=== PATIENT | female | born 1960 | race Caucasian/White ===

== ENCOUNTER 2016-08-23 09:15 | Emergency (ER) | payer OTHER ==
[2016-08-23 09:24] VITALS: BP 145/80; BMI 30.2
[2016-08-23] MEDS ORDERED: HYDROGEN PEROXIDE 3% ONE (09:41)
--- NOTE | 2016-08-23 09:59 | DR.GENAD ---
HPI - PCP Primary Care Physician: last [facility] in [place] - HPI Comment HPI Comment: NO LOC. DIFFICULTY BEARING WEIGHT. - Complaint/Symptoms Chief Complaint Doctors Comments: FELL THIS AM AND INJURED BOTH KNEES ON HER WAY TO WORK. Chief Complaint:: patient stated she fell on her way to work and landed on both knees. 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 - Family History History of Family Medical Conditions: Yes Family Medical History: Cancer - Social History Does patient currently use any type of tobacco product: Yes Have you used tobacco products in the last 12 months: Yes Type of Tobacco Use: Cigarettes Does any household member use tobacco: Yes Alcohol Use: None Do you use any recreational Drugs:: No Lives With: Family Lives Where: Home - infectious screening In the last 2 months have you had wt loss of >10#?: NO Have you had fever, night sweats or hemotysis?: No Have you traveled outside the country in the last 6 months?: No Isolation: Standard ROS - Review of Systems Constitutional: No Symptoms Reported Eyes: No Symptoms Reported ENTM: No Symptoms Reported Respiratoy: No Symptoms Reported Cardiovascular: No Symptoms Reported Gastrointestinal/Abdominal: No Symptoms Reported Genitourinary: No Symptoms Reported Neurological: No Symptoms Reported Musculoskeletal: Muscle Pain Integumentary: Other (ABRASION OVER BOTH KNEE CAP AREA. TD UTD) Hematologic/Lymphatic: Easy Bruising Endocrine: No Symptoms Reported, Other All Other Systems: Reviewed and Negative PE - Vital Signs Vitals: Temperature 98.6 F Pulse Rate 80 Respiratory Rate 16 Blood Pressure [Left Arm] 118/62 Blood Pressure [Right Arm] 131/65 Blood Pressure 145/80 O2 Sat by Pulse Oximetry 100 - General Limitations: No Limitations General Appearance: Alert - Head Head Exam: Normal Inspection - Eyes Eye exam: Normal Appearance - ENT ENT Exam: Normal External Ear Exam External Ear Exam: Normal External Inspection TM/Canal Exam: Bilateral Normal Nose Exam: Normal Nose Exam Mouth Exam: Normal Inspection Throat Exam: Normal Inspection - Neck Neck Exam: Trachea Midline. negative: Tenderness, Meningismus, Lymphadenopathy - Chest Chest Inspection: Symmetric Chest Wall Rise - Respiratory Respiratory Exam: Normal Lung Sounds Bilat Respiratory Exam: Bilateral Clear to Auscultation - Cardiovascular Cardiovascular Exam: Regular Rate, Normal Rhythm, Normal Heart Sounds - Abdominal Exam Abdominal Exam: Normal Inspection, Normal Bowel Sounds. negative: Tenderness - Extremities Extremities Exam: Tenderness (KNEES WITH ABRASIONS, LEFT GREATER THAN RIGHT.) - Back Back Exam: Normal Inspection - Neurologic Neurological Exam: Alert, Oriented X3 - Psychiatric Psychiatric Exam: Anxious - Skin Skin Exam: Erythema MDM - Additional Information Additional Information Obtained From: Family - Differential Diagnosis Differential Diagnosis: CONTUSION, ABRASIONS, SPRAIN, FRACTURE. Course - Treatment Treatment: SEE ORDERS. ABRASIONS CLEAN AND DRESSING APPLIED IN ED. - Education/Counseling Education/Counseling: Patient, Family, Education Educated On: Diagnosis, Needs for Follow Up ROR - XRAY XRAY Interpreted by: Radiologist XRAY Findings: REPORT DISCUSS WITH PATIENT AND HER SON. - Diagnosis Discharge Problem: Sprain of both knees, Abrasion of knee, bilateral, Contracture, right knee Knee contusion Qualifiers: Encounter type: initial encounter Laterality: left Qualified Code(s): S80.02XA - Contusion of left knee, initial encounter - Discharge Plan Disposition: HOME, SELF-CARE Condition: Stable Prescriptions: Acetaminophen/Codeine Tab [TYLENOL w/CODEINE #3 (300 MG/30 MG) *] 1 tab PO Q8H PRN #12 tab PRN Reason: Pain Ibuprofen [MOTRIN TAB 600 MG *] 600 mg PO TID PRN #60 tab PRN Reason: Pain/Inflammation - Follow ups/Referrals Follow ups/Referrals: NFD,None [Primary Care Provider] - 08/25/16 CARINE CORRALES [STAFF PHYSICIAN] - 08/25/16 - Instructions Instructions: Abrasion, [id number], Knee Sprain Additional Instructions: return to ed if worse.
--- NOTE | 2016-08-23 10:27 | RAD ---
Three views of the right knee Indication: Right knee pain after fall Findings: No fracture dislocation within the right knee. No significant joint effusion. No localizin g soft tissue swelling. Patellofemoral and femorotibial joint spaces are maintained. Impression: No acute radiographic abnormality within the right knee. Reported By:
--- NOTE | 2016-08-23 10:27 | RAD ---
HISTORY: Injury, fall, laceration Study: Left knee three view Comparison: None Findings: No evidence for acute cortical disruption or dislocation. The medial and lateral tibiofemoral mariano rtments appear unremarkable without loss of significant joint space. The lateral radiograph fails t o demonstrate significant joint effusion. Patellofemoral compartment is normal in its appearance. IMPRESSION: 1. Negative exam. Reported By:
[2016-08-23] MEDS ORDERED: NEOSPORIN OINT ONE (11:42)
== END 2016-08-23 11:57 | disposition home or self-care (01) ==
LOC: ER 09:31
DX: S83.92XA Sprain of unspecified site of left knee, initial encounter (principal); S80.02XA Contusion of left knee, initial encounter; S80.211A Abrasion, right knee, initial encounter; S80.212A Abrasion, left knee, initial encounter; M24.561 Contracture, right knee; W19.XXXA Unspecified fall, initial encounter; Y92.89 Other specified places as the place of occurrence of the external cause
CPT/HCPCS: 73564; 99282; 99283

== ENCOUNTER 2017-02-02 16:57 | Emergency (ER) | payer SELFPAY ==
--- NOTE | 2017-02-02 17:37 | DR.GENAD ---
HPI - PCP Primary Care Physician: NFD - HPI Comment HPI Comment: WORSE TODAY. NO FEVER. - Complaint/Symptoms Chief Complaint Doctors Comments: COULF, CONGESTION, ABDOMINAL PAIN, BODYACHES AND HEADACHE TIMES ONE DAY. Chief Complaint:: PT C/O N/V/D, HEADACHE, AND BODY ACHES. PT ALSO STATES SHE HAS BEEN HAVING CHEST PAIN WHEN SHE COUGHS. 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 negative: Chills, Fever Eyes: negative: Eye Pain, Discharge ENTM: Nose Discharge, Nose Congestion, Throat Pain. negative: Ear Pain Respiratoy: Productive Cough, Short of Breath. negative: Wheezing, Hemoptysis Gastrointestinal/Abdominal: Abdominal Pain, Nausea. negative: Diarrhea, Vomiting Genitourinary: negative: Dysuria, Frequency, Hematuria Neurological: Headache, Weakness, Dizziness Musculoskeletal: Muscle Pain Integumentary: No Symptoms Reported Hematologic/Lymphatic: No Symptoms Reported Endocrine: No Symptoms Reported All Other Systems: Reviewed and Negative PE - Vital Signs Vitals: Temperature 98.8 F Pulse Rate [Right Brachial] 87 Pulse Rate 90 Respiratory Rate 18 Blood Pressure [Left Arm] 118/62 Blood Pressure [Right Arm] 136/70 Blood Pressure 143/76 O2 Sat by Pulse Oximetry 99 - General Limitations: No Limitations General Appearance: Alert - Head Head Exam: Normal Inspection - Eyes Eye exam: Normal Appearance - ENT ENT Exam: Normal External Ear Exam External Ear Exam: Normal External Inspection TM/Canal Exam: Bilateral Normal Nose Exam: Normal Nose Exam Mouth Exam: Normal Inspection Throat Exam: Normal Inspection - Neck Neck Exam: Trachea Midline - Chest Chest Inspection: Symmetric Chest Wall Rise - Respiratory Respiratory Exam: Normal Lung Sounds Bilat Respiratory Exam: Bilateral Rhonchi, Lower Rhonchi - Cardiovascular Cardiovascular Exam: Regular Rate, Normal Rhythm, Normal Heart Sounds - Abdominal Exam Abdominal Exam: Normal Bowel Sounds, Soft, Tenderness Abdominal Tenderness: Diffuse, Moderate - Extremities Extremities Exam: Normal Inspection - Back Back Exam: Normal Inspection - Neurologic Neurological Exam: Alert, Oriented X3 - Psychiatric Psychiatric Exam: Normal Affect, Normal Mood - Skin Skin Exam: Normal Color MDM - Differential Diagnosis Differential Diagnosis: ABDOMINAL PAIN, BRONCHITIS, BOWEL OBST. GASTROENTERITIS Course - Treatment Treatment: SEE ORDERS. - Education/Counseling Education/Counseling: Patient, Education Educated On: Diagnosis, Needs for Follow Up ROR - Labs Reviewed Laboratory Results Reviewed?: Yes Result Diagrams: 02/02/17 18:00 02/02/17 18:00 Laboratory: WBC 7.4 X10^3/uL (3.6-10.0) 02/02/17 18:00 RBC 4.50 X10^6/uL (3.5-5.4) 02/02/17 18:00 Hgb 14.9 g/dL (12.0-16.0) 02/02/17 18:00 Hct 42.4 % (36.0-47.0) 02/02/17 18:00 MCV 94.2 fL (80.0-100.0) 02/02/17 18:00 MCH 33.0 pg (27.0-34.0) 02/02/17 18:00 MCHC 35.1 g/dL (33.0-35.0) H 02/02/17 18:00 RDW 13.8 % (11.6-16.5) 02/02/17 18:00 Plt Count 175 X10^3/uL (150.0-450.0) 02/02/17 18:00 MPV 8.4 fL (7.4-11.0) 02/02/17 18:00 Neut % 88.1 % (42.0-75.0) H 02/02/17 18:00 Lymph % 6.7 % (21.0-51.0) L 02/02/17 18:00 [place] % 3.9 % (0.0-13.0) 02/02/17 18:00 Eos % 1.0 % (0.9-2.9) 02/02/17 18:00 Baso % 0.3 % (0.2-1.0) 02/02/17 18:00 Neut # 6.6 x10^3/uL (2.2-4.8) H 02/02/17 18:00 Lymph # 0.5 X10^3/uL (1.3-2.9) L 02/02/17 18:00 [place] # 0.3 x10^3/uL (0.3-0.8) 02/02/17 18:00 Eos # 0.1 x10^3/uL (0.0-0.2) 02/02/17 18:00 Baso # 0.0 X10^3/uL (0.0-0.1) 02/02/17 18:00 Absolute Nucleated RBC 0.0 /100WBC 02/02/17 18:00 Sodium 134 mmol/L (136-145) L 02/02/17 18:00 Corrected Sodium 137 mmol/L (136-145) 02/02/17 18:00 Potassium 3.9 mmol/L (3.5-5.1) 02/02/17 18:00 Chloride 99 mmol/L (98-107) 02/02/17 18:00 Carbon Dioxide 27.7 mmol/L (21-32) 02/02/17 18:00 BUN 18 mg/dL (7-18) 02/02/17 18:00 Creatinine 0.84 mg/dL (0.55-1.02) 02/02/17 18:00 Est GFR (MDRD) Af Amer > 60 (>60) 02/02/17 18:00 Est GFR (MDRD) Non-Af > 60 (>60) 02/02/17 18:00 Glucose 215 mg/dL (65-99) H 02/02/17 18:00 Calcium 9.4 mg/dL (8.5-10.1) 02/02/17 18:00 Corrected Calcium TNP 02/02/17 18:00 Total Bilirubin 1.00 mg/dL (0.2-1.0) 02/02/17 18:00 AST 23 Units/L (15-37) 02/02/17 18:00 ALT 34 Units/L (12-78) 02/02/17 18:00 Alkaline Phosphatase 80 Units/L (46-116) 02/02/17 18:00 Total Protein 8.2 g/dL (6.4-8.2) 02/02/17 18:00 Albumin 4.5 g/dL (3.4-5.0) 02/02/17 18:00 Globulin 3.7 g/dL (2.5-4.5) 02/02/17 18:00 Albumin/Globulin Ratio 1.2 Ratio (1.1-2.1) 02/02/17 18:00 Specimen Type Clean catch urine 02/02/17 18:00 Urine Color Yellow (YELLOW) 02/02/17 18:00 Urine Appearance Hazy (CLEAR) 02/02/17 18:00 Urine pH 5.0 (5.0 - 8.0) 02/02/17 18:00 Ur Specific [place] 1.020 (1.000-1.030) 02/02/17 18:00 Urine Protein 2+ (NEGATIVE) 02/02/17 18:00 Urine Glucose (UA) 3+ (NEGATIVE) 02/02/17 18:00 Urine Ketones 1+ (NEGATIVE) 02/02/17 18:00 Urine Occult Blood Negative (NEGATIVE) 02/02/17 18:00 Urine Nitrite Negative (NEGATIVE) 02/02/17 18:00 Urine Bilirubin 1+ (NEGATIVE) 02/02/17 18:00 Urine Urobilinogen 1+ (NORMAL) 02/02/17 18:00 Ur Leukocyte Esterase 2+ (NEGATIVE) 02/02/17 18:00 Urine RBC Rare /HPF (NEGATIVE) 02/02/17 18:00 Urine WBC 03 - 06 /HPF (NEGATIVE) 02/02/17 18:00 Ur Squamous Epith Cells Many /HPF (NEGATIVE) 02/02/17 18:00 Ur Renal Epithelial Cell Rare /HPF (NEGATIVE) 02/02/17 18:00 Amorphous Sediment 2+ /HPF (NEGATIVE) 02/02/17 18:00 Urine Bacteria 1+ /HPF (NEGATIVE) 02/02/17 18:00 Urine Mucus Moderate /HPF (NEGATIVE) 02/02/17 18:00 Ur Culture Indicated? No/not indicated 02/02/17 18:00 - XRAY XRAY Interpreted by: Radiologist XRAY Findings: REPORT DISCUSS WITH PATIENT. - Diagnosis Discharge Problem: Gastroenteritis Acute bronchitis Qualifiers: Bronchitis organism: other organism Qualified Code(s): J20.8 - Acute bronchitis due to other specified organisms Abdominal pain Qualifiers: Abdominal location: generalized Qualified Code(s): R10.84 - Generalized abdominal pain - Discharge Plan Disposition: 01 HOME, SELF-CARE Condition: Stable Prescriptions: Acetaminophen with Codeine [Tylenol/Codeine #3 300-30 mg] 1 tab PO Q8H PRN #12 tab PRN Reason: Pain Ciprofloxacin HCl [CIPRO 500 MG TAB *] 500 mg PO Q12H #20 tab Diphenoxylate/Atropine [Lomotil] 1 tab PO TID PRN #15 tab PRN Reason: - Follow ups/Referrals Follow ups/Referrals: NFD,None [Primary Care Provider] - 3 days - Instructions Instructions: Viral Gastroenteritis, Adult, [id number]-[id number], Acute Bronchitis, Lipd-ia-[id number], Abdominal Pain, Adult, Mqnm-[id number] Additional Instructions: RETURN TO ED IF WORSE.
[2017-02-02 18:09] LABS: BILIRUBIN,URINE 1+ (NEGATIVE); BLOOD/HEMOGLOBIN,URINE NEGATIVE (NEGATIVE); GLUCOSE, URINE 3+ (NEGATIVE); KETONES,URINE 1+ (NEGATIVE); LEUKOCYTE ESTERASE ,URINE 2+ (NEGATIVE); NITRITES,URINE NEGATIVE (NEGATIVE); PROTEIN,URINE 2+ (NEGATIVE); UROBILINOGEN,URINE 1+ (NORMAL)
[2017-02-02 18:10] LABS: BASOPHILS % (AUTO) 0.3 % (0.2-1.0); EOSINOPHILS # (AUTO) 0.1 x10^3/uL (0.0-0.2); HEMATOCRIT 42.4 % (36.0-47.0); HEMOGLOBIN 14.9 g/dL (12.0-16.0); LYMPHOCYTES # (AUTO) 0.5 X10^3/uL (1.3-2.9); LYMPHOCYTES % (AUTO) 6.7 % (21.0-51.0); MEAN CORPUSCULAR HGB CONC 35.1 g/dL (33.0-35.0); MEAN CORPUSCULAR VOLUME 94.2 fL (80.0-100.0); MEAN PLATELET VOLUME 8.4 fL (7.4-11.0); MONOCYTES # (AUTO) 0.3 x10^3/uL (0.3-0.8); MONOCYTES % (AUTO) 3.9 % (0.0-13.0); NEUTROPHILS # (AUTO) 6.6 x10^3/uL (2.2-4.8); NEUTROPHILS % (AUTO) 88.1 % (42.0-75.0); PLATELET COUNT 175 X10^3/uL (150.0-450.0); RED CELL DISTRIBUTION WIDTH 13.8 % (11.6-16.5); WHITE BLOOD COUNT 7.4 X10^3/uL (3.6-10.0)
[2017-02-02 18:20] LABS: ALANINE AMINOTRANSFERASE 34 Units/L (12-78); ALBUMIN 4.5 g/dL (3.4-5.0); ALKALINE PHOSPHATASE 80 Units/L (46-116); ASPARTATE AMINO TRANSFERASE 23 Units/L (15-37); BLOOD UREA NITROGEN 18 mg/dL (7-18); CALCIUM 9.4 mg/dL (8.5-10.1); CARBON DIOXIDE 27.7 mmol/L (21-32); CHLORIDE 99 mmol/L (98-107); COR NA(FOR HYPERGLY) 137 mmol/L (136-145); CREATININE 0.84 mg/dL (0.55-1.02); SODIUM 134 mmol/L (136-145); TOTAL PROTEIN 8.2 g/dL (6.4-8.2); eGFR BLACK RACES > 60 (>60); eGFR NON BLACK RACES > 60 (>60)
[2017-02-02 18:25] LABS: AMORPHOUS SEDIMENT,UR 2+ /HPF (NEGATIVE); APPEARANCE,URINE HAZY (CLEAR); BACTERIA,URINE 1+ /HPF (NEGATIVE); COLOR,URINE YELLOW (YELLOW); MUCUS,URINE MODERATE /HPF (NEGATIVE); RBC,URINE RARE /HPF (NEGATIVE); RENAL EPITHELIAL CELLS,URINE RARE /HPF (NEGATIVE); SQUAMOUS EPITHELIAL CELL,UR MANY /HPF (NEGATIVE)
--- NOTE | 2017-02-02 19:01 | RAD ---
HISTORY: Chest and abdominal pain Study: Acute abdominal series Comparison: None Findings: The trachea is midline. The cardiac silhouette is unremarkable. The lungs are clear without focal i nfiltrate or effusion. There is mild dextroscoliosis of the thoracic spine and levoscoliosis of the lumbar spine.. Flat plate and upright evaluation of the abdomen demonstrates a prominent amount of fecal material in the colon. There are cholecystectomy clips.. No pathological soft tissue mass or calcification can be observed. IMPRESSION: 1. No acute cardiopulmonary disease. 2. No evidence for acute abdominal pathology identified. Reported By:
[2017-02-02] MEDS ORDERED: AMOXIL CAP 500 MG PO ONE (19:24)
[2017-02-02] MEDS ORDERED: TYLENOL #3 TAB (W/CODEINE) PO ONE ×2 (19:27→19:37)
[2017-02-02] MEDS ORDERED: LOMOTIL PO ONE (19:27)
[2017-02-02] MEDS ORDERED: CIPRO TAB 500 MG PO ONE ×2 (19:27→19:37)
[2017-02-02] MEDS ORDERED: LOMOTIL ONE (19:37)
[2017-02-02 19:47] VITALS: BP 136/70
== END 2017-02-02 19:48 | disposition home or self-care (01) ==
LOC: ER 17:12
DX: K52.89 Other specified noninfective gastroenteritis and colitis (principal); J20.8 Acute bronchitis due to other specified organisms; R10.84 Generalized abdominal pain
CPT/HCPCS: 36415; 74022; 80053; 81001; 85025; 99283

== ENCOUNTER 2017-05-27 16:19 | Emergency (ER) | payer SELFPAY ==
[2017-05-27 17:31] LABS: BILIRUBIN,URINE NEGATIVE (NEGATIVE); BLOOD/HEMOGLOBIN,URINE 4+ (NEGATIVE); GLUCOSE, URINE 4+ (NEGATIVE); KETONES,URINE NEGATIVE (NEGATIVE); LEUKOCYTE ESTERASE ,URINE 2+ (NEGATIVE); NITRITES,URINE NEGATIVE (NEGATIVE); PROTEIN,URINE 2+ (NEGATIVE); UROBILINOGEN,URINE 1+ (NORMAL)
--- NOTE | 2017-05-27 17:41 | DR.GENAD ---
HPI - PCP Primary Care Physician: NFD - Complaint/Symptoms Chief Complaint:: PT. C/O LOWER BACK PAIN, URINARY FREQUENCY, SORE THROAT, RIGHT FOOT PAIN AND SWELLING, COUGH, AND DIZZINESS. PT. HAS BEEN OUT OF HER ORAL DIABETIC MEDICATION SINCE SUNDAY. 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 - Family History History of Family Medical Conditions: Yes Family Medical History: Cancer - Social History Does patient currently use any type of tobacco product: No Have you used tobacco products in the last 12 months: No Type of Tobacco Use: None Does any household member use tobacco: No Alcohol Use: None Do you use any recreational Drugs:: No Lives With: Family Lives Where: Home - infectious screening In the last 2 months have you had wt loss of >10#?: NO Have you had fever, night sweats or hemotysis?: No Have you traveled outside the country in the last 6 months?: No Isolation: Standard PE - Vital Signs Vitals: Temperature 97.5 F Pulse Rate 86 Respiratory Rate 18 Blood Pressure [Left Arm] 118/62 Blood Pressure [Right Arm] 136/70 Blood Pressure 142/71 O2 Sat by Pulse Oximetry 97 ROR - Labs Reviewed Result Diagrams: 05/27/17 17:49 05/27/17 17:49 Laboratory: WBC 7.5 X10^3/uL (3.6-10.0) 05/27/17 17:49 RBC 4.11 X10^6/uL (3.5-5.4) 05/27/17 17:49 Hgb 13.5 g/dL (12.0-16.0) 05/27/17 17:49 Hct 37.9 % (36.0-47.0) 05/27/17 17:49 MCV 92.4 fL (80.0-100.0) 05/27/17 17:49 MCH 32.8 pg (27.0-34.0) 05/27/17 17:49 MCHC 35.5 g/dL (33.0-35.0) H 05/27/17 17:49 RDW 13.9 % (11.6-16.5) 05/27/17 17:49 Plt Count 175 X10^3/uL (150.0-450.0) 05/27/17 17:49 MPV 8.4 fL (7.4-11.0) 05/27/17 17:49 Neut % 61.7 % (42.0-75.0) 05/27/17 17:49 Lymph % 29.0 % (21.0-51.0) 05/27/17 17:49 [place] % 6.1 % (0.0-13.0) 05/27/17 17:49 Eos % 2.4 % (0.9-2.9) 05/27/17 17:49 Baso % 0.8 % (0.2-1.0) 05/27/17 17:49 Neut # 4.6 x10^3/uL (2.2-4.8) 05/27/17 17:49 Lymph # 2.2 X10^3/uL (1.3-2.9) 05/27/17 17:49 [place] # 0.5 x10^3/uL (0.3-0.8) 05/27/17 17:49 Eos # 0.2 x10^3/uL (0.0-0.2) 05/27/17 17:49 Baso # 0.1 X10^3/uL (0.0-0.1) 05/27/17 17:49 Absolute Nucleated RBC 0.0 /100WBC 05/27/17 17:49 Sodium 138 mmol/L (136-145) 05/27/17 17:49 Corrected Sodium 141 mmol/L (136-145) 05/27/17 17:49 Potassium 4.4 mmol/L (3.5-5.1) 05/27/17 17:49 Chloride 100 mmol/L (98-107) 05/27/17 17:49 Carbon Dioxide 32.1 mmol/L (21-32) H 05/27/17 17:49 BUN 15 mg/dL (7-18) 05/27/17 17:49 Creatinine 0.81 mg/dL (0.55-1.02) 05/27/17 17:49 Est GFR (MDRD) Af Amer > 60 (>60) 05/27/17 17:49 Est GFR (MDRD) Non-Af > 60 (>60) 05/27/17 17:49 Glucose 244 mg/dL (65-99) H 05/27/17 17:49 Calcium 9.7 mg/dL (8.5-10.1) 05/27/17 17:49 Corrected Calcium TNP 05/27/17 17:49 Total Bilirubin 0.60 mg/dL (0.2-1.0) 05/27/17 17:49 AST 19 Units/L (15-37) 05/27/17 17:49 ALT 28 Units/L (12-78) 05/27/17 17:49 Alkaline Phosphatase 74 Units/L (46-116) 05/27/17 17:49 Total Protein 7.8 g/dL (6.4-8.2) 05/27/17 17:49 Albumin 4.3 g/dL (3.4-5.0) 05/27/17 17:49 Globulin 3.5 g/dL (2.5-4.5) 05/27/17 17:49 Albumin/Globulin Ratio 1.2 Ratio (1.1-2.1) 05/27/17 17:49 Specimen Type Clean catch urine 05/27/17 17:21 Urine Color Yellow (YELLOW) 05/27/17 17:21 Urine Appearance Cloudy (CLEAR) 05/27/17 17:21 Urine pH 5.0 (5.0 - 8.0) 05/27/17 17:21 Ur Specific [place] 1.025 (1.000-1.030) 05/27/17 17:21 Urine Protein 2+ (NEGATIVE) 05/27/17 17:21 Urine Glucose (UA) 4+ (NEGATIVE) 05/27/17 17:21 Urine Ketones Negative (NEGATIVE) 05/27/17 17:21 Urine Occult Blood 4+ (NEGATIVE) 05/27/17 17:21 Urine Nitrite Negative (NEGATIVE) 05/27/17 17:21 Urine Bilirubin Negative (NEGATIVE) 05/27/17 17:21 Urine Urobilinogen 1+ (NORMAL) 05/27/17 17:21 Ur Leukocyte Esterase 2+ (NEGATIVE) 05/27/17 17:21 Urine RBC 02 - 05 /HPF (NEGATIVE) 05/27/17 17:21 Urine WBC 03 - 06 /HPF (NEGATIVE) 05/27/17 17:21 Ur Squamous Epith Cells Many /HPF (NEGATIVE) 05/27/17 17:21 Amorphous Sediment 2+ /HPF (NEGATIVE) 05/27/17 17:21 Urine Bacteria Trace /HPF (NEGATIVE) 05/27/17 17:21 Hyaline Casts Rare /LPF (NEGATIVE) 05/27/17 17:21 Ur Culture Indicated? No/not indicated 05/27/17 17:21 Acetone, Semi-Quant Negative (NEGATIVE) 05/27/17 17:49 Influenza Type A (PCR) Negative (NEGATIVE) 05/27/17 17:47 Influenza Type B (PCR) Negative (NEGATIVE) 05/27/17 17:47 S. pyogenes (TEM-PCR) Not detected (NOT DETECT) 05/27/17 17:47 - Discharge Plan Condition: Stable Prescriptions: Ciprofloxacin HCl [CIPRO 500 MG TAB *] 500 mg PO Q12H #20 tab Ibuprofen [MOTRIN TAB 600 MG *] 600 mg PO TID PRN #20 tab PRN Reason: Pain/Inflammation Metformin HCl [GLUCOPHAGE 850 MG *] 850 mg PO BID #60 tab - Follow ups/Referrals Follow ups/Referrals: NFD,None [Primary Care Provider] - 3 days - Instructions Instructions: Hyperglycemia, Acute Bronchitis, [id number] Additional Instructions: RETURN TO ED IF WORSE.
[2017-05-27 17:54] LABS: AMORPHOUS SEDIMENT,UR 2+ /HPF (NEGATIVE); APPEARANCE,URINE CLOUDY (CLEAR); BACTERIA,URINE TRACE /HPF (NEGATIVE); COLOR,URINE YELLOW (YELLOW); HYALINE CASTS, URINE RARE /LPF (NEGATIVE); SQUAMOUS EPITHELIAL CELL,UR MANY /HPF (NEGATIVE)
[2017-05-27 17:58] LABS: BASOPHILS # (AUTO) 0.1 X10^3/uL (0.0-0.1); BASOPHILS % (AUTO) 0.8 % (0.2-1.0); EOSINOPHILS # (AUTO) 0.2 x10^3/uL (0.0-0.2); EOSINOPHILS % (AUTO) 2.4 % (0.9-2.9); HEMATOCRIT 37.9 % (36.0-47.0); HEMOGLOBIN 13.5 g/dL (12.0-16.0); LYMPHOCYTES # (AUTO) 2.2 X10^3/uL (1.3-2.9); MEAN CORPUSCULAR HEMOGLOBIN 32.8 pg (27.0-34.0); MEAN CORPUSCULAR HGB CONC 35.5 g/dL (33.0-35.0); MEAN CORPUSCULAR VOLUME 92.4 fL (80.0-100.0); MEAN PLATELET VOLUME 8.4 fL (7.4-11.0); MONOCYTES # (AUTO) 0.5 x10^3/uL (0.3-0.8); MONOCYTES % (AUTO) 6.1 % (0.0-13.0); NEUTROPHILS # (AUTO) 4.6 x10^3/uL (2.2-4.8); NEUTROPHILS % (AUTO) 61.7 % (42.0-75.0); PLATELET COUNT 175 X10^3/uL (150.0-450.0); RED BLOOD COUNT 4.11 X10^6/uL (3.5-5.4); RED CELL DISTRIBUTION WIDTH 13.9 % (11.6-16.5); WHITE BLOOD COUNT 7.5 X10^3/uL (3.6-10.0)
[2017-05-27 18:08] LABS: ALANINE AMINOTRANSFERASE 28 Units/L (12-78); ALBUMIN 4.3 g/dL (3.4-5.0); ALKALINE PHOSPHATASE 74 Units/L (46-116); ASPARTATE AMINO TRANSFERASE 19 Units/L (15-37); BLOOD UREA NITROGEN 15 mg/dL (7-18); CALCIUM 9.7 mg/dL (8.5-10.1); CARBON DIOXIDE 32.1 mmol/L (21-32); CHLORIDE 100 mmol/L (98-107); COR NA(FOR HYPERGLY) 141 mmol/L (136-145); CREATININE 0.81 mg/dL (0.55-1.02); SERUM ACETONE NEGATIVE (NEGATIVE); SODIUM 138 mmol/L (136-145); TOTAL PROTEIN 7.8 g/dL (6.4-8.2); eGFR BLACK RACES > 60 (>60); eGFR NON BLACK RACES > 60 (>60)
--- NOTE | 2017-05-27 18:24 | RAD ---
Examination: Portable AP chest History: Low back pain, sore throat, cough and dizzy Comparison reference 03/30/2013 Findings: Normal heart size with clear lungs and pleural spaces. Lower thoracic scoliosis. Impression: No acute chest findings. Reported By:
[2017-05-27] MEDS ORDERED: LEVAQUIN TAB 500 MG PO ONE (19:04)
[2017-05-27] MEDS ORDERED: TORADOL TAB PO ONE ×2 (19:04→19:14)
[2017-05-27] MEDS ORDERED: GLUCOPHAGE PO ONE (19:12)
[2017-05-27] MEDS ORDERED: LEVAQUIN TAB 500 MG ONE (19:14)
[2017-05-27] MEDS ORDERED: GLUCOPHAGE ONE (19:16)
[2017-05-27 20:48] VITALS: BP 175/84
== END 2017-05-27 20:35 | disposition home or self-care (01) ==
LOC: ER 16:32
DX: R73.9 Hyperglycemia, unspecified (principal); J20.9 Acute bronchitis, unspecified
CPT/HCPCS: 36415; 71045; 80053; 81001; 82009; 85025; 87502; 87651; 99282; 99283

== ENCOUNTER 2017-08-13 08:36 | Emergency (ER) | payer SELFPAY ==
[2017-08-13 08:44] VITALS: BP 153/77; BMI 30.1
--- NOTE | 2017-08-13 09:12 | DR.GENAD ---
HPI - PCP Primary Care Physician: DR. CORRALES - HPI Comment HPI Comment: WORSE TODAY. - Complaint/Symptoms Chief Complaint Doctors Comments: PAIN AND SWELLING RT RING FEVER TIMES 2 DAYS. 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, 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 - Family History History of Family Medical Conditions: Yes Family Medical History: Cancer - Social History Does patient currently use any type of tobacco product: No Have you used tobacco products in the last 12 months: No Type of Tobacco Use: None Does any household member use tobacco: No Do you use any recreational Drugs:: No Lives With: Family Lives Where: Home - infectious screening In the last 2 months have you had wt loss of >10#?: NO Have you had fever, night sweats or hemotysis?: No Have you traveled outside the country in the last 6 months?: No Isolation: Standard ROS - Review of Systems Constitutional: No Symptoms Reported. negative: Fever Eyes: No Symptoms Reported ENTM: No Symptoms Reported Respiratoy: No Symptoms Reported Cardiovascular: No Symptoms Reported Gastrointestinal/Abdominal: No Symptoms Reported Genitourinary: No Symptoms Reported Neurological: No Symptoms Reported Musculoskeletal: Right, Hand Integumentary: Change in Color, Other (REDNESS AND SWELLING RT RING FINGER.) Hematologic/Lymphatic: No Symptoms Reported Endocrine: No Symptoms Reported PE - Vital Signs Vitals: Temperature 97.6 F Pulse Rate 84 Respiratory Rate 20 Blood Pressure [Left Arm] 118/62 Blood Pressure [Right Arm] 175/84 Blood Pressure 153/77 O2 Sat by Pulse Oximetry 98 - General Limitations: No Limitations General Appearance: Alert - Head Head Exam: Normal Inspection - Eyes Eye exam: Normal Appearance - ENT ENT Exam: Normal External Ear Exam External Ear Exam: Normal External Inspection Throat Exam: Normal Inspection - Neck Neck Exam: Trachea Midline - Chest Chest Inspection: Symmetric Chest Wall Rise - Respiratory Respiratory Exam: Normal Lung Sounds Bilat Respiratory Exam: Bilateral Clear to Auscultation - Cardiovascular Cardiovascular Exam: Regular Rate, Normal Rhythm, Normal Heart Sounds - Abdominal Exam Abdominal Exam: Normal Inspection - Extremities Extremities Exam: Tenderness (RT RING FINGER SWOLLEN AND RED. SONU WITH PAIN.) - Neurologic Neurological Exam: Alert, Oriented X3 - Psychiatric Psychiatric Exam: Normal Affect, Normal Mood - Skin Skin Exam: Erythema MDM - Differential Diagnosis Differential Diagnosis: FINGER INFECTION RT RING FINGER. Course - Treatment Treatment: SEE ODERS. - Education/Counseling Education/Counseling: Patient, Education Educated On: Diagnosis, Needs for Follow Up - Diagnosis Discharge Problem: Finger infection - Discharge Plan Condition: Stable Prescriptions: Ibuprofen [MOTRIN TAB 600 MG *] 600 mg PO TID PRN #30 tab PRN Reason: Pain/Inflammation Sulfamethoxazole-Trimethoprim [BACTRIM DS TAB 800/160 MG *] 1 tab PO BID #20 tab - Follow ups/Referrals Follow ups/Referrals: CARINE CORRALES [Primary Care Provider] - 2 days - Instructions Instructions: Cellulitis, Adult, [id number], Fingertip Infection Additional Instructions: RETURN TO ED IF WORSE.
== END 2017-08-13 09:22 | disposition home or self-care (01) ==
LOC: ER 08:52
DX: L08.9 Local infection of the skin and subcutaneous tissue, unspecified (principal)
CPT/HCPCS: 99281; 99282

== ENCOUNTER 2017-08-22 22:41 | Emergency (ER) | payer SELFPAY ==
[2017-08-22 22:48] VITALS: BP 139/75; BMI 29.8
--- NOTE | 2017-08-22 23:58 | DR.EXTPAIN ---
HPI - Time seen Time seen: 23:55 - PCP Primary Care Physician: NFD - Complaint/Symptoms Chief Complaint:: RIGHT RING FINGER SWOLLEN,RED BUSTING OPEN. PT CAME TO ER LAST WEEK ON 08/13/[address] DE SOUZA. WAS TOLD IT WAS CELLULITIS, GIVEN SULFAMETHOXAZOLE ONE TAB BID.PT STATES I HAVE BEEN PUTTING BLACK MERLINE ON FINGER WITH BANDAID DURING THE DAY TIME. 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 - Family History History of Family Medical Conditions: Yes Family Medical History: Cancer - Social History Does any household member use tobacco: Yes Do you use any recreational Drugs:: No Lives With: Family Lives Where: Home - infectious screening In the last 2 months have you had wt loss of >10#?: NO Have you had fever, night sweats or hemotysis?: No Have you traveled outside the country in the last 6 months?: No Isolation: Standard ROS - Review of Systems Eyes: No Symptoms Reported ENTM: No Symptoms Reported Respiratoy: No Symptoms Reported Cardiovascular: No Symptoms Reported Gastrointestinal/Abdominal: No Symptoms Reported Genitourinary: No Symptoms Reported Neurological: No Symptoms Reported Musculoskeletal: No Symptoms Reported Integumentary: No Symptoms Reported Hematologic/Lymphatic: No Symptoms Reported Endocrine: No Symptoms Reported Psychiatric: No Symptoms Reported All Other Systems: Reviewed and Negative PE - Vital Signs Vitals: Temperature 97.9 F Pulse Rate 77 Respiratory Rate 22 Blood Pressure [Left Arm] 118/62 Blood Pressure [Right Arm] 175/84 Blood Pressure 139/75 O2 Sat by Pulse Oximetry 98 - General General Appearance: Alert, In No Apparent Distress - Head Head Exam: Normal Inspection, Atraumatic - Eyes Eye exam: Normal Appearance, PERRL, EOMI - ENT ENT Exam: Normal Exam - Neck Neck Exam: Normal Inspection, Full ROM - Chest Chest Inspection: Normal Inspection - Cardiovascular Cardiovascular Exam: Regular Rate, Normal Rhythm - Abdominal Exam Abdominal Exam: Normal Inspection Abdominal Tenderness: negative: RUQ, RLQ, LUQ, LLQ, Epigastrium, Suprapubic, Diffuse, Mild, Moderate, Severe, Other - Extremities Extremities Exam: Normal Inspection, Full ROM - Upper Extremities Shoulder Exam: Normal Inspection, Full ROM Arm Exam: Normal Inspection, Full ROM Elbow Exam: Normal Inspection, Full ROM Forearm Exam: Normal Inspection, Full ROM Hand Exam: Normal Inspection Neuromotor Exam: Normal Exam Neurosensory Exam: Normal Exam Hand Tendon Exam: Flexor Digitorium Profundus (Location) Upper Ext. Vascular Exam: Capillary Refill - Lower Extremities Hip/Pelvis Exam: Normal Inspection, Full ROM Upper Leg Exam: Normal Inspection Knee Exam: Normal Inspection Lower Leg Exam: Normal Inspection, Full ROM Ankle Exam: Normal Inspection Foot/Toe Exam: Normal Inspection Neurovascular/Tendon Exam: Normal Capillary Refill Gait Exam: Observed and Normal - Back Back Exam: Normal Inspection, Full ROM - Neurological Neurological Exam: Alert, Oriented X3, CN II-XII Intact - Psychiatric Psychiatric Exam: Normal Affect, Normal Mood - Skin Skin Exam: Warm, Dry, Erythema (4th digit of right, erythematous, edematous w/o warmth ) Type of Lesion: Rash ROR - Labs Reviewed Result Diagrams: 08/23/17 00:22 Laboratory: WBC 6.8 X10^3/uL (3.6-10.0) 08/23/17 00:22 RBC 3.95 X10^6/uL (3.5-5.4) 08/23/17 00:22 Hgb 12.8 g/dL (12.0-16.0) 08/23/17 00:22 Hct 36.6 % (36.0-47.0) 08/23/17 00:22 MCV 92.8 fL (80.0-100.0) 08/23/17 00:22 MCH 32.5 pg (27.0-34.0) 08/23/17 00:22 MCHC 35.0 g/dL (33.0-35.0) 08/23/17 00:22 RDW 13.2 % (11.6-16.5) 08/23/17 00:22 Plt Count 199 X10^3/uL (150.0-450.0) 08/23/17 00:22 MPV 8.9 fL (7.4-11.0) 08/23/17 00:22 Neut % (Auto) 56.2 % (42.0-75.0) 08/23/17 00:22 Lymph % (Auto) 31.1 % (21.0-51.0) 08/23/17 00:22 [place] % (Auto) 8.7 % (0.0-13.0) 08/23/17 00:22 Eos % (Auto) 3.3 % (0.9-2.9) H 08/23/17 00:22 Baso % (Auto) 0.7 % (0.2-1.0) 08/23/17 00:22 Neut # (Auto) 3.8 x10^3/uL (2.2-4.8) 08/23/17 00:22 Lymph # (Auto) 2.1 X10^3/uL (1.3-2.9) 08/23/17 00:22 [place] # (Auto) 0.6 x10^3/uL (0.3-0.8) 08/23/17 00:22 Eos # (Auto) 0.2 x10^3/uL (0.0-0.2) 08/23/17 00:22 Baso # (Auto) 0.0 X10^3/uL (0.0-0.1) 08/23/17 00: Absolute Nucleated RBC 0.0 /100WBC 08/23/17 00:22 C-Reactive Protein 4.80 mg/L (0-3.0) H 08/23/17 00:22 - Diagnosis Discharge Problem: Cellulitis of finger of right hand - Discharge Plan Condition: Stable - Follow ups/Referrals Follow ups/Referrals: NFD,None [Primary Care Provider] - 3 days - Instructions
[2017-08-22] MEDS ORDERED: CLEOCIN 300 MG IV PREMIX 300 MG/50 ML BAG IV ONE (23:59)
[2017-08-22] MEDS ORDERED: CLEOCIN 600 MG IV PREMIX 600 MG/50 ML BAG IV ONE (23:59)
[2017-08-23] MEDS ORDERED: CLEOCIN VIAL 600 MG ONE (00:01)
[2017-08-23] MEDS ORDERED: CLEOCIN 300 MG IV PREMIX 300 MG/50 ML BAG IV ONE (00:01)
[2017-08-23] MEDS ORDERED: NS 1000 ML 1,000 ML ONE (00:02)
[2017-08-23 00:44] LABS: BASOPHILS % (AUTO) 0.7 % (0.2-1.0); EOSINOPHILS # (AUTO) 0.2 x10^3/uL (0.0-0.2); EOSINOPHILS % (AUTO) 3.3 % (0.9-2.9); HEMATOCRIT 36.6 % (36.0-47.0); HEMOGLOBIN 12.8 g/dL (12.0-16.0); LYMPHOCYTES # (AUTO) 2.1 X10^3/uL (1.3-2.9); LYMPHOCYTES % (AUTO) 31.1 % (21.0-51.0); MEAN CORPUSCULAR HEMOGLOBIN 32.5 pg (27.0-34.0); MEAN CORPUSCULAR VOLUME 92.8 fL (80.0-100.0); MEAN PLATELET VOLUME 8.9 fL (7.4-11.0); MONOCYTES # (AUTO) 0.6 x10^3/uL (0.3-0.8); MONOCYTES % (AUTO) 8.7 % (0.0-13.0); NEUTROPHILS # (AUTO) 3.8 x10^3/uL (2.2-4.8); NEUTROPHILS % (AUTO) 56.2 % (42.0-75.0); PLATELET COUNT 199 X10^3/uL (150.0-450.0); RED BLOOD COUNT 3.95 X10^6/uL (3.5-5.4); RED CELL DISTRIBUTION WIDTH 13.2 % (11.6-16.5); WHITE BLOOD COUNT 6.8 X10^3/uL (3.6-10.0)
== END 2017-08-23 01:52 | disposition home or self-care (01) ==
LOC: ER 22:41
DX: L03.011 Cellulitis of right finger (principal)
CPT/HCPCS: 36415; 85025; 86140; 96365; 96374; 99282; 99283; A4222; S0077

== ENCOUNTER 2018-02-04 06:44 | Inpatient (IN) ==
[2018-02-04 06:52] VITALS: BMI 27.4
[2018-02-04] MEDS ORDERED: ZOFRAN INJ 4 MG VIAL IVP ONE ×2 (07:19)
[2018-02-04] MEDS ORDERED: TORADOL 30 MG VIAL IVP ONE (07:19)
[2018-02-04] MEDS ORDERED: NS 1000 ML 1,000 ML IV ONE ×2 (07:19→08:48)
[2018-02-04] MEDS ORDERED: NS 1000 ML 1,000 ML ONE ×2 (07:23→08:48)
[2018-02-04] MEDS ORDERED: TORADOL 30 MG VIAL ONE (07:23)
[2018-02-04] MEDS ORDERED: ZOFRAN INJ 4 MG VIAL ONE (07:23)
--- NOTE | 2018-02-04 07:24 | DR.GENAD ---
HPI Time Seen Time Seen by Provider: 02/04/18 07:14 PCP Primary Care Physician: SONIDO HPI Comment HPI Comment: PATIENT IS DIZZY AND WEAK. NO FEVER OR DYSURIA. KNOWN DIABETIC ON ORAL HYPOGLYCEMIC. PATIENT IS NAUSEATED BUT NOT VOMITING. Complaint/Symptoms Chief Complaint Doctors Comments: BODYACHES, GENERALIZE WEAKNESS, HEADACHE AND FATIGUE. FEEL SHE IS DEHYDRATED. Chief Complaint:: PT. C/O GENERALIZED BODY PAIN, CHEST PAIN, HEADACHE & DEHYDRATION. Nurses notes reviewed Nurses Notes Review: Yes Source History Provided: Patient Mode of Arrival Mode of Arrival: Ambulatory Timing Onset of Chief Complaint: 02/01/18 Came on: Suddenly Duration Duration: Constant Duration: Days Severity Severity: Moderate Modifying Factors Worsens:: NONE. Improves:: NONE. Associated Signs and Symptoms Associated Signs and Symptoms: WEAKNESS, BODYACHES, DIZZINESS. 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 Family History History of Family Medical Conditions: Yes Family Medical History: Cancer Social History Does patient currently use any type of tobacco product: No Have you used tobacco products in the last 12 months: No Type of Tobacco Use: None Does any household member use tobacco: No Alcohol Use: None Do you use any recreational Drugs:: No Lives With: Alone Lives Where: Home infectious screening In the last 2 months have you had wt loss of >10#?: NO Have you had fever, night sweats or hemotysis?: No Have you traveled outside the country in the last 6 months?: No Isolation: Standard ROS Review of Systems Constitutional: Weakness and Fatigue Eyes: No Symptoms Reported ENTM: No Symptoms Reported Respiratoy: No Symptoms Reported Cardiovascular: No Symptoms Reported Gastrointestinal/Abdominal: Abdominal Pain Genitourinary: No Symptoms Reported Neurological: Headache and Weakness Musculoskeletal: Muscle Pain Integumentary: Dryness Hematologic/Lymphatic: No Symptoms Reported Endocrine: Increased Thirst and Increased Urine Psychiatric: No Symptoms Reported All Other Systems: Reviewed and Negative PE Vital Signs Vitals: Temperature 97.9 F Pulse Rate 89 Respiratory Rate 18 Blood Pressure [Left Arm] 118/62 Blood Pressure [Right Arm] 175/84 Blood Pressure 115/58 O2 Sat by Pulse Oximetry 96 General Limitations: No Limitations General Appearance: Alert and In Distress Head Head Exam: Normal Inspection and Atraumatic Eyes Eye exam: Normal Appearance, PERRL and EOMI; negative Scleral Icterus and Conjunctival Injection ENT ENT Exam: Normal Exam, Normal Oropharynx, Normal External Ear Exam, Mucous Membranes Dry and TM's Normal Bilaterally External Ear Exam: Normal External Inspection TM/Canal Exam: Bilateral: Normal Nose Exam: Normal Nose Exam Mouth Exam: Normal Inspection Throat Exam: Normal Inspection Neck Neck Exam: Normal Inspection and Trachea Midline; negative Tenderness, Meningismus and Lymphadenopathy Chest Chest Inspection: Symmetric Chest Wall Rise Respiratory Respiratory Exam: Normal Lung Sounds Bilat Respiratory Exam: Bilateral: Clear to Auscultation Cardiovascular Cardiovascular Exam: Regular Rate and Normal Rhythm Abdominal Exam Abdominal Exam: Normal Inspection, Normal Bowel Sounds and Soft; negative Tenderness Extremities Extremities Exam: Normal Inspection and Other (WALK WITH CANE.) Back Back Exam: Normal Inspection and Other Neurologic Neurological Exam: Alert, Oriented X3 and CN II-XII Intact; negative Motor Sensory Deficit Skin Skin Exam: Dry MDM Differential Diagnosis Differential Diagnosis: DEHYDRATION, HYPERGLYCEMIA, MYALGIA, DKA COURSE Treatment Treatment: SEE ORDERS. Education/Counseling Education/Counseling: Patient Educated On: Diagnosis and Needs for Follow Up ROR Labs Reviewed Laboratory Results Reviewed?: Yes Result Diagrams: 02/04/18 07:30 02/04/18 07:30 Laboratory: WBC 8.9 X10^3/uL (3.6-10.0) 02/04/18 07:30 RBC 3.96 X10^6/uL (3.5-5.4) 02/04/18 07:30 Hgb 12.8 g/dL (12.0-16.0) 02/04/18 07:30 Hct 37.0 % (36.0-47.0) 02/04/18 07:30 MCV 93.5 fL (80.0-100.0) 02/04/18 07:30 MCH 32.4 pg (27.0-34.0) 02/04/18 07:30 MCHC 34.7 g/dL (33.0-35.0) 02/04/18 07:30 RDW 13.2 % (11.6-16.5) 02/04/18 07:30 Plt Count 107 X10^3/uL (150.0-450.0) L 02/04/18 07:30 MPV 10.1 fL (7.4-11.0) 02/04/18 07:30 Neut % (Auto) 88.1 % (42.0-75.0) H 02/04/18 07:30 Lymph % (Auto) 4.8 % (21.0-51.0) L 02/04/18 07:30 [place] % (Auto) 6.8 % (0.0-13.0) 02/04/18 07:30 Eos % (Auto) 0.0 % (0.9-2.9) L 02/04/18 07:30 Baso % (Auto) 0.3 % (0.2-1.0) 02/04/18 07:30 Neut # (Auto) 7.9 x10^3/uL (2.2-4.8) H 02/04/18 07:30 Lymph # (Auto) 0.4 X10^3/uL (1.3-2.9) L 02/04/18 07:30 [place] # (Auto) 0.6 x10^3/uL (0.3-0.8) 02/04/18 07:30 Eos # (Auto) 0.0 x10^3/uL (0.0-0.2) 02/04/18 07:30 Baso # (Auto) 0.0 X10^3/uL (0.0-0.1) 02/04/18 07:30 Absolute Nucleated RBC 0.0 /100WBC 02/04/18 07:30 Sodium 127 mmol/L (136-145) L 02/04/18 07:30 Corrected Sodium 139 mmol/L (136-145) 02/04/18 07:30 Potassium 3.7 mmol/L (3.5-5.1) 02/04/18 07:30 Chloride 90 mmol/L (98-107) L 02/04/18 07:30 Carbon Dioxide 24.0 mmol/L (21-32) 02/04/18 07:30 BUN 10 mg/dL (7-18) 02/04/18 07:30 Creatinine 1.05 mg/dL (0.55-1.02) H 02/04/18 07:30 Est GFR (MDRD) Af Amer > 60 (>60) 02/04/18 07:30 Est GFR (MDRD) Non-Af 57 (>60) L 02/04/18 07:30 Glucose 613 mg/dL (65-99) H* 02/04/18 07:30 Calcium 9.0 mg/dL (8.5-10.1) 02/04/18 07:30 Corrected Calcium TNP 02/04/18 07:30 Total Bilirubin 0.70 mg/dL (0.2-1.0) 02/04/18 07:30 AST 15 Units/L (15-37) 02/04/18 07:30 ALT 24 Units/L (12-78) 02/04/18 07:30 Alkaline Phosphatase 85 Units/L (46-116) 02/04/18 07:30 Total Protein 7.1 g/dL (6.4-8.2) 02/04/18 07:30 Albumin 3.4 g/dL (3.4-5.0) 02/04/18 07:30 Globulin 3.7 g/dL (2.5-4.5) 02/04/18 07:30 Albumin/Globulin Ratio 0.9 Ratio (1.1-2.1) L 02/04/18 07:30 Specimen Type Clean catch urine 02/04/18 07:42 Urine Color Yellow (YELLOW) 02/04/18 07:42 Urine Appearance Clear (CLEAR) 02/04/18 07:42 Urine pH 5.0 (5.0 - 8.0) 02/04/18 07:42 Ur Specific [place] 1.005 (1.000-1.030) 02/04/18 07:42 Urine Protein 1+ (NEGATIVE) 02/04/18 07:42 Urine Glucose (UA) 4+ (NEGATIVE) 02/04/18 07:42 Urine Ketones 1+ (NEGATIVE) 02/04/18 07:42 Urine Occult Blood 1+ (NEGATIVE) 02/04/18 07:42 Urine Nitrite Negative (NEGATIVE) 02/04/18 07:42 Urine Bilirubin Negative (NEGATIVE) 02/04/18 07:42 Urine Urobilinogen Normal (NORMAL) 02/04/18 07:42 Ur Leukocyte Esterase Negative (NEGATIVE) 02/04/18 07:42 Urine RBC 3-5 /HPF (NONE SEEN) 02/04/18 07:42 Urine WBC 0-2 /HPF (NONE SEEN) 02/04/18 07:42 Ur Squamous Epith Cells Few /HPF (NEGATIVE) 02/04/18 07:42 Urine Bacteria Trace /HPF (NEGATIVE) 02/04/18 07:42 Urine Yeast Rare /HPF (NEGATIVE) 02/04/18 07:42 Ur Culture Indicated? No/not indicated 02/04/18 07:42 Acetone, Semi-Quant Small (NEGATIVE) H 02/04/18 07:30 Influenza Type A (PCR) Negative (NEGATIVE) 02/04/18 07:22 Influenza Type B (PCR) Negative (NEGATIVE) 02/04/18 07:22 Diagnosis Discharge Problem: Hyperglycemia, Dehydration, Generalized weakness, Myalgia
[2018-02-04 07:45] LABS: BASOPHILS % (AUTO) 0.3 % (0.2-1.0); HEMOGLOBIN 12.8 g/dL (12.0-16.0); LYMPHOCYTES # (AUTO) 0.4 X10^3/uL (1.3-2.9); LYMPHOCYTES % (AUTO) 4.8 % (21.0-51.0); MEAN CORPUSCULAR HEMOGLOBIN 32.4 pg (27.0-34.0); MEAN CORPUSCULAR HGB CONC 34.7 g/dL (33.0-35.0); MEAN CORPUSCULAR VOLUME 93.5 fL (80.0-100.0); MEAN PLATELET VOLUME 10.1 fL (7.4-11.0); MONOCYTES # (AUTO) 0.6 x10^3/uL (0.3-0.8); MONOCYTES % (AUTO) 6.8 % (0.0-13.0); NEUTROPHILS # (AUTO) 7.9 x10^3/uL (2.2-4.8); NEUTROPHILS % (AUTO) 88.1 % (42.0-75.0); PLATELET COUNT 107 X10^3/uL (150.0-450.0); RED BLOOD COUNT 3.96 X10^6/uL (3.5-5.4); RED CELL DISTRIBUTION WIDTH 13.2 % (11.6-16.5); WHITE BLOOD COUNT 8.9 X10^3/uL (3.6-10.0)
[2018-02-04 07:55] LABS: BLOOD UREA NITROGEN 10 mg/dL (7-18); CHLORIDE 90 mmol/L (98-107); CREATININE 1.05 mg/dL (0.55-1.02); SODIUM 127 mmol/L (136-145); eGFR NON BLACK RACES 57 (>60)
[2018-02-04 07:56] LABS: BILIRUBIN,URINE NEGATIVE (NEGATIVE); BLOOD/HEMOGLOBIN,URINE 1+ (NEGATIVE); GLUCOSE, URINE 4+ (NEGATIVE); KETONES,URINE 1+ (NEGATIVE); LEUKOCYTE ESTERASE ,URINE NEGATIVE (NEGATIVE); NITRITES,URINE NEGATIVE (NEGATIVE); PROTEIN,URINE 1+ (NEGATIVE); UROBILINOGEN,URINE NORMAL (NORMAL)
[2018-02-04 07:58] LABS: ALANINE AMINOTRANSFERASE 24 Units/L (12-78); ALBUMIN 3.4 g/dL (3.4-5.0); ALKALINE PHOSPHATASE 85 Units/L (46-116); ASPARTATE AMINO TRANSFERASE 15 Units/L (15-37); TOTAL PROTEIN 7.1 g/dL (6.4-8.2)
[2018-02-04 07:59] LABS: COR NA(FOR HYPERGLY) 139 mmol/L (136-145)
[2018-02-04 08:08] LABS: APPEARANCE,URINE CLEAR (CLEAR); COLOR,URINE YELLOW (YELLOW)
[2018-02-04 08:09] LABS: BACTERIA,URINE TRACE /HPF (NEGATIVE); SQUAMOUS EPITHELIAL CELL,UR FEW /HPF (NEGATIVE); YEAST,URINE RARE /HPF (NEGATIVE)
[2018-02-04] MEDS ORDERED: HumuLIN R SUBCUT ONE (08:36)
[2018-02-04] MEDS ORDERED: HumuLIN R ONE (08:48)
[2018-02-04] MEDS: HumuLIN R SUBCUT PRN ×3 (11:52→21:30)
[2018-02-04] MEDS: NS 1000 ML 1,000 ML IV SCH ×3 (11:56→22:14)
--- NOTE | 2018-02-04 14:51 | RAD ---
Single portable view of the chest Indication: Generalized weakness Comparison: Chest radiograph from May 27, 2017. Findings/conclusion: There is cardiomegaly. The pulmonary vasculature is within normal limits. The nikhil ngs are clear. There is tortuosity to the aorta. Airway is midline. Reported By:
[2018-02-04] MEDS ORDERED: SNACK - Diabetic Appropriate PO SCH (20:00)
[2018-02-04] MEDS: TYLENOL 325 MG TAB PO PRN (21:33)
[2018-02-05] MEDS: TYLENOL 325 MG TAB PO PRN (01:45)
[2018-02-05] MEDS: ULTRAM PO PRN ×3 (03:40→22:04)
[2018-02-05 04:00] LABS: BASOPHILS % (AUTO) 0.5 % (0.2-1.0); EOSINOPHILS % (AUTO) 0.2 % (0.9-2.9); HEMATOCRIT 35.5 % (36.0-47.0); HEMOGLOBIN 12.6 g/dL (12.0-16.0); LYMPHOCYTES # (AUTO) 0.4 X10^3/uL (1.3-2.9); LYMPHOCYTES % (AUTO) 7.1 % (21.0-51.0); MEAN CORPUSCULAR HEMOGLOBIN 32.7 pg (27.0-34.0); MEAN CORPUSCULAR HGB CONC 35.4 g/dL (33.0-35.0); MEAN CORPUSCULAR VOLUME 92.4 fL (80.0-100.0); MEAN PLATELET VOLUME 9.2 fL (7.4-11.0); MONOCYTES # (AUTO) 0.4 x10^3/uL (0.3-0.8); MONOCYTES % (AUTO) 6.1 % (0.0-13.0); NEUTROPHILS # (AUTO) 5.2 x10^3/uL (2.2-4.8); NEUTROPHILS % (AUTO) 86.1 % (42.0-75.0); PLATELET COUNT 93 X10^3/uL (150.0-450.0); RED BLOOD COUNT 3.84 X10^6/uL (3.5-5.4); RED CELL DISTRIBUTION WIDTH 13.6 % (11.6-16.5)
[2018-02-05 04:28] LABS: ALANINE AMINOTRANSFERASE 27 Units/L (12-78); ALBUMIN 2.6 g/dL (3.4-5.0); ALKALINE PHOSPHATASE 78 Units/L (46-116); ASPARTATE AMINO TRANSFERASE 32 Units/L (15-37); BLOOD UREA NITROGEN 12 mg/dL (7-18); CALCIUM 8.1 mg/dL (8.5-10.1); CARBON DIOXIDE 22.1 mmol/L (21-32); CHLORIDE 100 mmol/L (98-107); CHOL/HDL RATIO 7.4 (0.0-5.0); CHOLESTEROL 104 mg/dL (0-200); COR CA(FOR HYPOALB) 9.2 mg/dL (8.5-10.1); COR NA(FOR HYPERGLY) 140 mmol/L (136-145); CREATININE 0.75 mg/dL (0.55-1.02); HDL CHOLESTEROL 14 mg/dL (40-60); MAGNESIUM 1.7 mg/dL (1.7-2.9); SODIUM 135 mmol/L (136-145); TOTAL PROTEIN 6.1 g/dL (6.4-8.2); TRIGLYCERIDES 135 mg/dL (0-150); eGFR NON BLACK RACES > 60 (>60)
[2018-02-05 04:37] LABS: CKMB % 2.5 % (<4); CREATINE KINASE 40 Units/L (26-192); CREATINE KINASE MB < 1.0 ng/mL (0-4.0); TROPONIN I < 0.02 ng/mL (0-1.5)
[2018-02-05] MEDS: NS 1000 ML 1,000 ML IV SCH ×3 (05:27→17:38)
[2018-02-05] MEDS: HumuLIN R SUBCUT PRN ×3 (06:13→17:34)
[2018-02-05] MEDS: ZOFRAN INJ 4 MG VIAL IVP PRN ×2 (11:55→17:38)
[2018-02-05] MEDS: LEVEMIR SC SCH ×2 (13:28→22:04)
--- NOTE | 2018-02-05 15:02 | DR.H&P ---
H&P - History & Physical for Day of: H&P Date: 02/04/18 - Chief Complaint Chief Complaint: WEAKNESS, BODY ACHES, CHEST PAIN, HEADACHE, NAUSEA - History of Present Illness History of Present Illness: IS A 58 YEAR OLD WHITE FEMALE WHO PRESENTED TO THE EMERGENCY ROOM WITH COMPLAINTS OF GENERALIZED WEAKNESS, BODY ACHES, CHEST PAIN, HEADACHE, NAUSEA, AND FATIGUE. PATIENT REPORTS THAT SHE FEELS IF SHE IS DEHYDRATED. SHE DENIES FEVER, DYSURIA, OR VOMITING. PATIENT HAS A PAST MEDICAL HISTORY OF DIABETES. ON ARRIVAL, VITALS WERE 97.9-89-18-96%-115/58. LABS WERE OBTAINED ABNORMAL LAB VALUES INCLUDE THE FOLLOWING: PLT COUNT 107, SODIUM 127, CHLORIDE 90, CREATINE 1.05, GLUCOSE 613. URINALYSIS REVEALED WBC 0- 2, RBC 3-5, BACTERIA TRACE, LEUKOCYTES NEGATIVE, OCCULT BLOOD 1+, GLUCOSE 4+, URINE ACETONES SMALL. A CHEST XRAY WAS OBTAINED AND REVEALED: There is cardiomegaly. The pulmonary vasculature is within normal limits. The lungs are clear. There is tortuosity to the aorta. Airway is midline. EKG REVEALED SINUS RHYTHM WITH HR 70. BLOOD CULTURES ARE PENDING. SHE WAS GIVEN A NORMAL SALINE BOLUS X 2, HUMULIN R 14 UNITS, TORADOL 30MG IV X 1, AND ZOFRAN 4MG IV X 1 IN THE ER WITH ONLY SLIGHT IMPOVEMENT IN SYMPTOMS. BLOOD GLUCOSE DECRASED TO 543. SHE WAS ADMITTED FOR FURTHER EVALUATION AND TREATMENT OF HYPERGLYCEMIA, DEHYDRATION, AND GENERALIZED WEAKNESS. SHE WAS STARTED ON NORMAL SALINE AT 125ML/HR, HUMULIN R SLIDING SCALE, AND ZOFRAN FOR NAUSEA. WE PLAN TO FOLLOW UP WITH AM LABS AND CONTINUE TO MONITOR PATIENT. 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, Tonsillectomy Additional Surgical History: Tubal ligation - Family History Family Medical History: Cancer - Social History Does patient currently use any type of tobacco product: No Have you used tobacco products in the last 12 months: No Type of Tobacco Use: None Does any household member use tobacco: No Alcohol Use: None Drug Use: None - Medications Home Medications: Penicillins Allergy (Verified 02/04/18 06:52) CONTINUE taking the following medications fluticasone [Flonase Allergy Relief] 1 spray INTRANASAL HS 02/04/18 [History] metformin 1,000 mg PO BID 02/04/18 [History] pioglitazone 45 mg PO DAILY 02/04/18 [History] - Review of Systems Constitutional: See HPI, Weakness, Malaise. denies: Fever Eyes: No Symptoms Reported ENT: No Symptoms Reported Respiratory: Dry Gastrointestinal: Nausea Genitourinary: No Symptoms Reported. denies: Dysuria Musculoskeletal: No Symptoms Reported Skin: No Symptoms Reported Neurological: Weakness - Physical Exam Vital Signs: Temperature 97.5 F Pulse Rate [Right Brachial] 84 Pulse Rate 89 Respiratory Rate 20 Blood Pressure [Left Arm] 120/72 Blood Pressure [Right Arm] 134/87 Blood Pressure 115/58 O2 Sat by Pulse Oximetry 99 Oriented: Normal Eyes: Normal Ear: Normal Nose: Normal Throat: Normal Respiratory: Diminished Throughout Cardiovascular: Normal. negative: S3, S4, Murmur : Normal Auscultation: Bowel Sounds: Normal Palpation: Normal Tenderness: Normal Musculoskeletal: Normal Psychiatric: Normal Mood Description: Calm Affect: Normal Speech Pattern: Clear - Assessment/Plan (1) Hyperglycemia Status: Acute Plan: ADMIT, NORMAL SALINE AT 125ML/HR, HUMULIN R SLIDING SCALE, CONTINUE TO MONITOR (2) Generalized weakness Status: Acute (3) Dehydration Status: Acute Plan: NORMAL SALINE AT 125ML/HR - Allergies Allergies/Adverse Reactions: Allergies Allergy/AdvReac Type Severity Reaction Status Date / Time Penicillins Allergy Verified 02/04/18 06:52
[2018-02-05] MEDS: SNACK - Diabetic Appropriate PO SCH (22:06)
[2018-02-06] MEDS: TYLENOL 325 MG TAB PO PRN ×2 (00:56→19:53)
[2018-02-06] MEDS: NORCO 5/325 MG TAB PO PRN ×3 (01:23→22:13)
[2018-02-06] MEDS: NS 1000 ML 1,000 ML IV SCH ×4 (03:17→19:52)
[2018-02-06 05:23] LABS: BASOPHILS % (AUTO) 0.3 % (0.2-1.0); EOSINOPHILS % (AUTO) 0.1 % (0.9-2.9); HEMATOCRIT 33.3 % (36.0-47.0); HEMOGLOBIN 11.7 g/dL (12.0-16.0); LYMPHOCYTES # (AUTO) 0.2 X10^3/uL (1.3-2.9); LYMPHOCYTES % (AUTO) 4.4 % (21.0-51.0); MEAN CORPUSCULAR HEMOGLOBIN 32.5 pg (27.0-34.0); MEAN CORPUSCULAR HGB CONC 35.2 g/dL (33.0-35.0); MEAN CORPUSCULAR VOLUME 92.2 fL (80.0-100.0); MEAN PLATELET VOLUME 9.4 fL (7.4-11.0); MONOCYTES # (AUTO) 0.4 x10^3/uL (0.3-0.8); MONOCYTES % (AUTO) 8.7 % (0.0-13.0); NEUTROPHILS # (AUTO) 3.7 x10^3/uL (2.2-4.8); NEUTROPHILS % (AUTO) 86.5 % (42.0-75.0); PLATELET COUNT 94 X10^3/uL (150.0-450.0); RED BLOOD COUNT 3.61 X10^6/uL (3.5-5.4); RED CELL DISTRIBUTION WIDTH 13.6 % (11.6-16.5); WHITE BLOOD COUNT 4.2 X10^3/uL (3.6-10.0)
[2018-02-06 05:31] LABS: ALANINE AMINOTRANSFERASE 35 Units/L (12-78); ALBUMIN 2.3 g/dL (3.4-5.0); ALKALINE PHOSPHATASE 89 Units/L (46-116); ASPARTATE AMINO TRANSFERASE 44 Units/L (15-37); BLOOD UREA NITROGEN 12 mg/dL (7-18); CALCIUM 7.8 mg/dL (8.5-10.1); CARBON DIOXIDE 20.3 mmol/L (21-32); CHLORIDE 99 mmol/L (98-107); COR CA(FOR HYPOALB) 9.2 mg/dL (8.5-10.1); COR NA(FOR HYPERGLY) 136 mmol/L (136-145); CREATININE 0.78 mg/dL (0.55-1.02); SODIUM 133 mmol/L (136-145); TOTAL PROTEIN 5.8 g/dL (6.4-8.2); eGFR NON BLACK RACES > 60 (>60)
[2018-02-06] MEDS: HumuLIN R SUBCUT PRN ×4 (05:47→20:09)
[2018-02-06] MEDS ORDERED: POTASSIUM CHL 40 MEQ/NS 0.45% 500 ML IV PRN (06:43)
[2018-02-06] MEDS ORDERED: POTASSIUM CHLORIDE LIQ 20 MEQ UDC PO PRN (06:43)
[2018-02-06] MEDS ORDERED: MICRO K EXTEN CAP 10 MEQ PO PRN (06:43)
[2018-02-06] MEDS ORDERED: K-RIDER 10 MEQ/NS 100 ML 10 MEQ/100 ML BAG IV PRN (06:43)
[2018-02-06] MEDS ORDERED: POTASSIUM CHL 60 MEQ/NS 0.45% 500 ML IV PRN (06:43)
[2018-02-06] MEDS ORDERED: KLOR-CON PO PRN (06:43)
[2018-02-06] MEDS: K-DUR TAB 20 MEQ PO PRN (07:36)
[2018-02-06] MEDS: LEVEMIR SC SCH ×2 (08:50→20:07)
[2018-02-06] MEDS: ULTRAM PO PRN ×2 (08:50→23:28)
--- NOTE | 2018-02-06 15:29 | RAD ---
HISTORY: Back pain Study: 3 views of the thoracic spine. Comparison: None Findings: Focal dextroscoliosis likely secondary to severe degenerative disc disease. Severe degenerative disc disease and osteophytosis. Vertebral body heights are grossly maintained. IMPRESSION: 1. No acute findings. Severe degenerative disc disease and scoliosis. Reported By:
--- NOTE | 2018-02-06 15:30 | RAD ---
HISTORY: Back Pain Study: 3 views of the lumbar spine Comparison: None. Findings: Normal alignment without subluxation or listhesis. Severe multilevel degenerative disc disease and f acet disease. Vertebral body heights are normal. Sacroiliac joints are unremarkable. No evidence for acute fracture can be identified. IMPRESSION: 1. Degenerative disc and facet disease. Reported By:
[2018-02-06] MEDS: ZOFRAN INJ 4 MG VIAL IVP PRN (17:36)
[2018-02-06] MEDS: SNACK - Diabetic Appropriate PO SCH (19:53)
[2018-02-07] MEDS: NS 1000 ML 1,000 ML IV SCH ×4 (04:07→20:31)
[2018-02-07] MEDS: NORCO 5/325 MG TAB PO PRN ×2 (04:21→17:50)
[2018-02-07 05:22] LABS: BASOPHILS % (AUTO) 0.2 % (0.2-1.0); EOSINOPHILS % (AUTO) 0.3 % (0.9-2.9); HEMATOCRIT 33.7 % (36.0-47.0); HEMOGLOBIN 11.9 g/dL (12.0-16.0); LYMPHOCYTES # (AUTO) 0.2 X10^3/uL (1.3-2.9); LYMPHOCYTES % (AUTO) 4.8 % (21.0-51.0); MEAN CORPUSCULAR HEMOGLOBIN 32.5 pg (27.0-34.0); MEAN CORPUSCULAR HGB CONC 35.4 g/dL (33.0-35.0); MEAN CORPUSCULAR VOLUME 91.8 fL (80.0-100.0); MEAN PLATELET VOLUME 9.4 fL (7.4-11.0); MONOCYTES # (AUTO) 0.3 x10^3/uL (0.3-0.8); MONOCYTES % (AUTO) 7.3 % (0.0-13.0); NEUTROPHILS # (AUTO) 3.2 x10^3/uL (2.2-4.8); NEUTROPHILS % (AUTO) 87.4 % (42.0-75.0); PLATELET COUNT 82 X10^3/uL (150.0-450.0); RED BLOOD COUNT 3.67 X10^6/uL (3.5-5.4); RED CELL DISTRIBUTION WIDTH 13.9 % (11.6-16.5); WHITE BLOOD COUNT 3.6 X10^3/uL (3.6-10.0)
[2018-02-07 05:28] LABS: ALANINE AMINOTRANSFERASE 95 Units/L (12-78); ALKALINE PHOSPHATASE 167 Units/L (46-116); ASPARTATE AMINO TRANSFERASE 171 Units/L (15-37); BLOOD UREA NITROGEN 10 mg/dL (7-18); CALCIUM 7.8 mg/dL (8.5-10.1); CARBON DIOXIDE 23.4 mmol/L (21-32); CHLORIDE 102 mmol/L (98-107); COR CA(FOR HYPOALB) 9.4 mg/dL (8.5-10.1); COR NA(FOR HYPERGLY) 134 mmol/L (136-145); SODIUM 134 mmol/L (136-145); TOTAL PROTEIN 5.4 g/dL (6.4-8.2); eGFR NON BLACK RACES > 60 (>60)
[2018-02-07 05:47] LABS: PLATELET MORPHOLOGY COMMENT NORMAL (NORMAL)
[2018-02-07] MEDS: K-DUR TAB 20 MEQ PO PRN ×2 (06:15→10:53)
[2018-02-07] MEDS: MAGNESIUM SULFATE 1 GRAM/100 mL PREMIX 1 GM/100 ML BAG IV PRN ×2 (08:16→10:00)
[2018-02-07] MEDS: LEVEMIR SC SCH ×2 (08:17→21:00)
[2018-02-07] MEDS: ULTRAM PO PRN (08:17)
--- NOTE | 2018-02-07 08:18 | PCM.PROG ---
Progress Note - Progress Note for Day of Date of Exam: 02/05/18 - Subjective Subjective: WAS ADMITTED FOR DEHYDRATION, HYPERGLYCEMIA, AND GENERALIZED WEAKNESS. TODAY, SHE IS ALERT AND ORIENTED, LYING IN BED ON MORNING ROUNDS. SHE CONTINUES WITH WEAKNESS AND ALSO REPORTS BACK PAIN AND HEADACHE. SHE WAS NOTED TO BE RUNNING A TEMPERATURE OF 101.7 AT 2000 LAST NIGHT. ON EXAMINATION, HEART IS REGULAR IN RATE AND RHYTHM. BILATERAL LUNGS ARE NOTED WITH DIMINISHED LUNG SOUNDS THROUGHOUT. ABDOMEN IS ROUND, SOFT, AND NON-TENDER WITH NORMAL BOWEL SOUNDS NOTED IN ALL QUADRANTS. HER VITALS THIS MORNING ARE 98.2-80-20-97%-128/64. LABS WERE OBTAINED. ABNORMAL LAB VALUES INCLUDE THE FOLLOWING: HCT 35.5, PLT COUNT 93, SODIUM 135, GLUCOSE 304, CALCIUM 8.1, TOTAL PROTEIN 6.1, ALBUMIN 2.6, HDL 14, CHOLESTEROL/HDL RATIO 7.4. HER GLUCOSE HAS RANGED FROM 300s TO 543 SINCE ADMISSION. SHE IS CURRENTLY RECEIVING NORMAL SALINE AT 125ML/HR AND HUMULIN R SLIDING SCALE COVERAGE. TODAY, WE WILL START LEVEMIR 10 UNITS SC BID. OTHERWISE, WE WILL FOLLOW UP WITH AM LABS AND CONTINUE TO MONITOR PATIENT. - Past Medical Family Social History Past Med/Fam/Surg Hx: No changes since H&P Allergies: Allergies Penicillins Allergy (Verified 02/04/18 06:52) - Review of Systems ROS: No change since H&P - Vital Signs and I&O's Vital Signs: Temperature 98.2 F Pulse Rate [Right Brachial] 74 Pulse Rate 89 Respiratory Rate 20 Blood Pressure [Left Arm] 122/69 Blood Pressure [Right Arm] 120/60 Blood Pressure 115/58 O2 Sat by Pulse Oximetry 97 Intake and Output: Intake & Output 02/04/18 02/05/18 02/06/18 02/07/18 11:59 11:59 11:59 11:59 Intake Total 1160 / 1160 2560 / 2560 2090 / 2090 Output Total 250 / 250 1500 / 1500 1000 / 1000 Balance 910 / 910 1060 / 1060 1090 / 1090 - Physical Exam Oriented: Normal Eyes: Normal Ear: Normal Nose: Normal Throat: Normal Respiratory: Generalized, Diminished Cardiovascular: Normal. negative: S3, S4, Murmur : Normal Auscultation: Bowel Sounds: Normal Palpation: Normal Tenderness: Normal Skin: Normal Musculoskeletal: Back:Thoracic, Back:Lumbar, Tender Psychiatric: Normal Mood Description: Calm Affect: Normal Speech Pattern: Clear, Appropriate - Laboratory and Diagnostics Result Diagrams: 02/07/18 04:15 02/07/18 04:15 Labs: 02/04/18 20:40 Blood Blood Culture - Preliminary 02/04/18 20:35 Blood Blood Culture - Preliminary Laboratory WBC 3.6 X10^3/uL (3.6-10.0) 02/07/18 04:15 RBC 3.67 X10^6/uL (3.5-5.4) 02/07/18 04:15 Hgb 11.9 g/dL (12.0-16.0) L 02/07/18 04:15 Hct 33.7 % (36.0-47.0) L 02/07/18 04:15 MCV 91.8 fL (80.0-100.0) 02/07/18 04:15 MCH 32.5 pg (27.0-34.0) 02/07/18 04:15 MCHC 35.4 g/dL (33.0-35.0) H 02/07/18 04:15 RDW 13.9 % (11.6-16.5) 02/07/18 04:15 Plt Count 82 X10^3/uL (150.0-450.0) L 02/07/18 04:15 Plt Count Comment Decreased (ADEQUATE) A 02/07/18 04:15 MPV 9.4 fL (7.4-11.0) 02/07/18 04:15 Neut % (Auto) 87.4 % (42.0-75.0) H 02/07/18 04:15 Lymph % (Auto) 4.8 % (21.0-51.0) L 02/07/18 04:15 [place] % (Auto) 7.3 % (0.0-13.0) 02/07/18 04:15 Eos % (Auto) 0.3 % (0.9-2.9) L 02/07/18 04:15 Baso % (Auto) 0.2 % (0.2-1.0) 02/07/18 04:15 Neut # (Auto) 3.2 x10^3/uL (2.2-4.8) 02/07/18 04:15 Lymph # (Auto) 0.2 X10^3/uL (1.3-2.9) L 02/07/18 04:15 [place] # (Auto) 0.3 x10^3/uL (0.3-0.8) 02/07/18 04:15 Eos # (Auto) 0.0 x10^3/uL (0.0-0.2) 02/07/18 04:15 Baso # (Auto) 0.0 X10^3/uL (0.0-0.1) 02/07/18 04:15 Absolute Nucleated RBC 0.0 /100WBC 02/07/18 04:15 Plt Morphology Comment Normal (NORMAL) 02/07/18 04:15 RBC Morphology Normal (NORMAL) 02/07/18 04:15 Sodium 134 mmol/L (136-145) L 02/07/18 04:15 Corrected Sodium 134 mmol/L (136-145) L 02/07/18 04:15 Potassium 3.0 mmol/L (3.5-5.1) L* 02/07/18 04:15 Chloride 102 mmol/L (98-107) 02/07/18 04:15 Carbon Dioxide 23.4 mmol/L (21-32) 02/07/18 04:15 BUN 10 mg/dL (7-18) 02/07/18 04:15 Creatinine 0.60 mg/dL (0.55-1.02) 02/07/18 04:15 Est GFR (MDRD) Af Amer > 60 (>60) 02/07/18 04:15 Est GFR (MDRD) Non-Af > 60 (>60) 02/07/18 04:15 Glucose 112 mg/dL (65-99) H 02/07/18 04:15 POC Glucose (mg/dL) 199 mg/dL (65-99) H 02/06/18 19:53 Calcium 7.8 mg/dL (8.5-10.1) L 02/07/18 04:15 Corrected Calcium 9.4 mg/dL (8.5-10.1) 02/07/18 04:15 Magnesium 1.5 mg/dL (1.7-2.9) L 02/07/18 04:15 Total Bilirubin 0.50 mg/dL (0.2-1.0) 02/07/18 04:15 AST 171 Units/L (15-37) H 02/07/18 04:15 ALT 95 Units/L (12-78) H 02/07/18 04:15 Alkaline Phosphatase 167 Units/L (46-116) H 02/07/18 04:15 Creatine Kinase 40 Units/L (26-192) 02/05/18 03:50 CK-MB (CK-2) < 1.0 ng/mL (0-4.0) 02/05/18 03:50 CK/CKMB % Calc 2.5 % (<4) 02/05/18 03:50 Troponin I < 0.02 ng/mL (0-1.5) 02/05/18 03:50 Total Protein 5.4 g/dL (6.4-8.2) L 02/07/18 04:15 Albumin 2.0 g/dL (3.4-5.0) L 02/07/18 04:15 Globulin 3.4 g/dL (2.5-4.5) 02/07/18 04:15 Albumin/Globulin Ratio 0.6 Ratio (1.1-2.1) L 02/07/18 04:15 Triglycerides 135 mg/dL (0-150) 02/05/18 03:50 Cholesterol 104 mg/dL (0-200) 02/05/18 03:50 LDL Cholesterol, Calc 63 mg/dL (0-100) 02/05/18 03:50 HDL Cholesterol 14 mg/dL (40-60) L 02/05/18 03:50 Cholesterol/HDL Ratio 7.4 (0.0-5.0) H 02/05/18 03:50 Specimen Type Clean catch urine 02/04/18 07:42 Urine Color Yellow (YELLOW) 02/04/18 07:42 Urine Appearance Clear (CLEAR) 02/04/18 07:42 Urine pH 5.0 (5.0 - 8.0) 02/04/18 07:42 Ur Specific [place] 1.005 (1.000-1.030) 02/04/18 07:42 Urine Protein 1+ (NEGATIVE) 02/04/18 07:42 Urine Glucose (UA) 4+ (NEGATIVE) 02/04/18 07:42 Urine Ketones 1+ (NEGATIVE) 02/04/18 07:42 Urine Occult Blood 1+ (NEGATIVE) 02/04/18 07:42 Urine Nitrite Negative (NEGATIVE) 02/04/18 07:42 Urine Bilirubin Negative (NEGATIVE) 02/04/18 07:42 Urine Urobilinogen Normal (NORMAL) 02/04/18 07:42 Ur Leukocyte Esterase Negative (NEGATIVE) 02/04/18 07:42 Urine RBC 3-5 /HPF (NONE SEEN) 02/04/18 07:42 Urine WBC 0-2 /HPF (NONE SEEN) 02/04/18 07:42 Ur Squamous Epith Cells Few /HPF (NEGATIVE) 02/04/18 07:42 Urine Bacteria Trace /HPF (NEGATIVE) 02/04/18 07:42 Urine Yeast Rare /HPF (NEGATIVE) 02/04/18 07:42 Ur Culture Indicated? No/not indicated 02/04/18 07:42 Acetone, Semi-Quant Small (NEGATIVE) H 02/05/18 03:50 Influenza Type A (PCR) Negative (NEGATIVE) 02/04/18 07:22 Influenza Type B (PCR) Negative (NEGATIVE) 02/04/18 07:22 - Plan (1) Hyperglycemia Status: Acute Plan: LEVEMIR 10 UNITS SC BID, NORMAL SALINE AT 125ML/HR, HUMULIN R SLIDING SCALE, CONTINUE TO MONITOR (2) Generalized weakness Status: Acute (3) Dehydration Status: Acute Plan: NORMAL SALINE AT 125ML/HR
--- NOTE | 2018-02-07 10:06 | PCM.PROG ---
Progress Note - Progress Note for Day of Date of Exam: 02/06/18 - Subjective Subjective: WAS ADMITTED FOR DEHYDRATION, HYPERGLYCEMIA, AND GENERALIZED WEAKNESS. TODAY, SHE IS ALERT AND ORIENTED, LYING IN BED ON MORNING ROUNDS. SHE CONTINUES WITH WEAKNESS, BACK PAIN, AND HEADACHE. ON EXAMINATION, HEART IS REGULAR IN RATE AND RHYTHM. BILATERAL LUNGS ARE NOTED WITH DIMINISHED LUNG SOUNDS THROUGHOUT. ABDOMEN IS ROUND, SOFT, AND NON-TENDER WITH NORMAL BOWEL SOUNDS NOTED IN ALL QUADRANTS. HER VITALS THIS MORNING ARE 97.6-84-20-95%-172/78. LABS WERE OBTAINED. ABNORMAL LAB VALUES INCLUDE THE FOLLOWING: HGB 11.7, HCT 33.3, PLT COUNT 94, SODIUM 133, POTASSIUM 3.3, CARBON DIOXIDE 20.3, GLUCOSE 229, CALCIUM 7.8, MAGNESIUM 1.5, AST 44, TOTAL PROTEIN 5.8, ALBUMIN 2.3. HER BLOOD GLUCOSE LEVELS CONTINUE TO RUN IN THE 200s. SHE IS CURRENTLY RECEIVING NORMAL SALINE AT 125ML/HR AND HUMULIN R SLIDING SCALE COVERAGE. TODAY, WE WILL INCREASE LEVEMIR TO 15 UNITS SC BID AND OBTAIN LUMBAR AND THORACIC SPINE XRAYS. OTHERWISE, WE WILL FOLLOW UP WITH AM LABS AND CONTINUE TO MONITOR PATIENT. - Past Medical Family Social History Past Med/Fam/Surg Hx: No changes since H&P Allergies: Allergies Penicillins Allergy (Verified 02/04/18 06:52) - Review of Systems ROS: No change since H&P - Vital Signs and I&O's Vital Signs: Temperature 98.2 F Pulse Rate [Right Brachial] 74 Pulse Rate 89 Respiratory Rate 20 Blood Pressure [Left Arm] 122/69 Blood Pressure [Right Arm] 120/60 Blood Pressure 115/58 O2 Sat by Pulse Oximetry 97 Intake and Output: Intake & Output 02/04/18 02/05/18 02/06/18 02/07/18 11:59 11:59 11:59 11:59 Intake Total 1160 / 1160 2560 / 2560 2090 / 2090 Output Total 250 / 250 1500 / 1500 1000 / 1000 Balance 910 / 910 1060 / 1060 1090 / 1090 - Physical Exam Oriented: Normal Eyes: Normal Ear: Normal Nose: Normal Throat: Normal Respiratory: Generalized, Diminished Cardiovascular: Normal. negative: S3, S4, Murmur : Normal Auscultation: Bowel Sounds: Normal Palpation: Normal Tenderness: Normal Skin: Normal Musculoskeletal: Back:Thoracic, Back:Lumbar, Tender Psychiatric: Normal Mood Description: Calm Affect: Normal Speech Pattern: Clear, Appropriate - Laboratory and Diagnostics Result Diagrams: 02/07/18 04:15 02/07/18 08:41 Labs: 02/04/18 20:40 Blood Blood Culture - Preliminary 02/04/18 20:35 Blood Blood Culture - Preliminary Laboratory WBC 3.6 X10^3/uL (3.6-10.0) 02/07/18 04:15 RBC 3.67 X10^6/uL (3.5-5.4) 02/07/18 04:15 Hgb 11.9 g/dL (12.0-16.0) L 02/07/18 04:15 Hct 33.7 % (36.0-47.0) L 02/07/18 04:15 MCV 91.8 fL (80.0-100.0) 02/07/18 04:15 MCH 32.5 pg (27.0-34.0) 02/07/18 04:15 MCHC 35.4 g/dL (33.0-35.0) H 02/07/18 04:15 RDW 13.9 % (11.6-16.5) 02/07/18 04:15 Plt Count 82 X10^3/uL (150.0-450.0) L 02/07/18 04:15 Plt Count Comment Decreased (ADEQUATE) A 02/07/18 04:15 MPV 9.4 fL (7.4-11.0) 02/07/18 04:15 Neut % (Auto) 87.4 % (42.0-75.0) H 02/07/18 04:15 Lymph % (Auto) 4.8 % (21.0-51.0) L 02/07/18 04:15 [place] % (Auto) 7.3 % (0.0-13.0) 02/07/18 04:15 Eos % (Auto) 0.3 % (0.9-2.9) L 02/07/18 04:15 Baso % (Auto) 0.2 % (0.2-1.0) 02/07/18 04:15 Neut # (Auto) 3.2 x10^3/uL (2.2-4.8) 02/07/18 04:15 Lymph # (Auto) 0.2 X10^3/uL (1.3-2.9) L 02/07/18 04:15 [place] # (Auto) 0.3 x10^3/uL (0.3-0.8) 02/07/18 04:15 Eos # (Auto) 0.0 x10^3/uL (0.0-0.2) 02/07/18 04:15 Baso # (Auto) 0.0 X10^3/uL (0.0-0.1) 02/07/18 04:15 Absolute Nucleated RBC 0.0 /100WBC 02/07/18 04:15 Plt Morphology Comment Normal (NORMAL) 02/07/18 04:15 RBC Morphology Normal (NORMAL) 02/07/18 04:15 Sodium 134 mmol/L (136-145) L 02/07/18 04:15 Corrected Sodium 134 mmol/L (136-145) L 02/07/18 04:15 Potassium 3.3 mmol/L (3.5-5.1) L 02/07/18 08:41 Chloride 102 mmol/L (98-107) 02/07/18 04:15 Carbon Dioxide 23.4 mmol/L (21-32) 02/07/18 04:15 BUN 10 mg/dL (7-18) 02/07/18 04:15 Creatinine 0.60 mg/dL (0.55-1.02) 02/07/18 04:15 Est GFR (MDRD) Af Amer > 60 (>60) 02/07/18 04:15 Est GFR (MDRD) Non-Af > 60 (>60) 02/07/18 04:15 Glucose 112 mg/dL (65-99) H 02/07/18 04:15 POC Glucose (mg/dL) 199 mg/dL (65-99) H 02/06/18 19:53 Calcium 7.8 mg/dL (8.5-10.1) L 02/07/18 04:15 Corrected Calcium 9.4 mg/dL (8.5-10.1) 02/07/18 04:15 Magnesium 1.5 mg/dL (1.7-2.9) L 02/07/18 04:15 Total Bilirubin 0.50 mg/dL (0.2-1.0) 02/07/18 04:15 AST 171 Units/L (15-37) H 02/07/18 04:15 ALT 95 Units/L (12-78) H 02/07/18 04:15 Alkaline Phosphatase 167 Units/L (46-116) H 02/07/18 04:15 Creatine Kinase 40 Units/L (26-192) 02/05/18 03:50 CK-MB (CK-2) < 1.0 ng/mL (0-4.0) 02/05/18 03:50 CK/CKMB % Calc 2.5 % (<4) 02/05/18 03:50 Troponin I < 0.02 ng/mL (0-1.5) 02/05/18 03:50 Total Protein 5.4 g/dL (6.4-8.2) L 02/07/18 04:15 Albumin 2.0 g/dL (3.4-5.0) L 02/07/18 04:15 Globulin 3.4 g/dL (2.5-4.5) 02/07/18 04:15 Albumin/Globulin Ratio 0.6 Ratio (1.1-2.1) L 02/07/18 04:15 Triglycerides 135 mg/dL (0-150) 02/05/18 03:50 Cholesterol 104 mg/dL (0-200) 02/05/18 03:50 LDL Cholesterol, Calc 63 mg/dL (0-100) 02/05/18 03:50 HDL Cholesterol 14 mg/dL (40-60) L 02/05/18 03:50 Cholesterol/HDL Ratio 7.4 (0.0-5.0) H 02/05/18 03:50 Specimen Type Clean catch urine 02/04/18 07:42 Urine Color Yellow (YELLOW) 02/04/18 07:42 Urine Appearance Clear (CLEAR) 02/04/18 07:42 Urine pH 5.0 (5.0 - 8.0) 02/04/18 07:42 Ur Specific [place] 1.005 (1.000-1.030) 02/04/18 07:42 Urine Protein 1+ (NEGATIVE) 02/04/18 07:42 Urine Glucose (UA) 4+ (NEGATIVE) 02/04/18 07:42 Urine Ketones 1+ (NEGATIVE) 02/04/18 07:42 Urine Occult Blood 1+ (NEGATIVE) 02/04/18 07:42 Urine Nitrite Negative (NEGATIVE) 02/04/18 07:42 Urine Bilirubin Negative (NEGATIVE) 02/04/18 07:42 Urine Urobilinogen Normal (NORMAL) 02/04/18 07:42 Ur Leukocyte Esterase Negative (NEGATIVE) 02/04/18 07:42 Urine RBC 3-5 /HPF (NONE SEEN) 02/04/18 07:42 Urine WBC 0-2 /HPF (NONE SEEN) 02/04/18 07:42 Ur Squamous Epith Cells Few /HPF (NEGATIVE) 02/04/18 07:42 Urine Bacteria Trace /HPF (NEGATIVE) 02/04/18 07:42 Urine Yeast Rare /HPF (NEGATIVE) 02/04/18 07:42 Ur Culture Indicated? No/not indicated 02/04/18 07:42 Acetone, Semi-Quant Small (NEGATIVE) H 02/05/18 03:50 Influenza Type A (PCR) Negative (NEGATIVE) 02/04/18 07:22 Influenza Type B (PCR) Negative (NEGATIVE) 02/04/18 07:22 - Plan (1) Hyperglycemia Status: Acute Plan: LEVEMIR 15 UNITS SC BID, NORMAL SALINE AT 125ML/HR, HUMULIN R SLIDING SCALE, CONTINUE TO MONITOR (2) Generalized weakness Status: Acute (3) Dehydration Status: Acute Plan: NORMAL SALINE AT 125ML/HR (4) Fever Status: Acute Qualifiers: Fever type: unspecified Qualified Code(s): R50.9 - Fever, unspecified Plan: BLOOD CULTURES, TYLENOL, CONTINUE TO MONITOR (5) Back pain Status: Acute Qualifiers: Back pain location: back pain in unspecified location Chronicity: chronic Back pain laterality: midline Qualified Code(s): M54.9 - Dorsalgia, unspecified; G89.29 - Other chronic pain Plan: LUMBAR AND THORACIC SPINE XRAY, CONTINUE TO MONITOR
[2018-02-07] MEDS ORDERED: CONSULT PHARMACY - ANTIBIOTIC XX SCH (14:00)
[2018-02-07] MEDS ORDERED: SALINE 3% 15 ML NEB TX ONE (14:53)
[2018-02-07] MEDS ORDERED: SALINE 3% 15 ML NEB TX NEB ONE (15:31)
[2018-02-07] MEDS ORDERED: DUONEB 0.5 MG/3 MG NEB PRN (15:41)
[2018-02-07] MEDS: SNACK - Diabetic Appropriate PO SCH (20:31)
[2018-02-07] MEDS: FORTAZ or TAZICEF VIAL INJ IVP SCH (20:32)
[2018-02-07] MEDS: COLACE CAP 100 MG PO PRN (22:08)
[2018-02-08] MEDS: NORCO 5/325 MG TAB PO PRN ×2 (00:07→20:15)
[2018-02-08] MEDS: ZOFRAN INJ 4 MG VIAL IVP PRN ×2 (00:07→20:15)
[2018-02-08] MEDS: NS 1000 ML 1,000 ML IV SCH ×3 (05:10→20:14)
[2018-02-08 05:27] LABS: BASOPHILS % (AUTO) 0.3 % (0.2-1.0); EOSINOPHILS % (AUTO) 0.1 % (0.9-2.9); HEMATOCRIT 33.4 % (36.0-47.0); HEMOGLOBIN 11.7 g/dL (12.0-16.0); LYMPHOCYTES # (AUTO) 0.3 X10^3/uL (1.3-2.9); LYMPHOCYTES % (AUTO) 4.7 % (21.0-51.0); MEAN CORPUSCULAR HEMOGLOBIN 32.3 pg (27.0-34.0); MEAN CORPUSCULAR VOLUME 92.5 fL (80.0-100.0); MEAN PLATELET VOLUME 8.7 fL (7.4-11.0); MONOCYTES # (AUTO) 0.3 x10^3/uL (0.3-0.8); MONOCYTES % (AUTO) 4.7 % (0.0-13.0); NEUTROPHILS # (AUTO) 4.8 x10^3/uL (2.2-4.8); NEUTROPHILS % (AUTO) 90.2 % (42.0-75.0); PLATELET COUNT 94 X10^3/uL (150.0-450.0); RED BLOOD COUNT 3.61 X10^6/uL (3.5-5.4); RED CELL DISTRIBUTION WIDTH 14.2 % (11.6-16.5); WHITE BLOOD COUNT 5.4 X10^3/uL (3.6-10.0)
[2018-02-08] MEDS: HumuLIN R SUBCUT PRN ×2 (05:37→17:14)
[2018-02-08 05:51] LABS: ALANINE AMINOTRANSFERASE 87 Units/L (12-78); ALBUMIN 1.8 g/dL (3.4-5.0); ALKALINE PHOSPHATASE 206 Units/L (46-116); ASPARTATE AMINO TRANSFERASE 90 Units/L (15-37); BLOOD UREA NITROGEN 12 mg/dL (7-18); CALCIUM 7.6 mg/dL (8.5-10.1); CARBON DIOXIDE 22.2 mmol/L (21-32); CHLORIDE 102 mmol/L (98-107); COR CA(FOR HYPOALB) 9.4 mg/dL (8.5-10.1); COR NA(FOR HYPERGLY) 135 mmol/L (136-145); CREATININE 0.72 mg/dL (0.55-1.02); MAGNESIUM 1.6 mg/dL (1.7-2.9); SODIUM 133 mmol/L (136-145); eGFR NON BLACK RACES > 60 (>60)
[2018-02-08] MEDS: MAGNESIUM SULFATE 1 GRAM/100 mL PREMIX 1 GM/100 ML BAG IV PRN (06:28)
[2018-02-08] MEDS: K-DUR TAB 20 MEQ PO PRN ×3 (06:29→23:00)
[2018-02-08 07:48] LABS: BAND NEUTROPHILS % 38 % (0-10); PLATELET MORPHOLOGY COMMENT NORMAL (NORMAL)
--- NOTE | 2018-02-08 10:17 | PCM.PROG ---
Progress Note - Progress Note for Day of Date of Exam: 02/07/18 - Subjective Subjective: WAS ADMITTED FOR DEHYDRATION, HYPERGLYCEMIA, AND GENERALIZED WEAKNESS. TODAY, SHE IS ALERT AND ORIENTED, LYING IN BED ON MORNING ROUNDS. SHE CONTINUES WITH WEAKNESS, BACK PAIN, AND IS ALSO NOTED WITH A NON- PRODUCTIVE COUGH TODAY. SHE HAD AN ELEVATED TEMPERATURE THROUGHOUT THE NIGHT. ON EXAMINATION, HEART IS REGULAR IN RATE AND RHYTHM. BILATERAL LUNGS ARE NOTED WITH DIMINISHED LUNG SOUNDS THROUGHOUT. ABDOMEN IS ROUND, SOFT, AND NON-TENDER WITH NORMAL BOWEL SOUNDS NOTED IN ALL QUADRANTS. HER VITALS THIS MORNING ARE 97.6-78-20-97%-159/74. LABS WERE OBTAINED. ABNORMAL LAB VALUES INCLUDE THE FOLLOWING: HGB 11.9, HCT 33.7, PLT COUNT 82, SODIUM 134, POTASSIUM 3.0, GLUCOSE 112, CALCIUM 7.8, MAGNESIUM 1.5, AST 171, ALT 95, ALK PHOS 167, TOTAL PROTEIN 5.4, ALBUMIN 2.0. YESTERDAY'S T-SPINE XRAY REVEALED: Severe degenerative disc disease and scoliosis. TODAY, WE PLAN TO OBTAIN A CHEST XRAY AND START FORTAZ AND LEVAQUIN IV. OTHERWISE, WE WILL CONTINUE WITH CURRENT PLAN OF CARE. WE WILL FOLLOW UP WITH AM LABS AND CONTINUE TO MONITOR PATIENT. - Past Medical Family Social History Past Med/Fam/Surg Hx: No changes since H&P Allergies: Allergies Penicillins Allergy (Verified 02/04/18 06:52) - Review of Systems ROS: No change since H&P - Vital Signs and I&O's Vital Signs: Temperature 99.7 F Pulse Rate [Right Brachial] 100 Pulse Rate 99 Respiratory Rate 20 Blood Pressure [Left Arm] 154/75 Blood Pressure [Right Arm] 106/62 Blood Pressure 115/58 O2 Sat by Pulse Oximetry 96 Intake and Output: Intake & Output 02/05/18 02/06/18 02/07/18 02/08/18 11:59 11:59 11:59 11:59 Intake Total 1160 / 1160 2560 / 2560 2090 / 2090 4961 / 4961 Output Total 250 / 250 1500 / 1500 1000 / 1000 2200 / 2200 Balance 910 / 910 1060 / 1060 1090 / 1090 2761 / 2761 - Physical Exam Oriented: Normal Eyes: Normal Ear: Normal Nose: Normal Throat: Normal Respiratory: Generalized, Diminished Cardiovascular: Normal. negative: S3, S4, Murmur : Normal Auscultation: Bowel Sounds: Normal Palpation: Normal Tenderness: Normal Skin: Normal Musculoskeletal: Back:Thoracic, Back:Lumbar, Tender Psychiatric: Normal Mood Description: Calm Affect: Normal Speech Pattern: Clear, Appropriate - Laboratory and Diagnostics Result Diagrams: 02/08/18 05:00 02/08/18 08:39 Labs: 02/04/18 20:40 Blood Blood Culture - Preliminary 02/04/18 20:35 Blood Blood Culture - Preliminary Laboratory WBC 5.4 X10^3/uL (3.6-10.0) 02/08/18 05:00 RBC 3.61 X10^6/uL (3.5-5.4) 02/08/18 05:00 Hgb 11.7 g/dL (12.0-16.0) L 02/08/18 05:00 Hct 33.4 % (36.0-47.0) L 02/08/18 05:00 MCV 92.5 fL (80.0-100.0) 02/08/18 05:00 MCH 32.3 pg (27.0-34.0) 02/08/18 05:00 MCHC 35.0 g/dL (33.0-35.0) 02/08/18 05:00 RDW 14.2 % (11.6-16.5) 02/08/18 05:00 Plt Count 94 X10^3/uL (150.0-450.0) L 02/08/18 05:00 Plt Count Comment Decreased (ADEQUATE) A 02/08/18 05:00 MPV 8.7 fL (7.4-11.0) 02/08/18 05:00 Neut % (Auto) 90.2 % (42.0-75.0) H 02/08/18 05:00 Lymph % (Auto) 4.7 % (21.0-51.0) L 02/08/18 05:00 [place] % (Auto) 4.7 % (0.0-13.0) 02/08/18 05:00 Eos % (Auto) 0.1 % (0.9-2.9) L 02/08/18 05:00 Baso % (Auto) 0.3 % (0.2-1.0) 02/08/18 05:00 Neut # (Auto) 4.8 x10^3/uL (2.2-4.8) 02/08/18 05:00 Lymph # (Auto) 0.3 X10^3/uL (1.3-2.9) L 02/08/18 05:00 [place] # (Auto) 0.3 x10^3/uL (0.3-0.8) 02/08/18 05:00 Eos # (Auto) 0.0 x10^3/uL (0.0-0.2) 02/08/18 05:00 Baso # (Auto) 0.0 X10^3/uL (0.0-0.1) 02/08/18 05:00 Absolute Nucleated RBC 0.0 /100WBC 02/08/18 05:00 Total Counted 100 02/08/18 05:00 Neutrophils % (Manual) 43 % (39-76) 02/08/18 05:00 Band Neutrophils % 38 % (0-10) H 02/08/18 05:00 Lymphocytes % (Manual) 18 % (13-43) 02/08/18 05:00 Monocytes % (Manual) 1 % (4-9) L 02/08/18 05:00 Plt Morphology Comment Normal (NORMAL) 02/08/18 05:00 RBC Morphology Normal (NORMAL) 02/08/18 05:00 Sodium 133 mmol/L (136-145) L 02/08/18 05:00 Corrected Sodium 135 mmol/L (136-145) L 02/08/18 05:00 Potassium 3.3 mmol/L (3.5-5.1) L 02/08/18 08:39 Chloride 102 mmol/L (98-107) 02/08/18 05:00 Carbon Dioxide 22.2 mmol/L (21-32) 02/08/18 05:00 BUN 12 mg/dL (7-18) 02/08/18 05:00 Creatinine 0.72 mg/dL (0.55-1.02) 02/08/18 05:00 Est GFR (MDRD) Af Amer > 60 (>60) 02/08/18 05:00 Est GFR (MDRD) Non-Af > 60 (>60) 02/08/18 05:00 Glucose 187 mg/dL (65-99) H 02/08/18 05:00 POC Glucose (mg/dL) 199 mg/dL (65-99) H 02/06/18 19:53 Calcium 7.6 mg/dL (8.5-10.1) L 02/08/18 05:00 Corrected Calcium 9.4 mg/dL (8.5-10.1) 02/08/18 05:00 Magnesium 1.6 mg/dL (1.7-2.9) L 02/08/18 05:00 Total Bilirubin 0.60 mg/dL (0.2-1.0) 02/08/18 05:00 AST 90 Units/L (15-37) H 02/08/18 05:00 ALT 87 Units/L (12-78) H 02/08/18 05:00 Alkaline Phosphatase 206 Units/L (46-116) H 02/08/18 05:00 Creatine Kinase 40 Units/L (26-192) 02/05/18 03:50 CK-MB (CK-2) < 1.0 ng/mL (0-4.0) 02/05/18 03:50 CK/CKMB % Calc 2.5 % (<4) 02/05/18 03:50 Troponin I < 0.02 ng/mL (0-1.5) 02/05/18 03:50 Total Protein 5.0 g/dL (6.4-8.2) L 02/08/18 05:00 Albumin 1.8 g/dL (3.4-5.0) L 02/08/18 05:00 Globulin 3.2 g/dL (2.5-4.5) 02/08/18 05:00 Albumin/Globulin Ratio 0.6 Ratio (1.1-2.1) L 02/08/18 05:00 Triglycerides 135 mg/dL (0-150) 02/05/18 03:50 Cholesterol 104 mg/dL (0-200) 02/05/18 03:50 LDL Cholesterol, Calc 63 mg/dL (0-100) 02/05/18 03:50 HDL Cholesterol 14 mg/dL (40-60) L 02/05/18 03:50 Cholesterol/HDL Ratio 7.4 (0.0-5.0) H 02/05/18 03:50 Specimen Type Clean catch urine 02/04/18 07:42 Urine Color Yellow (YELLOW) 02/04/18 07:42 Urine Appearance Clear (CLEAR) 02/04/18 07:42 Urine pH 5.0 (5.0 - 8.0) 02/04/18 07:42 Ur Specific [place] 1.005 (1.000-1.030) 02/04/18 07:42 Urine Protein 1+ (NEGATIVE) 02/04/18 07:42 Urine Glucose (UA) 4+ (NEGATIVE) 02/04/18 07:42 Urine Ketones 1+ (NEGATIVE) 02/04/18 07:42 Urine Occult Blood 1+ (NEGATIVE) 02/04/18 07:42 Urine Nitrite Negative (NEGATIVE) 02/04/18 07:42 Urine Bilirubin Negative (NEGATIVE) 02/04/18 07:42 Urine Urobilinogen Normal (NORMAL) 02/04/18 07:42 Ur Leukocyte Esterase Negative (NEGATIVE) 02/04/18 07:42 Urine RBC 3-5 /HPF (NONE SEEN) 02/04/18 07:42 Urine WBC 0-2 /HPF (NONE SEEN) 02/04/18 07:42 Ur Squamous Epith Cells Few /HPF (NEGATIVE) 02/04/18 07:42 Urine Bacteria Trace /HPF (NEGATIVE) 02/04/18 07:42 Urine Yeast Rare /HPF (NEGATIVE) 02/04/18 07:42 Ur Culture Indicated? No/not indicated 02/04/18 07:42 Acetone, Semi-Quant Small (NEGATIVE) H 02/05/18 03:50 Influenza Type A (PCR) Negative (NEGATIVE) 02/04/18 07:22 Influenza Type B (PCR) Negative (NEGATIVE) 02/04/18 07:22 - Plan (1) Hyperglycemia Status: Acute Plan: LEVEMIR 15 UNITS SC BID, NORMAL SALINE AT 125ML/HR, HUMULIN R SLIDING SCALE, CONTINUE TO MONITOR (2) Generalized weakness Status: Acute (3) Dehydration Status: Acute Plan: NORMAL SALINE AT 125ML/HR (4) Fever Status: Acute Qualifiers: Fever type: unspecified Qualified Code(s): R50.9 - Fever, unspecified Plan: FORTAZ AND LEVAQUIN IV, BLOOD CULTURES, TYLENOL, CONTINUE TO MONITOR (5) Back pain Status: Acute Qualifiers: Back pain location: back pain in unspecified location Chronicity: chronic Back pain laterality: midline Qualified Code(s): M54.9 - Dorsalgia, unspecified; G89.29 - Other chronic pain Plan: CONTINUE TO MONITOR
[2018-02-08] MEDS: FORTAZ or TAZICEF VIAL INJ IVP SCH ×2 (10:30→20:14)
[2018-02-08] MEDS: LEVAQUIN PREMIX IV 500 MG 500 MG/100 ML BAG IV SCH (13:30)
[2018-02-08] MEDS: LEVEMIR SC SCH ×2 (13:39→20:17)
[2018-02-08] MEDS: SNACK - Diabetic Appropriate PO SCH (20:14)
[2018-02-08] MEDS: COLACE CAP 100 MG PO PRN (20:18)
[2018-02-09] MEDS: NS 1000 ML 1,000 ML IV SCH (04:29)
[2018-02-09 05:26] LABS: BASOPHILS # (AUTO) 0.3 X10^3/uL (0.0-0.1); BASOPHILS % (AUTO) 5.9 % (0.2-1.0); EOSINOPHILS # (AUTO) 0.1 x10^3/uL (0.0-0.2); EOSINOPHILS % (AUTO) 1.3 % (0.9-2.9); HEMATOCRIT 35.3 % (36.0-47.0); HEMOGLOBIN 12.2 g/dL (12.0-16.0); LYMPHOCYTES # (AUTO) 0.5 X10^3/uL (1.3-2.9); LYMPHOCYTES % (AUTO) 8.6 % (21.0-51.0); MEAN CORPUSCULAR HGB CONC 34.5 g/dL (33.0-35.0); MEAN CORPUSCULAR VOLUME 92.6 fL (80.0-100.0); MEAN PLATELET VOLUME 8.7 fL (7.4-11.0); MONOCYTES # (AUTO) 0.4 x10^3/uL (0.3-0.8); MONOCYTES % (AUTO) 6.6 % (0.0-13.0); NEUTROPHILS # (AUTO) 4.2 x10^3/uL (2.2-4.8); NEUTROPHILS % (AUTO) 77.6 % (42.0-75.0); PLATELET COUNT 145 X10^3/uL (150.0-450.0); RED BLOOD COUNT 3.81 X10^6/uL (3.5-5.4); RED CELL DISTRIBUTION WIDTH 14.4 % (11.6-16.5); WHITE BLOOD COUNT 5.4 X10^3/uL (3.6-10.0)
[2018-02-09 05:31] LABS: ALANINE AMINOTRANSFERASE 68 Units/L (12-78); ALBUMIN 1.9 g/dL (3.4-5.0); ALKALINE PHOSPHATASE 196 Units/L (46-116); ASPARTATE AMINO TRANSFERASE 38 Units/L (15-37); BLOOD UREA NITROGEN 14 mg/dL (7-18); CARBON DIOXIDE 24.5 mmol/L (21-32); CHLORIDE 103 mmol/L (98-107); COR CA(FOR HYPOALB) 9.7 mg/dL (8.5-10.1); COR NA(FOR HYPERGLY) 137 mmol/L (136-145); CREATININE 0.72 mg/dL (0.55-1.02); MAGNESIUM 1.9 mg/dL (1.7-2.9); SODIUM 135 mmol/L (136-145); TOTAL PROTEIN 5.6 g/dL (6.4-8.2); eGFR NON BLACK RACES > 60 (>60)
[2018-02-09] MEDS: K-DUR TAB 20 MEQ PO PRN (08:51)
[2018-02-09] MEDS: FORTAZ or TAZICEF VIAL INJ IVP SCH (08:51)
[2018-02-09] MEDS: LEVEMIR SC SCH (08:52)
[2018-02-09] MEDS: LEVAQUIN PREMIX IV 500 MG 500 MG/100 ML BAG IV SCH (08:52)
[2018-02-09] MEDS: MAGNESIUM SULFATE 1 GRAM/100 mL PREMIX 1 GM/100 ML BAG IV PRN ×2 (08:53→10:28)
[2018-02-09] MEDS ORDERED: PEPCID 20 MG IV PREMIX* 20 MG/50 ML BAG IV SCH (10:00)
[2018-02-09] MEDS ORDERED: NYSTATIN POWDER TOP SCH (11:00)
[2018-02-09] MEDS: TYLENOL 325 MG TAB PO PRN (11:40)
[2018-02-09] MEDS: HumuLIN R SUBCUT PRN (11:42)
[2018-02-09 12:53] VITALS: BP 141/58
--- NOTE | 2018-03-17 21:38 | PCM.PROG ---
Progress Note - Progress Note for Day of Date of Exam: 02/08/18 - Subjective Subjective: WAS ADMITTED FOR DEHYDRATION, HYPERGLYCEMIA, AND GENERALIZED WEAKNESS. TODAY, SHE IS ALERT AND ORIENTED, LYING IN BED ON MORNING ROUNDS. SHE CONTINUES WITH WEAKNESS, BACK PAIN, AND IS ALSO NOTED WITH A NON- PRODUCTIVE COUGH TODAY. ON EXAMINATION, HEART IS REGULAR IN RATE AND RHYTHM. BILATERAL LUNGS ARE NOTED WITH DIMINISHED LUNG SOUNDS THROUGHOUT. ABDOMEN IS ROUND, SOFT, AND NON-TENDER WITH NORMAL BOWEL SOUNDS NOTED IN ALL QUADRANTS. HER VITALS THIS MORNING ARE 98.8-85-18-98%-138/69. LABS WERE OBTAINED. ABNORMAL LAB VALUES INCLUDE THE FOLLOWING: HGB 11.7, HCT 33.4, PLT OCUNT 94, SODIUM 133, POTASSIUM 3.1, GLUCOSE 187, CALCIUM 7.6, MAGNESIUM 1.6, AST 90, ALT 87, ALK PHOS 206, TOTAL PROTEIN 5.0, ALBUMIN 1.8. A CHEST XRAY WAS OBTAINED YESTERDAY AND REVEALED STABLE CHRONIC CHANGES WITH NO ACUTE ABNORMALITY SEEN. TODAY, WE WILL CONTINUE WITH CURRENT PLAN OF CARE. OTHERWISE, WE WILL FOLLOW UP WITH AM LABS AND CONTINUE TO MONITOR PATIENT. - Past Medical Family Social History Past Med/Fam/Surg Hx: No changes since H&P Allergies: Allergies Penicillins Allergy (Verified 02/04/18 06:52) - Review of Systems ROS: No change since H&P - Vital Signs and I&O's Vital Signs: Temperature 98.0 F Pulse Rate [Right Brachial] 60 Pulse Rate 85 Respiratory Rate 18 Blood Pressure [Left Arm] 138/69 Blood Pressure [Right Arm] 141/58 Blood Pressure 115/58 O2 Sat by Pulse Oximetry 97 - Physical Exam Oriented: Normal Eyes: Normal Ear: Normal Nose: Normal Throat: Normal Respiratory: Generalized, Diminished Cardiovascular: Normal. negative: S3, S4, Murmur : Normal Auscultation: Bowel Sounds: Normal Tenderness: Normal Skin: Normal Musculoskeletal: Back:Thoracic, Back:Lumbar, Tender Psychiatric: Normal Mood Description: Calm Affect: Normal Speech Pattern: Clear, Appropriate - Laboratory and Diagnostics Result Diagrams: 02/09/18 04:00 02/09/18 10:43 Labs: 02/04/18 20:40 Blood Blood Culture - Final 02/04/18 20:35 Blood Blood Culture - Final Laboratory WBC 5.4 X10^3/uL (3.6-10.0) 02/09/18 04:00 RBC 3.81 X10^6/uL (3.5-5.4) 02/09/18 04:00 Hgb 12.2 g/dL (12.0-16.0) 02/09/18 04:00 Hct 35.3 % (36.0-47.0) L 02/09/18 04:00 MCV 92.6 fL (80.0-100.0) 02/09/18 04:00 MCH 32.0 pg (27.0-34.0) 02/09/18 04:00 MCHC 34.5 g/dL (33.0-35.0) 02/09/18 04:00 RDW 14.4 % (11.6-16.5) 02/09/18 04:00 Plt Count 145 X10^3/uL (150.0-450.0) L 02/09/18 04:00 Plt Count Comment Decreased (ADEQUATE) A 02/08/18 05:00 MPV 8.7 fL (7.4-11.0) 02/09/18 04:00 Neut % (Auto) 77.6 % (42.0-75.0) H 02/09/18 04:00 Lymph % (Auto) 8.6 % (21.0-51.0) L 02/09/18 04:00 [place] % (Auto) 6.6 % (0.0-13.0) 02/09/18 04:00 Eos % (Auto) 1.3 % (0.9-2.9) 02/09/18 04:00 Baso % (Auto) 5.9 % (0.2-1.0) H 02/09/18 04:00 Neut # (Auto) 4.2 x10^3/uL (2.2-4.8) 02/09/18 04:00 Lymph # (Auto) 0.5 X10^3/uL (1.3-2.9) L 02/09/18 04:00 [place] # (Auto) 0.4 x10^3/uL (0.3-0.8) 02/09/18 04:00 Eos # (Auto) 0.1 x10^3/uL (0.0-0.2) 02/09/18 04:00 Baso # (Auto) 0.3 X10^3/uL (0.0-0.1) H 02/09/18 04:00 Absolute Nucleated RBC 0.0 /100WBC 02/09/18 04:00 Total Counted 100 02/08/18 05:00 Neutrophils % (Manual) 43 % (39-76) 02/08/18 05:00 Band Neutrophils % 38 % (0-10) H 02/08/18 05:00 Lymphocytes % (Manual) 18 % (13-43) 02/08/18 05:00 Monocytes % (Manual) 1 % (4-9) L 02/08/18 05:00 Plt Morphology Comment Normal (NORMAL) 02/08/18 05:00 RBC Morphology Normal (NORMAL) 02/08/18 05:00 Sodium 135 mmol/L (136-145) L 02/09/18 04:00 Corrected Sodium 137 mmol/L (136-145) 02/09/18 04:00 Potassium 3.6 mmol/L (3.5-5.1) 02/09/18 10:43 Chloride 103 mmol/L (98-107) 02/09/18 04:00 Carbon Dioxide 24.5 mmol/L (21-32) 02/09/18 04:00 BUN 14 mg/dL (7-18) 02/09/18 04:00 Creatinine 0.72 mg/dL (0.55-1.02) 02/09/18 04:00 Est GFR (MDRD) Af Amer > 60 (>60) 02/09/18 04:00 Est GFR (MDRD) Non-Af > 60 (>60) 02/09/18 04:00 Glucose 181 mg/dL (65-99) H 02/09/18 04:00 POC Glucose (mg/dL) 203 mg/dL (65-99) H 02/09/18 10:43 Calcium 8.0 mg/dL (8.5-10.1) L 02/09/18 04:00 Corrected Calcium 9.7 mg/dL (8.5-10.1) 02/09/18 04:00 Magnesium 1.9 mg/dL (1.7-2.9) 02/09/18 04:00 Total Bilirubin 0.50 mg/dL (0.2-1.0) 02/09/18 04:00 AST 38 Units/L (15-37) H 02/09/18 04:00 ALT 68 Units/L (12-78) 02/09/18 04:00 Alkaline Phosphatase 196 Units/L (46-116) H 02/09/18 04:00 Creatine Kinase 40 Units/L (26-192) 02/05/18 03:50 CK-MB (CK-2) < 1.0 ng/mL (0-4.0) 02/05/18 03:50 CK/CKMB % Calc 2.5 % (<4) 02/05/18 03:50 Troponin I < 0.02 ng/mL (0-1.5) 02/05/18 03:50 Total Protein 5.6 g/dL (6.4-8.2) L 02/09/18 04:00 Albumin 1.9 g/dL (3.4-5.0) L 02/09/18 04:00 Globulin 3.7 g/dL (2.5-4.5) 02/09/18 04:00 Albumin/Globulin Ratio 0.5 Ratio (1.1-2.1) L 02/09/18 04:00 Triglycerides 135 mg/dL (0-150) 02/05/18 03:50 Cholesterol 104 mg/dL (0-200) 02/05/18 03:50 LDL Cholesterol, Calc 63 mg/dL (0-100) 02/05/18 03:50 HDL Cholesterol 14 mg/dL (40-60) L 02/05/18 03:50 Cholesterol/HDL Ratio 7.4 (0.0-5.0) H 02/05/18 03:50 Specimen Type Clean catch urine 02/04/18 07:42 Urine Color Yellow (YELLOW) 02/04/18 07:42 Urine Appearance Clear (CLEAR) 02/04/18 07:42 Urine pH 5.0 (5.0 - 8.0) 02/04/18 07:42 Ur Specific [place] 1.005 (1.000-1.030) 02/04/18 07:42 Urine Protein 1+ (NEGATIVE) 02/04/18 07:42 Urine Glucose (UA) 4+ (NEGATIVE) 02/04/18 07:42 Urine Ketones 1+ (NEGATIVE) 02/04/18 07:42 Urine Occult Blood 1+ (NEGATIVE) 02/04/18 07:42 Urine Nitrite Negative (NEGATIVE) 02/04/18 07:42 Urine Bilirubin Negative (NEGATIVE) 02/04/18 07:42 Urine Urobilinogen Normal (NORMAL) 02/04/18 07:42 Ur Leukocyte Esterase Negative (NEGATIVE) 02/04/18 07:42 Urine RBC 3-5 /HPF (NONE SEEN) 02/04/18 07:42 Urine WBC 0-2 /HPF (NONE SEEN) 02/04/18 07:42 Ur Squamous Epith Cells Few /HPF (NEGATIVE) 02/04/18 07:42 Urine Bacteria Trace /HPF (NEGATIVE) 02/04/18 07:42 Urine Yeast Rare /HPF (NEGATIVE) 02/04/18 07:42 Ur Culture Indicated? No/not indicated 02/04/18 07:42 Acetone, Semi-Quant Small (NEGATIVE) H 02/05/18 03:50 Influenza Type A (PCR) Negative (NEGATIVE) 02/04/18 07:22 Influenza Type B (PCR) Negative (NEGATIVE) 02/04/18 07:22 - Plan (1) Hyperglycemia Status: Acute Plan: LEVEMIR 15 UNITS SC BID, NORMAL SALINE AT 125ML/HR, HUMULIN R SLIDING SCALE, CONTINUE TO MONITOR (2) Generalized weakness Status: Acute (3) Dehydration Status: Acute Plan: NORMAL SALINE AT 125ML/HR (4) Fever Status: Acute Qualifiers: Fever type: unspecified Qualified Code(s): R50.9 - Fever, unspecified Plan: FORTAZ AND LEVAQUIN IV, BLOOD CULTURES, TYLENOL, CONTINUE TO MONITOR (5) Back pain Status: Acute Qualifiers: Back pain location: back pain in unspecified location Chronicity: chronic Back pain laterality: midline Qualified Code(s): M54.9 - Dorsalgia, unspecified; G89.29 - Other chronic pain Plan: CONTINUE TO MONITOR
== END 2018-02-09 13:30 | disposition home or self-care (01) | DRG 641 ==
LOC: ER 06:49 → MED/SURG 08:48
PROVIDERS: ADMIT Internal Medicine; ATTEND Internal Medicine
DX: E87.1 Hypo-osmolality and hyponatremia; M54.89 Other dorsalgia; R53.1 Weakness; E86.0 Dehydration; K21.9 Gastro-esophageal reflux disease without esophagitis; R53.83 Other fatigue; M79.18 Myalgia, other site; R50.9 Fever, unspecified; E11.65 Type 2 diabetes mellitus with hyperglycemia; R07.89 Other chest pain
CPT/HCPCS: 36415; 71010; 71045; 72072; 72100; 80053; 80061; 81001; 82009; 82550; 82553; 82947; 83735; 84132; 84484; 85025; 87040; 87502; 93005; 94640; 94760; 96365; 96367; 96372; 96374; 96375; 99238; 99283; 99284; A4222; S0028; J0713; J1815; J1885; J1956; J2405; J3475; J3490; J7030; J7620

== ENCOUNTER 2018-11-25 04:02 | Observation (INO) ==
--- NOTE | 2018-11-25 04:43 | DR.GENAD ---
HPI Time Seen Time Seen by Provider: 11/25/18 04:43 PCP Primary Care Physician: SONIDO HPI Comment HPI Comment: PATIENT IS 58YR OLD FEMALE WITH NAUSEA AND VOMITING NOTED TODAY. PATIENT SEEN IN THIS EMERGENCY ROOM 11/18 2018 AND 11/22/2018 FOR BACK AND HIP PAIN. STILL HAVING BACK AND LEFT HIP PAIN DOWN LEFT LEG. SHE NOW HAVE ABDOMINAL PAIN WITH NAUSEA, VOMITING AND CONSTIPATION. HAVE NOT HAVE BOWEL MOVEMENT IN 5 DAYS. NO FEVER OR DYSURIA. ABDOMINAL CRAMPS IS DIFFUSE 10/10 PAIN THAT IS NON RADIATING. Complaint/Symptoms Chief Complaint Doctors Comments: ABDOMINAL PAIN AND CHEST PAIN WITH NAUSEA, VOMITING AND CONSTIPATION. Chief Complaint:: PATIENT STATES SHE HAS ABDOMINAL PAIN & CHEST PAIN; RATES ABDOMINAL PAIN 10 ON SCALE OF 1-10; PATIENT STATES SHE HAS BEEN UNABLE TO HAVE A BOWEL MOVEMENT TODAY AND HAS VOMITED 10 TIMES; PATIENT STATES HER LAST BM WAS 5 DAYS AGO Nurses notes reviewed Nurses Notes Review: Yes Source History Provided: Patient Mode of Arrival Mode of Arrival: Ambulatory Timing Onset of Chief Complaint: 11/25/18 Came on: Suddenly Duration Duration: Constant Duration: Days Severity Severity: Moderate Modifying Factors Worsens:: MOVEMENT. Improves:: LYING STILL. Associated Signs and Symptoms Associated Signs and Symptoms: WEAKNESS. Other History Other History: HISTORY DM. PMH PMH Past Medical History: Yes Past Medical History: Arthritis and Diabetes Past Medical History Comment: ARTHRITIS IN LEFT LEG; DIABETES TYPE 2 Past Surgical History: Yes Past Surgical History Comment: TUBAL Family History Family Medical History: Cancer Social History Does patient currently use any type of tobacco product: No Have you used tobacco products in the last 12 months: No Type of Tobacco Use: None Does any household member use tobacco: No Alcohol Use: None Do you use any recreational Drugs:: No Lives With: Family Lives Where: Home infectious screening In the last 2 months have you had wt loss of >10#?: NO Have you had fever, night sweats or hemotysis?: No Have you traveled outside the country in the last 6 months?: No Isolation: Standard ROS Review of Systems Constitutional: No Symptoms Reported, See HPI, Weakness and Fatigue; negative Fever Eyes: No Symptoms Reported, See HPI and Blurred Vision; negative Eye Pain and Discharge ENTM: No Symptoms Reported and See HPI Respiratoy: No Symptoms Reported, See HPI and Short of Breath (ON EXERTION.); negative Wheezing Cardiovascular: No Symptoms Reported and See HPI; negative Chest Pain, Edema and Palpitations Gastrointestinal/Abdominal: See HPI, Abdominal Pain, Constipation, Nausea and Vomiting; negative Diarrhea Genitourinary: No Symptoms Reported and See HPI; negative Dysuria, Frequency and Hematuria Neurological: See HPI and Weakness; negative Headache and Dizziness Musculoskeletal: See HPI, Back Pain and Hip Integumentary: No Symptoms Reported and See HPI; negative Change in Color, Rash and Juandice Hematologic/Lymphatic: No Symptoms Reported and See HPI; negative Easy Bruising and Swollen Glands Endocrine: See HPI and Decreased Appetite; negative Unexplained Weight Loss and Failure to Thrive Psychiatric: No Symptoms Reported and See HPI All Other Systems: Reviewed and Negative PE Vital Signs Vitals: Temperature 98.9 F Pulse Rate [Left Brachial] 79 Pulse Rate 83 Respiratory Rate 18 Blood Pressure [Left Arm] 138/68 Blood Pressure [Right Arm] 159/70 Blood Pressure 141/64 O2 Sat by Pulse Oximetry 99 General Limitations: No Limitations General Appearance: Alert and In No Apparent Distress Head Head Exam: Normal Inspection, Atraumatic and Normocephalic Eyes Eye exam: Normal Appearance and PERRL; negative Scleral Icterus and Conjunctival Injection ENT ENT Exam: Normal Exam, Normal Oropharynx, Normal External Ear Exam and TM's Normal Bilaterally External Ear Exam: Normal External Inspection; negative Mastoid Tenderness, Pain with Movement and External Tenderness TM/Canal Exam: Bilateral: Normal Nose Exam: Normal Nose Exam; negative Sinus Tenderness, Nasal Deviation and Sept al Hematoma Mouth Exam: Normal Inspection; negative Lip Swelling and Tongue Swelling Throat Exam: Normal Inspection; negative Tonsillar Erythema, Tonsillomegaly and Tonsillar Exudate Neck Neck Exam: Normal Inspection and Trachea Midline; negative Tenderness and Lymphadenopathy Chest Chest Inspection: Normal Inspection and Symmetric Chest Wall Rise; negative Tenderness Respiratory Respiratory Exam: Normal Lung Sounds Bilat; negative Accessory Muscle Use, Chest Wall Tenderness and Respiratory Distress Respiratory Exam: Bilateral: Clear to Auscultation Cardiovascular Cardiovascular Exam: Regular Rate, Normal Rhythm and Normal Heart Sounds; negative Systolic Murmur and Diastolic Murmur Abdominal Exam Abdominal Exam: Normal Inspection, Normal Bowel Sounds, Soft and Tenderness; negative Organomegaly and Mass Abdominal Tenderness: Diffuse and Mild Extremities Extremities Exam: Full ROM, Tenderness (LEFT HIP TENDER.) and Normal Capillary Refill; negative Edema and Calf Tenderness Back Back Exam: Tenderness and Paraspinal Tenderness; negative Vertebral Tenderness Neurologic Neurological Exam: Alert, Oriented X3 and CN II-XII Intact; negative Motor Sensory Deficit Psychiatric Psychiatric Exam: Normal Affect and Normal Mood Skin Skin Exam: Dry and Normal Color MDM Differential Diagnosis Differential Diagnosis: ABDOMINAL PAIN, CONSTIPATION, PUD, UTI, CHEST PAIN RULE OUT VT, SCIATICA. COURSE Treatment Treatment: SEE ORDERS. ROR Labs Reviewed Laboratory Results Reviewed?: Yes Result Diagrams: 11/26/18 05:55 11/26/18 05:55 Laboratory: WBC 4.1 X10^3/uL (3.6-10.0) 11/26/18 05:55 RBC 3.50 X10^6/uL (3.5-5.4) 11/26/18 05:55 Hgb 11.3 g/dL (12.0-16.0) L 11/26/18 05:55 Hct 31.9 % (36.0-47.0) L 11/26/18 05:55 MCV 91.0 fL (80.0-100.0) 11/26/18 05:55 MCH 32.2 pg (27.0-34.0) 11/26/18 05:55 MCHC 35.4 g/dL (33.0-35.0) H 11/26/18 05:55 RDW 13.7 % (11.6-16.5) 11/26/18 05:55 Plt Count 108 X10^3/uL (150.0-450.0) L 11/26/18 05:55 Plt Count Comment Decreased (ADEQUATE) A 11/25/18 04:55 MPV 8.4 fL (7.4-11.0) 11/26/18 05:55 Neut % (Auto) 76.0 % (42.0-75.0) H 11/26/18 05:55 Lymph % (Auto) 15.7 % (21.0-51.0) L 11/26/18 05:55 [place] % (Auto) 7.6 % (0.0-13.0) 11/26/18 05:55 Eos % (Auto) 0.2 % (0.9-2.9) L 11/26/18 05:55 Baso % (Auto) 0.5 % (0.2-1.0) 11/26/18 05:55 Neut # (Auto) 3.1 x10^3/uL (2.2-4.8) 11/26/18 05:55 Lymph # (Auto) 0.6 X10^3/uL (1.3-2.9) L 11/26/18 05:55 [place] # (Auto) 0.3 x10^3/uL (0.3-0.8) 11/26/18 05:55 Eos # (Auto) 0.0 x10^3/uL (0.0-0.2) 11/26/18 05:55 Baso # (Auto) 0.0 X10^3/uL (0.0-0.1) 11/26/18 05:55 Absolute Nucleated RBC 0.1 /100WBC 11/26/18 05:55 Total Counted 100 11/25/18 04:55 Neutrophils % (Manual) 92 % (39-76) H 11/25/18 04:55 Lymphocytes % (Manual) 6 % (13-43) L 11/25/18 04:55 Monocytes % (Manual) 2 % (4-9) L 11/25/18 04:55 Plt Morphology Comment Normal (NORMAL) 11/25/18 04:55 RBC Morphology Normal (NORMAL) 11/25/18 04:55 INR Target Range - 11/26/18 05:55 INR 1.04 (0.8-1.3) 11/26/18 05:55 APTT 30.2 SECONDS (22.9-36.5) 11/26/18 05:55 PTT Comment - 11/26/18 05:55 Sodium 133 mmol/L (136-145) L 11/26/18 05:55 Corrected Sodium 136 mmol/L (136-145) 11/26/18 05:55 Potassium 3.8 mmol/L (3.5-5.1) 11/26/18 05:55 Chloride 98 mmol/L (98-107) 11/26/18 05:55 Carbon Dioxide 26.9 mmol/L (21-32) 11/26/18 05:55 BUN 9 mg/dL (7-18) 11/26/18 05:55 Creatinine 0.64 mg/dL (0.55-1.02) 11/26/18 05:55 Est GFR (MDRD) Af Amer > 60 (>60) 11/26/18 05:55 Est GFR (MDRD) Non-Af > 60 (>60) 11/26/18 05:55 Glucose 240 mg/dL (65-99) H 11/26/18 05:55 Calcium 8.2 mg/dL (8.5-10.1) L 11/26/18 05:55 Corrected Calcium 9.1 mg/dL (8.5-10.1) 11/26/18 05:55 Magnesium 1.8 mg/dL (1.7-2.9) 11/26/18 05:55 Iron 11 ug/dL (50-175) L 11/26/18 12:37 Transferrin 183 mg/dL (202-364) L 11/26/18 12:37 Ferritin 227 ng/mL (8-252) 11/26/18 12:37 Total Bilirubin 0.40 mg/dL (0.2-1.0) 11/26/18 05:55 AST 39 Units/L (15-37) H 11/26/18 05:55 ALT 40 Units/L (12-78) 11/26/18 05:55 Alkaline Phosphatase 76 Units/L (46-116) 11/26/18 05:55 Lactate Dehydrogenase 181 Units/L (81-234) 11/26/18 12:37 Creatine Kinase 41 Units/L (26-192) 11/25/18 17:20 CK-MB (CK-2) < 1.0 ng/mL (0-4.0) 11/25/18 17:20 CK/CKMB % Calc 2.4 % (<4) 11/25/18 17:20 Troponin I < 0.02 ng/mL (0-1.5) 11/25/18 17:20 Total Protein 6.2 g/dL (6.4-8.2) L 11/26/18 05:55 Albumin 2.9 g/dL (3.4-5.0) L 11/26/18 05:55 Globulin 3.3 g/dL (2.5-4.5) 11/26/18 05:55 Albumin/Globulin Ratio 0.9 Ratio (1.1-2.1) L 11/26/18 05:55 Triglycerides 163 mg/dL (0-150) H 11/26/18 05:55 Cholesterol 105 mg/dL (0-200) 11/26/18 05:55 LDL Cholesterol, Calc 46 mg/dL (0-100) 11/26/18 05:55 HDL Cholesterol 26 mg/dL (40-60) L 11/26/18 05:55 Cholesterol/HDL Ratio 4.0 (0.0-5.0) 11/26/18 05:55 Amylase 33 Units/L (25-115) 11/25/18 04:55 Lipase 192 Units/L (73-393) 11/25/18 04:55 Vitamin B12 359 pg/mL (193-986) 11/26/18 12:37 Folate 15.0 ng/mL (>8.6) 11/26/18 12:37 Specimen Type Clean catch urine 11/25/18 06:42 Urine Color Yellow (YELLOW) 11/25/18 06:42 Urine Appearance Hazy (CLEAR) 11/25/18 06:42 Urine pH 5.0 (5.0 - 8.0) 11/25/18 06:42 Ur Specific [place] 1.010 (1.000-1.030) 11/25/18 06:42 Urine Protein 1+ (NEGATIVE) 11/25/18 06:42 Urine Glucose (UA) 4+ (NEGATIVE) 11/25/18 06:42 Urine Ketones 2+ (NEGATIVE) 11/25/18 06:42 Urine Occult Blood 1+ (NEGATIVE) 11/25/18 06:42 Urine Nitrite Negative (NEGATIVE) 11/25/18 06:42 Urine Bilirubin Negative (NEGATIVE) 11/25/18 06:42 Urine Urobilinogen Normal (NORMAL) 11/25/18 06:42 Ur Leukocyte Esterase 1+ (NEGATIVE) 11/25/18 06:42 Urine RBC 0-2 /HPF (NONE SEEN) 11/25/18 06:42 Urine WBC 0-2 /HPF (NONE SEEN) 11/25/18 06:42 Ur Squamous Epith Cells Rare /HPF (NEGATIVE) 11/25/18 06:42 Urine Bacteria Negative /HPF (NEGATIVE) 11/25/18 06:42 Ur Culture Indicated? No/not indicated 11/25/18 06:42 Acetone, Semi-Quant Negative (NEGATIVE) 11/25/18 04:55 XRAY XRAY Interpreted by: Radiologist XRAY Findings: REPORT NOTED AND DISCUSS WITH PATIENT. EKG Rate: 65 [place]: Normal Rhythm: NSR (LOW VOLTAGE.) Block: None Hypertrophy: None ST: Normal Opioid Opioid Risk Tool Age ([place]anulfo box if 16-45): No Total: 0 Total Score Risk Category: Low Risk Copyright: Osiel KEY predicting aberrant behaviors Diagnosis Discharge Problem: Chest pain Qualifiers: Chest pain type: unspecified Qualified Code(s): R07.9 - Chest pain, unspecified Sciatica Qualifiers: Laterality: left Qualified Code(s): M54.32 - Sciatica, left side Constipation Qualifiers: Constipation type: slow transit constipation Qualified Code(s): K59.01 - Slow transit constipation Instructions Instructions: Type 2 Diabetes Mellitus, Diagnosis, Adult Constipation, Adult, [id number] Diabetes Mellitus and Sick Day Management Abdominal Pain, Adult, [id number] Nonspecific Chest Pain, [id number] Blood Glucose Monitoring, Adult Forms: Excuse From Work or School
[2018-11-25] MEDS ORDERED: NS 1000 ML 1,000 ML IV ONE (04:49)
[2018-11-25] MEDS ORDERED: NS 1000 ML 1,000 ML ONE (04:54)
[2018-11-25 05:05] LABS: BASOPHILS % (AUTO) 0.6 % (0.2-1.0); EOSINOPHILS % (AUTO) 0.1 % (0.9-2.9); HEMATOCRIT 33.1 % (36.0-47.0); HEMOGLOBIN 11.8 g/dL (12.0-16.0); LYMPHOCYTES # (AUTO) 0.2 X10^3/uL (1.3-2.9); LYMPHOCYTES % (AUTO) 3.7 % (21.0-51.0); MEAN CORPUSCULAR HEMOGLOBIN 32.7 pg (27.0-34.0); MEAN CORPUSCULAR HGB CONC 35.7 g/dL (33.0-35.0); MEAN CORPUSCULAR VOLUME 91.6 fL (80.0-100.0); MEAN PLATELET VOLUME 7.6 fL (7.4-11.0); MONOCYTES # (AUTO) 0.2 x10^3/uL (0.3-0.8); MONOCYTES % (AUTO) 4.2 % (0.0-13.0); NEUTROPHILS # (AUTO) 3.8 x10^3/uL (2.2-4.8); NEUTROPHILS % (AUTO) 91.4 % (42.0-75.0); PLATELET COUNT 117 X10^3/uL (150.0-450.0); RED BLOOD COUNT 3.62 X10^6/uL (3.5-5.4); RED CELL DISTRIBUTION WIDTH 13.5 % (11.6-16.5); WHITE BLOOD COUNT 4.2 X10^3/uL (3.6-10.0)
--- NOTE | 2018-11-25 05:08 | RAD ---
History: Chest pain Comparison: 02/04/2018. Findings: There is cardiomegaly without significant pulmonary vasculature congestion. There is no new consolidation, effusion, or evidence of pneumothorax. Conclusion: Cardiomegaly without overt failure. Reported By:
[2018-11-25 05:19] LABS: BLOOD UREA NITROGEN 13 mg/dL (7-18); CALCIUM 8.9 mg/dL (8.5-10.1); CARBON DIOXIDE 24.6 mmol/L (21-32); CHLORIDE 99 mmol/L (98-107); COR NA(FOR HYPERGLY) 144 mmol/L (136-145); CREATININE 0.93 mg/dL (0.55-1.02); SODIUM 136 mmol/L (136-145); TROPONIN I < 0.02 ng/mL (0-1.5); eGFR NON BLACK RACES > 60 (>60)
[2018-11-25 05:22] LABS: PLATELET MORPHOLOGY COMMENT NORMAL (NORMAL)
[2018-11-25 05:23] LABS: ALANINE AMINOTRANSFERASE 36 Units/L (12-78); ALBUMIN 3.3 g/dL (3.4-5.0); ALKALINE PHOSPHATASE 73 Units/L (46-116); AMYLASE 33 Units/L (25-115); ASPARTATE AMINO TRANSFERASE 48 Units/L (15-37); CKMB % 3.1 % (<4); COR CA(FOR HYPOALB) 9.5 mg/dL (8.5-10.1); CREATINE KINASE 42 Units/L (26-192); CREATINE KINASE MB 1.3 ng/mL (0-4.0); LIPASE 192 Units/L (73-393); TOTAL PROTEIN 6.6 g/dL (6.4-8.2)
[2018-11-25] MEDS ORDERED: ZOFRAN INJ 4 MG VIAL IVP ONE (05:34)
[2018-11-25] MEDS ORDERED: ZOFRAN INJ 4 MG VIAL ONE (05:35)
[2018-11-25 07:07] LABS: BILIRUBIN,URINE NEGATIVE (NEGATIVE); BLOOD/HEMOGLOBIN,URINE 1+ (NEGATIVE); GLUCOSE, URINE 4+ (NEGATIVE); KETONES,URINE 2+ (NEGATIVE); LEUKOCYTE ESTERASE ,URINE 1+ (NEGATIVE); NITRITES,URINE NEGATIVE (NEGATIVE); PROTEIN,URINE 1+ (NEGATIVE); UROBILINOGEN,URINE NORMAL (NORMAL)
[2018-11-25 07:15] LABS: APPEARANCE,URINE HAZY (CLEAR); COLOR,URINE YELLOW (YELLOW)
[2018-11-25 07:16] LABS: BACTERIA,URINE NEGATIVE /HPF (NEGATIVE); RBC,URINE 0-2 /HPF (NONE SEEN); SQUAMOUS EPITHELIAL CELL,UR RARE /HPF (NEGATIVE)
[2018-11-25] MEDS ORDERED: ZOFRAN INJ 4 MG VIAL IVP PRN (09:16)
[2018-11-25] MEDS: MORPHINE SULFATE INJ 4 MG IVP PRN ×2 (09:37→15:54)
[2018-11-25] MEDS: ASPIRIN PO SCH (09:42)
[2018-11-25 11:41] VITALS: BMI 27.2
[2018-11-25 11:58] LABS: CKMB % 2.4 % (<4); CREATINE KINASE 46 Units/L (26-192); CREATINE KINASE MB 1.1 ng/mL (0-4.0); TROPONIN I < 0.02 ng/mL (0-1.5)
[2018-11-25] MEDS: MAALOX or MYLANTA PO PRN ×2 (12:33→18:25)
[2018-11-25] MEDS: MILK OF MAGNESIA PO SCH ×2 (12:41→23:10)
[2018-11-25] MEDS: COLACE CAP 100 MG PO SCH ×2 (12:41→23:10)
--- NOTE | 2018-11-25 15:16 | CT ---
CT ABDOMEN AND PELVIS WITHOUT CONTRAST CLINICAL HISTORY: 58-year-old with abdominal pain and chest pain. States no bowel movement in 5 days. Patient with vomiting. COMPARISON: None. TECHNIQUE: Multiple contiguous computed tomographic axial images of the abdomen and pelvis were obtained without the use of oral or intravenous contrast. Images were reformatted in the coronal and sagittal planes. Dose reduction techniques including Automated Exposure Control (AEC) and adjustment of mA and kV were utilized. FINDINGS: The lung bases demonstrate no evidence of focal air-space opacification, pleural effusion, pneumothorax, or suspicious pulmonary nodules. The imaged inferior mediastinum and heart are normal in appearance without evidence of pericardial effusion. Diffuse granulomatous disease within the spleen which is otherwise unremarkable. Liver is unremarkable. Status post cholecystectomy. Mild edema and inflammation of the pancreatic head and duodenal C-loop with bowel wall thickening and trace fluid in the foramen of Myles. The adrenal glands and kidneys are normal bilaterally. There are no nephroureteral stones or perinephric fluid collections. There is no evidence of hydroureteronephrosis and the ureters run in an unobstructed course to a well distended urinary bladder. The uterus is anteverted and normal in size. The ovaries, vagina and perineum are within normal limits. The appendix is normal in appearance. Large stool burden throughout the colon and rectum. The bowel is without obstruction or inflammation and there is no free fluid or free air within the peritoneal cavity. There are no pathologically enlarged lymph nodes in the abdomen or pelvis. The arteriovascular structures are within normal limits for a study without contrast. Soft tissues are normal. The osseous structures are intact without fracture or malalignment. Levo scoliotic curvature of the lumbar spine with multilevel degenerative change. IMPRESSION: 1. Wall thickening and edema of the duodenal C-loop with edema of the pancreatic head and trace fluid within the foramen of [place]. Gastroenteritis and pancreatitis within the differential, correlate with serology and clinically. 2. Large stool burden throughout the colon and rectum, can be seen with constipation. 3. Normal appendix. Reported By:
[2018-11-25] MEDS: CHRONULAC PO PRN (15:54)
[2018-11-25 18:07] LABS: CKMB % 2.4 % (<4); CREATINE KINASE 41 Units/L (26-192); CREATINE KINASE MB < 1.0 ng/mL (0-4.0); TROPONIN I < 0.02 ng/mL (0-1.5)
[2018-11-25] MEDS ORDERED: SNACK - Diabetic Appropriate PO SCH (20:00)
[2018-11-25] MEDS: HumuLIN R SUBCUT PRN (23:54)
[2018-11-26] MEDS: MAALOX or MYLANTA PO PRN (03:18)
[2018-11-26] MEDS: HumuLIN R SUBCUT PRN ×2 (05:33→12:04)
[2018-11-26 06:39] LABS: BASOPHILS % (AUTO) 0.5 % (0.2-1.0); EOSINOPHILS % (AUTO) 0.2 % (0.9-2.9); HEMATOCRIT 31.9 % (36.0-47.0); HEMOGLOBIN 11.3 g/dL (12.0-16.0); LYMPHOCYTES # (AUTO) 0.6 X10^3/uL (1.3-2.9); LYMPHOCYTES % (AUTO) 15.7 % (21.0-51.0); MEAN CORPUSCULAR HEMOGLOBIN 32.2 pg (27.0-34.0); MEAN CORPUSCULAR HGB CONC 35.4 g/dL (33.0-35.0); MEAN PLATELET VOLUME 8.4 fL (7.4-11.0); MONOCYTES # (AUTO) 0.3 x10^3/uL (0.3-0.8); MONOCYTES % (AUTO) 7.6 % (0.0-13.0); NEUTROPHILS # (AUTO) 3.1 x10^3/uL (2.2-4.8); PLATELET COUNT 108 X10^3/uL (150.0-450.0); RED CELL DISTRIBUTION WIDTH 13.7 % (11.6-16.5); WHITE BLOOD COUNT 4.1 X10^3/uL (3.6-10.0)
[2018-11-26 07:01] LABS: ALANINE AMINOTRANSFERASE 40 Units/L (12-78); ALBUMIN 2.9 g/dL (3.4-5.0); ALKALINE PHOSPHATASE 76 Units/L (46-116); ASPARTATE AMINO TRANSFERASE 39 Units/L (15-37); BLOOD UREA NITROGEN 9 mg/dL (7-18); CALCIUM 8.2 mg/dL (8.5-10.1); CARBON DIOXIDE 26.9 mmol/L (21-32); CHLORIDE 98 mmol/L (98-107); CHOLESTEROL 105 mg/dL (0-200); COR CA(FOR HYPOALB) 9.1 mg/dL (8.5-10.1); COR NA(FOR HYPERGLY) 136 mmol/L (136-145); CREATININE 0.64 mg/dL (0.55-1.02); HDL CHOLESTEROL 26 mg/dL (40-60); MAGNESIUM 1.8 mg/dL (1.7-2.9); SODIUM 133 mmol/L (136-145); TOTAL PROTEIN 6.2 g/dL (6.4-8.2); TRIGLYCERIDES 163 mg/dL (0-150); eGFR NON BLACK RACES > 60 (>60)
[2018-11-26] MEDS: CHRONULAC PO PRN (08:19)
[2018-11-26] MEDS: COLACE CAP 100 MG PO SCH (08:19)
[2018-11-26] MEDS: MILK OF MAGNESIA PO SCH (08:19)
[2018-11-26] MEDS: ASPIRIN PO SCH (08:19)
[2018-11-26] MEDS ORDERED: ASPIRIN PO SCH (09:00)
[2018-11-26] MEDS ORDERED: PEPCID TAB 20 MG PO SCH (10:00)
[2018-11-26] MEDS ORDERED: POTASSIUM CHL 40 MEQ/NS 0.45% 500 ML IV PRN (11:19)
[2018-11-26] MEDS ORDERED: POTASSIUM CHL 60 MEQ/NS 0.45% 500 ML IV PRN (11:19)
[2018-11-26] MEDS ORDERED: K-DUR TAB 20 MEQ PO PRN (11:19)
[2018-11-26] MEDS ORDERED: K-RIDER 10 MEQ/NS 100 ML 10 MEQ/100 ML BAG IV PRN (11:19)
[2018-11-26] MEDS ORDERED: MICRO K EXTEN CAP 10 MEQ PO PRN (11:19)
[2018-11-26] MEDS ORDERED: KLOR-CON PO PRN (11:19)
[2018-11-26] MEDS ORDERED: POTASSIUM CHLORIDE LIQ 20 MEQ UDC PO PRN (11:19)
[2018-11-26] MEDS ORDERED: NS 250 ML IV 250 ML ONE (11:59)
[2018-11-26] MEDS: MAGNESIUM SULFATE 1 GRAM/100 mL PREMIX 1 GM/100 ML BAG IV PRN ×2 (12:05→14:30)
[2018-11-26 12:33] VITALS: BP 159/70
--- NOTE | 2018-12-06 15:49 | DR.CARTERS ---
Short Stay Summary - Short Stay Summary for: Short Stay Summary for Date of:: 11/26/18 - Admission Date Date of Admission: 11/25/18 - Discharge Date Discharge Date: 11/26/18 - Admission Diagnoses (1) Abdominal pain Status: Acute (2) Diabetes mellitus type 2 Status: Acute (3) Essential hypertension Status: Chronic (4) Gastroesophageal reflux disease Status: Chronic - Hospital Course Hospital Course: PATIENT IS 58YR OLD FEMALE WITH NAUSEA AND VOMITING NOTED TODAY. PATIENT SEEN IN THIS EMERGENCY ROOM 11/18 2018 AND 11/22/2018 FOR BACK AND HIP PAIN. STILL HAVING BACK AND LEFT HIP PAIN DOWN LEFT LEG. SHE NOW HAVE ABDOMINAL PAIN WITH NAUSEA, VOMITING AND CONSTIPATION. HAVE NOT HAVE BOWEL MOVEMENT IN 5 DAYS. NO FEVER OR DYSURIA. ABDOMINAL CRAMPS IS DIFFUSE 10/10 PAIN THAT IS NON RADIATING. PT HAD CT ABDOMEN AND PELVIS IN ER RESULTING IN Wall thickening and edema of the duodenal C-loop with edema of the pancreatic head and trace fluid within the foramen of [place]les. Gastroenteritis and pancreatitis within the differential, correlate with serology and clinically.2. Large stool burden throughout the colon and rectum, can be seen with constipation.3. Normal appendix. PT HAD LARGE BM WITH RELIEF OF ABDOMINAL PAIN, AMYLASE 33 AND LIPASE 192 WITHOUT BEING SYMPTOMATIC. PT HAD SERIAL CE WNL. PT DENIES ANY CHEST PAIN OR SOB AND ASKED TO BE D/C HOME. PT WAS REFERRED TO DR RODOLFO DIANA OFFICE FOR FOLLOW UP AND DIABETES MANAGEMENT. PT INSTRUCTED TO RETURN TO ER IF CONDITION CHANGES OR WORSENED. PTS CONDITION ON DC STABLE. RECOMMEND PT HAVE FUTURE CT SCAN OF ABD TO EVALUATE PANCREATIC ABNORMAL FINDINGS FOR RESOLUTION. - Discharge Medications Discharge Medications: Home Medication List pioglitazone-glimepiride 4 mg PO DAILY 11/25/18 [History] Prescriptions: - Discharge Plan Disposition: HOME, SELF-CARE Condition: Stable - Follow up/Referrals Follow up/Referrals: DARIAN RANDALL [STAFF PHYSICIAN] - 12/03/18 10:15 am - Instructions Instructions: Type 2 Diabetes Mellitus, Diagnosis, Adult, Constipation, Adult, [id number], Diabetes Mellitus and Sick Day Management, Abdominal Pain, Adult, [id number], Nonspecific Chest Pain, [id number], Blood Glucose Monitoring, Adult Additional Instructions: avoid nsaids needs to follow up with pcp or dr randall in one week repeat future imaging of pancreas bs control bowel regimen needs referral to dr dowd for egd and colonoscopy. Forms: Excuse From Work or School
== END 2018-11-26 15:25 | disposition home or self-care (01) ==
LOC: ER 04:03 → MED/SURG 04:03
PROVIDERS: ADMIT Internal Medicine; ATTEND Internal Medicine
DX: R10.84 Generalized abdominal pain; K21.9 Gastro-esophageal reflux disease without esophagitis; I11.9 Hypertensive heart disease without heart failure; R11.2 Nausea with vomiting, unspecified; K85.90 Acute pancreatitis without necrosis or infection, unspecified; E11.65 Type 2 diabetes mellitus with hyperglycemia; K59.01 Slow transit constipation; K52.89 Other specified noninfective gastroenteritis and colitis; M54.32 Sciatica, left side
CPT/HCPCS: 36415; 71010; 71045; 74176; 80053; 80061; 81001; 82009; 82150; 82550; 82553; 82607; 82728; 82746; 83540; 83615; 83690; 83735; 84466; 84484; 85025; 85610; 85730; 86304; 86316; 93005; 94760; 96365; 96372; 96374; 96375; 99284; A4216; A4222; G0378; J1815; J2270; J2405; J3475; J7030; J7050

== ENCOUNTER 2019-03-26 05:06 | Observation (INO) ==
[2019-03-26 05:29] VITALS: BMI 24.9
--- NOTE | 2019-03-26 05:51 | DR.GENAD ---
HPI <Gabino Faulkner - Last Filed: 03/26/19 14:42> Time Seen Time Seen by Provider: 03/26/19 05:40 PCP Primary Care Physician: CORRALES Complaint/Symptoms Chief Complaint Doctors Comments: Patient is 59 year old female who presents w ith full from a standing height period she says that she has pain in her ankle lower legs and pelvis. She fell earlier tonight and had to crawl to the door to get to EMS period she has abrasions on her right toes. Patient states that she has been falling frequently for the past couple months and has been worked up with primary care doctor. patient had similar fall on the 23 March and had a minimally displaced distal fibular fracture with subluxation of the talus with respect to the tibia. She was splendid and Ed and did not follow up with orthopedic doc because of monetary issues. patient has no other complaints other than generalized weakness and fatigue and recurrent falls. Patient has a past medical of diabetes and peripheral neuropathy. Chief Complaint:: EMS WENT OUT TO PT FALLING AT HOME, PT STATES SHE WAS HERE SUNDAY FOR FALL AND FX OF RIGHT LEG, PT COMPLAINTS OF BILATERAL LEG PAIN LEFT HIP PAIN AND BACK PAIN, PT IN NO DISTRESS , BLEEDING CONTROLLED BUT NOTED TO RIGHT TOES, BRUISING NOTED TO LEFT TOES. 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, Hysterectomy, Tonsillectomy and Other Family History History of Family Medical Conditions: Yes Family Medical History: Cancer Social History Does patient currently use any type of tobacco product: No Have you used tobacco products in the last 12 months: No Type of Tobacco Use: None Does any household member use tobacco: No Alcohol Use: None Do you use any recreational Drugs:: No Lives With: Family Lives Where: Home infectious screening In the last 2 months have you had wt loss of >10#?: NO Have you had fever, night sweats or hemotysis?: No Have you traveled outside the country in the last 6 months?: No Isolation: Standard ROS <Gabino Faulkner - Last Filed: 03/26/19 14:42> Review of Systems Constitutional: Weakness (gradual ) and Fatigue Eyes: No Symptoms Reported ENTM: No Symptoms Reported Respiratoy: No Symptoms Reported Cardiovascular: No Symptoms Reported Gastrointestinal/Abdominal: No Symptoms Reported Genitourinary: No Symptoms Reported Neurological: No Symptoms Reported and Weakness Musculoskeletal: Joint Pain Integumentary: No Symptoms Reported Hematologic/Lymphatic: No Symptoms Reported Endocrine: No Symptoms Reported Psychiatric: No Symptoms Reported All Other Systems: Reviewed and Negative PE <Gabino Faulkner - Last Filed: 03/26/19 14:42> Vital Signs Vitals: Temperature 99.4 F Pulse Rate [Left Brachial] 89 Pulse Rate 93 Respiratory Rate 18 Blood Pressure [Left Arm] 137/60 Blood Pressure 129/63 O2 Sat by Pulse Oximetry 96 General Limitations: No Limitations General Appearance: Alert and In No Apparent Distress Head Head Exam: Normal Inspection and Atraumatic Eyes Eye exam: Normal Appearance, PERRL and EOMI ENT ENT Exam: Normal Exam Nose Exam: Normal Nose Exam Mouth Exam: Normal Inspection and Other (dental caries ) Throat Exam: Normal Inspection Neck Neck Exam: Normal Inspection Chest Chest Inspection: Normal Inspection Respiratory Respiratory Exam: Normal Lung Sounds Bilat Cardiovascular Cardiovascular Exam: Regular Rate and Normal Rhythm Abdominal Exam Abdominal Exam: Normal Inspection, Normal Bowel Sounds and Soft Extremities Extremities Exam: Normal Inspection, Full ROM and Normal Capillary Refill Neurologic Neurological Exam: Alert, Oriented X3 and CN II-XII Intact Psychiatric Psychiatric Exam: Normal Affect and Normal Mood Skin Skin Exam: Warm, Dry, Intact, Normal Color and Other <IVANIA SHEEHAN - Last Filed: 03/26/19 09:35> Vital Signs Vitals: Temperature 99.4 F Pulse Rate [Left Brachial] 89 Pulse Rate 93 Respiratory Rate 18 Blood Pressure [Left Arm] 137/60 Blood Pressure 129/63 O2 Sat by Pulse Oximetry 96 [facility] <Gabinoroberto Faulkner - Last Filed: 03/26/19 14:42> Additional Information Additional Information Obtained From: Old Records Differential Diagnosis Differential Diagnosis: Failure of outpatient versus intractable pain versus fall risk versus CVA COURSE <Gabino Faulkner - Last Filed: 03/26/19 14:42> Treatment Treatment: patient was discussed with doctor Corrales and turn adult Protective Services. Patient was signed out at 8:00 AM to oncoming Ed provider and please refer to their notes or doctor Corrales notes for full course possibles today Reevaluation 1st: Unchanged 2nd: Unchanged 3rd: Unchanged (08:07 pt is unchanged ) Consultation Consultation Comments: Dr. Corrales to admit pt. please refer to EMR for full course of ED staff. Pt signed out to care of Education/Counseling Education/Counseling: Patient, Education and Counseling Educated On: Treatment, Diagnosis, Prognosis and Needs for Follow Up ROR <Gabino Faulkner - Last Filed: 03/26/19 14:42> Labs Reviewed Result Diagrams: 03/26/19 06:07 03/26/19 11:10 Laboratory: WBC 10.2 X10^3/uL (3.6-10.0) H 03/26/19 06:07 RBC 3.33 X10^6/uL (3.5-5.4) L 03/26/19 06:07 Hgb 10.8 g/dL (12.0-16.0) L 03/26/19 06:07 Hct 30.1 % (36.0-47.0) L 03/26/19 06:07 MCV 90.2 fL (80.0-100.0) 03/26/19 06:07 MCH 32.5 pg (27.0-34.0) 03/26/19 06:07 MCHC 36.0 g/dL (33.0-35.0) H 03/26/19 06:07 RDW 13.7 % (11.6-16.5) 03/26/19 06:07 Plt Count 185 X10^3/uL (150.0-450.0) 03/26/19 06:07 MPV 8.1 fL (7.4-11.0) 03/26/19 06:07 Neut % (Auto) 84.1 % (42.0-75.0) H 03/26/19 06:07 Lymph % (Auto) 6.2 % (21.0-51.0) L 03/26/19 06:07 [place] % (Auto) 9.4 % (0.0-13.0) 03/26/19 06:07 Eos % (Auto) 0.0 % (0.9-2.9) L 03/26/19 06:07 Baso % (Auto) 0.3 % (0.2-1.0) 03/26/19 06:07 Neut # (Auto) 8.6 x10^3/uL (2.2-4.8) H 03/26/19 06:07 Lymph # (Auto) 0.6 X10^3/uL (1.3-2.9) L 03/26/19 06:07 [place] # (Auto) 1.0 x10^3/uL (0.3-0.8) H 03/26/19 06:07 Eos # (Auto) 0.0 x10^3/uL (0.0-0.2) 03/26/19 06:07 Baso # (Auto) 0.0 X10^3/uL (0.0-0.1) 03/26/19 06:07 Absolute Nucleated RBC 0.1 /100WBC 03/26/19 06:07 Sodium 130 mmol/L (136-145) L 03/26/19 06:07 Corrected Sodium 137 mmol/L (136-145) 03/26/19 06:07 Potassium 4.3 mmol/L (3.5-5.1) 03/26/19 06:07 Chloride 94 mmol/L (98-107) L 03/26/19 06:07 Carbon Dioxide 26.3 mmol/L (21-32) 03/26/19 06:07 BUN 13 mg/dL (7-18) 03/26/19 06:07 Creatinine 0.72 mg/dL (0.55-1.02) 03/26/19 06:07 Est GFR (MDRD) Af Amer > 60 (>60) 03/26/19 06:07 Est GFR (MDRD) Non-Af > 60 (>60) 03/26/19 06:07 Glucose 380 mg/dL (65-99) H 03/26/19 06:07 Calcium 9.2 mg/dL (8.5-10.1) 03/26/19 06:07 Corrected Calcium TNP 03/26/19 06:07 Iron 20 ug/dL (50-175) L 03/26/19 06:07 Transferrin 234 mg/dL (202-364) 03/26/19 06:07 Ferritin 155 ng/mL (8-252) 03/26/19 06:07 Total Bilirubin 0.90 mg/dL (0.2-1.0) 03/26/19 06:07 AST 9 Units/L (15-37) L 03/26/19 06:07 ALT 12 Units/L (12-78) 03/26/19 06:07 Alkaline Phosphatase 75 Units/L (46-116) 03/26/19 06:07 Total Protein 7.3 g/dL (6.4-8.2) 03/26/19 06:07 Albumin 3.4 g/dL (3.4-5.0) 03/26/19 06:07 Globulin 3.9 g/dL (2.5-4.5) 03/26/19 06:07 Albumin/Globulin Ratio 0.9 Ratio (1.1-2.1) L 03/26/19 06:07 Vitamin B12 230 pg/mL (193-986) 03/26/19 06:07 Folate 13.6 ng/mL (>8.6) 03/26/19 06:07 Specimen Type Clean catch urine 03/26/19 07:25 Urine Color Yellow (YELLOW) 03/26/19 07:25 Urine Appearance Hazy (CLEAR) 03/26/19 07:25 Urine pH 6.5 (5.0 - 8.0) 03/26/19 07:25 Ur Specific [place] 1.010 (1.000-1.030) 03/26/19 07:25 Urine Protein 1+ (NEGATIVE) 03/26/19 07:25 Urine Glucose (UA) 4+ (NEGATIVE) 03/26/19 07:25 Urine Ketones 3+ (NEGATIVE) 03/26/19 07:25 Urine Occult Blood 1+ (NEGATIVE) 03/26/19 07:25 Urine Nitrite Negative (NEGATIVE) 03/26/19 07:25 Urine Bilirubin Negative (NEGATIVE) 03/26/19 07:25 Urine Urobilinogen Normal (NORMAL) 03/26/19 07:25 Ur Leukocyte Esterase 1+ (NEGATIVE) 03/26/19 07:25 Urine RBC 0-2 /HPF (0-3) 03/26/19 07:25 Urine WBC 0-2 /HPF (0-5) 03/26/19 07:25 Ur Squamous Epith Cells Rare /HPF (NEGATIVE) 03/26/19 07:25 Urine Bacteria Negative /HPF (NEGATIVE) 03/26/19 07:25 Ur Culture Indicated? No/not indicated 03/26/19 07:25 Acetone, Semi-Quant Negative (NEGATIVE) 03/26/19 06:07 <TORREYUNELVIN SOBOWALE - Last Filed: 03/26/19 09:35> Labs Reviewed Laboratory: WBC 10.2 X10^3/uL (3.6-10.0) H 03/26/19 06:07 RBC 3.33 X10^6/uL (3.5-5.4) L 03/26/19 06:07 Hgb 10.8 g/dL (12.0-16.0) L 03/26/19 06:07 Hct 30.1 % (36.0-47.0) L 03/26/19 06:07 MCV 90.2 fL (80.0-100.0) 03/26/19 06:07 MCH 32.5 pg (27.0-34.0) 03/26/19 06:07 MCHC 36.0 g/dL (33.0-35.0) H 03/26/19 06:07 RDW 13.7 % (11.6-16.5) 03/26/19 06:07 Plt Count 185 X10^3/uL (150.0-450.0) 03/26/19 06:07 MPV 8.1 fL (7.4-11.0) 03/26/19 06:07 Neut % (Auto) 84.1 % (42.0-75.0) H 03/26/19 06:07 Lymph % (Auto) 6.2 % (21.0-51.0) L 03/26/19 06:07 [place] % (Auto) 9.4 % (0.0-13.0) 03/26/19 06:07 Eos % (Auto) 0.0 % (0.9-2.9) L 03/26/19 06:07 Baso % (Auto) 0.3 % (0.2-1.0) 03/26/19 06:07 Neut # (Auto) 8.6 x10^3/uL (2.2-4.8) H 03/26/19 06:07 Lymph # (Auto) 0.6 X10^3/uL (1.3-2.9) L 03/26/19 06:07 [place] # (Auto) 1.0 x10^3/uL (0.3-0.8) H 03/26/19 06:07 Eos # (Auto) 0.0 x10^3/uL (0.0-0.2) 03/26/19 06:07 Baso # (Auto) 0.0 X10^3/uL (0.0-0.1) 03/26/19 06:07 Absolute Nucleated RBC 0.1 /100WBC 03/26/19 06:07 Sodium 130 mmol/L (136-145) L 03/26/19 06:07 Corrected Sodium 137 mmol/L (136-145) 03/26/19 06:07 Potassium 4.3 mmol/L (3.5-5.1) 03/26/19 06:07 Chloride 94 mmol/L (98-107) L 03/26/19 06:07 Carbon Dioxide 26.3 mmol/L (21-32) 03/26/19 06:07 BUN 13 mg/dL (7-18) 03/26/19 06:07 Creatinine 0.72 mg/dL (0.55-1.02) 03/26/19 06:07 Est GFR (MDRD) Af Amer > 60 (>60) 03/26/19 06:07 Est GFR (MDRD) Non-Af > 60 (>60) 03/26/19 06:07 Glucose 380 mg/dL (65-99) H 03/26/19 06:07 Calcium 9.2 mg/dL (8.5-10.1) 03/26/19 06:07 Corrected Calcium TNP 03/26/19 06:07 Iron 20 ug/dL (50-175) L 03/26/19 06:07 Transferrin 234 mg/dL (202-364) 03/26/19 06:07 Ferritin 155 ng/mL (8-252) 03/26/19 06:07 Total Bilirubin 0.90 mg/dL (0.2-1.0) 03/26/19 06:07 AST 9 Units/L (15-37) L 03/26/19 06:07 ALT 12 Units/L (12-78) 03/26/19 06:07 Alkaline Phosphatase 75 Units/L (46-116) 03/26/19 06:07 Total Protein 7.3 g/dL (6.4-8.2) 03/26/19 06:07 Albumin 3.4 g/dL (3.4-5.0) 03/26/19 06:07 Globulin 3.9 g/dL (2.5-4.5) 03/26/19 06:07 Albumin/Globulin Ratio 0.9 Ratio (1.1-2.1) L 03/26/19 06:07 Vitamin B12 230 pg/mL (193-986) 03/26/19 06:07 Folate 13.6 ng/mL (>8.6) 03/26/19 06:07 Specimen Type Clean catch urine 03/26/19 07:25 Urine Color Yellow (YELLOW) 03/26/19 07:25 Urine Appearance Hazy (CLEAR) 03/26/19 07:25 Urine pH 6.5 (5.0 - 8.0) 03/26/19 07:25 Ur Specific [place] 1.010 (1.000-1.030) 03/26/19 07:25 Urine Protein 1+ (NEGATIVE) 03/26/19 07:25 Urine Glucose (UA) 4+ (NEGATIVE) 03/26/19 07:25 Urine Ketones 3+ (NEGATIVE) 03/26/19 07:25 Urine Occult Blood 1+ (NEGATIVE) 03/26/19 07:25 Urine Nitrite Negative (NEGATIVE) 03/26/19 07:25 Urine Bilirubin Negative (NEGATIVE) 03/26/19 07:25 Urine Urobilinogen Normal (NORMAL) 03/26/19 07:25 Ur Leukocyte Esterase 1+ (NEGATIVE) 03/26/19 07:25 Urine RBC 0-2 /HPF (0-3) 03/26/19 07:25 Urine WBC 0-2 /HPF (0-5) 03/26/19 07:25 Ur Squamous Epith Cells Rare /HPF (NEGATIVE) 03/26/19 07:25 Urine Bacteria Negative /HPF (NEGATIVE) 03/26/19 07:25 Ur Culture Indicated? No/not indicated 03/26/19 07:25 Acetone, Semi-Quant Negative (NEGATIVE) 03/26/19 06:07 Opioid <Gabino Faulkner - Last Filed: 03/26/19 14:42> Opioid Risk Tool Family Hx of Substance Abuse: Illegal Drugs Age (Ranulfo box if 16-45): No History of Preadolescent Sexual Abuse: No Total: 1 Total Score Risk Category: Low Risk Copyright: Osiel KEY predicting aberrant behaviors <TORREYMARILEEELVIN ARMASLULY - Last Filed: 03/26/19 09:35> Opioid Risk Tool Total: 0 Total Score Risk Category: Low Risk <Gabino Faulkner - Last Filed: 03/26/19 14:42> Diagnosis Discharge Problem: Hyperglycemia, Recurrent falls Fracture, fibula closed, shaft Qualifiers: Encounter type: subsequent encounter Fracture morphology: other fracture Laterality: right Fracture healing: with routine healing Qualified Code(s): S82.491D - Other fracture of shaft of right fibula, subsequent encounter for closed fracture with routine healing Narrative Support Text: Pt signed out to Dr. Sheehan @ 08:00 pt was already being consulted on by Dr. Corrales. Please refer to EMR notes. I discussed case with nursing staff after my shift @ 14:30 and the patient had been admitted to ED. Instructions Instructions: Fibular Fracture Rehab-SportsMed Tibial and Fibular Fractures Fall Prevention in the Home Cast or Splint Care, Adult <TORREYMARILEEELVIN AGUILA - Last Filed: 03/26/19 09:35> Additional Notes Additional Notes: The pt. was d/c from the ED by outgoing provider already but now that her PCP here agreed to have her admitted to OBS. Thus, I'm writing admit orders for her.
[2019-03-26] MEDS ORDERED: MOTRIN TAB 600 MG PO ONE (05:55)
[2019-03-26] MEDS ORDERED: MOTRIN TAB 800 MG PO ONE (05:58)
[2019-03-26 06:23] LABS: BASOPHILS % (AUTO) 0.3 % (0.2-1.0); HEMATOCRIT 30.1 % (36.0-47.0); HEMOGLOBIN 10.8 g/dL (12.0-16.0); LYMPHOCYTES # (AUTO) 0.6 X10^3/uL (1.3-2.9); LYMPHOCYTES % (AUTO) 6.2 % (21.0-51.0); MEAN CORPUSCULAR HEMOGLOBIN 32.5 pg (27.0-34.0); MEAN CORPUSCULAR VOLUME 90.2 fL (80.0-100.0); MEAN PLATELET VOLUME 8.1 fL (7.4-11.0); MONOCYTES % (AUTO) 9.4 % (0.0-13.0); NEUTROPHILS # (AUTO) 8.6 x10^3/uL (2.2-4.8); NEUTROPHILS % (AUTO) 84.1 % (42.0-75.0); PLATELET COUNT 185 X10^3/uL (150.0-450.0); RED BLOOD COUNT 3.33 X10^6/uL (3.5-5.4); RED CELL DISTRIBUTION WIDTH 13.7 % (11.6-16.5); WHITE BLOOD COUNT 10.2 X10^3/uL (3.6-10.0)
[2019-03-26 06:33] LABS: ALANINE AMINOTRANSFERASE 12 Units/L (12-78); ALBUMIN 3.4 g/dL (3.4-5.0); ALKALINE PHOSPHATASE 75 Units/L (46-116); ASPARTATE AMINO TRANSFERASE 9 Units/L (15-37); BLOOD UREA NITROGEN 13 mg/dL (7-18); CALCIUM 9.2 mg/dL (8.5-10.1); CARBON DIOXIDE 26.3 mmol/L (21-32); CHLORIDE 94 mmol/L (98-107); COR NA(FOR HYPERGLY) 137 mmol/L (136-145); CREATININE 0.72 mg/dL (0.55-1.02); SODIUM 130 mmol/L (136-145); TOTAL PROTEIN 7.3 g/dL (6.4-8.2); eGFR NON BLACK RACES > 60 (>60)
--- NOTE | 2019-03-26 06:44 | RAD ---
HISTORY: Fall, pelvic painStudy: AP pelvisComparison: NoneFindings:The bones are somewhat osteopenic. The pelvic bones and SI joints appear intact. The proximal femurs appear intact. If the patient continues to be symptomatic CT or MRI could be obtained in order to detect a fracture that may be radiographically occult due to osteopenia.IMPRESSION: Mild osteopeniaNo definite fracture identifiedReported By:
--- NOTE | 2019-03-26 06:45 | RAD ---
HISTORY: Injury, fall, right knee painStudy: Right knee two viewsComparison: 11/22/2018Findings:There is no evidence for acute bone or acute joint abnormality. No fracture, lytic, or blastic lesion is identified. No joint erosion or joint effusion is identified. No periarticular soft tissue abnormality is identified. The bones are osteopenic.IMPRESSION: No acute traumatic abnormalityMild osteopeniaReported By:
--- NOTE | 2019-03-26 06:46 | RAD ---
HISTORY: Injury, fall, right ankle painStudy: Right ankle AP and lateralComparison: 03/23/2019Findings:The bones are mildly osteopenic. The limb is in a posterior splint. Spiral fracture of the distal fibula is unchanged. The distal tibia is intact as is the tibiotalar joint.IMPRESSION: Spiral fracture lateral malleolus unchanged when compared with the prior examinationReported By:
--- NOTE | 2019-03-26 06:48 | RAD ---
HISTORY: Fall, right foot painStudy: Right foot AP and lateralComparison: None availableFindings:The limb is in a posterior splint. The splint obscures anatomic detail. There is a healing fracture of the diametaphyseal region of the distal 5th metatarsal. The remainder of the bones and joints of the foot are intact and normally aligned.IMPRESSION: Healing fracture distal diametaphyseal region 5th metatarsalReported By:
[2019-03-26 07:55] LABS: APPEARANCE,URINE HAZY (CLEAR); COLOR,URINE YELLOW (YELLOW); PH,URINE 6.5 (5.0 - 8.0)
[2019-03-26 07:56] LABS: BILIRUBIN,URINE NEGATIVE (NEGATIVE); BLOOD/HEMOGLOBIN,URINE 1+ (NEGATIVE); GLUCOSE, URINE 4+ (NEGATIVE); KETONES,URINE 3+ (NEGATIVE); LEUKOCYTE ESTERASE ,URINE 1+ (NEGATIVE); NITRITES,URINE NEGATIVE (NEGATIVE); PROTEIN,URINE 1+ (NEGATIVE); UROBILINOGEN,URINE NORMAL (NORMAL)
[2019-03-26 07:57] LABS: BACTERIA,URINE NEGATIVE /HPF (NEGATIVE); RBC,URINE 0-2 /HPF (0-3); SQUAMOUS EPITHELIAL CELL,UR RARE /HPF (NEGATIVE)
[2019-03-26] MEDS: HumuLIN R SC PRN ×2 (11:38→20:13)
[2019-03-26] MEDS: PERCOCET TAB 5/325 MG PO PRN ×2 (12:13→22:42)
[2019-03-26] MEDS: GLUCOPHAGE XR PO SCH (20:13)
[2019-03-27] MEDS: PERCOCET TAB 5/325 MG PO PRN ×3 (04:44→16:49)
[2019-03-27 05:42] LABS: BASOPHILS % (AUTO) 0.3 % (0.2-1.0); EOSINOPHILS # (AUTO) 0.1 x10^3/uL (0.0-0.2); EOSINOPHILS % (AUTO) 0.6 % (0.9-2.9); HEMATOCRIT 27.9 % (36.0-47.0); LYMPHOCYTES # (AUTO) 1.1 X10^3/uL (1.3-2.9); MEAN CORPUSCULAR HEMOGLOBIN 32.6 pg (27.0-34.0); MEAN CORPUSCULAR HGB CONC 35.9 g/dL (33.0-35.0); MEAN CORPUSCULAR VOLUME 90.8 fL (80.0-100.0); MEAN PLATELET VOLUME 8.7 fL (7.4-11.0); MONOCYTES # (AUTO) 0.9 x10^3/uL (0.3-0.8); MONOCYTES % (AUTO) 9.3 % (0.0-13.0); NEUTROPHILS % (AUTO) 78.8 % (42.0-75.0); PLATELET COUNT 179 X10^3/uL (150.0-450.0); RED BLOOD COUNT 3.07 X10^6/uL (3.5-5.4); RED CELL DISTRIBUTION WIDTH 13.5 % (11.6-16.5); WHITE BLOOD COUNT 10.1 X10^3/uL (3.6-10.0)
[2019-03-27] MEDS: HumuLIN R SC PRN (06:00)
[2019-03-27 06:03] LABS: ALANINE AMINOTRANSFERASE 13 Units/L (12-78); ALBUMIN 2.8 g/dL (3.4-5.0); ALKALINE PHOSPHATASE 72 Units/L (46-116); ASPARTATE AMINO TRANSFERASE 11 Units/L (15-37); BLOOD UREA NITROGEN 14 mg/dL (7-18); CALCIUM 8.8 mg/dL (8.5-10.1); CARBON DIOXIDE 29.3 mmol/L (21-32); CHLORIDE 97 mmol/L (98-107); COR CA(FOR HYPOALB) 9.8 mg/dL (8.5-10.1); COR NA(FOR HYPERGLY) 135 mmol/L (136-145); CREATININE 0.63 mg/dL (0.55-1.02); SODIUM 132 mmol/L (136-145); TOTAL PROTEIN 6.8 g/dL (6.4-8.2); eGFR NON BLACK RACES > 60 (>60)
[2019-03-27] MEDS ORDERED: AMARYL TAB 4 MG PO SCH (07:00)
[2019-03-27] MEDS: GLUCOPHAGE XR PO SCH ×2 (08:16→20:16)
[2019-03-27] MEDS ORDERED: ACTOS PO SCH (09:00)
[2019-03-27] MEDS ORDERED: [UNRECOGNIZED DRUG - OTHER] PO SCH (09:00)
[2019-03-28] MEDS: HumuLIN R SC PRN (05:53)
[2019-03-28] MEDS: PERCOCET TAB 5/325 MG PO PRN ×2 (06:00→11:17)
[2019-03-28] MEDS: GLUCOPHAGE XR PO SCH (08:43)
[2019-03-28] MEDS ORDERED: ACTOS PO SCH (09:00)
[2019-03-28 09:42] VITALS: BP 126/68
== END 2019-03-28 12:05 ==
LOC: MED/SURG 05:07 → ER 05:07 → MED/SURG 14:36
PROVIDERS: ADMIT Obstetrics & Gynecology Obstetrics; ATTEND Obstetrics & Gynecology Obstetrics
DX: E11.65 Type 2 diabetes mellitus with hyperglycemia; S82.65XD Nondisplaced fracture of lateral malleolus of left fibula, subsequent encounter for closed fracture with routine healing; Z91.81 History of falling; M25.571 Pain in right ankle and joints of right foot; M79.671 Pain in right foot; W18.30XD Fall on same level, unspecified, subsequent encounter; R10.2 Pelvic and perineal pain; R53.1 Weakness; M25.561 Pain in right knee; R29.6 Repeated falls
CPT/HCPCS: 36415; 72170; 73560; 73610; 73630; 80053; 81001; 82009; 82607; 82728; 82746; 82947; 83540; 84425; 84466; 85025; 96372; 97163; 97167; 97760; 99284; G0378; J1815

== ENCOUNTER 2019-04-06 23:44 | Inpatient (IN) ==
--- NOTE | 2019-04-06 23:48 | DR.GENAD ---
HPI Time Seen Time Seen by Provider: 04/06/19 23:46 HPI Comment HPI Comment: Brought from [place] due to low bp and altered mental status which started earlier to day; unable to give me a history herself. 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 and Other Family History Family Medical History: Cancer Social History Do you use any recreational Drugs:: No infectious screening Isolation: Standard ROS Review of Systems Psychiatric: Anxiety Unable to Obtain Due To: Altered mental status PE Vital Signs Vitals: Temperature 96.7 F Pulse Rate 108 Respiratory Rate 43 Blood Pressure [Right Arm] 126/68 Blood Pressure 91/53 O2 Sat by Pulse Oximetry 96 General Limitations: Altered Mental Status General Appearance: In No Apparent Distress and Anxious (repeats "oh God" in monotone over and over ) Head Head Exam: Normal Inspection and Atraumatic Eyes Eye exam: Normal Appearance ENT ENT Exam: Normal Exam Neck Neck Exam: Normal Inspection, Full ROM and Trachea Midline Chest Chest Inspection: Normal Inspection and Symmetric Chest Wall Rise Respiratory Respiratory Exam: Normal Lung Sounds Bilat Cardiovascular Cardiovascular Exam: Regular Rate Abdominal Exam Abdominal Exam: Normal Inspection, Normal Bowel Sounds and Soft Extremities Extremities Exam: Normal Inspection and Full ROM Neurologic Neurological Exam: Alert and Other (talking but not responsive to questions) Skin Skin Exam: Warm and Dry ROR Labs Reviewed Laboratory Results Reviewed?: Yes Result Diagrams: 04/06/19 23:58 04/06/19 23:58 Laboratory: WBC 66.4 X10^3/uL (3.6-10.0) H* 04/06/19 23:58 RBC 3.75 X10^6/uL (3.5-5.4) 04/06/19 23:58 Hgb 11.7 g/dL (12.0-16.0) L 04/06/19 23:58 Hct 35.0 % (36.0-47.0) L 04/06/19 23:58 MCV 93.2 fL (80.0-100.0) 04/06/19 23:58 MCH 31.2 pg (27.0-34.0) 04/06/19 23:58 MCHC 33.5 g/dL (33.0-35.0) 04/06/19 23:58 RDW 14.2 % (11.6-16.5) 04/06/19 23:58 Plt Count 568 X10^3/uL (150.0-450.0) H 04/06/19 23:58 Plt Count Comment Increased (ADEQUATE) A 04/06/19 23:58 MPV 8.0 fL (7.4-11.0) 04/06/19 23:58 Neut % (Auto) 94.2 % (42.0-75.0) H 04/06/19 23:58 Lymph % (Auto) 2.1 % (21.0-51.0) L 04/06/19 23:58 [place] % (Auto) 3.5 % (0.0-13.0) 04/06/19 23:58 Eos % (Auto) 0.0 % (0.9-2.9) L 04/06/19 23:58 Baso % (Auto) 0.2 % (0.2-1.0) 04/06/19 23:58 Neut # (Auto) 62.5 x10^3/uL (2.2-4.8) H 04/06/19 23:58 Lymph # (Auto) 1.4 X10^3/uL (1.3-2.9) 04/06/19 23:58 [place] # (Auto) 2.3 x10^3/uL (0.3-0.8) H 04/06/19 23:58 Eos # (Auto) 0.0 x10^3/uL (0.0-0.2) 04/06/19 23:58 Baso # (Auto) 0.1 X10^3/uL (0.0-0.1) 04/06/19 23:58 Absolute Nucleated RBC 0.0 /100WBC 04/06/19 23:58 Total Counted 100 04/06/19 23:58 Neutrophils % (Manual) 90 % (39-76) H 04/06/19 23:58 Band Neutrophils % 4 % (0-10) 04/06/19 23:58 Lymphocytes % (Manual) 3 % (13-43) L 04/06/19 23:58 Monocytes % (Manual) 3 % (4-9) L 04/06/19 23:58 Plt Morphology Comment Normal (NORMAL) 04/06/19 23:58 RBC Morphology Normal (NORMAL) 04/06/19 23:58 Sodium 124 mmol/L (136-145) L* 04/06/19 23:58 Corrected Sodium 128 mmol/L (136-145) L 04/06/19 23:58 Potassium 5.6 mmol/L (3.5-5.1) H 04/06/19 23:58 Chloride 87 mmol/L (98-107) L 04/06/19 23:58 Carbon Dioxide 8.2 mmol/L (21-32) L* 04/06/19 23:58 BUN 129 mg/dL (7-18) H 04/06/19 23:58 Creatinine 4.71 mg/dL (0.55-1.02) H 04/06/19 23:58 Est GFR (MDRD) Af Amer 12 (>60) L 04/06/19 23:58 Est GFR (MDRD) Non-Af 10 (>60) L 04/06/19 23:58 Glucose 259 mg/dL (65-99) H 04/06/19 23:58 Calcium 11.7 mg/dL (8.5-10.1) H 04/06/19 23:58 Corrected Calcium 13.2 mg/dL (8.5-10.1) H 04/06/19 23:58 Total Bilirubin 0.20 mg/dL (0.2-1.0) 04/06/19 23:58 AST 14 Units/L (15-37) L 04/06/19 23:58 ALT 16 Units/L (12-78) 04/06/19 23:58 Alkaline Phosphatase 186 Units/L (46-116) H 04/06/19 23:58 Creatine Kinase 52 Units/L (26-192) 04/06/19 23:58 CK-MB (CK-2) < 1.0 ng/mL (0-4.0) 04/06/19 23:58 CK/CKMB % Calc 1.9 % (<4) 04/06/19 23:58 Troponin I < 0.02 ng/mL (0-1.5) 04/06/19 23:58 Total Protein 6.7 g/dL (6.4-8.2) 04/06/19 23:58 Albumin 2.1 g/dL (3.4-5.0) L 04/06/19 23:58 Globulin 4.6 g/dL (2.5-4.5) H 04/06/19 23:58 Albumin/Globulin Ratio 0.5 Ratio (1.1-2.1) L 04/06/19 23:58 Specimen Type Catherized urine 04/07/19 00:39 Urine Color Yellow (YELLOW) 04/07/19 00:39 Urine Appearance Clear (CLEAR) 04/07/19 00:39 Urine pH 6.0 (5.0 - 8.0) 04/07/19 00:39 Ur Specific [place] 1.010 (1.000-1.030) 04/07/19 00:39 Urine Protein 1+ (NEGATIVE) 04/07/19 00:39 Urine Glucose (UA) 4+ (NEGATIVE) 04/07/19 00:39 Urine Ketones 2+ (NEGATIVE) 04/07/19 00:39 Urine Occult Blood 5+ (NEGATIVE) 04/07/19 00:39 Urine Nitrite Negative (NEGATIVE) 04/07/19 00:39 Urine Bilirubin Negative (NEGATIVE) 04/07/19 00:39 Urine Urobilinogen Normal (NORMAL) 04/07/19 00:39 Ur Leukocyte Esterase 1+ (NEGATIVE) 04/07/19 00:39 Urine RBC 3-5 /HPF (0-3) A 04/07/19 00:39 Urine WBC 3-5 /HPF (0-5) 04/07/19 00:39 Ur Squamous Epith Cells Few /HPF (NEGATIVE) 04/07/19 00:39 Amorphous Sediment 1+ /HPF (NEGATIVE) 04/07/19 00:39 Urine Bacteria Negative /HPF (NEGATIVE) 04/07/19 00:39 Urine Yeast Rare /HPF (NEGATIVE) 04/07/19 00:39 Ur Culture Indicated? No/not indicated 04/07/19 00:39 Acetone, Semi-Quant Small (NEGATIVE) H 04/07/19 01:24 Opioid Opioid Risk Tool Family Hx of Substance Abuse: Illegal Drugs Age (Ranulfo box if 16-45): No History of Preadolescent Sexual Abuse: No Total: 1 Total Score Risk Category: Low Risk Copyright: Osiel KEY predicting aberrant behaviors Diagnosis Discharge Problem: Dehydration, Acute hyponatremia, Acute hyperkalemia Sepsis Qualifiers: Sepsis type: sepsis due to unspecified organism Sepsis acute organ dysfunction status: with acute organ dysfunction Severe sepsis acute organ dysfunction type: acute renal failure Acute renal failure type: unspecified Severe sepsis shock status: without septic shock Qualified Code(s): A41.9 - Sepsis, unspecified organism Instructions Instructions: Hyponatremia Forms: Excuse From Work Patient Portal
[2019-04-07 00:15] LABS: BASOPHILS # (AUTO) 0.1 X10^3/uL (0.0-0.1); BASOPHILS % (AUTO) 0.2 % (0.2-1.0); HEMOGLOBIN 11.7 g/dL (12.0-16.0); LYMPHOCYTES # (AUTO) 1.4 X10^3/uL (1.3-2.9); LYMPHOCYTES % (AUTO) 2.1 % (21.0-51.0); MEAN CORPUSCULAR HEMOGLOBIN 31.2 pg (27.0-34.0); MEAN CORPUSCULAR HGB CONC 33.5 g/dL (33.0-35.0); MEAN CORPUSCULAR VOLUME 93.2 fL (80.0-100.0); MONOCYTES # (AUTO) 2.3 x10^3/uL (0.3-0.8); MONOCYTES % (AUTO) 3.5 % (0.0-13.0); NEUTROPHILS # (AUTO) 62.5 x10^3/uL (2.2-4.8); NEUTROPHILS % (AUTO) 94.2 % (42.0-75.0); PLATELET COUNT 568 X10^3/uL (150.0-450.0); RED BLOOD COUNT 3.75 X10^6/uL (3.5-5.4); RED CELL DISTRIBUTION WIDTH 14.2 % (11.6-16.5)
[2019-04-07] MEDS ORDERED: NS 1000 ML 1,000 ML IV ONE ×5 (00:15→15:30)
[2019-04-07] MEDS ORDERED: NS 1000 ML 1,000 ML ONE ×2 (00:17→01:15)
[2019-04-07 00:34] LABS: WHITE BLOOD COUNT 66.4 X10^3/uL (3.6-10.0)
[2019-04-07 00:45] LABS: ALANINE AMINOTRANSFERASE 16 Units/L (12-78); ALBUMIN 2.1 g/dL (3.4-5.0); ALKALINE PHOSPHATASE 186 Units/L (46-116); ASPARTATE AMINO TRANSFERASE 14 Units/L (15-37); BLOOD UREA NITROGEN 129 mg/dL (7-18); CALCIUM 11.7 mg/dL (8.5-10.1); CHLORIDE 87 mmol/L (98-107); CKMB % 1.9 % (<4); COR CA(FOR HYPOALB) 13.2 mg/dL (8.5-10.1); COR NA(FOR HYPERGLY) 128 mmol/L (136-145); CREATINE KINASE 52 Units/L (26-192); CREATINE KINASE MB < 1.0 ng/mL (0-4.0); CREATININE 4.71 mg/dL (0.55-1.02); TOTAL PROTEIN 6.7 g/dL (6.4-8.2); TROPONIN I < 0.02 ng/mL (0-1.5); eGFR NON BLACK RACES 10 (>60)
[2019-04-07 00:48] LABS: BAND NEUTROPHILS % 4 % (0-10); PLATELET MORPHOLOGY COMMENT NORMAL (NORMAL)
[2019-04-07 00:53] LABS: CARBON DIOXIDE 8.2 mmol/L (21-32)
[2019-04-07 00:54] LABS: SODIUM 124 mmol/L (136-145)
[2019-04-07] MEDS ORDERED: NS 1000 ML 1,000 ML IV SCH (01:00)
[2019-04-07] MEDS ORDERED: FLAGYL IV PREMIX 500 MG BAG 500 MG/100 ML BAG IV ONE ×2 (01:01→01:15)
--- NOTE | 2019-04-07 01:02 | RAD ---
Chest AP portableIndication: HypertensionCOMPARISONAugust 2018FINDINGSThere is no pneumothorax or effusion. There is no consolidation. Monitoring leads obscure minimal detail. Heart size is enlarged. Lungs are hyperinflated. MonthsIMPRESSIONCardiomegaly and COPD suggested without other acute chest process. Follow-up with PA and lateral chest as needed to better evaluate.Electronically signed by: CHASE ALMARAZ (Apr 07, 2019 01:01:06)
[2019-04-07] MEDS ORDERED: ROCEPHIN VIAL 1 GRAM ONE (01:15)
[2019-04-07 01:22] LABS: BILIRUBIN,URINE NEGATIVE (NEGATIVE); BLOOD/HEMOGLOBIN,URINE 5+ (NEGATIVE); GLUCOSE, URINE 4+ (NEGATIVE); KETONES,URINE 2+ (NEGATIVE); LEUKOCYTE ESTERASE ,URINE 1+ (NEGATIVE); NITRITES,URINE NEGATIVE (NEGATIVE); PROTEIN,URINE 1+ (NEGATIVE); UROBILINOGEN,URINE NORMAL (NORMAL)
[2019-04-07] MEDS: ROCEPHIN VIAL 1 GRAM 1 G in NS 100 ML IV + SPIKE MINIBAG* 100 ML IV SCH ×2 (01:24→09:20)
[2019-04-07 01:25] LABS: APPEARANCE,URINE CLEAR (CLEAR); COLOR,URINE YELLOW (YELLOW)
[2019-04-07 01:31] LABS: BACTERIA,URINE NEGATIVE /HPF (NEGATIVE); SQUAMOUS EPITHELIAL CELL,UR FEW /HPF (NEGATIVE)
[2019-04-07 01:32] LABS: AMORPHOUS SEDIMENT,UR 1+ /HPF (NEGATIVE); YEAST,URINE RARE /HPF (NEGATIVE)
[2019-04-07 01:45] LABS: SERUM ACETONE SMALL (NEGATIVE)
[2019-04-07 02:26] LABS: LACTIC ACID 10.9 mmol/L (0.4-2.0)
[2019-04-07 03:59] VITALS: BMI 24.7
[2019-04-07] MEDS ORDERED: PHARMACY CONSULT LTC MEDICATIONS XX SCH (04:00)
[2019-04-07] MEDS: NS 1000 ML 1,000 ML IV SCH ×5 (05:44→18:22)
[2019-04-07] MEDS: HumuLIN R SUBCUT PRN ×3 (06:04→18:22)
[2019-04-07 06:14] LABS: BASOPHILS # (AUTO) 0.2 X10^3/uL (0.0-0.1); BASOPHILS % (AUTO) 0.3 % (0.2-1.0); HEMATOCRIT 34.4 % (36.0-47.0); HEMOGLOBIN 10.6 g/dL (12.0-16.0); LYMPHOCYTES # (AUTO) 1.4 X10^3/uL (1.3-2.9); LYMPHOCYTES % (AUTO) 1.7 % (21.0-51.0); MEAN CORPUSCULAR HEMOGLOBIN 30.2 pg (27.0-34.0); MEAN CORPUSCULAR VOLUME 97.7 fL (80.0-100.0); MEAN PLATELET VOLUME 8.6 fL (7.4-11.0); MONOCYTES # (AUTO) 1.8 x10^3/uL (0.3-0.8); MONOCYTES % (AUTO) 2.1 % (0.0-13.0); NEUTROPHILS # (AUTO) 78.9 x10^3/uL (2.2-4.8); NEUTROPHILS % (AUTO) 95.9 % (42.0-75.0); PLATELET COUNT 599 X10^3/uL (150.0-450.0); RED BLOOD COUNT 3.52 X10^6/uL (3.5-5.4); RED CELL DISTRIBUTION WIDTH 14.6 % (11.6-16.5)
[2019-04-07 06:15] LABS: CALCIUM 11.2 mg/dL (8.5-10.1); COR CA(FOR HYPOALB) 12.8 mg/dL (8.5-10.1); CREATININE 4.85 mg/dL (0.55-1.02); TOTAL PROTEIN 6.6 g/dL (6.4-8.2)
[2019-04-07 06:23] LABS: WHITE BLOOD COUNT 82.3 X10^3/uL (3.6-10.0)
[2019-04-07 06:28] LABS: CARBON DIOXIDE 5.3 mmol/L (21-32)
[2019-04-07 07:07] LABS: BAND NEUTROPHILS % 7 % (0-10); METAMYELOCYTES % 3
[2019-04-07 07:08] LABS: PLATELET MORPHOLOGY COMMENT NORMAL (NORMAL)
[2019-04-07] MEDS: DIFLUCAN 100 MG IV (MIX by PHARMACY)* 100 MG/50 ML BAG IV SCH (08:24)
[2019-04-07] MEDS ORDERED: DIFLUCAN 200 MG IV PREMIX* 200 MG/100 ML BAG IV SCH (09:00)
[2019-04-07] MEDS: LOVENOX INJ 30 MG SYR SC SCH (10:50)
[2019-04-07] MEDS: ROCEPHIN VIAL 1 GRAM 1 G in NS 100 ML IV + SPIKE MINIBAG* 100 ML IV NR ×2 (11:14→12:01)
[2019-04-07 17:37] LABS: CALCIUM 9.5 mg/dL (8.5-10.1); CREATININE 4.33 mg/dL (0.55-1.02)
[2019-04-07 17:41] LABS: CARBON DIOXIDE 7.8 mmol/L (21-32)
[2019-04-07] MEDS: SNACK - Diabetic Appropriate PO SCH (19:50)
[2019-04-08] MEDS: NS 1000 ML 1,000 ML IV SCH ×4 (05:33→20:59)
[2019-04-08 06:03] LABS: LACTIC ACID 4.4 mmol/L (0.4-2.0)
[2019-04-08 06:23] LABS: ALBUMIN 1.7 g/dL (3.4-5.0); CALCIUM 9.4 mg/dL (8.5-10.1); COR CA(FOR HYPOALB) 11.2 mg/dL (8.5-10.1); CREATININE 3.93 mg/dL (0.55-1.02); TOTAL PROTEIN 5.1 g/dL (6.4-8.2)
[2019-04-08 06:24] LABS: CARBON DIOXIDE 11.5 mmol/L (21-32)
[2019-04-08 06:31] LABS: BASOPHILS # (AUTO) 0.2 X10^3/uL (0.0-0.1); BASOPHILS % (AUTO) 0.4 % (0.2-1.0); HEMATOCRIT 29.4 % (36.0-47.0); HEMOGLOBIN 9.8 g/dL (12.0-16.0); LYMPHOCYTES # (AUTO) 1.1 X10^3/uL (1.3-2.9); LYMPHOCYTES % (AUTO) 2.3 % (21.0-51.0); MEAN CORPUSCULAR HEMOGLOBIN 30.7 pg (27.0-34.0); MEAN CORPUSCULAR HGB CONC 33.3 g/dL (33.0-35.0); MEAN CORPUSCULAR VOLUME 92.1 fL (80.0-100.0); MEAN PLATELET VOLUME 8.9 fL (7.4-11.0); MONOCYTES # (AUTO) 1.3 x10^3/uL (0.3-0.8); MONOCYTES % (AUTO) 2.6 % (0.0-13.0); NEUTROPHILS # (AUTO) 45.2 x10^3/uL (2.2-4.8); NEUTROPHILS % (AUTO) 94.7 % (42.0-75.0); PLATELET COUNT 312 X10^3/uL (150.0-450.0); RED BLOOD COUNT 3.19 X10^6/uL (3.5-5.4); RED CELL DISTRIBUTION WIDTH 14.5 % (11.6-16.5)
[2019-04-08 06:47] LABS: WHITE BLOOD COUNT 47.7 X10^3/uL (3.6-10.0)
[2019-04-08 07:07] LABS: BAND NEUTROPHILS % 5 % (0-10); CRENATED RBC 1+; PLATELET MORPHOLOGY COMMENT NORMAL (NORMAL)
[2019-04-08] MEDS: ROCEPHIN VIAL 2 GRAMS 2 G in NS 100 ML IV + SPIKE MINIBAG* 100 ML IV SCH (10:04)
[2019-04-08] MEDS: LOVENOX INJ 30 MG SYR SC SCH (10:05)
[2019-04-08] MEDS: DIFLUCAN 100 MG IV (MIX by PHARMACY)* 100 MG/50 ML BAG IV SCH (10:05)
--- NOTE | 2019-04-08 10:22 | RAD ---
HISTORYSEPSISSTUDYCHEST, 1 VIEWCOMPARISONAugust 2018FINDINGSThe patient is rotated the cardiac silhouette is enlarged. Right perihilar and left basilar infiltrate are suspected. Elevation of the right hemidiaphragm is also demonstrated.IMPRESSIONCardiomegaly.Suspected bilateral infiltrate as noted above. Correlate.Electronically signed by: JESUS JARAMILLO (Apr 08, 2019 10:20:56)
[2019-04-08] MEDS: NS 1000 ML 1,000 ML IV PRN ×3 (13:00→17:47)
[2019-04-08] MEDS: HumuLIN R SUBCUT PRN ×3 (13:01→20:58)
[2019-04-08] MEDS: SNACK - Diabetic Appropriate PO SCH (23:33)
[2019-04-09] MEDS: NS 1000 ML 1,000 ML IV SCH ×5 (01:26→21:27)
[2019-04-09 05:34] LABS: BASOPHILS # (AUTO) 0.1 X10^3/uL (0.0-0.1); BASOPHILS % (AUTO) 0.3 % (0.2-1.0); HEMATOCRIT 25.5 % (36.0-47.0); HEMOGLOBIN 8.9 g/dL (12.0-16.0); LYMPHOCYTES # (AUTO) 0.3 X10^3/uL (1.3-2.9); LYMPHOCYTES % (AUTO) 1.4 % (21.0-51.0); MEAN CORPUSCULAR HEMOGLOBIN 31.4 pg (27.0-34.0); MEAN CORPUSCULAR HGB CONC 35.1 g/dL (33.0-35.0); MEAN CORPUSCULAR VOLUME 89.3 fL (80.0-100.0); MEAN PLATELET VOLUME 8.1 fL (7.4-11.0); MONOCYTES # (AUTO) 1.1 x10^3/uL (0.3-0.8); MONOCYTES % (AUTO) 4.2 % (0.0-13.0); NEUTROPHILS % (AUTO) 94.1 % (42.0-75.0); PLATELET COUNT 285 X10^3/uL (150.0-450.0); RED BLOOD COUNT 2.85 X10^6/uL (3.5-5.4); RED CELL DISTRIBUTION WIDTH 14.7 % (11.6-16.5)
[2019-04-09 05:36] LABS: ALBUMIN 1.6 g/dL (3.4-5.0); CARBON DIOXIDE 16.8 mmol/L (21-32); COR CA(FOR HYPOALB) 10.9 mg/dL (8.5-10.1); CREATININE 2.12 mg/dL (0.55-1.02); TOTAL PROTEIN 5.2 g/dL (6.4-8.2)
[2019-04-09] MEDS: HumuLIN R SUBCUT PRN ×4 (05:36→21:28)
[2019-04-09 06:15] LABS: BAND NEUTROPHILS % 9 % (0-10); PLATELET MORPHOLOGY COMMENT NORMAL (NORMAL); WHITE BLOOD COUNT 25.5 X10^3/uL (3.6-10.0)
[2019-04-09] MEDS ORDERED: POTASSIUM CHLORIDE LIQ 20 MEQ UDC PO PRN (06:15)
[2019-04-09] MEDS ORDERED: MICRO K EXTEN CAP 10 MEQ PO PRN (06:15)
[2019-04-09] MEDS ORDERED: POTASSIUM CHL 60 MEQ/NS 0.45% 500 ML IV PRN (06:15)
[2019-04-09] MEDS ORDERED: POTASSIUM CHL 40 MEQ/NS 0.45% 500 ML IV PRN (06:15)
[2019-04-09] MEDS: LOVENOX INJ 30 MG SYR SC SCH (09:22)
[2019-04-09] MEDS: ROCEPHIN VIAL 2 GRAMS 2 G in NS 100 ML IV + SPIKE MINIBAG* 100 ML IV SCH (09:22)
[2019-04-09] MEDS: DIFLUCAN 100 MG IV (MIX by PHARMACY)* 100 MG/50 ML BAG IV SCH (10:00)
[2019-04-09] MEDS ORDERED: VANCOMYCIN HCL 1 G in D5W 250 ML IV 250 ML IV SCH (12:00)
[2019-04-09] MEDS: SNACK - Diabetic Appropriate PO SCH (21:27)
[2019-04-10] MEDS: NS 1000 ML 1,000 ML IV SCH (05:34)
[2019-04-10 06:18] LABS: BASOPHILS % (AUTO) 0.1 % (0.2-1.0); HEMATOCRIT 27.8 % (36.0-47.0); HEMOGLOBIN 9.6 g/dL (12.0-16.0); LYMPHOCYTES # (AUTO) 0.9 X10^3/uL (1.3-2.9); LYMPHOCYTES % (AUTO) 4.7 % (21.0-51.0); MEAN CORPUSCULAR HEMOGLOBIN 30.6 pg (27.0-34.0); MEAN CORPUSCULAR HGB CONC 34.4 g/dL (33.0-35.0); MEAN CORPUSCULAR VOLUME 88.8 fL (80.0-100.0); MONOCYTES # (AUTO) 1.3 x10^3/uL (0.3-0.8); MONOCYTES % (AUTO) 7.4 % (0.0-13.0); NEUTROPHILS # (AUTO) 15.9 x10^3/uL (2.2-4.8); NEUTROPHILS % (AUTO) 87.8 % (42.0-75.0); PLATELET COUNT 267 X10^3/uL (150.0-450.0); RED BLOOD COUNT 3.13 X10^6/uL (3.5-5.4); RED CELL DISTRIBUTION WIDTH 14.7 % (11.6-16.5); WHITE BLOOD COUNT 18.2 X10^3/uL (3.6-10.0)
[2019-04-10 06:30] LABS: ALANINE AMINOTRANSFERASE 23 Units/L (12-78); ALBUMIN 1.7 g/dL (3.4-5.0); ALKALINE PHOSPHATASE 178 Units/L (46-116); ASPARTATE AMINO TRANSFERASE 29 Units/L (15-37); BLOOD UREA NITROGEN 65 mg/dL (7-18); CALCIUM 8.8 mg/dL (8.5-10.1); CARBON DIOXIDE 18.8 mmol/L (21-32); COR CA(FOR HYPOALB) 10.6 mg/dL (8.5-10.1); COR NA(FOR HYPERGLY) 158 mmol/L (136-145); CREATININE 1.01 mg/dL (0.55-1.02); TOTAL PROTEIN 5.6 g/dL (6.4-8.2); eGFR NON BLACK RACES 59 (>60)
[2019-04-10 06:54] LABS: SODIUM 157 mmol/L (136-145)
[2019-04-10 06:55] LABS: CHLORIDE 120 mmol/L (98-107)
[2019-04-10] MEDS: ROCEPHIN VIAL 2 GRAMS 2 G in NS 100 ML IV + SPIKE MINIBAG* 100 ML IV SCH (08:55)
[2019-04-10] MEDS: LOVENOX INJ 30 MG SYR SC SCH (08:56)
[2019-04-10] MEDS: DIFLUCAN 100 MG IV (MIX by PHARMACY)* 100 MG/50 ML BAG IV SCH (09:40)
[2019-04-10] MEDS: NS 1/2 + KCL 20 MEQ/L 1,000 ML IV SCH ×2 (10:13→23:00)
[2019-04-10] MEDS: VANCOMYCIN HCL 1 G in D5W 250 ML IV 250 ML IV SCH ×2 (10:49→21:03)
[2019-04-10] MEDS: HumuLIN R SUBCUT PRN ×3 (11:42→21:19)
[2019-04-10] MEDS: KLOR-CON PO PRN (13:31)
[2019-04-10 13:50] LABS: ABG ALLEN TEST POS; ABG HCO3 19.2 mmol/L (22-26)
--- NOTE | 2019-04-10 15:49 | CT ---
HISTORYAMS, SEPSIS DM; HTN; TONSILLECTOMY; GB; TUBAL, APPENDECTOMYSTUDYBRAIN W/O CONCOMPARISONHead CT from March 24, 2019.TECHNIQUEMultiple axial images of the head were obtained from the skull base to the vertex without administration of IV contrast. Sagittal and coronal reformatted images were performed. Automated exposure control (AEC) was utilized to adjust the MA and/or kV.FINDINGSThe sulci, cisterns and ventricles are prominent consistent with mild diffuse volume loss. There are a few scattered foci of low attenuation in the periventricular and subcortical white matter of both hemispheres. This is a nonspecific finding which likely represents microangiopathic change in a patient of this age.There is no evidence of acute territorial infarction, hemorrhage, mass, mass effect or midline shift. There are no abnormal intra-axial or extra-axial fluid collections. The visualized paranasal sinuses and mastoid air cells are predominantly clear. There is no evidence of acute osseous abnormality or significant soft tissue swelling.IMPRESSION1. No evidence of acute intracranial abnormality.2. Mild nonspecific white matter change and volume loss.Electronically signed by: ANGEL VASQUEZ (Apr 10, 2019 15:48:12)
--- NOTE | 2019-04-10 15:49 | RAD ---
HISTORYSEPSISSTUDYCHEST, 1 [id number] heart is less prominent the pulmonary vessels are less prominent centrally. There are hazy perihilar and bibasilar opacities which have decreased. There is mild blunting of left costophrenic sulcus which is less prominent.IMPRESSIONSlight decrease in the heart size with slowly resolving pulmonary edema.Hazy perihilar and bibasilar opacities and a small left pleural effusion which is less prominent.Electronically signed by: DARIAN ANDERSON (Apr 10, 2019 15:47:55)
--- NOTE | 2019-04-10 16:28 | CT ---
HISTORYHX RIGHT ANKLE FRACTURE, SEPSIS, R/O OSTEOMYELITISSTUDYLOWER EXT W/O CONCOMPARISONNoneTECHNIQUEMultiple axial images of the right ankle were obtained from the lower leg without administration of IV contrast. Sagittal and coronal reformats were performed and reviewed. Dose reduction techniques including Automated Exposure Control (AEC) and adjustment of mA and kV were utilized.FINDINGSThere is a mildly displaced and comminuted cortical avulsion fracture along the lateral aspect of the distal tibia extending inferiorly and anteriorly. There is mildly displaced spiral fracture along the distal fibula extending inferiorly and medially. The ankle mortise is intact. There is a small well corticated bony fragment along the inferior aspect of the medial malleolus. The visualized talus, calcaneus, tarsal and visualized metatarsal bones are intact and in good position. The bones are severely osteopenic. There is prominent bony spurring along the calcaneus.There is moderate stranding and edema in the subcutaneous soft tissues throughout the lower leg and extending around the ankle into the dorsum of the foot and plantar aspect of the proximal foot with no focal fluid collection or mass. No erosions are seen. There is no periosteal reaction. The ankle mortise is intact. There is some small well corticated bony fragments along the inferior aspect of the medial malleolus.IMPRESSIONMildly displaced and slightly comminuted cortical avulsion fracture along the lateral aspect of the distal tibia.Mild minimally displaced spiral mildly displaced spiral fracture along the distal fibula.Probable unfused ossicle along the inferior aspect of the medial malleolus.Severe osteopenia limiting the exam with no obvious cortical erosions or periosteal reaction which would suggest osteomyelitis. If there is persistent clinical concern for osteo in the ankle, suggest a three-phase bone scan.Moderate cellulitis or edema seen around the ankle extending throughout the foot with no obvious focal fluid collection.Electronically signed by: DARIAN ANDERSON (Apr 10, 2019 16:27:08)
[2019-04-10 18:14] LABS: BLOOD UREA NITROGEN 45 mg/dL (7-18); CALCIUM 8.5 mg/dL (8.5-10.1); CARBON DIOXIDE 21.3 mmol/L (21-32); CHLORIDE 112 mmol/L (98-107); COR NA(FOR HYPERGLY) 150 mmol/L (136-145); CREATININE 0.89 mg/dL (0.55-1.02); SODIUM 148 mmol/L (136-145); eGFR NON BLACK RACES > 60 (>60)
[2019-04-10] MEDS: SNACK - Diabetic Appropriate PO SCH (21:00)
[2019-04-10] MEDS: K-RIDER 10 MEQ/NS 100 ML 10 MEQ/100 ML BAG IV PRN (23:15)
[2019-04-11] MEDS: K-RIDER 10 MEQ/NS 100 ML 10 MEQ/100 ML BAG IV PRN ×5 (00:27→04:29)
[2019-04-11] MEDS: HumuLIN R SUBCUT PRN ×4 (05:32→20:41)
--- NOTE | 2019-04-11 08:29 | PCM.PROG ---
Progress Note Progress Note for Day of Date of Exam: 04/11/19 Subjective Subjective: Pt admitted for sepsis and hypotension. She is alert this morning, sitting up in bed. Labs today: K 3.3, Mag 1.5, will replace. WBC has been trending down from 82K on admission to 19K. BloodCx positive for staph a. /, repeat cultures pending. Will order echo. Pt is currently on Vancomycin and Rocephin. CT results below. Ortho-Dr Haq consulted and will see patient on Sunday. Imaging done on 04/10-CT head negative. CT RLE Mildly displaced and slightly comminuted cortical avulsion fracture along the lateral aspect of the distal tibia. Mild minimally displaced spiral mildly displaced spiral fracture along the distal fibula. Probable unfused ossicle along the inferior aspect of the medial malleolus. Moderate cellulitis or edema seen around the ankle extending throughout the foot with no obvious focal fluid collection. Past Medical Family Social History Past Med/Fam/Surg Hx: No changes since H&P Allergies: Allergies acetaminophen [From Tylenol-Codeine] Allergy (Verified 03/26/19 05:29) codeine [From Tylenol-Codeine] Allergy (Verified 03/26/19 05:29) Penicillins Allergy (Verified 03/26/19 05:29) Review of Systems ROS: No change since H&P Vital Signs and I&O's Vital Signs: Temperature 97.5 F Pulse Rate [Apical] 107 Pulse Rate 71 Respiratory Rate 19 Blood Pressure [Right Arm] 86/54 Blood Pressure 118/56 O2 Sat by Pulse Oximetry 100 Intake and Output: Intake & Output 04/08/19 04/09/19 04/10/19 04/11/19 23:59 23:59 23:59 23:59 Intake Total 5862 / 5862 4017 / 4017 6990 / 6990 1435 / 1435 Output Total 3300 / 3300 8000 / 8000 4250 / 4250 950 / 950 Balance 2562 / 2562 -3983 / -3983 2740 / 2740 485 / 485 Physical Exam Oriented: Normal Eyes: Normal Ear: Normal Respiratory: Normal Cardiovascular: Normal Skin: Normal Musculoskeletal: Right, Leg and Tender Psychiatric: Normal Mood Description: Calm Speech Pattern: Clear and Slurred Laboratory and Diagnostics Result Diagrams: 04/11/19 08:35 04/11/19 08:35 Labs: 04/07/19 07:40 Urine,Clean Catch Urine Culture - Final 04/07/19 01:24 Blood Blood Culture - Preliminary 04/07/19 01:20 Blood Blood Culture - Final Staphylococcus Aureus Laboratory WBC 18.2 X10^3/uL (3.6-10.0) H 04/10/19 05:15 RBC 3.13 X10^6/uL (3.5-5.4) L 04/10/19 05:15 Hgb 9.6 g/dL (12.0-16.0) L 04/10/19 05:15 Hct 27.8 % (36.0-47.0) L 04/10/19 05:15 MCV 88.8 fL (80.0-100.0) 04/10/19 05:15 MCH 30.6 pg (27.0-34.0) 04/10/19 05:15 MCHC 34.4 g/dL (33.0-35.0) 04/10/19 05:15 RDW 14.7 % (11.6-16.5) 04/10/19 05:15 Plt Count 267 X10^3/uL (150.0-450.0) 04/10/19 05:15 Plt Count Comment Adequate (ADEQUATE) 04/09/19 04:18 MPV 8.0 fL (7.4-11.0) 04/10/19 05:15 Neut % (Auto) 87.8 % (42.0-75.0) H 04/10/19 05:15 Lymph % (Auto) 4.7 % (21.0-51.0) L 04/10/19 05:15 [place] % (Auto) 7.4 % (0.0-13.0) 04/10/19 05:15 Eos % (Auto) 0.0 % (0.9-2.9) L 04/10/19 05:15 Baso % (Auto) 0.1 % (0.2-1.0) L 04/10/19 05:15 Neut # (Auto) 15.9 x10^3/uL (2.2-4.8) H 04/10/19 05:15 Lymph # (Auto) 0.9 X10^3/uL (1.3-2.9) L 04/10/19 05:15 [place] # (Auto) 1.3 x10^3/uL (0.3-0.8) H 04/10/19 05:15 Eos # (Auto) 0.0 x10^3/uL (0.0-0.2) 04/10/19 05:15 Baso # (Auto) 0.0 X10^3/uL (0.0-0.1) 04/10/19 05:15 Absolute Nucleated RBC 0.0 /100WBC 04/10/19 05:15 Total Counted 100 04/09/19 04:18 Neutrophils % (Manual) 86 % (39-76) H 04/09/19 04:18 Band Neutrophils % 9 % (0-10) 04/09/19 04:18 Lymphocytes % (Manual) 2 % (13-43) L 04/09/19 04:18 Monocytes % (Manual) 3 % (4-9) L 04/09/19 04:18 Metamyelocytes % 3 04/07/19 04:25 Plt Morphology Comment Normal (NORMAL) 04/09/19 04:18 RBC Morphology Normal (NORMAL) 04/09/19 04:18 Crenated Cell 1+ A 04/08/19 05:27 Sample Site Lr 04/10/19 13:40 ABG pH 7.430 (7.35-7.45) 04/10/19 13:40 ABG pCO2 29.0 mmHg (35.0-45.0) L 04/10/19 13:40 ABG pO2 85.0 mmHg (80.0-100.0) 04/10/19 13:40 ABG HCO3 19.2 mmol/L (22-26) L 04/10/19 13:40 ABG O2 Saturation 97.0 % (90-100) 04/10/19 13:40 ABG Base Excess -4.0 mmol/L (-2.0-2.0) L 04/10/19 13:40 Fabián Test Pos 04/10/19 13:40 A-a Gradient 28.0 mmHg 04/10/19 13:40 FiO2 21.0 04/10/19 13:40 Blood Gas Comments Isatu well cb 04/10/19 13:40 Sodium 148 mmol/L (136-145) H 04/10/19 18:01 Corrected Sodium 150 mmol/L (136-145) H 04/10/19 18:01 Potassium 2.5 mmol/L (3.5-5.1) L* 04/10/19 18:01 Chloride 112 mmol/L (98-107) H 04/10/19 18:01 Carbon Dioxide 21.3 mmol/L (21-32) 04/10/19 18:01 BUN 45 mg/dL (7-18) H 04/10/19 18:01 Creatinine 0.89 mg/dL (0.55-1.02) 04/10/19 18:01 Est GFR (MDRD) Af Amer > 60 (>60) 04/10/19 18:01 Est GFR (MDRD) Non-Af > 60 (>60) 04/10/19 18:01 Glucose 192 mg/dL (65-99) H 04/10/19 18:01 POC Glucose (mg/dL) 162 mg/dL (65-99) H 04/11/19 05:04 Lactic Acid 1.1 mmol/L (0.4-2.0) 04/09/19 07:06 Calcium 8.5 mg/dL (8.5-10.1) 04/10/19 18:01 Corrected Calcium 10.6 mg/dL (8.5-10.1) H 04/10/19 05:15 Magnesium 2.1 mg/dL (1.7-2.9) 04/10/19 18:01 Total Bilirubin 0.30 mg/dL (0.2-1.0) 04/10/19 05:15 AST 29 Units/L (15-37) 04/10/19 05:15 ALT 23 Units/L (12-78) 04/10/19 05:15 Alkaline Phosphatase 178 Units/L (46-116) H 04/10/19 05:15 Creatine Kinase 52 Units/L (26-192) 04/06/19 23:58 CK-MB (CK-2) < 1.0 ng/mL (0-4.0) 04/06/19 23:58 CK/CKMB % Calc 1.9 % (<4) 04/06/19 23:58 Troponin I < 0.02 ng/mL (0-1.5) 04/06/19 23:58 Total Protein 5.6 g/dL (6.4-8.2) L 04/10/19 05:15 Albumin 1.7 g/dL (3.4-5.0) L 04/10/19 05:15 Globulin 3.9 g/dL (2.5-4.5) 04/10/19 05:15 Albumin/Globulin Ratio 0.4 Ratio (1.1-2.1) L 04/10/19 05:15 Specimen Type Catherized urine 04/07/19 00:39 Urine Color Yellow (YELLOW) 04/07/19 00:39 Urine Appearance Clear (CLEAR) 04/07/19 00:39 Urine pH 6.0 (5.0 - 8.0) 04/07/19 00:39 Ur Specific [place] 1.010 (1.000-1.030) 04/07/19 00:39 Urine Protein 1+ (NEGATIVE) 04/07/19 00:39 Urine Glucose (UA) 4+ (NEGATIVE) 04/07/19 00:39 Urine Ketones 2+ (NEGATIVE) 04/07/19 00:39 Urine Occult Blood 5+ (NEGATIVE) 04/07/19 00:39 Urine Nitrite Negative (NEGATIVE) 04/07/19 00:39 Urine Bilirubin Negative (NEGATIVE) 04/07/19 00:39 Urine Urobilinogen Normal (NORMAL) 04/07/19 00:39 Ur Leukocyte Esterase 1+ (NEGATIVE) 04/07/19 00:39 Urine RBC 3-5 /HPF (0-3) A 04/07/19 00:39 Urine WBC 3-5 /HPF (0-5) 04/07/19 00:39 Ur Squamous Epith Cells Few /HPF (NEGATIVE) 04/07/19 00:39 Amorphous Sediment 1+ /HPF (NEGATIVE) 04/07/19 00:39 Urine Bacteria Negative /HPF (NEGATIVE) 04/07/19 00:39 Urine Yeast Rare /HPF (NEGATIVE) 04/07/19 00:39 Ur Culture Indicated? No/not indicated 04/07/19 00:39 Acetone, Semi-Quant Small (NEGATIVE) H 04/10/19 05:15 Plan (1) Cellulitis: Status: Acute Qualifiers: Site of cellulitis of trunk: perineum (2) Sepsis: Status: Acute (3) Fracture, tibia: Status: Acute (4) Diabetes mellitus type 2: Status: Acute (5) Essential hypertension: Status: Chronic (6) Fracture of fibula, distal, closed: Status: Acute Qualifiers: Encounter type: initial encounter Fracture morphology: unspecified fracture morphology Laterality: right Qualified Code(s): S82.831A - Other fracture of upper and lower end of right fibula, initial encounter for closed fracture (7) Hypokalemia: Status: Acute (8) Hypomagnesemia: Status: Acute
[2019-04-11] MEDS ORDERED: PHARMACY COMMENT IV NR (08:30)
[2019-04-11 08:46] LABS: BASOPHILS % (AUTO) 0.1 % (0.2-1.0); EOSINOPHILS % (AUTO) 0.1 % (0.9-2.9); HEMATOCRIT 27.1 % (36.0-47.0); HEMOGLOBIN 9.3 g/dL (12.0-16.0); LYMPHOCYTES # (AUTO) 1.4 X10^3/uL (1.3-2.9); MEAN CORPUSCULAR HEMOGLOBIN 30.7 pg (27.0-34.0); MEAN CORPUSCULAR HGB CONC 34.4 g/dL (33.0-35.0); MEAN CORPUSCULAR VOLUME 89.2 fL (80.0-100.0); MEAN PLATELET VOLUME 7.3 fL (7.4-11.0); NEUTROPHILS # (AUTO) 17.4 x10^3/uL (2.2-4.8); NEUTROPHILS % (AUTO) 87.8 % (42.0-75.0); PLATELET COUNT 223 X10^3/uL (150.0-450.0); RED BLOOD COUNT 3.04 X10^6/uL (3.5-5.4); RED CELL DISTRIBUTION WIDTH 14.7 % (11.6-16.5); WHITE BLOOD COUNT 19.9 X10^3/uL (3.6-10.0)
[2019-04-11 08:57] LABS: ALANINE AMINOTRANSFERASE 33 Units/L (12-78); ALBUMIN 1.6 g/dL (3.4-5.0); ALKALINE PHOSPHATASE 216 Units/L (46-116); ASPARTATE AMINO TRANSFERASE 49 Units/L (15-37); BLOOD UREA NITROGEN 32 mg/dL (7-18); CALCIUM 7.9 mg/dL (8.5-10.1); CARBON DIOXIDE 24.2 mmol/L (21-32); CHLORIDE 103 mmol/L (98-107); COR CA(FOR HYPOALB) 9.8 mg/dL (8.5-10.1); COR NA(FOR HYPERGLY) 141 mmol/L (136-145); CREATININE 0.66 mg/dL (0.55-1.02); SODIUM 138 mmol/L (136-145); TOTAL PROTEIN 5.3 g/dL (6.4-8.2); eGFR NON BLACK RACES > 60 (>60)
[2019-04-11 08:58] LABS: CREATININE 0.56 mg/dL (0.55-1.02)
[2019-04-11] MEDS: DIFLUCAN 200 MG IV PREMIX* 200 MG/100 ML BAG IV SCH (09:13)
[2019-04-11] MEDS: LOVENOX INJ 30 MG SYR SC SCH (09:13)
[2019-04-11] MEDS: ROCEPHIN VIAL 2 GRAMS 2 G in NS 100 ML IV + SPIKE MINIBAG* 100 ML IV SCH (09:56)
[2019-04-11] MEDS: VANCOMYCIN HCL 1 G in D5W 250 ML IV 250 ML IV SCH ×2 (10:26→20:04)
[2019-04-11] MEDS: MAGNESIUM SULFATE 1 GRAM/100 mL PREMIX 1 GM/100 ML BAG IV PRN ×2 (10:27→13:38)
[2019-04-11] MEDS: NS 1/2 + KCL 20 MEQ/L 1,000 ML IV SCH (13:40)
[2019-04-11] MEDS: KLOR-CON PO PRN (17:01)
[2019-04-11] MEDS: SNACK - Diabetic Appropriate PO SCH (20:04)
[2019-04-11] MEDS: ULTRAM PO PRN (21:36)
[2019-04-12 02:53] LABS: BASOPHILS % (AUTO) 0 % (0.2-1.0); EOSINOPHILS % (AUTO) 0.3 % (0.9-2.9); HEMATOCRIT 24.7 % (36.0-47.0); HEMOGLOBIN 8.6 g/dL (12.0-16.0); LYMPHOCYTES # (AUTO) 1.4 X10^3/uL (1.3-2.9); LYMPHOCYTES % (AUTO) 8.2 % (21.0-51.0); MEAN CORPUSCULAR HGB CONC 34.8 g/dL (33.0-35.0); MEAN CORPUSCULAR VOLUME 89.1 fL (80.0-100.0); MEAN PLATELET VOLUME 8.8 fL (7.4-11.0); MONOCYTES # (AUTO) 0.8 x10^3/uL (0.3-0.8); MONOCYTES % (AUTO) 4.8 % (0.0-13.0); NEUTROPHILS # (AUTO) 14.7 x10^3/uL (2.2-4.8); NEUTROPHILS % (AUTO) 86.7 % (42.0-75.0); PLATELET COUNT 181 X10^3/uL (150.0-450.0); RED BLOOD COUNT 2.77 X10^6/uL (3.5-5.4); RED CELL DISTRIBUTION WIDTH 14.7 % (11.6-16.5); WHITE BLOOD COUNT 16.9 X10^3/uL (3.6-10.0)
[2019-04-12 02:55] LABS: BLOOD UREA NITROGEN 18 mg/dL (7-18); CALCIUM 7.7 mg/dL (8.5-10.1); CARBON DIOXIDE 24.7 mmol/L (21-32); CHLORIDE 100 mmol/L (98-107); COR NA(FOR HYPERGLY) 135 mmol/L (136-145); CREATININE 0.49 mg/dL (0.55-1.02); MAGNESIUM 1.6 mg/dL (1.7-2.9); SODIUM 134 mmol/L (136-145); eGFR NON BLACK RACES > 60 (>60)
[2019-04-12] MEDS: NS 1/2 + KCL 20 MEQ/L 1,000 ML IV SCH ×2 (03:01→18:06)
[2019-04-12] MEDS: MAGNESIUM SULFATE 1 GRAM/100 mL PREMIX 1 GM/100 ML BAG IV PRN ×2 (03:06→04:07)
[2019-04-12 03:13] LABS: CKMB % 2.8 % (<4); CREATINE KINASE 36 Units/L (26-192); CREATINE KINASE MB < 1.0 ng/mL (0-4.0); TROPONIN I < 0.02 ng/mL (0-1.5)
[2019-04-12] MEDS: ROCEPHIN VIAL 2 GRAMS 2 G in NS 100 ML IV + SPIKE MINIBAG* 100 ML IV SCH (08:22)
[2019-04-12] MEDS: DIFLUCAN 200 MG IV PREMIX* 200 MG/100 ML BAG IV SCH (08:23)
[2019-04-12] MEDS: LOVENOX INJ 30 MG SYR SC SCH (08:23)
[2019-04-12] MEDS: VANCOMYCIN HCL 1 G in D5W 250 ML IV 250 ML IV SCH (08:24)
--- NOTE | 2019-04-12 10:27 | PCM.PROG ---
Progress Note Progress Note for Day of Date of Exam: 04/12/19 Subjective Subjective: Pt admitted for sepsis and bacteremia. She is alert and orientated, sitting up in bed, she is c/o her chest and abdominal burning, especially when she eats that is causing her to have decreased appetite. Overnight, initial cardiac labs were drawn that were negative. Will get XR today and start on Pepcid. WBC has been trending down, today 16.9K. BloodCx positive for staph a. /, repeat cultures negative Discontinued Vancomycin, continue Rocephin. Echo yesterday pEF 70%, G1DD, mild concentric LVH. Pt has a right tibial fracture, placed in ortho boot, Ortho-Dr Haq consulted and will see patient on Sunday. Past Medical Family Social History Past Med/Fam/Surg Hx: No changes since H&P Allergies: Allergies acetaminophen [From Tylenol-Codeine] Allergy (Verified 03/26/19 05:29) codeine [From Tylenol-Codeine] Allergy (Verified 03/26/19 05:29) Penicillins Allergy (Verified 03/26/19 05:29) Review of Systems ROS: No change since H&P Vital Signs and I&O's Vital Signs: Temperature 97.5 F Pulse Rate [Apical] 107 Pulse Rate 64 Respiratory Rate 21 Blood Pressure [Right Arm] 86/54 Blood Pressure 111/58 O2 Sat by Pulse Oximetry 100 Intake and Output: Intake & Output 04/09/19 04/10/19 04/11/19 04/12/19 23:59 23:59 23:59 23:59 Intake Total 4017 / 4017 6990 / 6990 6169 / 6169 1055 / 1055 Output Total 8000 / 8000 4250 / 4250 3750 / 3750 825 / 825 Balance -3983 / -3983 2740 / 2740 2419 / 2419 230 / 230 Physical Exam Oriented: Normal Eyes: Normal Ear: Normal Respiratory: Normal Cardiovascular: Normal Skin: Normal Musculoskeletal: Right, Leg and Tender Psychiatric: Normal Mood Description: Calm Speech Pattern: Slurred Laboratory and Diagnostics Result Diagrams: 04/12/19 02:37 04/12/19 02:37 Labs: 04/07/19 01:24 Blood Blood Culture - Final 04/10/19 12:57 Blood Blood Culture - Preliminary 04/10/19 12:55 Blood Blood Culture - Preliminary 04/07/19 07:40 Urine,Clean Catch Urine Culture - Final 04/07/19 01:20 Blood Blood Culture - Final Staphylococcus Aureus Laboratory WBC 16.9 X10^3/uL (3.6-10.0) H 04/12/19 02:37 RBC 2.77 X10^6/uL (3.5-5.4) L 04/12/19 02:37 Hgb 8.6 g/dL (12.0-16.0) L 04/12/19 02:37 Hct 24.7 % (36.0-47.0) L 04/12/19 02:37 MCV 89.1 fL (80.0-100.0) 04/12/19 02:37 MCH 31.0 pg (27.0-34.0) 04/12/19 02:37 MCHC 34.8 g/dL (33.0-35.0) 04/12/19 02:37 RDW 14.7 % (11.6-16.5) 04/12/19 02:37 Plt Count 181 X10^3/uL (150.0-450.0) 04/12/19 02:37 Plt Count Comment Adequate (ADEQUATE) 04/09/19 04:18 MPV 8.8 fL (7.4-11.0) 04/12/19 02:37 Neut % (Auto) 86.7 % (42.0-75.0) H 04/12/19 02:37 Lymph % (Auto) 8.2 % (21.0-51.0) L 04/12/19 02:37 [place] % (Auto) 4.8 % (0.0-13.0) 04/12/19 02:37 Eos % (Auto) 0.3 % (0.9-2.9) L 04/12/19 02:37 Baso % (Auto) 0 % (0.2-1.0) L 04/12/19 02:37 Neut # (Auto) 14.7 x10^3/uL (2.2-4.8) H 04/12/19 02:37 Lymph # (Auto) 1.4 X10^3/uL (1.3-2.9) 04/12/19 02:37 [place] # (Auto) 0.8 x10^3/uL (0.3-0.8) 04/12/19 02:37 Eos # (Auto) 0.0 x10^3/uL (0.0-0.2) 04/12/19 02:37 Baso # (Auto) 0.0 X10^3/uL (0.0-0.1) 04/12/19 02:37 Absolute Nucleated RBC 0.1 /100WBC 04/12/19 02:37 Total Counted 100 04/09/19 04:18 Neutrophils % (Manual) 86 % (39-76) H 04/09/19 04:18 Band Neutrophils % 9 % (0-10) 04/09/19 04:18 Lymphocytes % (Manual) 2 % (13-43) L 04/09/19 04:18 Monocytes % (Manual) 3 % (4-9) L 04/09/19 04:18 Metamyelocytes % 3 04/07/19 04:25 Plt Morphology Comment Normal (NORMAL) 04/09/19 04:18 RBC Morphology Normal (NORMAL) 04/09/19 04:18 Crenated Cell 1+ A 04/08/19 05:27 Sample Site Lr 04/10/19 13:40 ABG pH 7.430 (7.35-7.45) 04/10/19 13:40 ABG pCO2 29.0 mmHg (35.0-45.0) L 04/10/19 13:40 ABG pO2 85.0 mmHg (80.0-100.0) 04/10/19 13:40 ABG HCO3 19.2 mmol/L (22-26) L 04/10/19 13:40 ABG O2 Saturation 97.0 % (90-100) 04/10/19 13:40 ABG Base Excess -4.0 mmol/L (-2.0-2.0) L 04/10/19 13:40 Fabián Test Pos 04/10/19 13:40 A-a Gradient 28.0 mmHg 04/10/19 13:40 FiO2 21.0 04/10/19 13:40 Blood Gas Comments Isatu well cb 04/10/19 13:40 Sodium 134 mmol/L (136-145) L 04/12/19 02:37 Corrected Sodium 135 mmol/L (136-145) L 04/12/19 02:37 Potassium 3.7 mmol/L (3.5-5.1) 04/12/19 02:37 Chloride 100 mmol/L (98-107) 04/12/19 02:37 Carbon Dioxide 24.7 mmol/L (21-32) 04/12/19 02:37 BUN 18 mg/dL (7-18) 04/12/19 02:37 Creatinine 0.49 mg/dL (0.55-1.02) L 04/12/19 02:37 Est GFR (MDRD) Af Amer > 60 (>60) 04/12/19 02:37 Est GFR (MDRD) Non-Af > 60 (>60) 04/12/19 02:37 Glucose 159 mg/dL (65-99) H 04/12/19 02:37 POC Glucose (mg/dL) 159 mg/dL (65-99) H 04/12/19 05:04 Lactic Acid 1.1 mmol/L (0.4-2.0) 04/09/19 07:06 Calcium 7.7 mg/dL (8.5-10.1) L 04/12/19 02:37 Corrected Calcium 9.8 mg/dL (8.5-10.1) 04/11/19 08:35 Magnesium 1.6 mg/dL (1.7-2.9) L 04/12/19 02:37 Total Bilirubin 0.30 mg/dL (0.2-1.0) 04/11/19 08:35 AST 49 Units/L (15-37) H 04/11/19 08:35 ALT 33 Units/L (12-78) 04/11/19 08:35 Alkaline Phosphatase 216 Units/L (46-116) H 04/11/19 08:35 Creatine Kinase 36 Units/L (26-192) 04/12/19 02:37 CK-MB (CK-2) < 1.0 ng/mL (0-4.0) 04/12/19 02:37 CK/CKMB % Calc 2.8 % (<4) 04/12/19 02:37 Troponin I < 0.02 ng/mL (0-1.5) 04/12/19 02:37 Total Protein 5.3 g/dL (6.4-8.2) L 04/11/19 08:35 Albumin 1.6 g/dL (3.4-5.0) L 04/11/19 08:35 Globulin 3.7 g/dL (2.5-4.5) 04/11/19 08:35 Albumin/Globulin Ratio 0.4 Ratio (1.1-2.1) L 04/11/19 08:35 Specimen Type Catherized urine 04/07/19 00:39 Urine Color Yellow (YELLOW) 04/07/19 00:39 Urine Appearance Clear (CLEAR) 04/07/19 00:39 Urine pH 6.0 (5.0 - 8.0) 04/07/19 00:39 Ur Specific [place] 1.010 (1.000-1.030) 04/07/19 00:39 Urine Protein 1+ (NEGATIVE) 04/07/19 00:39 Urine Glucose (UA) 4+ (NEGATIVE) 04/07/19 00:39 Urine Ketones 2+ (NEGATIVE) 04/07/19 00:39 Urine Occult Blood 5+ (NEGATIVE) 04/07/19 00:39 Urine Nitrite Negative (NEGATIVE) 04/07/19 00:39 Urine Bilirubin Negative (NEGATIVE) 04/07/19 00:39 Urine Urobilinogen Normal (NORMAL) 04/07/19 00:39 Ur Leukocyte Esterase 1+ (NEGATIVE) 04/07/19 00:39 Urine RBC 3-5 /HPF (0-3) A 04/07/19 00:39 Urine WBC 3-5 /HPF (0-5) 04/07/19 00:39 Ur Squamous Epith Cells Few /HPF (NEGATIVE) 04/07/19 00:39 Amorphous Sediment 1+ /HPF (NEGATIVE) 04/07/19 00:39 Urine Bacteria Negative /HPF (NEGATIVE) 04/07/19 00:39 Urine Yeast Rare /HPF (NEGATIVE) 04/07/19 00:39 Ur Culture Indicated? No/not indicated 04/07/19 00:39 Vancomycin Trough 16.0 ug/mL (15-20) 04/11/19 08:35 Acetone, Semi-Quant Small (NEGATIVE) H 04/10/19 05:15 Plan (1) Bacteremia: Status: Acute Plan: Staph aur. > Rocephin repeat Blood cultures negative. (2) Cellulitis: Status: Acute Qualifiers: Site of cellulitis of trunk: perineum Plan: Rocephin (3) Sepsis: Status: Acute (4) Fracture, tibia: Status: Acute Plan: ortho to evaluate Sunday tramadol for pain (5) Diabetes mellitus type 2: Status: Acute Plan: restarted metformin (6) Essential hypertension: Status: Chronic (7) Fracture of fibula, distal, closed: Status: Acute Qualifiers: Encounter type: initial encounter Fracture morphology: unspecified fracture morphology Laterality: right Qualified Code(s): S82.831A - Other fracture of upper and lower end of right fibula, initial encounter for closed fracture (8) Hypokalemia: Status: Acute (9) Hypomagnesemia: Status: Acute (10) Gastroesophageal reflux disease: Status: Chronic Plan: Started Pepcid
[2019-04-12] MEDS ORDERED: PEPCID TAB 20 MG ONE (11:26)
[2019-04-12] MEDS: GLUCOPHAGE XR PO SCH ×2 (11:29→20:07)
[2019-04-12] MEDS: PEPCID TAB 20 MG PO SCH ×2 (11:29→20:08)
--- NOTE | 2019-04-12 11:32 | RAD ---
HISTORYChest painSTUDYAP [id number]/26/2019FINDINGSThe heart is enlarged. There is apparent interval increase in airspace density in both lung bases, obscuring the diaphragm surfaces. The upper lungs remain relatively clear. There is no evidence for large pleural effusion or pneumothorax.IMPRESSIONCardiomegaly. Bibasal pulmonary densities consistent with inflammatory process or atelectasis, increasing in prominence since 2 days earlier.Electronically signed by: YESICA TITUS (Apr 12, 2019 11:31:25)
--- NOTE | 2019-04-12 11:40 | RAD ---
HISTORYAbdominal painSTUDYKUBCOMPARISONCT abdomen, 11/25/2018FINDINGSThere is gaseous distention of scattered segments of small bowel and colon. There is no evidence for mass, ascites or visceral enlargement. Surgical clips right upper quadrant. No pathologic calcification identified.IMPRESSIONNonobstructive intestinal distention. Postsurgical findings right abdomen consistent with cholecystectomy.Electronically signed by: YESICA TITUS (Apr 12, 2019 11:39:06)
[2019-04-12] MEDS: ULTRAM PO PRN (19:24)
[2019-04-12] MEDS: SNACK - Diabetic Appropriate PO SCH (20:07)
[2019-04-13] MEDS: NS 1/2 + KCL 20 MEQ/L 1,000 ML IV SCH ×3 (03:24→18:27)
[2019-04-13 05:19] LABS: BASOPHILS % (AUTO) 0.1 % (0.2-1.0); EOSINOPHILS % (AUTO) 0.2 % (0.9-2.9); HEMATOCRIT 22.7 % (36.0-47.0); HEMOGLOBIN 7.9 g/dL (12.0-16.0); LYMPHOCYTES # (AUTO) 0.8 X10^3/uL (1.3-2.9); LYMPHOCYTES % (AUTO) 5.3 % (21.0-51.0); MEAN CORPUSCULAR HGB CONC 34.8 g/dL (33.0-35.0); MEAN CORPUSCULAR VOLUME 89.2 fL (80.0-100.0); MONOCYTES # (AUTO) 0.7 x10^3/uL (0.3-0.8); MONOCYTES % (AUTO) 4.4 % (0.0-13.0); NEUTROPHILS # (AUTO) 14.2 x10^3/uL (2.2-4.8); PLATELET COUNT 221 X10^3/uL (150.0-450.0); RED BLOOD COUNT 2.54 X10^6/uL (3.5-5.4); WHITE BLOOD COUNT 15.8 X10^3/uL (3.6-10.0)
[2019-04-13 05:30] LABS: BLOOD UREA NITROGEN 10 mg/dL (7-18); CALCIUM 7.5 mg/dL (8.5-10.1); CARBON DIOXIDE 18.6 mmol/L (21-32); CHLORIDE 99 mmol/L (98-107); CREATININE 0.44 mg/dL (0.55-1.02); SODIUM 133 mmol/L (136-145); eGFR NON BLACK RACES > 60 (>60)
[2019-04-13 05:48] LABS: HYPOCHROMASIA SLIGHT; PLATELET MORPHOLOGY COMMENT NORMAL (NORMAL)
[2019-04-13] MEDS: K-DUR TAB 20 MEQ PO PRN (06:14)
[2019-04-13] MEDS: MAGNESIUM SULFATE 1 GRAM/100 mL PREMIX 1 GM/100 ML BAG IV PRN ×4 (07:55→13:34)
[2019-04-13] MEDS: DIFLUCAN 200 MG IV PREMIX* 200 MG/100 ML BAG IV SCH (08:59)
[2019-04-13] MEDS: LOVENOX INJ 30 MG SYR SC SCH (09:00)
[2019-04-13] MEDS ORDERED: SPIKE MINIBAG IV SCH (09:00)
[2019-04-13] MEDS ORDERED: NS IV SCH (09:00)
[2019-04-13] MEDS: PEPCID TAB 20 MG PO SCH ×2 (09:00→20:25)
[2019-04-13] MEDS ORDERED: ROCEPHIN IV SCH (09:00)
[2019-04-13] MEDS: GLUCOPHAGE XR PO SCH ×2 (09:05→20:25)
--- NOTE | 2019-04-13 11:01 | PCM.PROG ---
Progress Note Progress Note for Day of Date of Exam: 04/13/19 Subjective Subjective: Pt admitted for sepsis and bacteremia. She is alert and orientated, sitting up in bed, she reports improvement in GERD after starting Pepcid and also had a bowel movement this morning. Still having decreased appetite but is willing to try ensure, she is also interested in working with PT tomorrow. CXR and KUB showing atelectasis in lower lung [place] and non obstructive intestinal distention, added IS yesterday and will add simethicone today. She reports pain in her ears, her left ear has cerumen impaction, discussed with nurse to have flushed. WBC has been trending down. BloodCx positive for staph a. 1/2, repeat cultures negative. Continue Rocephin. Pt has a right tibial fracture, placed in ortho boot, Ortho-Dr Haq consulted and will see patient on Sunday. Past Medical Family Social History Past Med/Fam/Surg Hx: No changes since H&P Allergies: Allergies acetaminophen [From Tylenol-Codeine] Allergy (Verified 03/26/19 05:29) codeine [From Tylenol-Codeine] Allergy (Verified 03/26/19 05:29) Penicillins Allergy (Verified 03/26/19 05:29) Review of Systems ROS: No change since H&P Vital Signs and I&O's Vital Signs: Temperature 98.4 F Pulse Rate [Apical] 107 Pulse Rate 76 Respiratory Rate 21 Blood Pressure [Right Arm] 86/54 Blood Pressure 131/61 O2 Sat by Pulse Oximetry 100 Intake and Output: Intake & Output 04/10/19 04/11/19 04/12/19 04/13/19 23:59 23:59 23:59 23:59 Intake Total 6990 / 6990 6169 / 6169 3838 / 3838 1072 / 1072 Output Total 4250 / 4250 3750 / 3750 2550 / 2550 1475 / 1475 Balance 2740 / 2740 2419 / 2419 1288 / 1288 -403 / -403 Physical Exam Oriented: Normal Eyes: Normal Ear: Normal Respiratory: Normal Cardiovascular: Normal : Normal Auscultation: Bowel Sounds: Normal Tenderness: Normal Skin: Normal Musculoskeletal: Right, Leg and Tender Psychiatric: Normal Mood Description: Calm Speech Pattern: Appropriate Laboratory and Diagnostics Result Diagrams: 04/13/19 04:38 04/13/19 04:38 Labs: 04/07/19 01:24 Blood Blood Culture - Final 04/10/19 12:57 Blood Blood Culture - Preliminary 04/10/19 12:55 Blood Blood Culture - Preliminary 04/07/19 07:40 Urine,Clean Catch Urine Culture - Final 04/07/19 01:20 Blood Blood Culture - Final Staphylococcus Aureus Laboratory WBC 15.8 X10^3/uL (3.6-10.0) H 04/13/19 04:38 RBC 2.54 X10^6/uL (3.5-5.4) L 04/13/19 04:38 Hgb 7.9 g/dL (12.0-16.0) L 04/13/19 04:38 Hct 22.7 % (36.0-47.0) L 04/13/19 04:38 MCV 89.2 fL (80.0-100.0) 04/13/19 04:38 MCH 31.0 pg (27.0-34.0) 04/13/19 04:38 MCHC 34.8 g/dL (33.0-35.0) 04/13/19 04:38 RDW 15.0 % (11.6-16.5) 04/13/19 04:38 Plt Count 221 X10^3/uL (150.0-450.0) 04/13/19 04:38 Plt Count Comment Adequate (ADEQUATE) 04/13/19 04:38 MPV 8.0 fL (7.4-11.0) 04/13/19 04:38 Neut % (Auto) 90.0 % (42.0-75.0) H 04/13/19 04:38 Lymph % (Auto) 5.3 % (21.0-51.0) L 04/13/19 04:38 [place] % (Auto) 4.4 % (0.0-13.0) 04/13/19 04:38 Eos % (Auto) 0.2 % (0.9-2.9) L 04/13/19 04:38 Baso % (Auto) 0.1 % (0.2-1.0) L 04/13/19 04:38 Neut # (Auto) 14.2 x10^3/uL (2.2-4.8) H 04/13/19 04:38 Lymph # (Auto) 0.8 X10^3/uL (1.3-2.9) L 04/13/19 04:38 [place] # (Auto) 0.7 x10^3/uL (0.3-0.8) 04/13/19 04:38 Eos # (Auto) 0.0 x10^3/uL (0.0-0.2) 04/13/19 04:38 Baso # (Auto) 0.0 X10^3/uL (0.0-0.1) 04/13/19 04:38 Absolute Nucleated RBC 0.0 /100WBC 04/13/19 04:38 Total Counted 100 04/09/19 04:18 Neutrophils % (Manual) 86 % (39-76) H 04/09/19 04:18 Band Neutrophils % 9 % (0-10) 04/09/19 04:18 Lymphocytes % (Manual) 2 % (13-43) L 04/09/19 04:18 Monocytes % (Manual) 3 % (4-9) L 04/09/19 04:18 Metamyelocytes % 3 04/07/19 04:25 Plt Morphology Comment Normal (NORMAL) 04/13/19 04:38 RBC Morphology Abnormal (NORMAL) A 04/13/19 04:38 Hypochromasia Slight A 04/13/19 04:38 Crenated Cell 1+ A 04/08/19 05:27 Sample Site Lr 04/10/19 13:40 ABG pH 7.430 (7.35-7.45) 04/10/19 13:40 ABG pCO2 29.0 mmHg (35.0-45.0) L 04/10/19 13:40 ABG pO2 85.0 mmHg (80.0-100.0) 04/10/19 13:40 ABG HCO3 19.2 mmol/L (22-26) L 04/10/19 13:40 ABG O2 Saturation 97.0 % (90-100) 04/10/19 13:40 ABG Base Excess -4.0 mmol/L (-2.0-2.0) L 04/10/19 13:40 Fabián Test Pos 04/10/19 13:40 A-a Gradient 28.0 mmHg 04/10/19 13:40 FiO2 21.0 04/10/19 13:40 Blood Gas Comments Isatu well cb 04/10/19 13:40 Sodium 133 mmol/L (136-145) L 04/13/19 04:38 Corrected Sodium TNP 04/13/19 04:38 Potassium 3.5 mmol/L (3.5-5.1) 04/13/19 04:38 Chloride 99 mmol/L (98-107) 04/13/19 04:38 Carbon Dioxide 18.6 mmol/L (21-32) L 04/13/19 04:38 BUN 10 mg/dL (7-18) 04/13/19 04:38 Creatinine 0.44 mg/dL (0.55-1.02) L 04/13/19 04:38 Est GFR (MDRD) Af Amer > 60 (>60) 04/13/19 04:38 Est GFR (MDRD) Non-Af > 60 (>60) 04/13/19 04:38 Glucose 94 mg/dL (65-99) 04/13/19 04:38 POC Glucose (mg/dL) 111 mg/dL (65-99) H 04/13/19 05:32 Lactic Acid 1.1 mmol/L (0.4-2.0) 04/09/19 07:06 Calcium 7.5 mg/dL (8.5-10.1) L 04/13/19 04:38 Corrected Calcium 9.8 mg/dL (8.5-10.1) 04/11/19 08:35 Magnesium 1.3 mg/dL (1.7-2.9) L 04/13/19 04:38 Total Bilirubin 0.30 mg/dL (0.2-1.0) 04/11/19 08:35 AST 49 Units/L (15-37) H 04/11/19 08:35 ALT 33 Units/L (12-78) 04/11/19 08:35 Alkaline Phosphatase 216 Units/L (46-116) H 04/11/19 08:35 Creatine Kinase 36 Units/L (26-192) 04/12/19 02:37 CK-MB (CK-2) < 1.0 ng/mL (0-4.0) 04/12/19 02:37 CK/CKMB % Calc 2.8 % (<4) 04/12/19 02:37 Troponin I < 0.02 ng/mL (0-1.5) 04/12/19 02:37 Total Protein 5.3 g/dL (6.4-8.2) L 04/11/19 08:35 Albumin 1.6 g/dL (3.4-5.0) L 04/11/19 08:35 Globulin 3.7 g/dL (2.5-4.5) 04/11/19 08:35 Albumin/Globulin Ratio 0.4 Ratio (1.1-2.1) L 04/11/19 08:35 Specimen Type Catherized urine 04/07/19 00:39 Urine Color Yellow (YELLOW) 04/07/19 00:39 Urine Appearance Clear (CLEAR) 04/07/19 00:39 Urine pH 6.0 (5.0 - 8.0) 04/07/19 00:39 Ur Specific [place] 1.010 (1.000-1.030) 04/07/19 00:39 Urine Protein 1+ (NEGATIVE) 04/07/19 00:39 Urine Glucose (UA) 4+ (NEGATIVE) 04/07/19 00:39 Urine Ketones 2+ (NEGATIVE) 04/07/19 00:39 Urine Occult Blood 5+ (NEGATIVE) 04/07/19 00:39 Urine Nitrite Negative (NEGATIVE) 04/07/19 00:39 Urine Bilirubin Negative (NEGATIVE) 04/07/19 00:39 Urine Urobilinogen Normal (NORMAL) 04/07/19 00:39 Ur Leukocyte Esterase 1+ (NEGATIVE) 04/07/19 00:39 Urine RBC 3-5 /HPF (0-3) A 04/07/19 00:39 Urine WBC 3-5 /HPF (0-5) 04/07/19 00:39 Ur Squamous Epith Cells Few /HPF (NEGATIVE) 04/07/19 00:39 Amorphous Sediment 1+ /HPF (NEGATIVE) 04/07/19 00:39 Urine Bacteria Negative /HPF (NEGATIVE) 04/07/19 00:39 Urine Yeast Rare /HPF (NEGATIVE) 04/07/19 00:39 Ur Culture Indicated? No/not indicated 04/07/19 00:39 Vancomycin Trough 16.0 ug/mL (15-20) 04/11/19 08:35 Acetone, Semi-Quant Small (NEGATIVE) H 04/10/19 05:15 Plan (1) Bacteremia: Status: Acute Plan: BloodCx 1/2 Staph aur., continue Rocephin. Repeat Blood cultures negative. (2) Cellulitis: Status: Acute Qualifiers: Site of cellulitis of trunk: perineum Plan: Rocephin (3) Sepsis: Status: Acute (4) Fracture, tibia: Status: Acute Plan: ortho to evaluate Sunday tramadol for pain (5) Diabetes mellitus type 2: Status: Acute Plan: restarted metformin (6) Essential hypertension: Status: Chronic (7) Fracture of fibula, distal, closed: Status: Acute Qualifiers: Encounter type: initial encounter Fracture morphology: unspecified fracture morphology Laterality: right Qualified Code(s): S82.831A - Other fracture of upper and lower end of right fibula, initial encounter for closed fracture (8) Hypokalemia: Status: Acute (9) Hypomagnesemia: Status: Acute (10) Gastroesophageal reflux disease: Status: Chronic Plan: Started Pepcid
[2019-04-13] MEDS: MYLICON TAB 80 MG CHEW PO SCH ×2 (11:45→20:25)
[2019-04-13] MEDS ORDERED: HYDROGEN PEROXIDE 3% ONE (15:40)
[2019-04-13] MEDS ORDERED: NS IRRIGATION 500 ML IR ONE (15:40)
[2019-04-13] MEDS: SNACK - Diabetic Appropriate PO SCH (20:24)
[2019-04-13] MEDS: HumuLIN R SUBCUT PRN (20:25)
[2019-04-14] MEDS: ULTRAM PO PRN (01:05)
[2019-04-14 05:35] LABS: BASOPHILS # (AUTO) 0.1 X10^3/uL (0.0-0.1); BASOPHILS % (AUTO) 0.4 % (0.2-1.0); EOSINOPHILS % (AUTO) 0.2 % (0.9-2.9); HEMOGLOBIN 8.4 g/dL (12.0-16.0); LYMPHOCYTES # (AUTO) 0.8 X10^3/uL (1.3-2.9); LYMPHOCYTES % (AUTO) 5.1 % (21.0-51.0); MEAN CORPUSCULAR HEMOGLOBIN 31.5 pg (27.0-34.0); MEAN CORPUSCULAR HGB CONC 34.9 g/dL (33.0-35.0); MEAN CORPUSCULAR VOLUME 90.2 fL (80.0-100.0); MEAN PLATELET VOLUME 8.7 fL (7.4-11.0); MONOCYTES # (AUTO) 0.6 x10^3/uL (0.3-0.8); MONOCYTES % (AUTO) 4.1 % (0.0-13.0); NEUTROPHILS # (AUTO) 13.8 x10^3/uL (2.2-4.8); NEUTROPHILS % (AUTO) 90.2 % (42.0-75.0); PLATELET COUNT 234 X10^3/uL (150.0-450.0); RED BLOOD COUNT 2.66 X10^6/uL (3.5-5.4); RED CELL DISTRIBUTION WIDTH 14.7 % (11.6-16.5); WHITE BLOOD COUNT 15.4 X10^3/uL (3.6-10.0)
[2019-04-14 05:47] LABS: BLOOD UREA NITROGEN 7 mg/dL (7-18); CALCIUM 7.2 mg/dL (8.5-10.1); CARBON DIOXIDE 19.9 mmol/L (21-32); CHLORIDE 98 mmol/L (98-107); COR NA(FOR HYPERGLY) 133 mmol/L (136-145); CREATININE 0.41 mg/dL (0.55-1.02); MAGNESIUM 1.4 mg/dL (1.7-2.9); SODIUM 132 mmol/L (136-145); eGFR NON BLACK RACES > 60 (>60)
[2019-04-14] MEDS: NS 1/2 + KCL 20 MEQ/L 1,000 ML IV SCH ×2 (05:48→18:38)
[2019-04-14 06:10] LABS: PLATELET MORPHOLOGY COMMENT NORMAL (NORMAL)
[2019-04-14 06:11] LABS: HYPOCHROMASIA SLIGHT
[2019-04-14] MEDS: MAGNESIUM SULFATE 1 GRAM/100 mL PREMIX 1 GM/100 ML BAG IV PRN ×4 (06:15→13:19)
[2019-04-14] MEDS: K-DUR TAB 20 MEQ PO PRN (06:22)
[2019-04-14] MEDS: PEPCID TAB 20 MG PO SCH ×2 (08:51→21:04)
[2019-04-14] MEDS: GLUCOPHAGE XR PO SCH ×2 (08:52→21:04)
[2019-04-14] MEDS: MYLICON TAB 80 MG CHEW PO SCH ×2 (08:53→21:04)
[2019-04-14] MEDS: LOVENOX INJ 30 MG SYR SC SCH (08:53)
[2019-04-14] MEDS ORDERED: ROCEPHIN VIAL 1 GRAM ONE (09:17)
[2019-04-14] MEDS: ROCEPHIN VIAL 1 GRAM 1 G in NS 100 ML IV + SPIKE MINIBAG* 100 ML IV SCH (09:31)
[2019-04-14] MEDS: DIFLUCAN 200 MG IV PREMIX* 200 MG/100 ML BAG IV SCH (10:19)
--- NOTE | 2019-04-14 10:37 | PCM.PROG ---
Progress Note Progress Note for Day of Date of Exam: 04/14/19 Subjective Subjective: Pt admitted for sepsis and bacteremia. She is alert and orientated, she still reports difficulty and pain when swallowing that is causing her to have decreased appetite. Will consult general surgery-Dr Millan. WBC has been trending down. BloodCx positive for staph a. /, repeat cultures negative. Continue Rocephin, Day 11/27. Pt has a right tibial fracture, placed in ortho boot, Ortho-Dr Haq consulted, will see today and give recommendations. Past Medical Family Social History Past Med/Fam/Surg Hx: No changes since H&P Allergies: Allergies acetaminophen [From Tylenol-Codeine] Allergy (Verified 03/26/19 05:29) codeine [From Tylenol-Codeine] Allergy (Verified 03/26/19 05:29) Penicillins Allergy (Verified 03/26/19 05:29) Review of Systems ROS: No change since H&P Vital Signs and I&O's Vital Signs: Temperature 98.5 F Pulse Rate [Apical] 107 Pulse Rate 92 Respiratory Rate 20 Blood Pressure [Right Arm] 86/54 Blood Pressure 101/67 O2 Sat by Pulse Oximetry 100 Intake and Output: Intake & Output 04/11/19 04/12/19 04/13/19 04/14/19 23:59 23:59 23:59 23:59 Intake Total 6169 / 6169 3838 / 3838 5239 / 5239 822 / 822 Output Total 3750 / 3750 2550 / 2550 4350 / 4350 1300 / 1300 Balance 2419 / 2419 1288 / 1288 889 / 889 -478 / -478 Physical Exam Oriented: Normal Eyes: Normal Ear: Normal Respiratory: Normal Cardiovascular: Normal : Normal Auscultation: Bowel Sounds: Normal Tenderness: Normal Skin: Normal Musculoskeletal: Right, Leg and Tender Psychiatric: Normal Mood Description: Calm Speech Pattern: Appropriate Laboratory and Diagnostics Result Diagrams: 04/14/19 04:34 04/14/19 04:34 Labs: 04/07/19 01:24 Blood Blood Culture - Final 04/10/19 12:57 Blood Blood Culture - Preliminary 04/10/19 12:55 Blood Blood Culture - Preliminary 04/07/19 07:40 Urine,Clean Catch Urine Culture - Final 04/07/19 01:20 Blood Blood Culture - Final Staphylococcus Aureus Laboratory WBC 15.4 X10^3/uL (3.6-10.0) H 04/14/19 04:34 RBC 2.66 X10^6/uL (3.5-5.4) L 04/14/19 04:34 Hgb 8.4 g/dL (12.0-16.0) L 04/14/19 04:34 Hct 24.0 % (36.0-47.0) L 04/14/19 04:34 MCV 90.2 fL (80.0-100.0) 04/14/19 04:34 MCH 31.5 pg (27.0-34.0) 04/14/19 04:34 MCHC 34.9 g/dL (33.0-35.0) 04/14/19 04:34 RDW 14.7 % (11.6-16.5) 04/14/19 04:34 Plt Count 234 X10^3/uL (150.0-450.0) 04/14/19 04:34 Plt Count Comment Adequate (ADEQUATE) 04/14/19 04:34 MPV 8.7 fL (7.4-11.0) 04/14/19 04:34 Neut % (Auto) 90.2 % (42.0-75.0) H 04/14/19 04:34 Lymph % (Auto) 5.1 % (21.0-51.0) L 04/14/19 04:34 [place] % (Auto) 4.1 % (0.0-13.0) 04/14/19 04:34 Eos % (Auto) 0.2 % (0.9-2.9) L 04/14/19 04:34 Baso % (Auto) 0.4 % (0.2-1.0) 04/14/19 04:34 Neut # (Auto) 13.8 x10^3/uL (2.2-4.8) H 04/14/19 04:34 Lymph # (Auto) 0.8 X10^3/uL (1.3-2.9) L 04/14/19 04:34 [place] # (Auto) 0.6 x10^3/uL (0.3-0.8) 04/14/19 04:34 Eos # (Auto) 0.0 x10^3/uL (0.0-0.2) 04/14/19 04:34 Baso # (Auto) 0.1 X10^3/uL (0.0-0.1) 04/14/19 04:34 Absolute Nucleated RBC 0.1 /100WBC 04/14/19 04:34 Total Counted 100 04/14/19 04:34 Neutrophils % (Manual) 86 % (39-76) H 04/14/19 04:34 Band Neutrophils % 9 % (0-10) 04/09/19 04:18 Lymphocytes % (Manual) 9 % (13-43) L 04/14/19 04:34 Monocytes % (Manual) 5 % (4-9) 04/14/19 04:34 Metamyelocytes % 3 04/07/19 04:25 Plt Morphology Comment Normal (NORMAL) 04/14/19 04:34 RBC Morphology Abnormal (NORMAL) A 04/14/19 04:34 Hypochromasia Slight A 04/14/19 04:34 Crenated Cell 1+ A 04/08/19 05:27 Sample Site Lr 04/10/19 13:40 ABG pH 7.430 (7.35-7.45) 04/10/19 13:40 ABG pCO2 29.0 mmHg (35.0-45.0) L 04/10/19 13:40 ABG pO2 85.0 mmHg (80.0-100.0) 04/10/19 13:40 ABG HCO3 19.2 mmol/L (22-26) L 04/10/19 13:40 ABG O2 Saturation 97.0 % (90-100) 04/10/19 13:40 ABG Base Excess -4.0 mmol/L (-2.0-2.0) L 04/10/19 13:40 Fabián Test Pos 04/10/19 13:40 A-a Gradient 28.0 mmHg 04/10/19 13:40 FiO2 21.0 04/10/19 13:40 Blood Gas Comments Isatu well cb 04/10/19 13:40 Sodium 132 mmol/L (136-145) L 04/14/19 04:34 Corrected Sodium 133 mmol/L (136-145) L 04/14/19 04:34 Potassium 3.6 mmol/L (3.5-5.1) 04/14/19 04:34 Chloride 98 mmol/L (98-107) 04/14/19 04:34 Carbon Dioxide 19.9 mmol/L (21-32) L 04/14/19 04:34 BUN 7 mg/dL (7-18) 04/14/19 04:34 Creatinine 0.41 mg/dL (0.55-1.02) L 04/14/19 04:34 Est GFR (MDRD) Af Amer > 60 (>60) 04/14/19 04:34 Est GFR (MDRD) Non-Af > 60 (>60) 04/14/19 04:34 Glucose 145 mg/dL (65-99) H 04/14/19 04:34 POC Glucose (mg/dL) 145 mg/dL (65-99) H 04/14/19 04:39 Lactic Acid 1.1 mmol/L (0.4-2.0) 04/09/19 07:06 Calcium 7.2 mg/dL (8.5-10.1) L 04/14/19 04:34 Corrected Calcium 9.8 mg/dL (8.5-10.1) 04/11/19 08:35 Magnesium 1.4 mg/dL (1.7-2.9) L 04/14/19 04:34 Iron 23 ug/dL (50-175) L 04/13/19 04:38 Transferrin 122 mg/dL (202-364) L 04/13/19 04:38 Ferritin 444 ng/mL (8-252) H 04/13/19 04:38 Total Bilirubin 0.30 mg/dL (0.2-1.0) 04/11/19 08:35 AST 49 Units/L (15-37) H 04/11/19 08:35 ALT 33 Units/L (12-78) 04/11/19 08:35 Alkaline Phosphatase 216 Units/L (46-116) H 04/11/19 08:35 Creatine Kinase 36 Units/L (26-192) 04/12/19 02:37 CK-MB (CK-2) < 1.0 ng/mL (0-4.0) 04/12/19 02:37 CK/CKMB % Calc 2.8 % (<4) 04/12/19 02:37 Troponin I < 0.02 ng/mL (0-1.5) 04/12/19 02:37 Total Protein 5.3 g/dL (6.4-8.2) L 04/11/19 08:35 Albumin 1.6 g/dL (3.4-5.0) L 04/11/19 08:35 Globulin 3.7 g/dL (2.5-4.5) 04/11/19 08:35 Albumin/Globulin Ratio 0.4 Ratio (1.1-2.1) L 04/11/19 08:35 Vitamin B12 596 pg/mL (193-986) 04/13/19 04:38 Folate 8.0 ng/mL (>8.6) L 04/13/19 04:38 Specimen Type Catherized urine 04/07/19 00:39 Urine Color Yellow (YELLOW) 04/07/19 00:39 Urine Appearance Clear (CLEAR) 04/07/19 00:39 Urine pH 6.0 (5.0 - 8.0) 04/07/19 00:39 Ur Specific [place] 1.010 (1.000-1.030) 04/07/19 00:39 Urine Protein 1+ (NEGATIVE) 04/07/19 00:39 Urine Glucose (UA) 4+ (NEGATIVE) 04/07/19 00:39 Urine Ketones 2+ (NEGATIVE) 04/07/19 00:39 Urine Occult Blood 5+ (NEGATIVE) 04/07/19 00:39 Urine Nitrite Negative (NEGATIVE) 04/07/19 00:39 Urine Bilirubin Negative (NEGATIVE) 04/07/19 00:39 Urine Urobilinogen Normal (NORMAL) 04/07/19 00:39 Ur Leukocyte Esterase 1+ (NEGATIVE) 04/07/19 00:39 Urine RBC 3-5 /HPF (0-3) A 04/07/19 00:39 Urine WBC 3-5 /HPF (0-5) 04/07/19 00:39 Ur Squamous Epith Cells Few /HPF (NEGATIVE) 04/07/19 00:39 Amorphous Sediment 1+ /HPF (NEGATIVE) 04/07/19 00:39 Urine Bacteria Negative /HPF (NEGATIVE) 04/07/19 00:39 Urine Yeast Rare /HPF (NEGATIVE) 04/07/19 00:39 Ur Culture Indicated? No/not indicated 04/07/19 00:39 Stool Description 10g,brown,semisolid 04/13/19 12:40 Stl Occult Blood (IFOB) Positive (NEGATIVE) A 04/13/19 12:40 Vancomycin Trough 16.0 ug/mL (15-20) 04/11/19 08:35 Acetone, Semi-Quant Small (NEGATIVE) H 04/10/19 05:15 Plan (1) Bacteremia: Status: Acute Plan: BloodCx 1/2 Staph aur., continue Rocephin. Repeat Blood cultures negative. (2) Cellulitis: Status: Acute Qualifiers: Site of cellulitis of trunk: perineum Plan: Rocephin (3) Sepsis: Status: Acute (4) Gastroesophageal reflux disease: Status: Chronic Plan: Pepcid Dr Millan consulted (5) Fracture, tibia: Status: Acute Plan: ortho to evaluate today tramadol for pain (6) Diabetes mellitus type 2: Status: Acute Plan: restarted metformin (7) Essential hypertension: Status: Chronic (8) Fracture of fibula, distal, closed: Status: Acute Qualifiers: Encounter type: initial encounter Fracture morphology: unspecified fracture morphology Laterality: right Qualified Code(s): S82.831A - Other fracture of upper and lower end of right fibula, initial encounter for closed fracture (9) Hypokalemia: Status: Acute (10) Hypomagnesemia: Status: Acute
--- NOTE | 2019-04-14 10:56 | PCM.PROG ---
Progress Note - Progress Note for Day of Date of Exam: 04/09/19 - Subjective Subjective: Mrs. Ga was admitted with an extremely high white count, possible urinary tract infection, and acute renal failure secondary to dehydration. Her white count has come down from 82,000 to 25,500 today. Her sodium is up from 124 to 144, it corrects to 147. Her potassium is 3.0. Her BUN is 135 and creatinine is down from 4.3 to 2.2. Her lactic acid is now normal. At the bedside, the patient is alert and oriented. Her oxygen saturations are excellent and she has a blood pressure of 145/66 and a pulse of 84. Yesterdays chest xray revealed: Slight decrease in the heart size with slowly resolving pulmonary edema. Hazy perihilar and bibasilar opacities and a small left pleural effusion which is less prominent. She received several normal saline boluses yesterday. We are going to continue her current therapy today and start the magnesium and potassium protocol. We will recheck labs in the morning and make further plans based on her clinical course. - Past Medical Family Social History Past Med/Fam/Surg Hx: No changes since H&P Allergies: Allergies acetaminophen [From Tylenol-Codeine] Allergy (Verified 03/26/19 05:29) codeine [From Tylenol-Codeine] Allergy (Verified 03/26/19 05:29) Penicillins Allergy (Verified 03/26/19 05:29) - Review of Systems ROS: No change since H&P - Vital Signs and I&O's Vital Signs: Temperature 98.5 F Pulse Rate [Apical] 107 Pulse Rate 92 Respiratory Rate 20 Blood Pressure [Right Arm] 86/54 Blood Pressure 101/67 O2 Sat by Pulse Oximetry 100 Intake and Output: Intake & Output 04/11/19 04/12/19 04/13/19 04/14/19 11:59 11:59 11:59 11:59 Intake Total 5268 / 5268 5789 / 5789 3855 / 3855 4989 / 4989 Output Total 3675 / 3675 3625 / 3625 3200 / 3200 4175 / 4175 Balance 1593 / 1593 2164 / 2164 655 / 655 814 / 814 - Physical Exam Oriented: Normal Eyes: Normal Ear: Normal Nose: Normal Throat: Normal Respiratory: Generalized, Diminished Cardiovascular: Normal : Normal Auscultation: Bowel Sounds: Normal Palpation: Normal Tenderness: Normal Skin: Normal Musculoskeletal: Right, Leg, Tender Psychiatric: Normal Mood Description: Calm Speech Pattern: Appropriate - Laboratory and Diagnostics Result Diagrams: 04/14/19 04:34 04/14/19 04:34 Labs: 04/07/19 01:24 Blood Blood Culture - Final 04/10/19 12:57 Blood Blood Culture - Preliminary 04/10/19 12:55 Blood Blood Culture - Preliminary 04/07/19 07:40 Urine,Clean Catch Urine Culture - Final 04/07/19 01:20 Blood Blood Culture - Final Staphylococcus Aureus Laboratory WBC 15.4 X10^3/uL (3.6-10.0) H 04/14/19 04:34 RBC 2.66 X10^6/uL (3.5-5.4) L 04/14/19 04:34 Hgb 8.4 g/dL (12.0-16.0) L 04/14/19 04:34 Hct 24.0 % (36.0-47.0) L 04/14/19 04:34 MCV 90.2 fL (80.0-100.0) 04/14/19 04:34 MCH 31.5 pg (27.0-34.0) 04/14/19 04:34 MCHC 34.9 g/dL (33.0-35.0) 04/14/19 04:34 RDW 14.7 % (11.6-16.5) 04/14/19 04:34 Plt Count 234 X10^3/uL (150.0-450.0) 04/14/19 04:34 Plt Count Comment Adequate (ADEQUATE) 04/14/19 04:34 MPV 8.7 fL (7.4-11.0) 04/14/19 04:34 Neut % (Auto) 90.2 % (42.0-75.0) H 04/14/19 04:34 Lymph % (Auto) 5.1 % (21.0-51.0) L 04/14/19 04:34 [place] % (Auto) 4.1 % (0.0-13.0) 04/14/19 04:34 Eos % (Auto) 0.2 % (0.9-2.9) L 04/14/19 04:34 Baso % (Auto) 0.4 % (0.2-1.0) 04/14/19 04:34 Neut # (Auto) 13.8 x10^3/uL (2.2-4.8) H 04/14/19 04:34 Lymph # (Auto) 0.8 X10^3/uL (1.3-2.9) L 04/14/19 04:34 [place] # (Auto) 0.6 x10^3/uL (0.3-0.8) 04/14/19 04:34 Eos # (Auto) 0.0 x10^3/uL (0.0-0.2) 04/14/19 04:34 Baso # (Auto) 0.1 X10^3/uL (0.0-0.1) 04/14/19 04:34 Absolute Nucleated RBC 0.1 /100WBC 04/14/19 04:34 Total Counted 100 04/14/19 04:34 Neutrophils % (Manual) 86 % (39-76) H 04/14/19 04:34 Band Neutrophils % 9 % (0-10) 04/09/19 04:18 Lymphocytes % (Manual) 9 % (13-43) L 04/14/19 04:34 Monocytes % (Manual) 5 % (4-9) 04/14/19 04:34 Metamyelocytes % 3 04/07/19 04:25 Plt Morphology Comment Normal (NORMAL) 04/14/19 04:34 RBC Morphology Abnormal (NORMAL) A 04/14/19 04:34 Hypochromasia Slight A 04/14/19 04:34 Crenated Cell 1+ A 04/08/19 05:27 Sample Site Lr 04/10/19 13:40 ABG pH 7.430 (7.35-7.45) 04/10/19 13:40 ABG pCO2 29.0 mmHg (35.0-45.0) L 04/10/19 13:40 ABG pO2 85.0 mmHg (80.0-100.0) 04/10/19 13:40 ABG HCO3 19.2 mmol/L (22-26) L 04/10/19 13:40 ABG O2 Saturation 97.0 % (90-100) 04/10/19 13:40 ABG Base Excess -4.0 mmol/L (-2.0-2.0) L 04/10/19 13:40 Fabián Test Pos 04/10/19 13:40 A-a Gradient 28.0 mmHg 04/10/19 13:40 FiO2 21.0 04/10/19 13:40 Blood Gas Comments Isatu well cb 04/10/19 13:40 Sodium 132 mmol/L (136-145) L 04/14/19 04:34 Corrected Sodium 133 mmol/L (136-145) L 04/14/19 04:34 Potassium 3.6 mmol/L (3.5-5.1) 04/14/19 04:34 Chloride 98 mmol/L (98-107) 04/14/19 04:34 Carbon Dioxide 19.9 mmol/L (21-32) L 04/14/19 04:34 BUN 7 mg/dL (7-18) 04/14/19 04:34 Creatinine 0.41 mg/dL (0.55-1.02) L 04/14/19 04:34 Est GFR (MDRD) Af Amer > 60 (>60) 04/14/19 04:34 Est GFR (MDRD) Non-Af > 60 (>60) 04/14/19 04:34 Glucose 145 mg/dL (65-99) H 04/14/19 04:34 POC Glucose (mg/dL) 145 mg/dL (65-99) H 04/14/19 04:39 Lactic Acid 1.1 mmol/L (0.4-2.0) 04/09/19 07:06 Calcium 7.2 mg/dL (8.5-10.1) L 04/14/19 04:34 Corrected Calcium 9.8 mg/dL (8.5-10.1) 04/11/19 08:35 Magnesium 1.4 mg/dL (1.7-2.9) L 04/14/19 04:34 Iron 23 ug/dL (50-175) L 04/13/19 04:38 Transferrin 122 mg/dL (202-364) L 04/13/19 04:38 Ferritin 444 ng/mL (8-252) H 04/13/19 04:38 Total Bilirubin 0.30 mg/dL (0.2-1.0) 04/11/19 08:35 AST 49 Units/L (15-37) H 04/11/19 08:35 ALT 33 Units/L (12-78) 04/11/19 08:35 Alkaline Phosphatase 216 Units/L (46-116) H 04/11/19 08:35 Creatine Kinase 36 Units/L (26-192) 04/12/19 02:37 CK-MB (CK-2) < 1.0 ng/mL (0-4.0) 04/12/19 02:37 CK/CKMB % Calc 2.8 % (<4) 04/12/19 02:37 Troponin I < 0.02 ng/mL (0-1.5) 04/12/19 02:37 Total Protein 5.3 g/dL (6.4-8.2) L 04/11/19 08:35 Albumin 1.6 g/dL (3.4-5.0) L 04/11/19 08:35 Globulin 3.7 g/dL (2.5-4.5) 04/11/19 08:35 Albumin/Globulin Ratio 0.4 Ratio (1.1-2.1) L 04/11/19 08:35 Vitamin B12 596 pg/mL (193-986) 04/13/19 04:38 Folate 8.0 ng/mL (>8.6) L 04/13/19 04:38 Specimen Type Catherized urine 04/07/19 00:39 Urine Color Yellow (YELLOW) 04/07/19 00:39 Urine Appearance Clear (CLEAR) 04/07/19 00:39 Urine pH 6.0 (5.0 - 8.0) 04/07/19 00:39 Ur Specific [place] 1.010 (1.000-1.030) 04/07/19 00:39 Urine Protein 1+ (NEGATIVE) 04/07/19 00:39 Urine Glucose (UA) 4+ (NEGATIVE) 04/07/19 00:39 Urine Ketones 2+ (NEGATIVE) 04/07/19 00:39 Urine Occult Blood 5+ (NEGATIVE) 04/07/19 00:39 Urine Nitrite Negative (NEGATIVE) 04/07/19 00:39 Urine Bilirubin Negative (NEGATIVE) 04/07/19 00:39 Urine Urobilinogen Normal (NORMAL) 04/07/19 00:39 Ur Leukocyte Esterase 1+ (NEGATIVE) 04/07/19 00:39 Urine RBC 3-5 /HPF (0-3) A 04/07/19 00:39 Urine WBC 3-5 /HPF (0-5) 04/07/19 00:39 Ur Squamous Epith Cells Few /HPF (NEGATIVE) 04/07/19 00:39 Amorphous Sediment 1+ /HPF (NEGATIVE) 04/07/19 00:39 Urine Bacteria Negative /HPF (NEGATIVE) 04/07/19 00:39 Urine Yeast Rare /HPF (NEGATIVE) 04/07/19 00:39 Ur Culture Indicated? No/not indicated 04/07/19 00:39 Stool Description 10g,brown,semisolid 04/13/19 12:40 Stl Occult Blood (IFOB) Positive (NEGATIVE) A 04/13/19 12:40 Vancomycin Trough 16.0 ug/mL (15-20) 04/11/19 08:35 Acetone, Semi-Quant Small (NEGATIVE) H 04/10/19 05:15
[2019-04-14] MEDS: HumuLIN R SUBCUT PRN ×2 (11:47→21:05)
[2019-04-14] MEDS ORDERED: STERILE WATER IRRIGATION IR ONE (13:55)
[2019-04-14] MEDS ORDERED: NS 500 ML IV 500 ML IV ONE (15:28)
[2019-04-14] MEDS ORDERED: DIPRIVAN VIAL 20 ML ONE (15:30)
--- NOTE | 2019-04-14 15:57 | OR.IMMED ---
Immediate Post-Op Note - Immediate Post-Op Note Pre-Op Diagnosis: dysphagia . abdominal pain , Wt loss . anemia. Post-Op Diagnosis: large duodenal ulcer . reflux esophagitis . esophageal Candidiasis . Procedure: EGD w Bx. Surgeon/Manager Of Community Relations: nile Complications: non Condition: Stable (on Carafate , Protonix , diflucan .)
[2019-04-14] MEDS: SNACK - Diabetic Appropriate PO SCH (21:00)
[2019-04-14] MEDS: PROTONIX INJ 40 MG VIAL IVP SCH (21:04)
[2019-04-14] MEDS: CARAFATE PO SCH (21:04)
[2019-04-15] MEDS: ULTRAM PO PRN (01:55)
[2019-04-15] MEDS: CARAFATE PO SCH (05:38)
[2019-04-15] MEDS: HumuLIN R SUBCUT PRN (05:39)
[2019-04-15 06:05] LABS: ALANINE AMINOTRANSFERASE 20 Units/L (12-78); ALBUMIN 1.3 g/dL (3.4-5.0); ALKALINE PHOSPHATASE 109 Units/L (46-116); ASPARTATE AMINO TRANSFERASE 20 Units/L (15-37); BASOPHILS % (AUTO) 0.2 % (0.2-1.0); BLOOD UREA NITROGEN 8 mg/dL (7-18); CALCIUM 7.4 mg/dL (8.5-10.1); CARBON DIOXIDE 24.9 mmol/L (21-32); CHLORIDE 99 mmol/L (98-107); COR CA(FOR HYPOALB) 9.6 mg/dL (8.5-10.1); COR NA(FOR HYPERGLY) 135 mmol/L (136-145); CREATININE 0.34 mg/dL (0.55-1.02); EOSINOPHILS # (AUTO) 0.1 x10^3/uL (0.0-0.2); EOSINOPHILS % (AUTO) 0.6 % (0.9-2.9); HEMATOCRIT 21.8 % (36.0-47.0); HEMOGLOBIN 7.7 g/dL (12.0-16.0); LYMPHOCYTES # (AUTO) 0.8 X10^3/uL (1.3-2.9); LYMPHOCYTES % (AUTO) 9.5 % (21.0-51.0); MAGNESIUM 1.5 mg/dL (1.7-2.9); MEAN CORPUSCULAR HEMOGLOBIN 31.3 pg (27.0-34.0); MEAN CORPUSCULAR HGB CONC 35.1 g/dL (33.0-35.0); MEAN CORPUSCULAR VOLUME 89.2 fL (80.0-100.0); MEAN PLATELET VOLUME 7.8 fL (7.4-11.0); MONOCYTES # (AUTO) 0.7 x10^3/uL (0.3-0.8); NEUTROPHILS # (AUTO) 7.2 x10^3/uL (2.2-4.8); NEUTROPHILS % (AUTO) 81.7 % (42.0-75.0); PLATELET COUNT 247 X10^3/uL (150.0-450.0); RED BLOOD COUNT 2.44 X10^6/uL (3.5-5.4); RED CELL DISTRIBUTION WIDTH 14.9 % (11.6-16.5); SODIUM 133 mmol/L (136-145); TOTAL PROTEIN 5.1 g/dL (6.4-8.2); WHITE BLOOD COUNT 8.9 X10^3/uL (3.6-10.0); eGFR NON BLACK RACES > 60 (>60)
[2019-04-15] MEDS: NS 1/2 + KCL 20 MEQ/L 1,000 ML IV SCH (06:16)
[2019-04-15] MEDS: MAGNESIUM SULFATE 1 GRAM/100 mL PREMIX 1 GM/100 ML BAG IV PRN (06:20)
[2019-04-15 07:02] LABS: PLATELET MORPHOLOGY COMMENT NORMAL (NORMAL)
[2019-04-15] MEDS ORDERED: DIFLUCAN 100 MG IV (MIX by PHARMACY)* 100 MG/50 ML BAG IV SCH (09:00)
--- NOTE | 2019-04-15 09:03 | W.DIS.FURT ---
Summary of Discharge Discharge Summary of Date Date of Exam: 04/15/19 Admission Date Date of Admission: 04/07/19 Admission Diagnosis Patient Problems (Updated 04/15/19 @ 11:02 by Piotr Barillas) Esophageal candidiasis (Acute) B37.81 Reflux esophagitis (Acute) K21.0 Duodenal ulcer (Acute) K26.9 Bacteremia (Resolved) R78.81 Sepsis (Acute) A41.9 Dehydration (Acute) E86.0 Acute hyponatremia (Resolved) E87.1 Acute hyperkalemia (Resolved) E87.5 Hospital Course: Pt is a 59 yo f admitted for sepsis and bacteremia. BloodCx positive for Staph aur. 1/2, treated with Rocephin. Repeat bloodcx negative, echo negative, wbc trended down, afebrile. While inpatient patient had known R distal fibula fracture evaluated by ortho-Dr Haq, recommends treating non-surgically, use ortho boot and should be able to weight bear in 1-2 months. During hospital course also had dysphagia and persistent post-prandial abdominal pain. She was evaluated by Gen Surgery and had EGD that showed esophageal candidiasis, reflux esophagitis, and large duodenal ulcer. She was placed on carafate, protonix, and started on Diflucan course x 14 days. Discharged to SNF w/ instructions to continue Rocephin x 5days to complete course. Follow up with Dr Millan in 2 months for monitoring and surveillance of esophagitis and duodenal ulcer. Vital Signs: Vital Signs (72 hours) 04/12/19 10:00 04/12/19 11:00 04/12/19 12:00 Temperature 97.7 F Pulse Rate 68 65 67 Pulse Rate [Left Brachial] Respiratory Rate 24 24 26 H Blood Pressure 138/63 125/60 138/60 Blood Pressure [Left Arm] O2 Sat by Pulse Oximetry 100 100 100 04/12/19 13:00 04/12/19 14:00 04/12/19 15:00 Temperature Pulse Rate 72 75 68 Pulse Rate [Left Brachial] Respiratory Rate 28 H 28 H 29 H Blood Pressure 133/82 132/93 133/59 Blood Pressure [Left Arm] O2 Sat by Pulse Oximetry 100 100 100 04/12/19 16:00 04/12/19 17:00 04/12/19 18:00 Temperature 97.9 F Pulse Rate 72 68 74 Pulse Rate [Left Brachial] Respiratory Rate 25 H 14 24 Blood Pressure 140/70 125/59 127/93 Blood Pressure [Left Arm] O2 Sat by Pulse Oximetry 100 100 100 04/12/19 19:00 04/12/19 19:24 04/12/19 20:00 Temperature 99.0 F Pulse Rate 64 71 Pulse Rate [Left Brachial] Respiratory Rate 20 20 20 Blood Pressure 127/93 133/60 Blood Pressure [Left Arm] O2 Sat by Pulse Oximetry 100 98 04/12/19 20:24 04/12/19 21:00 04/12/19 22:00 Temperature Pulse Rate 71 72 Pulse Rate [Left Brachial] Respiratory Rate 20 20 21 Blood Pressure 139/60 114/55 Blood Pressure [Left Arm] O2 Sat by Pulse Oximetry 100 100 04/12/19 23:00 04/13/19 00:00 04/13/19 01:00 Temperature 98.0 F Pulse Rate 67 69 69 Pulse Rate [Left Brachial] Respiratory Rate 23 19 21 Blood Pressure 127/62 126/64 125/61 Blood Pressure [Left Arm] O2 Sat by Pulse Oximetry 100 100 100 04/13/19 02:00 04/13/19 03:00 04/13/19 04:00 Temperature 98.4 F Pulse Rate 68 69 68 Pulse Rate [Left Brachial] Respiratory Rate 20 20 20 Blood Pressure 126/61 126/64 126/63 Blood Pressure [Left Arm] O2 Sat by Pulse Oximetry 100 100 100 04/13/19 05:00 04/13/19 06:00 04/13/19 07:00 Temperature Pulse Rate 73 76 72 Pulse Rate [Left Brachial] Respiratory Rate 22 21 23 Blood Pressure 128/62 131/61 127/65 Blood Pressure [Left Arm] O2 Sat by Pulse Oximetry 100 100 100 04/13/19 08:00 04/13/19 09:00 04/13/19 09:51 Temperature 98.0 F Pulse Rate 76 74 Pulse Rate [Left Brachial] Respiratory Rate 22 22 Blood Pressure 114/58 143/63 Blood Pressure [Left Arm] O2 Sat by Pulse Oximetry 100 100 100 04/13/19 10:00 04/13/19 11:00 04/13/19 12:00 Temperature 98.9 F Pulse Rate 68 78 86 Pulse Rate [Left Brachial] Respiratory Rate 24 24 25 H Blood Pressure 142/67 130/60 135/63 Blood Pressure [Left Arm] O2 Sat by Pulse Oximetry 100 100 100 04/13/19 13:00 04/13/19 14:00 04/13/19 15:00 Temperature Pulse Rate 92 H 80 85 Pulse Rate [Left Brachial] Respiratory Rate 26 H 25 H 29 H Blood Pressure 147/70 129/63 117/57 Blood Pressure [Left Arm] O2 Sat by Pulse Oximetry 100 100 99 04/13/19 16:00 04/13/19 17:00 04/13/19 18:00 Temperature 98.6 F Pulse Rate 80 78 87 Pulse Rate [Left Brachial] Respiratory Rate 26 H 26 H 23 Blood Pressure 133/64 142/68 125/67 Blood Pressure [Left Arm] O2 Sat by Pulse Oximetry 100 100 100 04/13/19 19:00 04/13/19 20:00 04/13/19 21:00 Temperature 99.4 F Pulse Rate 89 98 H 93 H Pulse Rate [Left Brachial] Respiratory Rate 20 20 20 Blood Pressure 156/66 128/62 109/56 Blood Pressure [Left Arm] O2 Sat by Pulse Oximetry 100 100 99 04/13/19 22:00 04/13/19 23:00 04/14/19 00:00 Temperature 98.9 F Pulse Rate 103 H 93 H 97 H Pulse Rate [Left Brachial] Respiratory Rate 20 20 20 Blood Pressure 116/58 125/64 135/62 Blood Pressure [Left Arm] O2 Sat by Pulse Oximetry 99 100 99 04/14/19 01:00 04/14/19 01:05 04/14/19 02:00 Temperature Pulse Rate 96 H 98 H Pulse Rate [Left Brachial] Respiratory Rate 20 20 20 Blood Pressure 122/64 118/61 Blood Pressure [Left Arm] O2 Sat by Pulse Oximetry 100 100 04/14/19 02:05 04/14/19 03:00 04/14/19 04:00 Temperature 98.6 F Pulse Rate 91 H 84 Pulse Rate [Left Brachial] Respiratory Rate 20 20 20 Blood Pressure 116/58 112/59 Blood Pressure [Left Arm] O2 Sat by Pulse Oximetry 100 100 04/14/19 05:00 04/14/19 06:00 04/14/19 07:00 Temperature Pulse Rate 87 83 86 Pulse Rate [Left Brachial] Respiratory Rate 20 20 17 Blood Pressure 112/58 116/56 114/59 Blood Pressure [Left Arm] O2 Sat by Pulse Oximetry 100 100 100 04/14/19 08:00 04/14/19 09:00 04/14/19 12:00 Temperature 98.5 F 98.3 F Pulse Rate 93 H 92 H Pulse Rate [Left Brachial] 81 Respiratory Rate 19 20 20 Blood Pressure 98/53 101/67 Blood Pressure [Left Arm] 104/57 O2 Sat by Pulse Oximetry 100 100 96 04/14/19 16:00 04/14/19 16:15 04/14/19 16:30 Temperature 99.3 F 99.1 F 99.1 F Pulse Rate Pulse Rate [Left Brachial] 76 80 79 Respiratory Rate 25 H 25 H 22 Blood Pressure Blood Pressure [Left Arm] 114/59 130/60 122/58 O2 Sat by Pulse Oximetry 98 100 100 04/14/19 16:45 04/14/19 17:26 04/14/19 20:00 Temperature 98.1 F 98.1 F 97.6 F Pulse Rate Pulse Rate [Left Brachial] 85 95 H 94 H Respiratory Rate 20 20 20 Blood Pressure Blood Pressure [Left Arm] 124/57 121/54 113/56 O2 Sat by Pulse Oximetry 100 100 98 04/15/19 00:00 04/15/19 01:55 04/15/19 02:55 Temperature 98.7 F Pulse Rate Pulse Rate [Left Brachial] 90 Respiratory Rate 18 18 18 Blood Pressure Blood Pressure [Left Arm] 117/65 O2 Sat by Pulse Oximetry 95 04/15/19 03:55 Temperature 98.6 F Pulse Rate Pulse Rate [Left Brachial] 86 Respiratory Rate 18 Blood Pressure Blood Pressure [Left Arm] 124/72 O2 Sat by Pulse Oximetry 98 Labs: Laboratory Last Values WBC 8.9 X10^3/uL (3.6-10.0) 04/15/19 04:47 RBC 2.44 X10^6/uL (3.5-5.4) L 04/15/19 04:47 Hgb 7.7 g/dL (12.0-16.0) L 04/15/19 04:47 Hct 21.8 % (36.0-47.0) L 04/15/19 04:47 MCV 89.2 fL (80.0-100.0) 04/15/19 04:47 MCH 31.3 pg (27.0-34.0) 04/15/19 04:47 MCHC 35.1 g/dL (33.0-35.0) H 04/15/19 04:47 RDW 14.9 % (11.6-16.5) 04/15/19 04:47 Plt Count 247 X10^3/uL (150.0-450.0) 04/15/19 04:47 Plt Count Comment Adequate (ADEQUATE) 04/15/19 04:47 MPV 7.8 fL (7.4-11.0) 04/15/19 04:47 Neut % (Auto) 81.7 % (42.0-75.0) H 04/15/19 04:47 Lymph % (Auto) 9.5 % (21.0-51.0) L 04/15/19 04:47 Cross % (Auto) 8.0 % (0.0-13.0) 04/15/19 04:47 Eos % (Auto) 0.6 % (0.9-2.9) L 04/15/19 04:47 Baso % (Auto) 0.2 % (0.2-1.0) 04/15/19 04:47 Neut # (Auto) 7.2 x10^3/uL (2.2-4.8) H 04/15/19 04:47 Lymph # (Auto) 0.8 X10^3/uL (1.3-2.9) L 04/15/19 04:47 Cross # (Auto) 0.7 x10^3/uL (0.3-0.8) 04/15/19 04:47 Eos # (Auto) 0.1 x10^3/uL (0.0-0.2) 04/15/19 04:47 Baso # (Auto) 0.0 X10^3/uL (0.0-0.1) 04/15/19 04:47 Absolute Nucleated RBC 0.0 /100WBC 04/15/19 04:47 Total Counted 100 04/14/19 04:34 Neutrophils % (Manual) 86 % (39-76) H 04/14/19 04:34 Band Neutrophils % 9 % (0-10) 04/09/19 04:18 Lymphocytes % (Manual) 9 % (13-43) L 04/14/19 04:34 Monocytes % (Manual) 5 % (4-9) 04/14/19 04:34 Metamyelocytes % 3 04/07/19 04:25 Plt Morphology Comment Normal (NORMAL) 04/15/19 04:47 RBC Morphology Normal (NORMAL) 04/15/19 04:47 Hypochromasia Slight A 04/14/19 04:34 Crenated Cell 1+ A 04/08/19 05:27 Sample Site Lr 04/10/19 13:40 ABG pH 7.430 (7.35-7.45) 04/10/19 13:40 ABG pCO2 29.0 mmHg (35.0-45.0) L 04/10/19 13:40 ABG pO2 85.0 mmHg (80.0-100.0) 04/10/19 13:40 ABG HCO3 19.2 mmol/L (22-26) L 04/10/19 13:40 ABG O2 Saturation 97.0 % (90-100) 04/10/19 13:40 ABG Base Excess -4.0 mmol/L (-2.0-2.0) L 04/10/19 13:40 Fabián Test Pos 04/10/19 13:40 A-a Gradient 28.0 mmHg 04/10/19 13:40 FiO2 21.0 04/10/19 13:40 Blood Gas Comments Isatu well cb 04/10/19 13:40 Sodium 133 mmol/L (136-145) L 04/15/19 04:47 Corrected Sodium 135 mmol/L (136-145) L 04/15/19 04:47 Potassium 4.0 mmol/L (3.5-5.1) 04/15/19 04:47 Chloride 99 mmol/L (98-107) 04/15/19 04:47 Carbon Dioxide 24.9 mmol/L (21-32) 04/15/19 04:47 BUN 8 mg/dL (7-18) 04/15/19 04:47 Creatinine 0.34 mg/dL (0.55-1.02) L 04/15/19 04:47 Est GFR (MDRD) Af Amer > 60 (>60) 04/15/19 04:47 Est GFR (MDRD) Non-Af > 60 (>60) 04/15/19 04:47 Glucose 176 mg/dL (65-99) H 04/15/19 04:47 POC Glucose (mg/dL) 158 mg/dL (65-99) H 04/15/19 05:04 Lactic Acid 1.1 mmol/L (0.4-2.0) 04/09/19 07:06 Calcium 7.4 mg/dL (8.5-10.1) L 04/15/19 04:47 Corrected Calcium 9.6 mg/dL (8.5-10.1) 04/15/19 04:47 Magnesium 1.5 mg/dL (1.7-2.9) L 04/15/19 04:47 Iron 23 ug/dL (50-175) L 04/13/19 04:38 Transferrin 122 mg/dL (202-364) L 04/13/19 04:38 Ferritin 444 ng/mL (8-252) H 04/13/19 04:38 Total Bilirubin 0.10 mg/dL (0.2-1.0) L 04/15/19 04:47 AST 20 Units/L (15-37) 04/15/19 04:47 ALT 20 Units/L (12-78) 04/15/19 04:47 Alkaline Phosphatase 109 Units/L (46-116) 04/15/19 04:47 Creatine Kinase 36 Units/L (26-192) 04/12/19 02:37 CK-MB (CK-2) < 1.0 ng/mL (0-4.0) 04/12/19 02:37 CK/CKMB % Calc 2.8 % (<4) 04/12/19 02:37 Troponin I < 0.02 ng/mL (0-1.5) 04/12/19 02:37 Total Protein 5.1 g/dL (6.4-8.2) L 04/15/19 04:47 Albumin 1.3 g/dL (3.4-5.0) L 04/15/19 04:47 Globulin 3.8 g/dL (2.5-4.5) 04/15/19 04:47 Albumin/Globulin Ratio 0.3 Ratio (1.1-2.1) L 04/15/19 04:47 Vitamin B12 596 pg/mL (193-986) 04/13/19 04:38 Folate 8.0 ng/mL (>8.6) L 04/13/19 04:38 Specimen Type Catherized urine 04/07/19 00:39 Urine Color Yellow (YELLOW) 04/07/19 00:39 Urine Appearance Clear (CLEAR) 04/07/19 00:39 Urine pH 6.0 (5.0 - 8.0) 04/07/19 00:39 Ur Specific [place] 1.010 (1.000-1.030) 04/07/19 00:39 Urine Protein 1+ (NEGATIVE) 04/07/19 00:39 Urine Glucose (UA) 4+ (NEGATIVE) 04/07/19 00:39 Urine Ketones 2+ (NEGATIVE) 04/07/19 00:39 Urine Occult Blood 5+ (NEGATIVE) 04/07/19 00:39 Urine Nitrite Negative (NEGATIVE) 04/07/19 00:39 Urine Bilirubin Negative (NEGATIVE) 04/07/19 00:39 Urine Urobilinogen Normal (NORMAL) 04/07/19 00:39 Ur Leukocyte Esterase 1+ (NEGATIVE) 04/07/19 00:39 Urine RBC 3-5 /HPF (0-3) A 04/07/19 00:39 Urine WBC 3-5 /HPF (0-5) 04/07/19 00:39 Ur Squamous Epith Cells Few /HPF (NEGATIVE) 04/07/19 00:39 Amorphous Sediment 1+ /HPF (NEGATIVE) 04/07/19 00:39 Urine Bacteria Negative /HPF (NEGATIVE) 04/07/19 00:39 Urine Yeast Rare /HPF (NEGATIVE) 04/07/19 00:39 Ur Culture Indicated? No/not indicated 04/07/19 00:39 Stool Description 10g,brown,semisolid 04/13/19 12:40 Stl Occult Blood (IFOB) Positive (NEGATIVE) A 04/13/19 12:40 Vancomycin Trough 16.0 ug/mL (15-20) 04/11/19 08:35 Acetone, Semi-Quant Small (NEGATIVE) H 04/10/19 05:15 Tissue Pathology To follow 04/14/19 15:42 Reason For Visit: SEPSIS, DEHYDRATION, HYPONATREMIA, HYPERKALEMIA Discharge Date Discharge Date: 04/15/19 Discharge Diagnosis All Active Problems (Updated 04/15/19 @ 11:02 by Piotr Barillas) Esophageal candidiasis (Acute) Reflux esophagitis (Acute) Duodenal ulcer (Acute) Gastroesophageal reflux disease (Chronic) Essential hypertension (Chronic) Asthma (Chronic) Migraine (Chronic) Bartholin cyst (Acute) Cellulitis (Acute) Degenerative joint disease (DJD) of lumbar spine (Chronic) Peripheral neuropathy (Chronic) Arthritis (Acute) Sciatica (Acute) Constipation (Acute) Fracture of fibula, distal, closed (Acute) Uncontrolled type 2 diabetes mellitus with hyperglycemia (Acute) Sepsis (Acute) Dehydration (Acute) Plan of Treatment: Continue with present treatment and follow up plan. Pt is to keep follow up appointment as instructed and take medications as ordered. Discharge Medications Discharge Medications: acetaminophen [From Tylenol-Codeine] Allergy (Verified 03/26/19 05:29) codeine [From Tylenol-Codeine] Allergy (Verified 03/26/19 05:29) Penicillins Allergy (Verified 03/26/19 05:29) CONTINUE taking the following medications canagliflozin [Invokana] 300 mg PO DAILY 04/07/19 [History] Discharge Disposition Discharge Disposition: SNF
[2019-04-15] MEDS: MYLICON TAB 80 MG CHEW PO SCH (09:35)
[2019-04-15] MEDS: GLUCOPHAGE XR PO SCH (09:35)
[2019-04-15] MEDS: PEPCID TAB 20 MG PO SCH (09:36)
[2019-04-15] MEDS: ROCEPHIN VIAL 1 GRAM 1 G in NS 100 ML IV + SPIKE MINIBAG* 100 ML IV SCH (09:36)
[2019-04-15] MEDS: PROTONIX INJ 40 MG VIAL IVP SCH (09:36)
[2019-04-15] MEDS: LOVENOX INJ 30 MG SYR SC SCH (09:37)
[2019-04-15] MEDS: DIFLUCAN 200 MG IV PREMIX* 200 MG/100 ML BAG IV SCH (12:02)
[2019-04-15 12:08] VITALS: BP 108/60
== END 2019-04-15 13:50 | DRG 872 ==
LOC: ER 23:44 → ICU 04-07 02:09 → MED/SURG 04-14 09:51
PROVIDERS: ADMIT Internal Medicine; ATTEND Obstetrics & Gynecology Obstetrics
DX: E86.0 Dehydration; R26.89 Other abnormalities of gait and mobility; R10.84 Generalized abdominal pain; K22.10 Ulcer of esophagus without bleeding; A41.01 Sepsis due to Methicillin susceptible Staphylococcus aureus; R65.20 Severe sepsis without septic shock; B37.81 Candidal esophagitis; L89.152 Pressure ulcer of sacral region, stage 2; E87.1 Hypo-osmolality and hyponatremia; L03.315 Cellulitis of perineum; K29.70 Gastritis, unspecified, without bleeding; L89.511 Pressure ulcer of right ankle, stage 1; X58.XXXA Exposure to other specified factors, initial encounter; R41.82 Altered mental status, unspecified; L89.891 Pressure ulcer of other site, stage 1; S82.831A Other fracture of upper and lower end of right fibula, initial encounter for closed fracture; I95.89 Other hypotension; R13.11 Dysphagia, oral phase; Y92.9 Unspecified place or not applicable; E11.65 Type 2 diabetes mellitus with hyperglycemia; K21.0 Gastro-esophageal reflux disease with esophagitis; S82.301A Unspecified fracture of lower end of right tibia, initial encounter for closed fracture; E87.6 Hypokalemia; N17.8 Other acute kidney failure; R07.89 Other chest pain; L89.621 Pressure ulcer of left heel, stage 1
CPT/HCPCS: 36415; 36600; 51701; 70450; 71010; 71045; 73700; 74000; 74018; 80048; 80053; 80202; 81001; 82009; 82270; 82550; 82553; 82565; 82607; 82728; 82746; 82803; 83540; 83605; 83735; 84466; 84484; 85025; 87040; 87077; 87086; 87186; 92526; 92610; 93005; 93306; 96365; 96367; 96374; 96375; 97163; 97167; 97530; 99285; A4216; A4217; A4222; C9113; J7030; S0030; J0696; J1450; J1650; J1815; J3370; J3475; J3480; J7050; J7060

== ENCOUNTER 2019-05-01 13:40 | Inpatient (IN) ==
[2019-05-01 14:16] VITALS: BMI 24.2
[2019-05-01 14:38] LABS: BILIRUBIN,URINE NEGATIVE (NEGATIVE); BLOOD/HEMOGLOBIN,URINE 5+ (NEGATIVE); GLUCOSE, URINE NEGATIVE (NEGATIVE); KETONES,URINE 1+ (NEGATIVE); LEUKOCYTE ESTERASE ,URINE 3+ (NEGATIVE); NITRITES,URINE NEGATIVE (NEGATIVE); PROTEIN,URINE 3+ (NEGATIVE); UROBILINOGEN,URINE NORMAL (NORMAL)
--- NOTE | 2019-05-01 14:39 | DR.AMS ---
HPI - Time Seen Time seen: 14:32 - PCP Primary Care Physician: CORRALES - Complaint Chief Complaint:: CLAY FROM [facility] CALLS AND STATES PT. HAS AMS AND SLURRED SPEECH. SHE STATES PT. HAS BEEN REFUSING TO TAKE HER MEDICATIONS, EAT OR DRINK SINCE SUNDAY. VITAL RFID TECHNICIAN AT [facility] WERE: B/P: 174/115, O2 SAT 81% ON ROOM AIR, TEMP: 98.1 AND HEART RATE: 50-120 BPM. 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 Surgery, Tonsillectomy, Other - Family History History of Family Medical Conditions: Yes Family Medical History: Cancer - Social History Does patient currently use any type of tobacco product: No Have you used tobacco products in the last 12 months: No Type of Tobacco Use: None Does any household member use tobacco: No Alcohol Use: None Do you use any recreational Drugs:: No Lives Where: Skilled Nursing - infectious screening In the last 2 months have you had wt loss of >10#?: NO Have you had fever, night sweats or hemotysis?: No Have you traveled outside the country in the last 6 months?: No Isolation: Standard PE - Vitals Vital Signs: Temp Pulse Resp BP BP Pulse Ox 05/01/19 16:15 88 70 H 100 05/01/19 16:01 83 35 H 116/62 100 05/01/19 16:00 84 32 H 100 05/01/19 15:45 86 32 H 100 05/01/19 15:43 93.7 F L 05/01/19 15:30 84 44 H 80/52 100 05/01/19 15:15 85 43 H 100 05/01/19 15:00 85 29 H 84/54 100 05/01/19 14:31 83 31 H 117/85 100 05/01/19 14:30 82 34 H 100 05/01/19 14:18 80 29 H 100 05/01/19 13:55 93.2 F L 84 20 156/100 100 04/15/19 12:00 108/60 Course - Consultation Called: 15:22 Call Returned: 15:22 Consultation Comments: case discussed with DR. Corrales admit for IVF and antibiotics ROR - Labs Reviewed Result Diagrams: 05/01/19 15:11 05/01/19 14:00 - EKG Rate: 82 Delta: Normal Rhythm: NSR Block: None ST: Nonsp - Labs Reviewed Laboratory: WBC 15.9 X10^3/uL (3.6-10.0) H 05/01/19 15:11 RBC 2.39 X10^6/uL (3.5-5.4) L 05/01/19 15:11 Hgb 6.9 g/dL (12.0-16.0) L* 05/01/19 15:11 Hct 22.1 % (36.0-47.0) L 05/01/19 15:11 MCV 92.6 fL (80.0-100.0) 05/01/19 15:11 MCH 28.9 pg (27.0-34.0) 05/01/19 15:11 MCHC 31.2 g/dL (33.0-35.0) L 05/01/19 15:11 RDW 17.5 % (11.6-16.5) H 05/01/19 15:11 Plt Count 180 X10^3/uL (150.0-450.0) 05/01/19 15:11 MPV 7.5 fL (7.4-11.0) 05/01/19 15:11 Neut % (Auto) 81.8 % (42.0-75.0) H 05/01/19 15:11 Lymph % (Auto) 11.7 % (21.0-51.0) L 05/01/19 15:11 [place] % (Auto) 6.0 % (0.0-13.0) 05/01/19 15:11 Eos % (Auto) 0.0 % (0.9-2.9) L 05/01/19 15:11 Baso % (Auto) 0.5 % (0.2-1.0) 05/01/19 15:11 Neut # (Auto) 13.0 x10^3/uL (2.2-4.8) H 05/01/19 15:11 Lymph # (Auto) 1.9 X10^3/uL (1.3-2.9) 05/01/19 15:11 [place] # (Auto) 0.9 x10^3/uL (0.3-0.8) H 05/01/19 15:11 Eos # (Auto) 0.0 x10^3/uL (0.0-0.2) 05/01/19 15:11 Baso # (Auto) 0.1 X10^3/uL (0.0-0.1) 05/01/19 15:11 Absolute Nucleated RBC 0.0 /100WBC 05/01/19 15:11 Sodium 132 mmol/L (136-145) L 05/01/19 14:00 Corrected Sodium 133 mmol/L (136-145) L 05/01/19 14:00 Potassium 6.6 mmol/L (3.5-5.1) H* 05/01/19 14:00 Chloride 96 mmol/L (98-107) L 05/01/19 14:00 Carbon Dioxide 7.7 mmol/L (21-32) L* 05/01/19 14:00 BUN 89 mg/dL (7-18) H 05/01/19 14:00 Creatinine 5.56 mg/dL (0.55-1.02) H 05/01/19 14:00 Est GFR (MDRD) Af Amer 10 (>60) L 05/01/19 14:00 Est GFR (MDRD) Non-Af 8 (>60) L 05/01/19 14:00 Glucose 130 mg/dL (65-99) H 05/01/19 14:00 Lactic Acid 9.6 mmol/L (0.4-2.0) H 05/01/19 14:28 Calcium 8.9 mg/dL (8.5-10.1) 05/01/19 14:00 Corrected Calcium 10.7 mg/dL (8.5-10.1) H 05/01/19 14:00 Total Bilirubin 0.30 mg/dL (0.2-1.0) 05/01/19 14:00 AST 43 Units/L (15-37) H 05/01/19 14:00 ALT 32 Units/L (12-78) 05/01/19 14:00 Alkaline Phosphatase 113 Units/L (46-116) 05/01/19 14:00 Creatine Kinase 30 Units/L (26-192) 05/01/19 14:00 CK-MB (CK-2) 2.1 ng/mL (0-4.0) 05/01/19 14:00 CK/CKMB % Calc 7.0 % (<4) 05/01/19 14:00 Troponin I < 0.02 ng/mL (0-1.5) 05/01/19 14:00 Total Protein 5.7 g/dL (6.4-8.2) L 05/01/19 14:00 Albumin 1.8 g/dL (3.4-5.0) L 05/01/19 14:00 Globulin 3.9 g/dL (2.5-4.5) 05/01/19 14:00 Albumin/Globulin Ratio 0.5 Ratio (1.1-2.1) L 05/01/19 14:00 Specimen Type Catherized urine 05/01/19 14:10 Urine Color Yellow (YELLOW) 05/01/19 14:10 Urine Appearance Cloudy (CLEAR) 05/01/19 14:10 Urine pH 6.0 (5.0 - 8.0) 05/01/19 14:10 Ur Specific [place] 1.020 (1.000-1.030) 05/01/19 14:10 Urine Protein 3+ (NEGATIVE) 05/01/19 14:10 Urine Glucose (UA) Negative (NEGATIVE) 05/01/19 14:10 Urine Ketones 1+ (NEGATIVE) 05/01/19 14:10 Urine Occult Blood 5+ (NEGATIVE) 05/01/19 14:10 Urine Nitrite Negative (NEGATIVE) 05/01/19 14:10 Urine Bilirubin Negative (NEGATIVE) 05/01/19 14:10 Urine Urobilinogen Normal (NORMAL) 05/01/19 14:10 Ur Leukocyte Esterase 3+ (NEGATIVE) 05/01/19 14:10 Urine RBC Tntc /HPF (0-3) A 05/01/19 14:10 Urine WBC Tntc /HPF (0-5) A 05/01/19 14:10 Ur Squamous Epith Cells Rare /HPF (NEGATIVE) 05/01/19 14:10 Urine Bacteria 1+ /HPF (NEGATIVE) 05/01/19 14:10 Urine Yeast Few /HPF (NEGATIVE) 05/01/19 14:10 Ur Culture Indicated? Yes/culture set up 05/01/19 14:10 Blood Type A POSITIVE 05/01/19 15:52 Antibody Screen Negative 05/01/19 15:52 Crossmatch See Detail 05/01/19 15:52 Opioid - Opioid Risk Tool Age (Ranulfo box if 16-45): No History of Preadolescent Sexual Abuse: No Total: 0 Total Score Risk Category: Low Risk - Diagnosis Discharge Problem: Sepsis Qualifiers: Sepsis type: sepsis due to unspecified organism Sepsis acute organ dysfunction status: with acute organ dysfunction Severe sepsis acute organ dysfunction type: acute renal failure Acute renal failure type: unspecified Severe sepsis shock status: with septic shock Qualified Code(s): A41.9 - Sepsis, unspecified organism; R65.21 - Severe sepsis with septic shock; N17.9 - Acute kidney failure, unspecified Urinary tract infection Qualifiers: Urinary tract infection type: acute cystitis Hematuria presence: with hematuria Qualified Code(s): N30.01 - Acute cystitis with hematuria - Discharge Plan Disposition: ADMITTED INPATIENT Condition: Stable
[2019-05-01 14:45] LABS: APPEARANCE,URINE CLOUDY (CLEAR); BACTERIA,URINE 1+ /HPF (NEGATIVE); COLOR,URINE YELLOW (YELLOW); RBC,URINE TNTC /HPF (0-3); SQUAMOUS EPITHELIAL CELL,UR RARE /HPF (NEGATIVE); YEAST,URINE FEW /HPF (NEGATIVE)
[2019-05-01] MEDS ORDERED: NS 500 ML IV 1,000 ML IV ONE (14:49)
[2019-05-01] MEDS ORDERED: NS 1000 ML 1,000 ML ONE ×2 (14:58→15:41)
[2019-05-01 15:09] LABS: ALBUMIN 1.8 g/dL (3.4-5.0); CALCIUM 8.9 mg/dL (8.5-10.1); COR CA(FOR HYPOALB) 10.7 mg/dL (8.5-10.1); CREATININE 5.56 mg/dL (0.55-1.02); TOTAL PROTEIN 5.7 g/dL (6.4-8.2)
[2019-05-01 15:12] LABS: CARBON DIOXIDE 7.7 mmol/L (21-32)
[2019-05-01] MEDS ORDERED: SODIUM BICARBONATE 8.4% INJ ADULT IVP ONE ×2 (15:15→15:20)
[2019-05-01] MEDS ORDERED: LEVAQUIN PREMIX IV 500 MG 500 MG/100 ML BAG IV ONE ×2 (15:21→15:26)
[2019-05-01 15:26] LABS: BASOPHILS # (AUTO) 0.1 X10^3/uL (0.0-0.1); BASOPHILS % (AUTO) 0.5 % (0.2-1.0); HEMATOCRIT 22.1 % (36.0-47.0); LYMPHOCYTES # (AUTO) 1.9 X10^3/uL (1.3-2.9); LYMPHOCYTES % (AUTO) 11.7 % (21.0-51.0); MEAN CORPUSCULAR HEMOGLOBIN 28.9 pg (27.0-34.0); MEAN CORPUSCULAR HGB CONC 31.2 g/dL (33.0-35.0); MEAN CORPUSCULAR VOLUME 92.6 fL (80.0-100.0); MEAN PLATELET VOLUME 7.5 fL (7.4-11.0); MONOCYTES # (AUTO) 0.9 x10^3/uL (0.3-0.8); NEUTROPHILS % (AUTO) 81.8 % (42.0-75.0); PLATELET COUNT 180 X10^3/uL (150.0-450.0); RED BLOOD COUNT 2.39 X10^6/uL (3.5-5.4); RED CELL DISTRIBUTION WIDTH 17.5 % (11.6-16.5); WHITE BLOOD COUNT 15.9 X10^3/uL (3.6-10.0)
[2019-05-01] MEDS ORDERED: SODIUM BICARBONATE 8.4% INJ ADULT ONE (15:26)
[2019-05-01 15:27] LABS: HEMOGLOBIN 6.9 g/dL (12.0-16.0)
[2019-05-01] MEDS ORDERED: NS 1000 ML 1,000 ML IV ONE (15:44)
[2019-05-01 15:59] LABS: CREATINE KINASE 30 Units/L (26-192); CREATINE KINASE MB 2.1 ng/mL (0-4.0); TROPONIN I < 0.02 ng/mL (0-1.5)
[2019-05-01] MEDS ORDERED: HumaLOG SC PRN (16:59)
--- NOTE | 2019-05-01 17:37 | RAD ---
HISTORYFEVERSTUDYCHEST, 1 [id number] heart is mildly enlarged but unchanged. The pulmonary vessels are less prominent. The lungs are hypoinflated with hazy bibasilar opacities which have decreased. No effusion or pneumothorax is seen. There is overlying EKG lead in tubing artifact.IMPRESSIONStable mild cardiomegaly with resolving central pulmonary congestion.Slowly resolving bibasilar opacities.Electronically signed by: DARIAN ANDERSON (May 01, 2019 17:36:53)
[2019-05-01] MEDS ORDERED: PHARMACY CONSULT LTC MEDICATIONS XX SCH (19:00)
[2019-05-01] MEDS: DUONEB 0.5 MG/3 MG (3 mL) NEB SCH (21:20)
[2019-05-01] MEDS ORDERED: NS 500 ML IV 500 ML IV ONE (21:37)
[2019-05-02 05:38] LABS: BASOPHILS % (AUTO) 0.3 % (0.2-1.0); EOSINOPHILS % (AUTO) 0.4 % (0.9-2.9); HEMATOCRIT 28.2 % (36.0-47.0); LACTIC ACID 0.9 mmol/L (0.4-2.0); LYMPHOCYTES # (AUTO) 0.8 X10^3/uL (1.3-2.9); LYMPHOCYTES % (AUTO) 12.1 % (21.0-51.0); MEAN CORPUSCULAR HEMOGLOBIN 29.3 pg (27.0-34.0); MEAN CORPUSCULAR HGB CONC 34.4 g/dL (33.0-35.0); MEAN CORPUSCULAR VOLUME 85.3 fL (80.0-100.0); MEAN PLATELET VOLUME 7.7 fL (7.4-11.0); MONOCYTES # (AUTO) 0.3 x10^3/uL (0.3-0.8); MONOCYTES % (AUTO) 4.5 % (0.0-13.0); NEUTROPHILS # (AUTO) 5.5 x10^3/uL (2.2-4.8); NEUTROPHILS % (AUTO) 82.7 % (42.0-75.0); PLATELET COUNT 161 X10^3/uL (150.0-450.0); RED BLOOD COUNT 3.31 X10^6/uL (3.5-5.4); RED CELL DISTRIBUTION WIDTH 16.1 % (11.6-16.5); WHITE BLOOD COUNT 6.6 X10^3/uL (3.6-10.0)
[2019-05-02] MEDS: SNACK - Diabetic Appropriate PO SCH ×2 (05:47→05:49)
[2019-05-02 05:51] LABS: HEMOGLOBIN 9.7 g/dL (12.0-16.0)
[2019-05-02 05:54] LABS: ALANINE AMINOTRANSFERASE 26 Units/L (12-78); ALBUMIN 1.6 g/dL (3.4-5.0); ALKALINE PHOSPHATASE 97 Units/L (46-116); ASPARTATE AMINO TRANSFERASE 33 Units/L (15-37); BLOOD UREA NITROGEN 73 mg/dL (7-18); CALCIUM 7.8 mg/dL (8.5-10.1); CHLORIDE 105 mmol/L (98-107); COR CA(FOR HYPOALB) 9.7 mg/dL (8.5-10.1); CREATININE 2.98 mg/dL (0.55-1.02); SODIUM 140 mmol/L (136-145); TOTAL PROTEIN 5.1 g/dL (6.4-8.2); eGFR NON BLACK RACES 17 (>60)
[2019-05-02 06:06] LABS: CARBON DIOXIDE 14.4 mmol/L (21-32)
[2019-05-02] MEDS ORDERED: NS 1000 ML 1,000 ML IV ONE (08:38)
[2019-05-02] MEDS: DUONEB 0.5 MG/3 MG (3 mL) NEB SCH ×4 (08:47→21:06)
[2019-05-02] MEDS ORDERED: DIPRIVAN VIAL 20 ML ONE (12:21)
[2019-05-02] MEDS ORDERED: LR 1000 ML IV 1,000 ML IV ONE (12:26)
[2019-05-02] MEDS ORDERED: NS 1000 ML 1,000 ML IV SCH (13:00)
--- NOTE | 2019-05-02 13:04 | OR.IMMED ---
Immediate Post-Op Note - Immediate Post-Op Note Pre-Op Diagnosis: GI bleeding , anemia . poor intake . Post-Op Diagnosis: hiatal hernia with esophagitis .stricture formation . chronic gastritis . Procedure: EGD with Bx and brushing. Surgeon/Crab Catcher: Monty Drains: NONE Condition: Stable (to obtain abdominal , pelvic CT with oral contrast , TPN . may have soft diet .)
[2019-05-02] MEDS: LEVAQUIN PREMIX IV 750 MG 750 MG/150 ML BAG IV SCH (13:22)
[2019-05-02] MEDS: TRACE ELEMENTS IV SCH ×3 (13:23)
[2019-05-02] MEDS: MVI IV SCH ×3 (13:23)
[2019-05-02] MEDS: CLINIMIX IV SCH ×3 (13:23)
[2019-05-02] MEDS: PROTONIX INJ 40 MG VIAL IVP SCH (15:11)
--- NOTE | 2019-05-02 21:37 | CT ---
HISTORYABD PAIN, ANEMIA ORAL CONTRAST ONLY, status post [id number]/PELVIS W/O CONCOMPARISONAugust 2018TECHNIQUEMultiple axial images of the abdomen and pelvis were obtained from the lung bases to the pubic symphysis without the administration of IV contrast. Sensitivity for focal lesion detection within the solid abdominal viscera is diminished without the use of IV contrast.FINDINGSSensitivity for focal lesion detection within the solid abdominal viscera is diminished without the use of IV contrast.Small bilateral pleural effusions with overlying atelectasis. Possible left basilar consolidation. Postoperative changes of cholecystectomy. Punctate calcifications throughout the spleen. Unenhanced liver is unremarkable. The bilateral kidneys are unremarkable. Nodular thickening of the bilateral adrenal glands. Unenhanced pancreas is unremarkable. Non aneurysmal aorta. No lymphadenopathy. Grande catheter within the bladder lumen. No focal bowel thickening or distension. No free air or free fluid. No obstruction. Anasarca. Fluid collection is within the subcutaneous tissues overlying the left gluteal musculature, partially visualized. Multilevel degenerative changes of the spine. The osseous structures are intact.IMPRESSIONSmall bilateral pleural effusions with overlying atelectasis. This is more prominent on the left and underlying consolidation may be present.Diffuse anasarca. Subcutaneous fluid collection is partially visualized overlying the left gluteal musculature.Electronically signed by: RHEA VERA (May 02, 2019 21:36:09)
[2019-05-02] MEDS: LIPOSYN III 20% 100ML 100 ML IV SCH (22:05)
[2019-05-03] MEDS: CLINIMIX IV SCH ×8 (01:30→13:10)
[2019-05-03] MEDS: TRACE ELEMENTS IV SCH ×8 (01:30→13:10)
[2019-05-03] MEDS: MVI IV SCH ×8 (01:30→13:10)
[2019-05-03 06:14] LABS: BASOPHILS % (AUTO) 0.3 % (0.2-1.0); EOSINOPHILS % (AUTO) 0.6 % (0.9-2.9); HEMOGLOBIN 9.2 g/dL (12.0-16.0); LYMPHOCYTES # (AUTO) 0.9 X10^3/uL (1.3-2.9); LYMPHOCYTES % (AUTO) 19.9 % (21.0-51.0); MEAN CORPUSCULAR HEMOGLOBIN 28.6 pg (27.0-34.0); MEAN CORPUSCULAR HGB CONC 33.9 g/dL (33.0-35.0); MEAN CORPUSCULAR VOLUME 84.4 fL (80.0-100.0); MEAN PLATELET VOLUME 6.8 fL (7.4-11.0); MONOCYTES # (AUTO) 0.4 x10^3/uL (0.3-0.8); MONOCYTES % (AUTO) 8.4 % (0.0-13.0); NEUTROPHILS # (AUTO) 3.3 x10^3/uL (2.2-4.8); NEUTROPHILS % (AUTO) 70.8 % (42.0-75.0); PLATELET COUNT 155 X10^3/uL (150.0-450.0); RED CELL DISTRIBUTION WIDTH 16.9 % (11.6-16.5); WHITE BLOOD COUNT 4.7 X10^3/uL (3.6-10.0)
[2019-05-03 06:24] LABS: PREALBUMIN 9.8 mg/dL (18-35.7)
[2019-05-03 06:29] LABS: ALANINE AMINOTRANSFERASE 21 Units/L (12-78); ALBUMIN 1.6 g/dL (3.4-5.0); ALKALINE PHOSPHATASE 92 Units/L (46-116); ASPARTATE AMINO TRANSFERASE 19 Units/L (15-37); BLOOD UREA NITROGEN 31 mg/dL (7-18); CALCIUM 7.2 mg/dL (8.5-10.1); CARBON DIOXIDE 19.1 mmol/L (21-32); CHLORIDE 110 mmol/L (98-107); COR CA(FOR HYPOALB) 9.1 mg/dL (8.5-10.1); COR NA(FOR HYPERGLY) 150 mmol/L (136-145); CREATININE 0.86 mg/dL (0.55-1.02); MAGNESIUM 1.3 mg/dL (1.7-2.9); PHOSPHORUS 2.4 mg/dL (2.6-4.7); SODIUM 146 mmol/L (136-145); TOTAL PROTEIN 5.1 g/dL (6.4-8.2); TRIGLYCERIDES 254 mg/dL (0-150); eGFR NON BLACK RACES > 60 (>60)
[2019-05-03] MEDS ORDERED: KLOR-CON PO PRN (08:37)
[2019-05-03] MEDS ORDERED: MICRO K EXTEN CAP 10 MEQ PO PRN (08:37)
[2019-05-03] MEDS ORDERED: K-DUR TAB 20 MEQ PO PRN (08:37)
[2019-05-03] MEDS ORDERED: POTASSIUM CHL 40 MEQ/NS 0.45% 500 ML IV PRN (08:37)
[2019-05-03] MEDS ORDERED: POTASSIUM CHL 60 MEQ/NS 0.45% 500 ML IV PRN (08:37)
[2019-05-03] MEDS ORDERED: POTASSIUM CHLORIDE LIQ 20 MEQ UDC PO PRN (08:37)
[2019-05-03] MEDS: DUONEB 0.5 MG/3 MG (3 mL) NEB SCH ×4 (09:00→20:47)
[2019-05-03] MEDS: PROTONIX INJ 40 MG VIAL IVP SCH (09:30)
[2019-05-03] MEDS ORDERED: LR 1000 ML IV 1,000 ML IV ONE (09:35)
[2019-05-03] MEDS: K-RIDER 10 MEQ/NS 100 ML 10 MEQ/100 ML BAG IV PRN ×3 (09:42→13:50)
[2019-05-03] MEDS ORDERED: MVI IV SCH ×4 (10:00)
[2019-05-03] MEDS ORDERED: [UNRECOGNIZED DRUG - OTHER] IV SCH ×4 (10:00)
[2019-05-03] MEDS ORDERED: CLINIMIX IV SCH ×4 (10:00)
[2019-05-03] MEDS ORDERED: TRACE ELEMENTS IV SCH ×4 (10:00)
[2019-05-03] MEDS ORDERED: NS 1/2 1000 ML IV 1,000 ML IV SCH (11:00)
[2019-05-03] MEDS ORDERED: HumuLIN R ONE (12:36)
[2019-05-03] MEDS: HumuLIN R SC PRN ×3 (12:43→20:27)
[2019-05-03] MEDS: LR 1000 ML IV 1,000 ML IV SCH ×2 (12:47→19:05)
[2019-05-03] MEDS: [UNRECOGNIZED DRUG - OTHER] IV SCH ×5 (13:10)
[2019-05-03] MEDS ORDERED: BUTT CREAM (COMPOUND) ONE (13:45)
[2019-05-03] MEDS ORDERED: BUTT CREAM (COMPOUND) TOP PRN (13:57)
[2019-05-03] MEDS: MAGNESIUM SULFATE 1 GRAM/100 mL PREMIX 1 GM/100 ML BAG IV PRN ×4 (16:31→20:25)
[2019-05-03] MEDS: LIPOSYN III 20% 100ML 100 ML IV SCH (20:36)
[2019-05-04] MEDS: CLINIMIX IV SCH ×15 (00:25→10:56)
[2019-05-04] MEDS: [UNRECOGNIZED DRUG - OTHER] IV SCH ×15 (00:25→10:56)
[2019-05-04] MEDS: MVI IV SCH ×15 (00:25→10:56)
[2019-05-04] MEDS: TRACE ELEMENTS IV SCH ×15 (00:25→10:56)
[2019-05-04] MEDS: LR 1000 ML IV 1,000 ML IV SCH ×5 (02:29→21:34)
[2019-05-04 05:09] LABS: BASOPHILS % (AUTO) 0.5 % (0.2-1.0); EOSINOPHILS % (AUTO) 0.9 % (0.9-2.9); HEMOGLOBIN 8.9 g/dL (12.0-16.0); LYMPHOCYTES # (AUTO) 1.1 X10^3/uL (1.3-2.9); LYMPHOCYTES % (AUTO) 23.2 % (21.0-51.0); MEAN CORPUSCULAR HEMOGLOBIN 29.8 pg (27.0-34.0); MEAN CORPUSCULAR HGB CONC 35.5 g/dL (33.0-35.0); MEAN CORPUSCULAR VOLUME 83.7 fL (80.0-100.0); MEAN PLATELET VOLUME 7.3 fL (7.4-11.0); MONOCYTES # (AUTO) 0.5 x10^3/uL (0.3-0.8); MONOCYTES % (AUTO) 11.4 % (0.0-13.0); PLATELET COUNT 104 X10^3/uL (150.0-450.0); RED BLOOD COUNT 2.98 X10^6/uL (3.5-5.4); RED CELL DISTRIBUTION WIDTH 16.6 % (11.6-16.5); WHITE BLOOD COUNT 4.7 X10^3/uL (3.6-10.0)
[2019-05-04 05:26] LABS: MAGNESIUM 1.5 mg/dL (1.7-2.9); PHOSPHORUS 1.3 mg/dL (2.6-4.7)
[2019-05-04] MEDS: MAGNESIUM SULFATE 1 GRAM/100 mL PREMIX 1 GM/100 ML BAG IV PRN ×2 (06:05→07:42)
[2019-05-04 06:36] LABS: ALANINE AMINOTRANSFERASE 20 Units/L (12-78); ALBUMIN 1.6 g/dL (3.4-5.0); ALKALINE PHOSPHATASE 89 Units/L (46-116); ASPARTATE AMINO TRANSFERASE 18 Units/L (15-37); BLOOD UREA NITROGEN 12 mg/dL (7-18); CALCIUM 6.9 mg/dL (8.5-10.1); CARBON DIOXIDE 21.5 mmol/L (21-32); CHLORIDE 104 mmol/L (98-107); COR CA(FOR HYPOALB) 8.8 mg/dL (8.5-10.1); COR NA(FOR HYPERGLY) 139 mmol/L (136-145); CREATININE 0.43 mg/dL (0.55-1.02); SODIUM 137 mmol/L (136-145); TOTAL PROTEIN 5.2 g/dL (6.4-8.2); eGFR NON BLACK RACES > 60 (>60)
[2019-05-04] MEDS: PROTONIX INJ 40 MG VIAL IVP SCH (08:04)
[2019-05-04] MEDS: K-RIDER 10 MEQ/NS 100 ML 10 MEQ/100 ML BAG IV PRN ×4 (08:05→11:34)
[2019-05-04] MEDS: DUONEB 0.5 MG/3 MG (3 mL) NEB SCH ×4 (08:40→21:09)
[2019-05-04] MEDS: MAGNESIUM SULFATE 1 GRAM/100 mL PREMIX 4 G/400 ML BAG IV SCH ×3 (10:56→12:38)
[2019-05-04] MEDS: HumuLIN R SC PRN ×2 (11:52→16:52)
[2019-05-04] MEDS: NORCO 7.5/325 MG TAB PO PRN (13:12)
[2019-05-04] MEDS: LEVAQUIN PREMIX IV 750 MG 750 MG/150 ML BAG IV SCH (14:43)
[2019-05-04] MEDS ORDERED: STERILE WATER IRRIGATION IR ONE (16:59)
[2019-05-04] MEDS: LIPOSYN III 20% 100ML 100 ML IV SCH (20:21)
[2019-05-05] MEDS: LR 1000 ML IV 1,000 ML IV SCH ×2 (03:09→06:41)
[2019-05-05] MEDS: TRACE ELEMENTS IV SCH ×21 (03:20→21:02)
[2019-05-05] MEDS: MVI IV SCH ×21 (03:20→21:02)
[2019-05-05] MEDS: CLINIMIX IV SCH ×21 (03:20→21:02)
[2019-05-05] MEDS: [UNRECOGNIZED DRUG - OTHER] IV SCH ×21 (03:20→21:02)
[2019-05-05 06:51] LABS: BASOPHILS % (AUTO) 0.6 % (0.2-1.0); EOSINOPHILS % (AUTO) 0.8 % (0.9-2.9); HEMATOCRIT 27.5 % (36.0-47.0); HEMOGLOBIN 9.4 g/dL (12.0-16.0); LYMPHOCYTES # (AUTO) 1.1 X10^3/uL (1.3-2.9); LYMPHOCYTES % (AUTO) 20.3 % (21.0-51.0); MEAN CORPUSCULAR HEMOGLOBIN 28.5 pg (27.0-34.0); MEAN CORPUSCULAR HGB CONC 34.2 g/dL (33.0-35.0); MEAN CORPUSCULAR VOLUME 83.4 fL (80.0-100.0); MEAN PLATELET VOLUME 7.2 fL (7.4-11.0); MONOCYTES # (AUTO) 0.7 x10^3/uL (0.3-0.8); NEUTROPHILS # (AUTO) 3.3 x10^3/uL (2.2-4.8); NEUTROPHILS % (AUTO) 64.3 % (42.0-75.0); PLATELET COUNT 78 X10^3/uL (150.0-450.0); RED BLOOD COUNT 3.29 X10^6/uL (3.5-5.4); RED CELL DISTRIBUTION WIDTH 16.6 % (11.6-16.5); WHITE BLOOD COUNT 5.2 X10^3/uL (3.6-10.0)
[2019-05-05 06:52] LABS: MAGNESIUM 1.5 mg/dL (1.7-2.9); PHOSPHORUS 1.5 mg/dL (2.6-4.7)
[2019-05-05 06:55] LABS: ALANINE AMINOTRANSFERASE 30 Units/L (12-78); ALBUMIN 1.7 g/dL (3.4-5.0); ALKALINE PHOSPHATASE 112 Units/L (46-116); ASPARTATE AMINO TRANSFERASE 34 Units/L (15-37); BLOOD UREA NITROGEN 10 mg/dL (7-18); CALCIUM 7.1 mg/dL (8.5-10.1); CARBON DIOXIDE 22.7 mmol/L (21-32); CHLORIDE 103 mmol/L (98-107); COR CA(FOR HYPOALB) 8.9 mg/dL (8.5-10.1); COR NA(FOR HYPERGLY) 137 mmol/L (136-145); CREATININE 0.42 mg/dL (0.55-1.02); SODIUM 134 mmol/L (136-145); TOTAL PROTEIN 5.7 g/dL (6.4-8.2); eGFR NON BLACK RACES > 60 (>60)
[2019-05-05] MEDS: NORCO 7.5/325 MG TAB PO PRN ×2 (07:30→15:14)
[2019-05-05] MEDS: DUONEB 0.5 MG/3 MG (3 mL) NEB SCH ×4 (08:37→20:54)
[2019-05-05] MEDS: NS 1000 ML 1,000 ML IV SCH ×2 (08:46→16:14)
[2019-05-05] MEDS: ACTOS PO SCH (08:46)
[2019-05-05] MEDS: MAGNESIUM SULFATE 1 GRAM/100 mL PREMIX 4 G/400 ML BAG IV SCH ×4 (08:47→15:03)
[2019-05-05] MEDS: GLUCOPHAGE XR PO SCH ×2 (08:47→21:02)
[2019-05-05] MEDS: PROTONIX INJ 40 MG VIAL IVP SCH (08:47)
[2019-05-05] MEDS: HumuLIN R SC PRN ×3 (11:42→21:04)
[2019-05-05] MEDS ORDERED: NS IRRIGATION 500 ML IR ONE (15:41)
[2019-05-05] MEDS: DIFLUCAN 200 MG IV PREMIX* 200 MG/100 ML BAG IV SCH (16:34)
[2019-05-05] MEDS: LIPOSYN III 20% 100ML 100 ML IV SCH (21:03)
[2019-05-06] MEDS: NS 1000 ML 1,000 ML IV SCH ×4 (03:05→19:00)
[2019-05-06] MEDS: NORCO 7.5/325 MG TAB PO PRN (06:21)
[2019-05-06 06:37] LABS: BASOPHILS % (AUTO) 0.3 % (0.2-1.0); EOSINOPHILS % (AUTO) 0.7 % (0.9-2.9); HEMATOCRIT 25.2 % (36.0-47.0); HEMOGLOBIN 8.7 g/dL (12.0-16.0); LYMPHOCYTES # (AUTO) 0.9 X10^3/uL (1.3-2.9); LYMPHOCYTES % (AUTO) 13.3 % (21.0-51.0); MEAN CORPUSCULAR HEMOGLOBIN 28.9 pg (27.0-34.0); MEAN CORPUSCULAR HGB CONC 34.4 g/dL (33.0-35.0); MEAN CORPUSCULAR VOLUME 83.8 fL (80.0-100.0); MEAN PLATELET VOLUME 7.2 fL (7.4-11.0); MONOCYTES # (AUTO) 0.7 x10^3/uL (0.3-0.8); MONOCYTES % (AUTO) 9.8 % (0.0-13.0); NEUTROPHILS % (AUTO) 75.9 % (42.0-75.0); PLATELET COUNT 82 X10^3/uL (150.0-450.0); RED BLOOD COUNT 3.01 X10^6/uL (3.5-5.4); RED CELL DISTRIBUTION WIDTH 16.7 % (11.6-16.5); WHITE BLOOD COUNT 6.6 X10^3/uL (3.6-10.0)
[2019-05-06 06:50] LABS: ALANINE AMINOTRANSFERASE 35 Units/L (12-78); ALBUMIN 1.6 g/dL (3.4-5.0); ALKALINE PHOSPHATASE 126 Units/L (46-116); ASPARTATE AMINO TRANSFERASE 48 Units/L (15-37); BLOOD UREA NITROGEN 10 mg/dL (7-18); CALCIUM 7.1 mg/dL (8.5-10.1); CARBON DIOXIDE 18.7 mmol/L (21-32); CHLORIDE 104 mmol/L (98-107); COR NA(FOR HYPERGLY) 135 mmol/L (136-145); CREATININE 0.38 mg/dL (0.55-1.02); MAGNESIUM 1.7 mg/dL (1.7-2.9); SODIUM 133 mmol/L (136-145); TOTAL PROTEIN 5.6 g/dL (6.4-8.2); eGFR NON BLACK RACES > 60 (>60)
[2019-05-06] MEDS: DIFLUCAN 200 MG IV PREMIX* 200 MG/100 ML BAG IV SCH (09:10)
[2019-05-06] MEDS: ACTOS PO SCH (09:11)
[2019-05-06] MEDS: GLUCOPHAGE XR PO SCH ×2 (09:11→21:10)
[2019-05-06] MEDS: PROTONIX INJ 40 MG VIAL IVP SCH (09:11)
[2019-05-06] MEDS: DUONEB 0.5 MG/3 MG (3 mL) NEB SCH ×4 (09:59→20:15)
[2019-05-06] MEDS: TRACE ELEMENTS IV SCH ×12 (12:47→18:29)
[2019-05-06] MEDS: [UNRECOGNIZED DRUG - OTHER] IV SCH ×12 (12:47→18:29)
[2019-05-06] MEDS: CLINIMIX IV SCH ×12 (12:47→18:29)
[2019-05-06] MEDS: MVI IV SCH ×12 (12:47→18:29)
[2019-05-06] MEDS ORDERED: STERILE WATER IRRIGATION IR ONE (14:22)
[2019-05-06] MEDS: NULYTELY or GO-LYTELY PO SCH (16:30)
[2019-05-06] MEDS ORDERED: MIRALAX POWDER (255 GRAMS BTL) PO ONE ×2 (16:34→17:00)
[2019-05-06] MEDS: LIPOSYN III 20% 100ML 100 ML IV SCH (21:10)
[2019-05-07] MEDS: NS 1000 ML 1,000 ML IV SCH ×2 (01:49→10:20)
[2019-05-07] MEDS: [UNRECOGNIZED DRUG - OTHER] IV SCH ×6 (04:00)
[2019-05-07] MEDS: TRACE ELEMENTS IV SCH ×6 (04:00)
[2019-05-07] MEDS: MVI IV SCH ×6 (04:00)
[2019-05-07] MEDS: CLINIMIX IV SCH ×6 (04:00)
[2019-05-07] MEDS: PROTONIX INJ 40 MG VIAL IVP SCH (08:32)
[2019-05-07] MEDS: DUONEB 0.5 MG/3 MG (3 mL) NEB SCH (09:09)
[2019-05-07 09:24] LABS: BASOPHILS % (AUTO) 0.6 % (0.2-1.0); EOSINOPHILS # (AUTO) 0.1 x10^3/uL (0.0-0.2); HEMATOCRIT 26.5 % (36.0-47.0); LYMPHOCYTES # (AUTO) 1.1 X10^3/uL (1.3-2.9); MEAN CORPUSCULAR HEMOGLOBIN 28.5 pg (27.0-34.0); MEAN CORPUSCULAR HGB CONC 34.1 g/dL (33.0-35.0); MEAN CORPUSCULAR VOLUME 83.7 fL (80.0-100.0); MEAN PLATELET VOLUME 7.3 fL (7.4-11.0); MONOCYTES # (AUTO) 0.9 x10^3/uL (0.3-0.8); MONOCYTES % (AUTO) 12.4 % (0.0-13.0); PLATELET COUNT 103 X10^3/uL (150.0-450.0); RED BLOOD COUNT 3.16 X10^6/uL (3.5-5.4); RED CELL DISTRIBUTION WIDTH 16.6 % (11.6-16.5); WHITE BLOOD COUNT 7.1 X10^3/uL (3.6-10.0)
[2019-05-07] MEDS: DIFLUCAN 200 MG IV PREMIX* 200 MG/100 ML BAG IV SCH (09:30)
[2019-05-07 09:35] LABS: ALANINE AMINOTRANSFERASE 44 Units/L (12-78); ALBUMIN 1.6 g/dL (3.4-5.0); ALKALINE PHOSPHATASE 126 Units/L (46-116); ASPARTATE AMINO TRANSFERASE 54 Units/L (15-37); BLOOD UREA NITROGEN 5 mg/dL (7-18); CALCIUM 7.4 mg/dL (8.5-10.1); CARBON DIOXIDE 21.2 mmol/L (21-32); CHLORIDE 104 mmol/L (98-107); COR CA(FOR HYPOALB) 9.3 mg/dL (8.5-10.1); COR NA(FOR HYPERGLY) 136 mmol/L (136-145); CREATININE 0.27 mg/dL (0.55-1.02); SODIUM 135 mmol/L (136-145); TOTAL PROTEIN 5.8 g/dL (6.4-8.2); eGFR NON BLACK RACES > 60 (>60)
[2019-05-07] MEDS ORDERED: DIPRIVAN VIAL 20 ML ONE (10:02)
[2019-05-07] MEDS ORDERED: XYLOCAINE-MPF 1% ONE (10:02)
[2019-05-07] MEDS: ACTOS PO SCH (10:20)
[2019-05-07] MEDS: GLUCOPHAGE XR PO SCH (10:21)
[2019-05-07] MEDS: NULYTELY or GO-LYTELY PO SCH (10:22)
--- NOTE | 2019-05-07 10:36 | OR.IMMED ---
Immediate Post-Op Note - Immediate Post-Op Note Pre-Op Diagnosis: anemia, GI bleeding. Post-Op Diagnosis: rectal ulcer with friable mucosa. poor prep amd very limited exam . Procedure: limited colonoscopy with Bx. Surgeon/Barrow Worker: Monty Specimens Removed: rectum. Drains: NONE Condition: Stable (to advance diet .)
[2019-05-07 12:41] VITALS: BP 168/84
[2019-05-07] MEDS ORDERED: XYLOCAINE 1 % (PLAIN) ONE (15:03)
[2019-05-07] MEDS ORDERED: DIPRIVAN VIAL ONE (15:03)
== END 2019-05-07 14:15 | DRG 872 ==
LOC: ER 13:40 → ICU 15:23 → MED/SURG 05-06 16:59
PROVIDERS: ADMIT Obstetrics & Gynecology Obstetrics; ATTEND Obstetrics & Gynecology Obstetrics
DX: E46 Unspecified protein-calorie malnutrition; E83.42 Hypomagnesemia; E87.5 Hyperkalemia; F32.89 Other specified depressive episodes; Z74.01 Bed confinement status; K29.70 Gastritis, unspecified, without bleeding; E11.9 Type 2 diabetes mellitus without complications; D64.89 Other specified anemias; K62.6 Ulcer of anus and rectum; K21.0 Gastro-esophageal reflux disease with esophagitis; N39.0 Urinary tract infection, site not specified; K44.9 Diaphragmatic hernia without obstruction or gangrene; R10.9 Unspecified abdominal pain; K22.2 Esophageal obstruction; A41.89 Other specified sepsis; E87.1 Hypo-osmolality and hyponatremia
CPT/HCPCS: 36415; 36430; 51702; 71010; 71045; 74176; 80053; 81001; 82009; 82550; 82553; 83605; 83735; 84100; 84132; 84134; 84478; 84484; 85025; 86850; 86900; 86901; 86922; 87040; 87086; 93005; 94640; 94669; 96365; 96367; 96374; 96375; 99285; A4217; A4222; B4189; C9113; J1450; J1815; J1817; J1956; J2704; J3475; J3480; J3490; J7030; J7040; J7120; J7620; P9016

== ENCOUNTER 2019-05-09 15:22 | Inpatient (IN) ==
[2019-05-09] MEDS ORDERED: NS 1000 ML 1,000 ML ONE ×5 (15:35→20:58)
[2019-05-09] MEDS ORDERED: NS 1000 ML 1,000 ML IV ONE ×4 (15:48→21:21)
--- NOTE | 2019-05-09 16:09 | DR.AMS ---
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, Tonsillectomy and Other Family History History of Family Medical Conditions: Yes Family Medical History: Cancer Social History Does patient currently use any type of tobacco product: No Have you used tobacco products in the last 12 months: No Type of Tobacco Use: None Does any household member use tobacco: No Alcohol Use: None Do you use any recreational Drugs:: No Lives With: Family Lives Where: Home infectious screening In the last 2 months have you had wt loss of >10#?: NO Have you had fever, night sweats or hemotysis?: No Have you traveled outside the country in the last 6 months?: No Isolation: Standard ROS Review of Systems Unable to Obtain Due To: Altered mental status PE Vitals Vital Signs: Temp Pulse Resp BP BP Pulse Ox 05/09/19 19:30 111 H 19 100 05/09/19 19:15 99 H 19 100 05/09/19 19:00 108 H 20 100 05/09/19 18:58 114 H 25 H 100 05/09/19 18:44 22 138/70 100 05/09/19 17:45 55 L 20 100 05/09/19 17:30 57 L 20 121/54 100 05/09/19 17:18 97/51 05/09/19 17:17 93/52 05/09/19 17:16 94/52 05/09/19 17:15 52 L 20 100/55 100 05/09/19 17:14 123/54 05/09/19 17:00 52 L 21 80/47 99 05/09/19 16:57 52 L 21 81/48 99 05/09/19 16:52 53 L 20 70/45 99 05/09/19 16:45 54 L 20 100 05/09/19 16:43 55 L 21 76/47 100 05/09/19 16:30 55 L 20 79/49 100 05/09/19 16:15 55 L 21 98 05/09/19 16:00 55 L 21 84/48 100 05/09/19 15:53 71 24 81/44 100 05/09/19 15:46 54 L 21 80/47 100 05/09/19 15:45 54 L 21 73/44 100 05/09/19 15:44 96.9 F L 57 L 21 86/49 100 05/09/19 15:43 87/49 05/09/19 15:41 85/53 05/09/19 15:38 81/49 05/09/19 15:35 86/48 05/07/19 12:35 168/84 General Limitations: Altered Mental Status General Appearance: Lethargic and In Distress Head Head Exam: Normal Inspection Eyes Eye exam: Normal Appearance ENT ENT Exam: Mucous Membranes Moist Nose Exam: Normal Nose Exam Mouth Exam: Normal Inspection Chest Chest Inspection: Normal Inspection Respiratory Respiratory Exam: Normal Lung Sounds Bilat and Other (Tachypnea) Cardiovascular Cardiovascular Exam: Normal Heart Sounds; negative Systolic Murmur and Diastolic Murmur Abdominal Exam Abdominal Exam: Normal Bowel Sounds and Soft; negative Distention and Bruit Extremities Extremities Exam: negative Edema Back Back Exam: negative Rashes Neurological Neurological Exam: negative Alert and Motor Sensory Deficit Patient Oriented To: negative Person, Place and Time Skin Skin Exam: Warm, Dry and Intact; negative Diaphoresis, Erythema and Mottled MDM Differential Diagnosis Metabolic: Dehydration, DKA, Hypernatremia, HHNC and Hyponatremia Structural: CVA and SAH Infectious: Sepsis ROR Labs Reviewed Laboratory Results Reviewed?: Yes Result Diagrams: 05/09/19 16:17 05/09/19 16:17 Laboratory: WBC 15.3 X10^3/uL (3.6-10.0) H 05/09/19 16:17 RBC 3.05 X10^6/uL (3.5-5.4) L 05/09/19 16:17 Hgb 8.5 g/dL (12.0-16.0) L 05/09/19 16:17 Hct 27.8 % (36.0-47.0) L 05/09/19 16:17 MCV 91.2 fL (80.0-100.0) 05/09/19 16:17 MCH 27.9 pg (27.0-34.0) 05/09/19 16:17 MCHC 30.5 g/dL (33.0-35.0) L 05/09/19 16:17 RDW 17.6 % (11.6-16.5) H 05/09/19 16:17 Plt Count 232 X10^3/uL (150.0-450.0) 05/09/19 16:17 MPV 6.9 fL (7.4-11.0) L 05/09/19 16:17 Neut % (Auto) 89.6 % (42.0-75.0) H 05/09/19 16:17 Lymph % (Auto) 5.3 % (21.0-51.0) L 05/09/19 16:17 [place] % (Auto) 4.8 % (0.0-13.0) 05/09/19 16:17 Eos % (Auto) 0.0 % (0.9-2.9) L 05/09/19 16:17 Baso % (Auto) 0.3 % (0.2-1.0) 05/09/19 16:17 Neut # (Auto) 13.7 x10^3/uL (2.2-4.8) H 05/09/19 16:17 Lymph # (Auto) 0.8 X10^3/uL (1.3-2.9) L 05/09/19 16:17 [place] # (Auto) 0.7 x10^3/uL (0.3-0.8) 05/09/19 16:17 Eos # (Auto) 0.0 x10^3/uL (0.0-0.2) 05/09/19 16:17 Baso # (Auto) 0.0 X10^3/uL (0.0-0.1) 05/09/19 16:17 Absolute Nucleated RBC 0.0 /100WBC 05/09/19 16:17 Sample Site Rrad 05/09/19 17:17 ABG pH 6.900 (7.35-7.45) L* 05/09/19 17:17 ABG pCO2 12.0 mmHg (35.0-45.0) L* 05/09/19 17:17 ABG pO2 153.0 mmHg (80.0-100.0) H 05/09/19 17:17 ABG HCO3 < 3.0 mmol/L (22-26) L* 05/09/19 17:17 ABG O2 Saturation Not Reportable 05/09/19 17:17 ABG Base Excess Not Reportable 05/09/19 17:17 Fabián Test Pos 05/09/19 17:17 A-a Gradient -18.0 mmHg 05/09/19 17:17 FiO2 21.0 05/09/19 17:17 Blood Gas Comments Pt jahaira well elj 05/09/19 17:17 Sodium 142 mmol/L (136-145) 05/09/19 16:17 Corrected Sodium 143 mmol/L (136-145) 05/09/19 16:17 Potassium 3.6 mmol/L (3.5-5.1) 05/09/19 16:17 Chloride 107 mmol/L (98-107) 05/09/19 16:17 Carbon Dioxide 5.5 mmol/L (21-32) L* 05/09/19 16:17 BUN 18 mg/dL (7-18) 05/09/19 16:17 Creatinine 0.87 mg/dL (0.55-1.02) 05/09/19 16:17 Est GFR (MDRD) Af Amer > 60 (>60) 05/09/19 16:17 Est GFR (MDRD) Non-Af > 60 (>60) 05/09/19 16:17 Glucose 144 mg/dL (65-99) H 05/09/19 16:17 Lactic Acid 0.6 mmol/L (0.4-2.0) 05/09/19 16:17 Calcium 9.4 mg/dL (8.5-10.1) 05/09/19 16:17 Corrected Calcium 11.2 mg/dL (8.5-10.1) H 05/09/19 16:17 Total Bilirubin 0.40 mg/dL (0.2-1.0) 05/09/19 16:17 AST 15 Units/L (15-37) 05/09/19 16:17 ALT 29 Units/L (12-78) 05/09/19 16:17 Alkaline Phosphatase 111 Units/L (46-116) 05/09/19 16:17 Total Protein 6.3 g/dL (6.4-8.2) L 05/09/19 16:17 Albumin 1.7 g/dL (3.4-5.0) L 05/09/19 16:17 Globulin 4.6 g/dL (2.5-4.5) H 05/09/19 16:17 Albumin/Globulin Ratio 0.4 Ratio (1.1-2.1) L 05/09/19 16:17 Specimen Type Catherized urine 05/09/19 16:15 Urine Color Pale yellow (YELLOW) 05/09/19 16:15 Urine Appearance Turbid (CLEAR) 05/09/19 16:15 Urine pH 6.0 (5.0 - 8.0) 05/09/19 16:15 Ur Specific [place] 1.015 (1.000-1.030) 05/09/19 16:15 Urine Protein 3+ (NEGATIVE) 05/09/19 16:15 Urine Glucose (UA) 3+ (NEGATIVE) 05/09/19 16:15 Urine Ketones 4+ (NEGATIVE) 05/09/19 16:15 Urine Occult Blood 5+ (NEGATIVE) 05/09/19 16:15 Urine Nitrite Negative (NEGATIVE) 05/09/19 16:15 Urine Bilirubin Negative (NEGATIVE) 05/09/19 16:15 Urine Urobilinogen Normal (NORMAL) 05/09/19 16:15 Ur Leukocyte Esterase 3+ (NEGATIVE) 05/09/19 16:15 Urine RBC Tntc /HPF (0-3) A 05/09/19 16:15 Urine WBC Tntc /HPF (0-5) A 05/09/19 16:15 Ur Squamous Epith Cells Negative /HPF (NEGATIVE) 05/09/19 16:15 Urine Bacteria Trace /HPF (NEGATIVE) 05/09/19 16:15 Urine Yeast Numerous /HPF (NEGATIVE) 05/09/19 16:15 Ur Culture Indicated? Yes/culture set up 05/09/19 16:15 Other Results Comments: HISTORY AMS STUDY BRAIN W/O CON COMPARISON T 04/10/2019 ECHNIQUE Multiple axial images of the abdomen and pelvis were obtained from the lung bases to the pubic symphysis without contrast. Dose reduction techniques including Automated Exposure Control (AEC) and adjustment of mA and kV were utilized. FINDINGS The ventricles are borderline enlarged with diffuse mild prominence of the cortical sulci which is unchanged. No intracranial hemorrhage or edema is seen. There is no extra-axial fluid collection or mass. There is mild periventricular low density bilaterally which is unchanged. The midline structures unremarkable. The bones are intact. IMPRESSION Mild atrophy and mild chronic microischemic changes scattered in the deep white matter which is unchanged with no acute abnormality seen. Electronically signed by: DARIAN ANDERSON (May 09, 2019 18:19:43) HISTORY TACHYPNEA STUDY CHEST, 1 VIEW COMPARISON May 01, 2019 TECHNIQUE Portable supine radiograph, single view FINDINGS Rotated supine radiographs of the chest are performed. Small quantity of sub segmental atelectasis is demonstrated within the left lung base. Otherwise no consolidating infiltrates or significant pleural fluid collections are identified. The heart size is stable. Moderate thoracolumbar scoliosis is evident. IMPRESSION Small quantities of subsegmental atelectasis of the left lower lobe. Otherwise no consolidating infiltrates or significant pleural fluid collections identified within limitations of the technique. Moderate thoracolumbar scoliosis Electronically signed by: CATHIE GUAMAN (May 09, 2019 16:54:55) EKG Rate: 58 (Prolonged QT) Shelly: Normal Rhythm: SB Block: None Hypertrophy: None ST: Nonsp Opioid Opioid Risk Tool Family Hx of Substance Abuse: Illegal Drugs Age (Ranulfo box if 16-45): No History of Preadolescent Sexual Abuse: No Total: 1 Total Score Risk Category: Low Risk Copyright: Osiel KEY predicting aberrant behaviors Procedures Procedure Comments Procedures: critical care time 74 min Diagnosis Discharge Problem: Metabolic acidosis Sepsis Qualifiers: Sepsis type: Magaly Sepsis acute organ dysfunction status: with acute organ dysfunction Severe sepsis acute organ dysfunction type: unspecified Severe sepsis shock status: with septic shock Qualified Code(s): B37.7 - Candidal sepsis Anemia Qualifiers: Anemia type: unspecified type Qualified Code(s): D64.9 - Anemia, unspecified
[2019-05-09 16:40] LABS: BASOPHILS % (AUTO) 0.3 % (0.2-1.0); HEMATOCRIT 27.8 % (36.0-47.0); HEMOGLOBIN 8.5 g/dL (12.0-16.0); LYMPHOCYTES # (AUTO) 0.8 X10^3/uL (1.3-2.9); LYMPHOCYTES % (AUTO) 5.3 % (21.0-51.0); MEAN CORPUSCULAR HEMOGLOBIN 27.9 pg (27.0-34.0); MEAN CORPUSCULAR HGB CONC 30.5 g/dL (33.0-35.0); MEAN CORPUSCULAR VOLUME 91.2 fL (80.0-100.0); MEAN PLATELET VOLUME 6.9 fL (7.4-11.0); MONOCYTES # (AUTO) 0.7 x10^3/uL (0.3-0.8); MONOCYTES % (AUTO) 4.8 % (0.0-13.0); NEUTROPHILS # (AUTO) 13.7 x10^3/uL (2.2-4.8); NEUTROPHILS % (AUTO) 89.6 % (42.0-75.0); PLATELET COUNT 232 X10^3/uL (150.0-450.0); RED BLOOD COUNT 3.05 X10^6/uL (3.5-5.4); RED CELL DISTRIBUTION WIDTH 17.6 % (11.6-16.5); WHITE BLOOD COUNT 15.3 X10^3/uL (3.6-10.0)
[2019-05-09 16:43] LABS: BILIRUBIN,URINE NEGATIVE (NEGATIVE); BLOOD/HEMOGLOBIN,URINE 5+ (NEGATIVE); GLUCOSE, URINE 3+ (NEGATIVE); KETONES,URINE 4+ (NEGATIVE); LEUKOCYTE ESTERASE ,URINE 3+ (NEGATIVE); NITRITES,URINE NEGATIVE (NEGATIVE); PROTEIN,URINE 3+ (NEGATIVE); UROBILINOGEN,URINE NORMAL (NORMAL)
[2019-05-09 16:43] LABS: BLOOD UREA NITROGEN 18 mg/dL (7-18); CALCIUM 9.4 mg/dL (8.5-10.1); CHLORIDE 107 mmol/L (98-107); COR NA(FOR HYPERGLY) 143 mmol/L (136-145); CREATININE 0.87 mg/dL (0.55-1.02); SODIUM 142 mmol/L (136-145); eGFR NON BLACK RACES > 60 (>60)
[2019-05-09 16:47] LABS: ALANINE AMINOTRANSFERASE 29 Units/L (12-78); ALBUMIN 1.7 g/dL (3.4-5.0); ALKALINE PHOSPHATASE 111 Units/L (46-116); ASPARTATE AMINO TRANSFERASE 15 Units/L (15-37); COR CA(FOR HYPOALB) 11.2 mg/dL (8.5-10.1); TOTAL PROTEIN 6.3 g/dL (6.4-8.2)
[2019-05-09 16:50] LABS: LACTIC ACID 0.6 mmol/L (0.4-2.0)
--- NOTE | 2019-05-09 16:56 | RAD ---
HISTORYTACHYPNEASTUDYCHEST, 1 VIEWCOMPARISONJanuary 2019TECHNIQUEPortable supine radiograph, single viewFINDINGSRotated supine radiographs of the chest are performed. Small quantity of subsegmental atelectasis is demonstrated within the left lung base. Otherwise no consolidating infiltrates or significant pleural fluid collections are identified. The heart size is stable. Moderate thoracolumbar scoliosis is evident.IMPRESSIONSmall quantities of subsegmental atelectasis of the left lower lobe. Otherwise no consolidating infiltrates or significant pleural fluid collections identified within limitations of the technique.Moderate thoracolumbar scoliosisElectronically signed by: CATHIE GUAMAN (May 09, 2019 16:54:55)
[2019-05-09 17:04] LABS: APPEARANCE,URINE TURBID (CLEAR); BACTERIA,URINE TRACE /HPF (NEGATIVE); COLOR,URINE PALE YELLOW (YELLOW); RBC,URINE TNTC /HPF (0-3); SQUAMOUS EPITHELIAL CELL,UR NEGATIVE /HPF (NEGATIVE); YEAST,URINE NUMEROUS /HPF (NEGATIVE)
[2019-05-09 17:09] LABS: CARBON DIOXIDE 5.5 mmol/L (21-32)
[2019-05-09] MEDS: LEVOPHED INJ 8 MG in D5W 250 ML IV 242 ML IV PRN (17:21)
[2019-05-09 17:28] LABS: ABG ALLEN TEST POS; ABG HCO3 < 3.0 mmol/L (22-26)
[2019-05-09] MEDS ORDERED: NS 100 ML IV 100 ML IV ONE (17:32)
[2019-05-09] MEDS ORDERED: MAXIPIME VIAL 1 GRAM ONE (17:32)
[2019-05-09] MEDS: MAXIPIME VIAL 1 GRAM 1 G in NS 50 ML IV + SPIKE MINIBAG* 50 ML IV SCH ×2 (17:46→22:36)
--- NOTE | 2019-05-09 18:21 | CT ---
HISTORYAMSSTUDYBRAIN W/O CONCOMPARISONT 04/10/2019 ECHNIQUEMultiple axial images of the abdomen and pelvis were obtained from the lung bases to the pubic symphysis without contrast. Dose reduction techniques including Automated Exposure Control (AEC) and adjustment of mA and kV were utilized.FINDINGSThe ventricles are borderline enlarged with diffuse mild prominence of the cortical sulci which is unchanged. No intracranial hemorrhage or edema is seen. There is no extra-axial fluid collection or mass. There is mild periventricular low density bilaterally which is unchanged. The midline structures unremarkable. The bones are intact.IMPRESSIONMild atrophy and mild chronic microischemic changes scattered in the deep white matter which is unchanged with no acute abnormality seen.Electronically signed by: DARIAN ANDERSON (May 09, 2019 18:19:43)
[2019-05-09] MEDS ORDERED: NS 1000 ML 500 ML IV ONE (18:44)
[2019-05-09] MEDS ORDERED: SODIUM BICARBONATE 8.4% INJ ADULT ONE (20:14)
[2019-05-09] MEDS ORDERED: SODIUM BICARBONATE 8.4% INJ ADULT IVP ONE (20:29)
[2019-05-10 01:02] VITALS: BMI 23.6
[2019-05-10] MEDS ORDERED: NS 1000 ML 1,000 ML IV ONE (02:32)
[2019-05-10] MEDS ORDERED: LANOXIN INJ IVP ONE (02:34)
[2019-05-10] MEDS ORDERED: NS 1000 ML 1,000 ML ONE (02:37)
[2019-05-10] MEDS ORDERED: LANOXIN INJ ONE (02:38)
[2019-05-10] MEDS ORDERED: LR 1000 ML IV 1,000 ML IV ONE ×2 (03:09→04:11)
[2019-05-10 03:10] LABS: ABG HCO3 < 3.0 mmol/L (22-26)
[2019-05-10] MEDS ORDERED: SODIUM BICARBONATE 8.4% INJ ADULT IVP ONE (03:45)
[2019-05-10] MEDS ORDERED: SODIUM BICARBONATE 8.4% INJ ADULT ONE ×4 (03:59→20:22)
[2019-05-10] MEDS: LEVOPHED INJ 8 MG in D5W 250 ML IV 242 ML IV PRN ×3 (04:30→21:00)
[2019-05-10] MEDS ORDERED: NS 1/2 1000 ML IV 1,000 ML IV ONE ×3 (04:40→20:22)
[2019-05-10] MEDS: NS 1/2 1000 ML IV 1,000 ML with SODIUM BICARBONATE 8.4% INJ ADULT 50 ML IV SCH ×6 (05:00→21:05)
[2019-05-10 05:23] LABS: BASOPHILS # (AUTO) 0.1 X10^3/uL (0.0-0.1); BASOPHILS % (AUTO) 0.6 % (0.2-1.0); EOSINOPHILS # (AUTO) 0.1 x10^3/uL (0.0-0.2); EOSINOPHILS % (AUTO) 0.3 % (0.9-2.9); HEMATOCRIT 31.9 % (36.0-47.0); HEMOGLOBIN 9.9 g/dL (12.0-16.0); LYMPHOCYTES # (AUTO) 1.2 X10^3/uL (1.3-2.9); LYMPHOCYTES % (AUTO) 4.7 % (21.0-51.0); MEAN CORPUSCULAR HEMOGLOBIN 27.8 pg (27.0-34.0); MEAN CORPUSCULAR VOLUME 89.9 fL (80.0-100.0); MEAN PLATELET VOLUME 7.2 fL (7.4-11.0); MONOCYTES # (AUTO) 1.1 x10^3/uL (0.3-0.8); NEUTROPHILS % (AUTO) 90.4 % (42.0-75.0); PLATELET COUNT 426 X10^3/uL (150.0-450.0); RED BLOOD COUNT 3.55 X10^6/uL (3.5-5.4); WHITE BLOOD COUNT 26.5 X10^3/uL (3.6-10.0)
[2019-05-10 05:36] LABS: ALANINE AMINOTRANSFERASE 28 Units/L (12-78); ALBUMIN 1.3 g/dL (3.4-5.0); ALKALINE PHOSPHATASE 137 Units/L (46-116); ASPARTATE AMINO TRANSFERASE 32 Units/L (15-37); BLOOD UREA NITROGEN 19 mg/dL (7-18); CALCIUM 8.1 mg/dL (8.5-10.1); CHLORIDE 111 mmol/L (98-107); COR CA(FOR HYPOALB) 10.3 mg/dL (8.5-10.1); COR NA(FOR HYPERGLY) 149 mmol/L (136-145); CREATININE 0.84 mg/dL (0.55-1.02); SODIUM 147 mmol/L (136-145); TOTAL PROTEIN 5.5 g/dL (6.4-8.2); eGFR NON BLACK RACES > 60 (>60)
[2019-05-10 06:07] LABS: ANISOCYTOSIS 2+; BAND NEUTROPHILS % 12 % (0-10); BASOPHILS % (MANUAL) 0 % (0-1); PLATELET MORPHOLOGY COMMENT NORMAL (NORMAL); POIKILOCYTOSIS 1+
[2019-05-10] MEDS ORDERED: NS 1000 ML 1,000 ML IV SCH ×2 (08:00→11:20)
[2019-05-10] MEDS: LOVENOX INJ 30 MG SYR SC SCH (09:03)
[2019-05-10] MEDS: MAXIPIME VIAL 1 GRAM 1 G in NS 50 ML IV + SPIKE MINIBAG* 50 ML IV SCH ×2 (09:04→20:33)
[2019-05-10 11:35] LABS: ABG BASE EXCESS -22.9 mmol/L (-2.0-2.0)
[2019-05-10] MEDS ORDERED: NS 500 ML IV 500 ML IV ONE (13:59)
[2019-05-10] MEDS ORDERED: STERILE WATER IRRIGATION IR ONE (16:50)
[2019-05-10 21:36] LABS: HEMATOCRIT 33.6 % (36.0-47.0); HEMOGLOBIN 10.7 g/dL (12.0-16.0)
[2019-05-11] MEDS ORDERED: SODIUM BICARBONATE 8.4% INJ ADULT ONE ×5 (02:41→19:37)
[2019-05-11] MEDS ORDERED: NS 1/2 1000 ML IV 1,000 ML IV ONE ×5 (02:41→19:37)
[2019-05-11] MEDS: NS 1/2 1000 ML IV 1,000 ML with SODIUM BICARBONATE 8.4% INJ ADULT 50 ML IV SCH ×8 (03:32→20:31)
[2019-05-11 05:06] LABS: BASOPHILS % (AUTO) 0.3 % (0.2-1.0); HEMATOCRIT 30.9 % (36.0-47.0); HEMOGLOBIN 10.1 g/dL (12.0-16.0); LYMPHOCYTES # (AUTO) 0.8 X10^3/uL (1.3-2.9); LYMPHOCYTES % (AUTO) 6.4 % (21.0-51.0); MEAN CORPUSCULAR HEMOGLOBIN 28.1 pg (27.0-34.0); MEAN CORPUSCULAR HGB CONC 32.6 g/dL (33.0-35.0); MEAN CORPUSCULAR VOLUME 86.3 fL (80.0-100.0); MEAN PLATELET VOLUME 6.9 fL (7.4-11.0); MONOCYTES % (AUTO) 7.9 % (0.0-13.0); NEUTROPHILS # (AUTO) 11.2 x10^3/uL (2.2-4.8); NEUTROPHILS % (AUTO) 85.4 % (42.0-75.0); PLATELET COUNT 217 X10^3/uL (150.0-450.0); RED BLOOD COUNT 3.58 X10^6/uL (3.5-5.4); RED CELL DISTRIBUTION WIDTH 17.2 % (11.6-16.5); WHITE BLOOD COUNT 13.2 X10^3/uL (3.6-10.0)
[2019-05-11 05:14] LABS: ABG BASE EXCESS -21.7 mmol/L (-2.0-2.0)
[2019-05-11 05:15] LABS: ABG HCO3 4.6 mmol/L (22-26)
[2019-05-11 05:21] LABS: ALBUMIN 1.3 g/dL (3.4-5.0); CALCIUM 7.2 mg/dL (8.5-10.1); COR CA(FOR HYPOALB) 9.4 mg/dL (8.5-10.1); CREATININE 1.22 mg/dL (0.55-1.02)
[2019-05-11 05:22] LABS: CARBON DIOXIDE 7.1 mmol/L (21-32)
[2019-05-11] MEDS ORDERED: MICRO K EXTEN CAP 10 MEQ PO PRN (06:59)
[2019-05-11] MEDS ORDERED: POTASSIUM CHL 40 MEQ/NS 0.45% 500 ML IV PRN (06:59)
[2019-05-11] MEDS ORDERED: KLOR-CON PO PRN (06:59)
[2019-05-11] MEDS ORDERED: K-DUR TAB 20 MEQ PO PRN (06:59)
[2019-05-11] MEDS ORDERED: POTASSIUM CHLORIDE LIQ 20 MEQ UDC PO PRN (06:59)
[2019-05-11] MEDS ORDERED: HumuLIN R SUBCUT PRN (07:00)
[2019-05-11] MEDS ORDERED: SODIUM BICARBONATE 8.4% INJ ADULT IVP ONE (07:01)
[2019-05-11] MEDS: LANOXIN INJ IVP SCH ×2 (07:33→08:07)
[2019-05-11] MEDS: MAGNESIUM SULFATE 1 GRAM/100 mL PREMIX 1 GM/100 ML BAG IV PRN ×6 (07:34→12:23)
[2019-05-11] MEDS: LOVENOX INJ 30 MG SYR SC SCH (08:05)
[2019-05-11] MEDS: MAXIPIME VIAL 1 GRAM 1 G in NS 50 ML IV + SPIKE MINIBAG* 50 ML IV SCH ×2 (09:25→20:37)
[2019-05-11] MEDS: ALBUMIN HUMAN 25%- 100 ML 100 ML IV SCH ×2 (11:13→20:31)
[2019-05-11] MEDS: K-RIDER 10 MEQ/NS 100 ML 10 MEQ/100 ML BAG IV PRN ×3 (13:25→20:00)
[2019-05-11] MEDS: SNACK - Diabetic Appropriate PO SCH (20:31)
[2019-05-12] MEDS ORDERED: NS 1/2 1000 ML IV 1,000 ML IV ONE ×2 (01:44→06:24)
[2019-05-12] MEDS ORDERED: SODIUM BICARBONATE 8.4% INJ ADULT ONE ×2 (01:44→06:24)
[2019-05-12] MEDS: NS 1/2 1000 ML IV 1,000 ML with SODIUM BICARBONATE 8.4% INJ ADULT 50 ML IV SCH ×4 (02:41→06:35)
[2019-05-12 04:29] LABS: BASOPHILS # (AUTO) 0.1 X10^3/uL (0.0-0.1); BASOPHILS % (AUTO) 0.8 % (0.2-1.0); EOSINOPHILS % (AUTO) 0.2 % (0.9-2.9); HEMATOCRIT 27.5 % (36.0-47.0); HEMOGLOBIN 9.5 g/dL (12.0-16.0); LYMPHOCYTES # (AUTO) 0.6 X10^3/uL (1.3-2.9); MEAN CORPUSCULAR HEMOGLOBIN 28.4 pg (27.0-34.0); MEAN CORPUSCULAR HGB CONC 34.3 g/dL (33.0-35.0); MEAN CORPUSCULAR VOLUME 82.7 fL (80.0-100.0); MEAN PLATELET VOLUME 6.6 fL (7.4-11.0); MONOCYTES # (AUTO) 0.5 x10^3/uL (0.3-0.8); MONOCYTES % (AUTO) 6.5 % (0.0-13.0); NEUTROPHILS # (AUTO) 6.7 x10^3/uL (2.2-4.8); NEUTROPHILS % (AUTO) 84.5 % (42.0-75.0); PLATELET COUNT 201 X10^3/uL (150.0-450.0); RED BLOOD COUNT 3.33 X10^6/uL (3.5-5.4); RED CELL DISTRIBUTION WIDTH 16.8 % (11.6-16.5); WHITE BLOOD COUNT 7.9 X10^3/uL (3.6-10.0)
[2019-05-12 04:49] LABS: CALCIUM 7.4 mg/dL (8.5-10.1); CREATININE 1.21 mg/dL (0.55-1.02); MAGNESIUM 1.9 mg/dL (1.7-2.9); TOTAL PROTEIN 5.3 g/dL (6.4-8.2)
[2019-05-12 05:19] LABS: CARBON DIOXIDE 13.3 mmol/L (21-32)
[2019-05-12 05:36] LABS: ABG ALLEN TEST POS; ABG BASE EXCESS -10.6 mmol/L (-2.0-2.0); ABG HCO3 13.7 mmol/L (22-26)
[2019-05-12] MEDS: LANOXIN INJ IVP SCH (09:10)
[2019-05-12] MEDS: ALBUMIN HUMAN 25%- 100 ML 100 ML IV SCH ×2 (09:11→21:40)
[2019-05-12] MEDS: LOVENOX INJ 30 MG SYR SC SCH (09:12)
[2019-05-12] MEDS: NS 1/2 + KCL 20 MEQ/L 1,000 ML IV SCH ×3 (09:12→17:29)
[2019-05-12] MEDS: MAXIPIME VIAL 1 GRAM 1 G in NS 50 ML IV + SPIKE MINIBAG* 50 ML IV SCH ×2 (09:19→21:43)
[2019-05-12] MEDS: POTASSIUM CHL 60 MEQ/NS 0.45% 500 ML IV PRN (10:36)
[2019-05-12] MEDS: SNACK - Diabetic Appropriate PO SCH (21:16)
[2019-05-12] MEDS: K-RIDER 10 MEQ/NS 100 ML 10 MEQ/100 ML BAG IV PRN ×3 (21:43→23:34)
[2019-05-12] MEDS: MORPHINE SULFATE INJ 4 MG IVP PRN (21:54)
[2019-05-13] MEDS: K-RIDER 10 MEQ/NS 100 ML 10 MEQ/100 ML BAG IV PRN ×6 (00:33→21:00)
[2019-05-13] MEDS: NS 1/2 + KCL 20 MEQ/L 1,000 ML IV SCH ×4 (00:33→20:32)
[2019-05-13 05:07] LABS: BASOPHILS % (AUTO) 0.8 % (0.2-1.0); EOSINOPHILS % (AUTO) 0.6 % (0.9-2.9); HEMATOCRIT 28.8 % (36.0-47.0); HEMOGLOBIN 9.8 g/dL (12.0-16.0); LYMPHOCYTES # (AUTO) 0.9 X10^3/uL (1.3-2.9); LYMPHOCYTES % (AUTO) 15.1 % (21.0-51.0); MEAN CORPUSCULAR HGB CONC 34.1 g/dL (33.0-35.0); MEAN PLATELET VOLUME 6.5 fL (7.4-11.0); MONOCYTES # (AUTO) 0.5 x10^3/uL (0.3-0.8); NEUTROPHILS # (AUTO) 4.5 x10^3/uL (2.2-4.8); NEUTROPHILS % (AUTO) 75.5 % (42.0-75.0); PLATELET COUNT 175 X10^3/uL (150.0-450.0); RED BLOOD COUNT 3.51 X10^6/uL (3.5-5.4); WHITE BLOOD COUNT 5.9 X10^3/uL (3.6-10.0)
[2019-05-13 05:24] LABS: ALBUMIN 2.7 g/dL (3.4-5.0); CALCIUM 7.4 mg/dL (8.5-10.1); CARBON DIOXIDE 23.1 mmol/L (21-32); COR CA(FOR HYPOALB) 8.4 mg/dL (8.5-10.1); CREATININE 1.19 mg/dL (0.55-1.02); TOTAL PROTEIN 5.9 g/dL (6.4-8.2)
[2019-05-13] MEDS: MORPHINE SULFATE INJ 4 MG IVP PRN ×2 (05:36→20:40)
[2019-05-13] MEDS: MAXIPIME VIAL 1 GRAM 1 G in NS 50 ML IV + SPIKE MINIBAG* 50 ML IV SCH ×2 (09:04→20:42)
[2019-05-13] MEDS: LOVENOX INJ 30 MG SYR SC SCH (09:06)
[2019-05-13] MEDS: ALBUMIN HUMAN 25%- 100 ML 100 ML IV SCH ×2 (09:07→20:32)
[2019-05-13] MEDS: MAGNESIUM SULFATE 1 GRAM/100 mL PREMIX 1 GM/100 ML BAG IV PRN ×2 (10:20→11:16)
[2019-05-13] MEDS: POTASSIUM CHL 60 MEQ/NS 0.45% 500 ML IV PRN (12:37)
[2019-05-13] MEDS: SNACK - Diabetic Appropriate PO SCH (19:42)
[2019-05-14] MEDS: NS 1/2 + KCL 20 MEQ/L 1,000 ML IV SCH ×6 (03:26→21:46)
[2019-05-14] MEDS: MORPHINE SULFATE INJ 4 MG IVP PRN ×2 (04:54→20:00)
[2019-05-14 05:28] LABS: BASOPHILS # (AUTO) 0.1 X10^3/uL (0.0-0.1); BASOPHILS % (AUTO) 1.4 % (0.2-1.0); EOSINOPHILS # (AUTO) 0.1 x10^3/uL (0.0-0.2); EOSINOPHILS % (AUTO) 1.9 % (0.9-2.9); HEMATOCRIT 27.4 % (36.0-47.0); HEMOGLOBIN 9.4 g/dL (12.0-16.0); LYMPHOCYTES # (AUTO) 0.8 X10^3/uL (1.3-2.9); LYMPHOCYTES % (AUTO) 20.5 % (21.0-51.0); MEAN CORPUSCULAR HGB CONC 34.3 g/dL (33.0-35.0); MEAN CORPUSCULAR VOLUME 81.4 fL (80.0-100.0); MEAN PLATELET VOLUME 6.4 fL (7.4-11.0); MONOCYTES # (AUTO) 0.3 x10^3/uL (0.3-0.8); MONOCYTES % (AUTO) 7.8 % (0.0-13.0); NEUTROPHILS # (AUTO) 2.8 x10^3/uL (2.2-4.8); NEUTROPHILS % (AUTO) 68.4 % (42.0-75.0); PLATELET COUNT 131 X10^3/uL (150.0-450.0); RED BLOOD COUNT 3.36 X10^6/uL (3.5-5.4); RED CELL DISTRIBUTION WIDTH 17.5 % (11.6-16.5); WHITE BLOOD COUNT 4.1 X10^3/uL (3.6-10.0)
[2019-05-14 05:42] LABS: ALANINE AMINOTRANSFERASE 15 Units/L (12-78); ALBUMIN 2.9 g/dL (3.4-5.0); ALKALINE PHOSPHATASE 63 Units/L (46-116); ASPARTATE AMINO TRANSFERASE 8 Units/L (15-37); BLOOD UREA NITROGEN 10 mg/dL (7-18); CALCIUM 7.7 mg/dL (8.5-10.1); CARBON DIOXIDE 25.8 mmol/L (21-32); CHLORIDE 112 mmol/L (98-107); COR CA(FOR HYPOALB) 8.6 mg/dL (8.5-10.1); MAGNESIUM 1.5 mg/dL (1.7-2.9); TOTAL PROTEIN 5.9 g/dL (6.4-8.2); eGFR NON BLACK RACES 54 (>60)
[2019-05-14 05:48] LABS: SODIUM 151 mmol/L (136-145)
[2019-05-14] MEDS: MAXIPIME VIAL 1 GRAM 1 G in NS 50 ML IV + SPIKE MINIBAG* 50 ML IV SCH ×2 (08:12→21:45)
[2019-05-14] MEDS: LOVENOX INJ 30 MG SYR SC SCH (08:12)
[2019-05-14] MEDS: ALBUMIN HUMAN 25%- 100 ML 100 ML IV SCH ×2 (08:13→21:43)
[2019-05-14] MEDS: MAGNESIUM SULFATE 1 GRAM/100 mL PREMIX 1 GM/100 ML BAG IV PRN ×2 (08:13→09:25)
[2019-05-14] MEDS: MAGNESIUM SULFATE 1 GRAM/100 mL PREMIX 4 G/400 ML BAG IV SCH ×4 (08:33→13:08)
[2019-05-14] MEDS: K-RIDER 10 MEQ/NS 100 ML 10 MEQ/100 ML BAG IV PRN ×6 (09:41→21:48)
[2019-05-14] MEDS ORDERED: NS 250 ML IV 250 ML IV ONE (20:33)
[2019-05-14] MEDS: SNACK - Diabetic Appropriate PO SCH (21:52)
[2019-05-15] MEDS: NS 1/2 + KCL 20 MEQ/L 1,000 ML IV SCH ×4 (00:02→16:42)
[2019-05-15] MEDS: K-RIDER 10 MEQ/NS 100 ML 10 MEQ/100 ML BAG IV PRN ×8 (00:03→21:22)
[2019-05-15 05:28] LABS: ALANINE AMINOTRANSFERASE 13 Units/L (12-78); ALBUMIN 3.1 g/dL (3.4-5.0); ALKALINE PHOSPHATASE 59 Units/L (46-116); ASPARTATE AMINO TRANSFERASE 10 Units/L (15-37); BLOOD UREA NITROGEN 8 mg/dL (7-18); CARBON DIOXIDE 20.4 mmol/L (21-32); CHLORIDE 108 mmol/L (98-107); COR CA(FOR HYPOALB) 8.7 mg/dL (8.5-10.1); CREATININE 1.01 mg/dL (0.55-1.02); MAGNESIUM 1.6 mg/dL (1.7-2.9); SODIUM 146 mmol/L (136-145); TOTAL PROTEIN 6.1 g/dL (6.4-8.2); eGFR NON BLACK RACES 59 (>60)
[2019-05-15 05:32] LABS: BASOPHILS % (AUTO) 0.9 % (0.2-1.0); EOSINOPHILS # (AUTO) 0.1 x10^3/uL (0.0-0.2); EOSINOPHILS % (AUTO) 1.4 % (0.9-2.9); HEMATOCRIT 28.8 % (36.0-47.0); HEMOGLOBIN 9.6 g/dL (12.0-16.0); LYMPHOCYTES # (AUTO) 0.9 X10^3/uL (1.3-2.9); LYMPHOCYTES % (AUTO) 16.9 % (21.0-51.0); MEAN CORPUSCULAR HEMOGLOBIN 27.7 pg (27.0-34.0); MEAN CORPUSCULAR HGB CONC 33.4 g/dL (33.0-35.0); MEAN CORPUSCULAR VOLUME 82.8 fL (80.0-100.0); MEAN PLATELET VOLUME 6.9 fL (7.4-11.0); MONOCYTES # (AUTO) 0.3 x10^3/uL (0.3-0.8); MONOCYTES % (AUTO) 6.5 % (0.0-13.0); NEUTROPHILS # (AUTO) 3.9 x10^3/uL (2.2-4.8); NEUTROPHILS % (AUTO) 74.3 % (42.0-75.0); PLATELET COUNT 121 X10^3/uL (150.0-450.0); RED BLOOD COUNT 3.48 X10^6/uL (3.5-5.4); RED CELL DISTRIBUTION WIDTH 17.3 % (11.6-16.5); WHITE BLOOD COUNT 5.3 X10^3/uL (3.6-10.0)
[2019-05-15] MEDS: ALBUMIN HUMAN 25%- 100 ML 100 ML IV SCH ×2 (08:19→21:30)
[2019-05-15] MEDS: MAXIPIME VIAL 1 GRAM 1 G in NS 50 ML IV + SPIKE MINIBAG* 50 ML IV SCH ×2 (08:20→21:54)
[2019-05-15] MEDS: LOVENOX INJ 30 MG SYR SC SCH (08:20)
[2019-05-15] MEDS: MAGNESIUM SULFATE 1 GRAM/100 mL PREMIX 4 G/400 ML BAG IV SCH ×4 (10:11→13:26)
[2019-05-15] MEDS: DIFLUCAN 200 MG IV PREMIX* 200 MG/100 ML BAG IV SCH (15:01)
[2019-05-15] MEDS: SNACK - Diabetic Appropriate PO SCH (20:00)
[2019-05-16] MEDS: K-RIDER 10 MEQ/NS 100 ML 10 MEQ/100 ML BAG IV PRN ×7 (00:05→23:00)
[2019-05-16] MEDS: NS 1/2 + KCL 20 MEQ/L 1,000 ML IV SCH ×5 (01:00→17:06)
[2019-05-16 05:27] LABS: ALANINE AMINOTRANSFERASE 12 Units/L (12-78); ALBUMIN 3.6 g/dL (3.4-5.0); ALKALINE PHOSPHATASE 61 Units/L (46-116); ASPARTATE AMINO TRANSFERASE 10 Units/L (15-37); BLOOD UREA NITROGEN 6 mg/dL (7-18); CHLORIDE 103 mmol/L (98-107); CREATININE 0.94 mg/dL (0.55-1.02); SODIUM 140 mmol/L (136-145); TOTAL PROTEIN 6.8 g/dL (6.4-8.2); eGFR NON BLACK RACES > 60 (>60)
[2019-05-16 05:52] LABS: CARBON DIOXIDE 14.2 mmol/L (21-32)
[2019-05-16 06:13] LABS: BASOPHILS % (AUTO) 0.5 % (0.2-1.0); EOSINOPHILS # (AUTO) 0.1 x10^3/uL (0.0-0.2); EOSINOPHILS % (AUTO) 1.8 % (0.9-2.9); HEMATOCRIT 32.4 % (36.0-47.0); HEMOGLOBIN 10.7 g/dL (12.0-16.0); LYMPHOCYTES # (AUTO) 0.9 X10^3/uL (1.3-2.9); LYMPHOCYTES % (AUTO) 16.4 % (21.0-51.0); MEAN CORPUSCULAR HEMOGLOBIN 27.4 pg (27.0-34.0); MEAN CORPUSCULAR HGB CONC 33.2 g/dL (33.0-35.0); MEAN CORPUSCULAR VOLUME 82.5 fL (80.0-100.0); MEAN PLATELET VOLUME 6.8 fL (7.4-11.0); MONOCYTES # (AUTO) 0.4 x10^3/uL (0.3-0.8); MONOCYTES % (AUTO) 7.2 % (0.0-13.0); NEUTROPHILS # (AUTO) 3.8 x10^3/uL (2.2-4.8); NEUTROPHILS % (AUTO) 74.1 % (42.0-75.0); PLATELET COUNT 114 X10^3/uL (150.0-450.0); RED BLOOD COUNT 3.92 X10^6/uL (3.5-5.4); RED CELL DISTRIBUTION WIDTH 17.4 % (11.6-16.5); WHITE BLOOD COUNT 5.2 X10^3/uL (3.6-10.0)
[2019-05-16] MEDS: MAGNESIUM SULFATE 1 GRAM/100 mL PREMIX 1 GM/100 ML BAG IV PRN ×7 (06:28→14:22)
[2019-05-16] MEDS: DIFLUCAN 200 MG IV PREMIX* 200 MG/100 ML BAG IV SCH (08:45)
[2019-05-16] MEDS: ALBUMIN HUMAN 25%- 100 ML 100 ML IV SCH ×2 (08:45→20:28)
[2019-05-16] MEDS: MAXIPIME VIAL 1 GRAM 1 G in NS 50 ML IV + SPIKE MINIBAG* 50 ML IV SCH ×2 (08:46→20:29)
[2019-05-16] MEDS: LOVENOX INJ 30 MG SYR SC SCH (08:46)
[2019-05-16] MEDS: MAGNESIUM SULFATE 1 GRAM/100 mL PREMIX 4 G/400 ML BAG IV SCH ×2 (12:25→14:22)
[2019-05-16] MEDS: MORPHINE SULFATE INJ 4 MG IVP PRN (17:26)
[2019-05-16] MEDS: SNACK - Diabetic Appropriate PO SCH (20:28)
[2019-05-17] MEDS: NS 1/2 + KCL 20 MEQ/L 1,000 ML IV SCH ×5 (00:10→23:48)
[2019-05-17 06:01] LABS: BASOPHILS % (AUTO) 0.9 % (0.2-1.0); EOSINOPHILS # (AUTO) 0.1 x10^3/uL (0.0-0.2); EOSINOPHILS % (AUTO) 2.8 % (0.9-2.9); HEMATOCRIT 29.7 % (36.0-47.0); HEMOGLOBIN 10.3 g/dL (12.0-16.0); LYMPHOCYTES # (AUTO) 0.8 X10^3/uL (1.3-2.9); LYMPHOCYTES % (AUTO) 23.1 % (21.0-51.0); MEAN CORPUSCULAR HEMOGLOBIN 28.3 pg (27.0-34.0); MEAN CORPUSCULAR HGB CONC 34.6 g/dL (33.0-35.0); MEAN CORPUSCULAR VOLUME 81.8 fL (80.0-100.0); MEAN PLATELET VOLUME 7.1 fL (7.4-11.0); MONOCYTES # (AUTO) 0.3 x10^3/uL (0.3-0.8); MONOCYTES % (AUTO) 8.9 % (0.0-13.0); NEUTROPHILS # (AUTO) 2.2 x10^3/uL (2.2-4.8); NEUTROPHILS % (AUTO) 64.3 % (42.0-75.0); PLATELET COUNT 120 X10^3/uL (150.0-450.0); RED BLOOD COUNT 3.64 X10^6/uL (3.5-5.4); RED CELL DISTRIBUTION WIDTH 17.2 % (11.6-16.5); WHITE BLOOD COUNT 3.4 X10^3/uL (3.6-10.0)
[2019-05-17 06:06] LABS: ALANINE AMINOTRANSFERASE 14 Units/L (12-78); ALBUMIN 3.8 g/dL (3.4-5.0); ALKALINE PHOSPHATASE 58 Units/L (46-116); ASPARTATE AMINO TRANSFERASE 10 Units/L (15-37); BLOOD UREA NITROGEN 5 mg/dL (7-18); CALCIUM 8.2 mg/dL (8.5-10.1); CHLORIDE 102 mmol/L (98-107); COR NA(FOR HYPERGLY) 137 mmol/L (136-145); CREATININE 0.89 mg/dL (0.55-1.02); MAGNESIUM 1.9 mg/dL (1.7-2.9); SODIUM 136 mmol/L (136-145); TOTAL PROTEIN 6.7 g/dL (6.4-8.2); eGFR NON BLACK RACES > 60 (>60)
[2019-05-17 06:24] LABS: CARBON DIOXIDE 14.6 mmol/L (21-32)
[2019-05-17] MEDS: ALBUMIN HUMAN 25%- 100 ML 100 ML IV SCH ×2 (08:21→20:53)
[2019-05-17] MEDS: LOVENOX INJ 30 MG SYR SC SCH (08:22)
[2019-05-17] MEDS: DIFLUCAN 200 MG IV PREMIX* 200 MG/100 ML BAG IV SCH (08:23)
--- NOTE | 2019-05-17 09:42 | PCM.PROG ---
Progress Note Progress Note for Day of Date of Exam: 05/17/19 Subjective Subjective: Pt is a 59 yo f admitted for sepsis d/t yeast infection. She was alert and oriented this morning, having remembered me from a previous admission. She has responded to abx, and her wbc count has now remained wnl. Her hgb and Cr have remained stable. HCO3 remains low, will supplement today. Her magnesium level is wnl this morning after supplementing yesterday with 6g. Repeat BloodCx pending. Will change her to soft diet this morning. Past Medical Family Social History Past Med/Fam/Surg Hx: No changes since H&P Allergies: Allergies codeine [From Tylenol-Codeine] Allergy (Verified 05/01/19 14:12) Penicillins Allergy (Verified 05/01/19 14:12) Review of Systems ROS: No change since H&P Vital Signs and I&O's Vital Signs: Temperature 97.9 F Pulse Rate 68 Respiratory Rate 27 Blood Pressure [Right Arm] 168/84 Blood Pressure 177/77 O2 Sat by Pulse Oximetry 100 Intake and Output: Intake & Output 05/14/19 05/15/19 05/16/19 05/17/19 23:59 23:59 23:59 23:59 Intake Total 5990 / 5990 4755 / 4755 5857 / 5857 2617 / 2617 Output Total 5000 / 5000 6756 / 6756 6400 / 6400 1999 / 1999 Balance 990 / 990 -2000 / -2000 -543 / -543 617 / 617 Physical Exam Oriented: Normal Eyes: Normal Ear: Normal Nose: Normal Respiratory: Normal Cardiovascular: Normal : Normal Auscultation: Bowel Sounds: Normal Tenderness: Normal Skin: Normal Musculoskeletal: Normal Psychiatric: Normal Mood Description: Calm Speech Pattern: Clear Laboratory and Diagnostics Result Diagrams: 05/17/19 05:21 05/17/19 05:21 Labs: 05/09/19 16:23 Blood Blood Culture - Final 05/09/19 16:17 Blood Blood Culture - Final 05/09/19 16:15 Urine,Catheterized Urine Culture - Final Laboratory WBC 3.4 X10^3/uL (3.6-10.0) L 05/17/19 05:21 RBC 3.64 X10^6/uL (3.5-5.4) 05/17/19 05:21 Hgb 10.3 g/dL (12.0-16.0) L 05/17/19 05:21 Hct 29.7 % (36.0-47.0) L 05/17/19 05:21 MCV 81.8 fL (80.0-100.0) 05/17/19 05:21 MCH 28.3 pg (27.0-34.0) 05/17/19 05:21 MCHC 34.6 g/dL (33.0-35.0) 05/17/19 05:21 RDW 17.2 % (11.6-16.5) H 05/17/19 05:21 Plt Count 120 X10^3/uL (150.0-450.0) L 05/17/19 05:21 Plt Count Comment Increased (ADEQUATE) A 05/10/19 04:12 MPV 7.1 fL (7.4-11.0) L 05/17/19 05:21 Neut % (Auto) 64.3 % (42.0-75.0) 05/17/19 05:21 Lymph % (Auto) 23.1 % (21.0-51.0) 05/17/19 05:21 [place] % (Auto) 8.9 % (0.0-13.0) 05/17/19 05:21 Eos % (Auto) 2.8 % (0.9-2.9) 05/17/19 05:21 Baso % (Auto) 0.9 % (0.2-1.0) 05/17/19 05:21 Neut # (Auto) 2.2 x10^3/uL (2.2-4.8) 05/17/19 05:21 Lymph # (Auto) 0.8 X10^3/uL (1.3-2.9) L 05/17/19 05:21 [place] # (Auto) 0.3 x10^3/uL (0.3-0.8) 05/17/19 05:21 Eos # (Auto) 0.1 x10^3/uL (0.0-0.2) 05/17/19 05:21 Baso # (Auto) 0.0 X10^3/uL (0.0-0.1) 05/17/19 05:21 Absolute Nucleated RBC 0.1 /100WBC 05/17/19 05:21 Total Counted 100 05/10/19 04:12 Neutrophils % (Manual) 82 % (39-76) H 05/10/19 04:12 Band Neutrophils % 12 % (0-10) H 05/10/19 04:12 Lymphocytes % (Manual) 4 % (13-43) L 05/10/19 04:12 Monocytes % (Manual) 2 % (4-9) L 05/10/19 04:12 Eosinophils % (Manual) 0 % (0-6) 05/10/19 04:12 Basophils % (Manual) 0 % (0-1) 05/10/19 04:12 Plt Morphology Comment Normal (NORMAL) 05/10/19 04:12 RBC Morphology Abnormal (NORMAL) A 05/10/19 04:12 Poikilocytosis 1+ A 05/10/19 04:12 Anisocytosis 2+ A 05/10/19 04:12 Sample Site Lrad 05/12/19 05:32 ABG pH 7.330 (7.35-7.45) L 05/12/19 05:32 ABG pCO2 26.0 mmHg (35.0-45.0) L 05/12/19 05:32 ABG pO2 73.0 mmHg (80.0-100.0) L 05/12/19 05:32 ABG HCO3 13.7 mmol/L (22-26) L* 05/12/19 05:32 ABG O2 Saturation 93.0 % (90-100) 05/12/19 05:32 ABG Base Excess -10.6 mmol/L (-2.0-2.0) L 05/12/19 05:32 Fabián Test Pos 05/12/19 05:32 A-a Gradient 44.0 mmHg 05/12/19 05:32 FiO2 21.0 05/12/19 05:32 Blood Gas Comments Isatu abg well-mtf 05/12/19 05:32 Sodium 136 mmol/L (136-145) 05/17/19 05:21 Corrected Sodium 137 mmol/L (136-145) 05/17/19 05:21 Potassium 3.6 mmol/L (3.5-5.1) 05/17/19 05:21 Chloride 102 mmol/L (98-107) 05/17/19 05:21 Carbon Dioxide 14.6 mmol/L (21-32) L* 05/17/19 05:21 BUN 5 mg/dL (7-18) L 05/17/19 05:21 Creatinine 0.89 mg/dL (0.55-1.02) 05/17/19 05:21 Est GFR (MDRD) Af Amer > 60 (>60) 05/17/19 05:21 Est GFR (MDRD) Non-Af > 60 (>60) 05/17/19 05:21 Glucose 130 mg/dL (65-99) H 05/17/19 05:21 POC Glucose (mg/dL) 114 mg/dL (65-99) H 05/17/19 05:49 Lactic Acid 0.6 mmol/L (0.4-2.0) 05/09/19 16:17 Calcium 8.2 mg/dL (8.5-10.1) L 05/17/19 05:21 Corrected Calcium TNP 05/17/19 05:21 Magnesium 1.9 mg/dL (1.7-2.9) 05/17/19 05:21 Total Bilirubin 0.70 mg/dL (0.2-1.0) 05/17/19 05:21 AST 10 Units/L (15-37) L 05/17/19 05:21 ALT 14 Units/L (12-78) 05/17/19 05:21 Alkaline Phosphatase 58 Units/L (46-116) 05/17/19 05:21 Total Protein 6.7 g/dL (6.4-8.2) 05/17/19 05:21 Albumin 3.8 g/dL (3.4-5.0) 05/17/19 05:21 Globulin 2.9 g/dL (2.5-4.5) 05/17/19 05:21 Albumin/Globulin Ratio 1.3 Ratio (1.1-2.1) 05/17/19 05:21 Specimen Type Catherized urine 05/09/19 16:15 Urine Color Pale yellow (YELLOW) 05/09/19 16:15 Urine Appearance Turbid (CLEAR) 05/09/19 16:15 Urine pH 6.0 (5.0 - 8.0) 05/09/19 16:15 Ur Specific [place] 1.015 (1.000-1.030) 05/09/19 16:15 Urine Protein 3+ (NEGATIVE) 05/09/19 16:15 Urine Glucose (UA) 3+ (NEGATIVE) 05/09/19 16:15 Urine Ketones 4+ (NEGATIVE) 05/09/19 16:15 Urine Occult Blood 5+ (NEGATIVE) 05/09/19 16:15 Urine Nitrite Negative (NEGATIVE) 05/09/19 16:15 Urine Bilirubin Negative (NEGATIVE) 05/09/19 16:15 Urine Urobilinogen Normal (NORMAL) 05/09/19 16:15 Ur Leukocyte Esterase 3+ (NEGATIVE) 05/09/19 16:15 Urine RBC Tntc /HPF (0-3) A 05/09/19 16:15 Urine WBC Tntc /HPF (0-5) A 05/09/19 16:15 Ur Squamous Epith Cells Negative /HPF (NEGATIVE) 05/09/19 16:15 Urine Bacteria Trace /HPF (NEGATIVE) 05/09/19 16:15 Urine Yeast Numerous /HPF (NEGATIVE) 05/09/19 16:15 Ur Culture Indicated? Yes/culture set up 05/09/19 16:15 Digoxin 0.78 ng/mL (0.9-2) L 05/11/19 04:05 Blood Type A POSITIVE 05/10/19 11:50 Antibody Screen Negative 05/10/19 11:50 Crossmatch See Detail 05/10/19 11:50 Plan (1) Sepsis: Status: Acute Qualifiers: Sepsis acute organ dysfunction status: with acute organ dysfunction Sepsis type: Magaly Severe sepsis acute organ dysfunction type: unspecified Severe sepsis shock status: with septic shock Qualified Code(s): B37.7 - Candidal sepsis; R65.21 - Severe sepsis with septic shock Plan: Continue antibiotics Repeat bloodcx pending (2) Metabolic acidosis: Status: Acute
[2019-05-17] MEDS: MAXIPIME VIAL 1 GRAM 1 G in NS 50 ML IV + SPIKE MINIBAG* 50 ML IV SCH ×2 (10:27→20:55)
[2019-05-17] MEDS: SODIUM BICARBONATE TAB 650MG PO SCH ×2 (11:00→20:53)
[2019-05-17] MEDS: SNACK - Diabetic Appropriate PO SCH (20:00)
[2019-05-17] MEDS: MAGNESIUM SULFATE 1 GRAM/100 mL PREMIX 1 GM/100 ML BAG IV PRN (23:47)
[2019-05-18] MEDS: MORPHINE SULFATE INJ 4 MG IVP PRN (01:59)
[2019-05-18 06:08] LABS: BASOPHILS % (AUTO) 0.8 % (0.2-1.0); EOSINOPHILS # (AUTO) 0.1 x10^3/uL (0.0-0.2); EOSINOPHILS % (AUTO) 2.4 % (0.9-2.9); HEMATOCRIT 32.6 % (36.0-47.0); HEMOGLOBIN 11.1 g/dL (12.0-16.0); LYMPHOCYTES # (AUTO) 0.8 X10^3/uL (1.3-2.9); LYMPHOCYTES % (AUTO) 25.5 % (21.0-51.0); MEAN CORPUSCULAR HEMOGLOBIN 27.6 pg (27.0-34.0); MEAN CORPUSCULAR VOLUME 81.1 fL (80.0-100.0); MEAN PLATELET VOLUME 6.6 fL (7.4-11.0); MONOCYTES # (AUTO) 0.3 x10^3/uL (0.3-0.8); MONOCYTES % (AUTO) 11.2 % (0.0-13.0); NEUTROPHILS # (AUTO) 1.8 x10^3/uL (2.2-4.8); NEUTROPHILS % (AUTO) 60.1 % (42.0-75.0); PLATELET COUNT 130 X10^3/uL (150.0-450.0); RED BLOOD COUNT 4.01 X10^6/uL (3.5-5.4); RED CELL DISTRIBUTION WIDTH 17.1 % (11.6-16.5)
[2019-05-18 06:40] LABS: ALANINE AMINOTRANSFERASE 35 Units/L (12-78); ALBUMIN 4.1 g/dL (3.4-5.0); ALKALINE PHOSPHATASE 300 Units/L (46-116); ASPARTATE AMINO TRANSFERASE 108 Units/L (15-37); BLOOD UREA NITROGEN 6 mg/dL (7-18); CARBON DIOXIDE 17.9 mmol/L (21-32); CHLORIDE 100 mmol/L (98-107); COR NA(FOR HYPERGLY) 134 mmol/L (136-145); CREATININE 0.83 mg/dL (0.55-1.02); MAGNESIUM 1.7 mg/dL (1.7-2.9); SODIUM 134 mmol/L (136-145); TOTAL PROTEIN 7.1 g/dL (6.4-8.2); eGFR NON BLACK RACES > 60 (>60)
[2019-05-18] MEDS: NS 1/2 + KCL 20 MEQ/L 1,000 ML IV SCH ×2 (09:14→19:22)
[2019-05-18] MEDS: LOVENOX INJ 30 MG SYR SC SCH (09:15)
[2019-05-18] MEDS: MAXIPIME VIAL 1 GRAM 1 G in NS 50 ML IV + SPIKE MINIBAG* 50 ML IV SCH ×2 (09:16→20:16)
[2019-05-18] MEDS: ALBUMIN HUMAN 25%- 100 ML 100 ML IV SCH ×2 (09:17→20:14)
[2019-05-18] MEDS: DIFLUCAN 200 MG IV PREMIX* 200 MG/100 ML BAG IV SCH (09:18)
[2019-05-18] MEDS: SODIUM BICARBONATE TAB 650MG PO SCH ×2 (09:19→20:33)
--- NOTE | 2019-05-18 10:11 | PCM.PROG ---
Progress Note Progress Note for Day of Date of Exam: 05/18/19 Subjective Subjective: Pt is a 59 yo f admitted for sepsis d/t yeast infection. She is alert and orientated. She has responded to abx, and her wbc has normalized. Her hgb and Cr have remained stable. HCO3 14.6>17.9, is improving with supplementation. Repeat BloodCx pending. Tolerated soft diet. Past Medical Family Social History Past Med/Fam/Surg Hx: No changes since H&P Allergies: Allergies codeine [From Tylenol-Codeine] Allergy (Verified 05/01/19 14:12) Penicillins Allergy (Verified 05/01/19 14:12) Review of Systems ROS: No change since H&P Vital Signs and I&O's Vital Signs: Temperature 97.8 F Pulse Rate 64 Respiratory Rate 18 Blood Pressure [Right Arm] 168/84 Blood Pressure 138/65 O2 Sat by Pulse Oximetry 100 Intake and Output: Intake & Output 05/15/19 05/16/19 05/17/19 05/18/19 23:59 23:59 23:59 23:59 Intake Total 4755 / 4755 5857 / 5857 5439 / 5439 1370 / 1370 Output Total 6756 / 6756 6400 / 6400 5950 / 5950 1300 / 1300 Balance -2000 / -2000 -543 / -543 -511 / -511 70 / 70 Physical Exam Oriented: Normal Eyes: Normal Ear: Normal Nose: Normal Respiratory: Normal Cardiovascular: Normal : Normal Auscultation: Bowel Sounds: Normal Tenderness: Normal Skin: Normal Musculoskeletal: Normal Psychiatric: Normal Mood Description: Calm Speech Pattern: Clear Laboratory and Diagnostics Result Diagrams: 05/18/19 04:57 05/18/19 04:57 Labs: 05/09/19 16:23 Blood Blood Culture - Final 05/09/19 16:17 Blood Blood Culture - Final 05/09/19 16:15 Urine,Catheterized Urine Culture - Final Laboratory WBC 3.0 X10^3/uL (3.6-10.0) L 05/18/19 04:57 RBC 4.01 X10^6/uL (3.5-5.4) 05/18/19 04:57 Hgb 11.1 g/dL (12.0-16.0) L 05/18/19 04:57 Hct 32.6 % (36.0-47.0) L 05/18/19 04:57 MCV 81.1 fL (80.0-100.0) 05/18/19 04:57 MCH 27.6 pg (27.0-34.0) 05/18/19 04:57 MCHC 34.0 g/dL (33.0-35.0) 05/18/19 04:57 RDW 17.1 % (11.6-16.5) H 05/18/19 04:57 Plt Count 130 X10^3/uL (150.0-450.0) L 05/18/19 04:57 Plt Count Comment Increased (ADEQUATE) A 05/10/19 04:12 MPV 6.6 fL (7.4-11.0) L 05/18/19 04:57 Neut % (Auto) 60.1 % (42.0-75.0) 05/18/19 04:57 Lymph % (Auto) 25.5 % (21.0-51.0) 05/18/19 04:57 [place] % (Auto) 11.2 % (0.0-13.0) 05/18/19 04:57 Eos % (Auto) 2.4 % (0.9-2.9) 05/18/19 04:57 Baso % (Auto) 0.8 % (0.2-1.0) 05/18/19 04:57 Neut # (Auto) 1.8 x10^3/uL (2.2-4.8) L 05/18/19 04:57 Lymph # (Auto) 0.8 X10^3/uL (1.3-2.9) L 05/18/19 04:57 [place] # (Auto) 0.3 x10^3/uL (0.3-0.8) 05/18/19 04:57 Eos # (Auto) 0.1 x10^3/uL (0.0-0.2) 05/18/19 04:57 Baso # (Auto) 0.0 X10^3/uL (0.0-0.1) 05/18/19 04:57 Absolute Nucleated RBC 0.1 /100WBC 05/18/19 04:57 Total Counted 100 05/10/19 04:12 Neutrophils % (Manual) 82 % (39-76) H 05/10/19 04:12 Band Neutrophils % 12 % (0-10) H 05/10/19 04:12 Lymphocytes % (Manual) 4 % (13-43) L 05/10/19 04:12 Monocytes % (Manual) 2 % (4-9) L 05/10/19 04:12 Eosinophils % (Manual) 0 % (0-6) 05/10/19 04:12 Basophils % (Manual) 0 % (0-1) 05/10/19 04:12 Plt Morphology Comment Normal (NORMAL) 05/10/19 04:12 RBC Morphology Abnormal (NORMAL) A 05/10/19 04:12 Poikilocytosis 1+ A 05/10/19 04:12 Anisocytosis 2+ A 05/10/19 04:12 Sample Site Lrad 05/12/19 05:32 ABG pH 7.330 (7.35-7.45) L 05/12/19 05:32 ABG pCO2 26.0 mmHg (35.0-45.0) L 05/12/19 05:32 ABG pO2 73.0 mmHg (80.0-100.0) L 05/12/19 05:32 ABG HCO3 13.7 mmol/L (22-26) L* 05/12/19 05:32 ABG O2 Saturation 93.0 % (90-100) 05/12/19 05:32 ABG Base Excess -10.6 mmol/L (-2.0-2.0) L 05/12/19 05:32 Fabián Test Pos 05/12/19 05:32 A-a Gradient 44.0 mmHg 05/12/19 05:32 FiO2 21.0 05/12/19 05:32 Blood Gas Comments Isatu abg well-mtf 05/12/19 05:32 Sodium 134 mmol/L (136-145) L 05/18/19 04:57 Corrected Sodium 134 mmol/L (136-145) L 05/18/19 04:57 Potassium 3.6 mmol/L (3.5-5.1) 05/18/19 04:57 Chloride 100 mmol/L (98-107) 05/18/19 04:57 Carbon Dioxide 17.9 mmol/L (21-32) L 05/18/19 04:57 BUN 6 mg/dL (7-18) L 05/18/19 04:57 Creatinine 0.83 mg/dL (0.55-1.02) 05/18/19 04:57 Est GFR (MDRD) Af Amer > 60 (>60) 05/18/19 04:57 Est GFR (MDRD) Non-Af > 60 (>60) 05/18/19 04:57 Glucose 117 mg/dL (65-99) H 05/18/19 04:57 POC Glucose (mg/dL) 105 mg/dL (65-99) H 05/18/19 05:39 Lactic Acid 0.6 mmol/L (0.4-2.0) 05/09/19 16:17 Calcium 9.0 mg/dL (8.5-10.1) 05/18/19 04:57 Corrected Calcium TNP 05/18/19 04:57 Magnesium 1.7 mg/dL (1.7-2.9) 05/18/19 04:57 Total Bilirubin 0.80 mg/dL (0.2-1.0) 05/18/19 04:57 AST 108 Units/L (15-37) H 05/18/19 04:57 ALT 35 Units/L (12-78) 05/18/19 04:57 Alkaline Phosphatase 300 Units/L (46-116) H 05/18/19 04:57 Total Protein 7.1 g/dL (6.4-8.2) 05/18/19 04:57 Albumin 4.1 g/dL (3.4-5.0) 05/18/19 04:57 Globulin 3.0 g/dL (2.5-4.5) 05/18/19 04:57 Albumin/Globulin Ratio 1.4 Ratio (1.1-2.1) 05/18/19 04:57 Specimen Type Catherized urine 05/09/19 16:15 Urine Color Pale yellow (YELLOW) 05/09/19 16:15 Urine Appearance Turbid (CLEAR) 05/09/19 16:15 Urine pH 6.0 (5.0 - 8.0) 05/09/19 16:15 Ur Specific [place] 1.015 (1.000-1.030) 05/09/19 16:15 Urine Protein 3+ (NEGATIVE) 05/09/19 16:15 Urine Glucose (UA) 3+ (NEGATIVE) 05/09/19 16:15 Urine Ketones 4+ (NEGATIVE) 05/09/19 16:15 Urine Occult Blood 5+ (NEGATIVE) 05/09/19 16:15 Urine Nitrite Negative (NEGATIVE) 05/09/19 16:15 Urine Bilirubin Negative (NEGATIVE) 05/09/19 16:15 Urine Urobilinogen Normal (NORMAL) 05/09/19 16:15 Ur Leukocyte Esterase 3+ (NEGATIVE) 05/09/19 16:15 Urine RBC Tntc /HPF (0-3) A 05/09/19 16:15 Urine WBC Tntc /HPF (0-5) A 05/09/19 16:15 Ur Squamous Epith Cells Negative /HPF (NEGATIVE) 05/09/19 16:15 Urine Bacteria Trace /HPF (NEGATIVE) 05/09/19 16:15 Urine Yeast Numerous /HPF (NEGATIVE) 05/09/19 16:15 Ur Culture Indicated? Yes/culture set up 05/09/19 16:15 Digoxin 0.78 ng/mL (0.9-2) L 05/11/19 04:05 Blood Type A POSITIVE 05/10/19 11:50 Antibody Screen Negative 05/10/19 11:50 Crossmatch See Detail 05/10/19 11:50 Plan (1) Sepsis: Status: Acute Qualifiers: Sepsis acute organ dysfunction status: with acute organ dysfunction Sepsis type: Magaly Severe sepsis acute organ dysfunction type: unspecified Severe sepsis shock status: with septic shock Qualified Code(s): B37.7 - Candidal sepsis; R65.21 - Severe sepsis with septic shock Plan: Continue antibiotics Repeat bloodcx pending (2) Metabolic acidosis: Status: Acute
[2019-05-18] MEDS: SNACK - Diabetic Appropriate PO SCH (20:15)
[2019-05-18] MEDS: MAGNESIUM SULFATE 1 GRAM/100 mL PREMIX 1 GM/100 ML BAG IV PRN (22:52)
[2019-05-19] MEDS: MAGNESIUM SULFATE 1 GRAM/100 mL PREMIX 1 GM/100 ML BAG IV PRN (00:16)
[2019-05-19] MEDS: NS 1/2 + KCL 20 MEQ/L 1,000 ML IV SCH ×2 (06:07→10:09)
[2019-05-19 06:29] LABS: BASOPHILS % (AUTO) 1.2 % (0.2-1.0); EOSINOPHILS # (AUTO) 0.1 x10^3/uL (0.0-0.2); HEMATOCRIT 31.2 % (36.0-47.0); HEMOGLOBIN 10.8 g/dL (12.0-16.0); LYMPHOCYTES # (AUTO) 0.9 X10^3/uL (1.3-2.9); LYMPHOCYTES % (AUTO) 29.1 % (21.0-51.0); MEAN CORPUSCULAR HEMOGLOBIN 27.8 pg (27.0-34.0); MEAN CORPUSCULAR HGB CONC 34.6 g/dL (33.0-35.0); MEAN CORPUSCULAR VOLUME 80.4 fL (80.0-100.0); MEAN PLATELET VOLUME 6.7 fL (7.4-11.0); MONOCYTES # (AUTO) 0.3 x10^3/uL (0.3-0.8); MONOCYTES % (AUTO) 10.4 % (0.0-13.0); NEUTROPHILS # (AUTO) 1.7 x10^3/uL (2.2-4.8); NEUTROPHILS % (AUTO) 56.3 % (42.0-75.0); PLATELET COUNT 145 X10^3/uL (150.0-450.0); RED BLOOD COUNT 3.87 X10^6/uL (3.5-5.4); RED CELL DISTRIBUTION WIDTH 17.1 % (11.6-16.5)
[2019-05-19 06:38] LABS: ALANINE AMINOTRANSFERASE 18 Units/L (12-78); ALBUMIN 4.4 g/dL (3.4-5.0); ALKALINE PHOSPHATASE 184 Units/L (46-116); ASPARTATE AMINO TRANSFERASE 15 Units/L (15-37); BLOOD UREA NITROGEN 5 mg/dL (7-18); CALCIUM 9.1 mg/dL (8.5-10.1); CARBON DIOXIDE 20.2 mmol/L (21-32); CHLORIDE 99 mmol/L (98-107); CREATININE 0.66 mg/dL (0.55-1.02); MAGNESIUM 1.8 mg/dL (1.7-2.9); SODIUM 135 mmol/L (136-145); TOTAL PROTEIN 7.2 g/dL (6.4-8.2); eGFR NON BLACK RACES > 60 (>60)
[2019-05-19 07:18] LABS: PLATELET MORPHOLOGY COMMENT NORMAL (NORMAL)
[2019-05-19] MEDS ORDERED: DIFLUCAN PO SCH (09:00)
[2019-05-19] MEDS: ALBUMIN HUMAN 25%- 100 ML 100 ML IV SCH (10:07)
[2019-05-19] MEDS: LOVENOX INJ 30 MG SYR SC SCH (10:07)
[2019-05-19] MEDS: SODIUM BICARBONATE TAB 650MG PO SCH (10:08)
[2019-05-19 13:10] VITALS: BP 169/81
== END 2019-05-19 12:25 | DRG 872 ==
LOC: ER 15:22 → ICU 19:49
PROVIDERS: ADMIT Obstetrics & Gynecology Obstetrics; ATTEND Obstetrics & Gynecology Obstetrics
DX: E87.0 Hyperosmolality and hypernatremia; D64.9 Anemia, unspecified; E11.65 Type 2 diabetes mellitus with hyperglycemia; B37.7 Candidal sepsis; L89.152 Pressure ulcer of sacral region, stage 2; N39.0 Urinary tract infection, site not specified; E87.6 Hypokalemia; R41.82 Altered mental status, unspecified; R94.31 Abnormal electrocardiogram [ECG] [EKG]
CPT/HCPCS: 36415; 36430; 36600; 51702; 70450; 71010; 71045; 80053; 80162; 81001; 82803; 83605; 83735; 84132; 85014; 85018; 85025; 86850; 86900; 86901; 86922; 87040; 87077; 87086; 87186; 92610; 93005; 96365; 96367; 96374; 96375; 99285; 99291; A4217; A4222; J0692; J1160; J1450; J1650; J1815; J2270; J3475; J3480; J3490; J7030; J7040; J7050; J7060; J7120; P9016; P9047

== ENCOUNTER 2019-05-26 18:58 | Inpatient (IN) ==
--- NOTE | 2019-05-26 20:20 | DR.H&P ---
H&P History & Physical for Day of: H&P Date: 05/26/19 Chief Complaint Chief Complaint: Lethargy, Acute renal failure, Hyperkalemia Allergies Allergies Allergy/AdvReac Type Severity Reaction Status Date / Time acetaminophen Allergy Verified 05/27/19 00:10 codeine Allergy Verified 05/01/19 14:12 [From Tylenol-Codeine] Penicillins Allergy Verified 05/01/19 14:12 History of Present Illness History of Present Illness: Pt is a 59 yo f admitted from [facility] d/t acute renal failure, dehydration, failure to thrive. On initial labs her Cr:3.34(BL~1.0), per nursing patient health status has been deteriorating and she has had a loss of appetite and not eating much. She was started on IVF NS. 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, Tonsillectomy and Other Additional Surgical History: Tubal ligation Family History Family Medical History: Cancer Medications Home Medications: codeine [From Tylenol-Codeine] Allergy (Verified 05/01/19 14:12) Penicillins Allergy (Verified 05/01/19 14:12) Labs Result Diagrams: 05/27/19 05:15 05/27/19 05:15 Labs: Laboratory POC Glucose (mg/dL) 87 mg/dL (65-99) 05/26/19 20:07 Review of Systems Constitutional: Weakness and Malaise; denies Fever and Chills Eyes: No Symptoms Reported ENT: No Symptoms Reported Respiratory: No Symptoms Reported Cardiovascular: No Symptoms Reported Gastrointestinal: No Symptoms Reported Genitourinary: No Symptoms Reported Musculoskeletal: No Symptoms Reported Skin: No Symptoms Reported Neurological: Weakness Physical Exam Vital Signs: Blood Pressure [Right Arm] 168/84 Blood Pressure [Left Arm] 108/60 Blood Pressure 169/81 Oriented: Normal Eyes: Normal Ear: Normal Nose: Normal Respiratory: Clear Throughout Cardiovascular: Normal : Normal Auscultation: Bowel Sounds: Normal Palpation: Normal Tenderness: Normal Skin: Normal Musculoskeletal: Normal Psychiatric: Normal Affect: Quiet Speech Pattern: Clear Assessment/Plan (1) Acute renal failure: Status: Acute Plan: Continue IVF Cr:3.34 (2) Failure to thrive: Status: Acute Plan: Consult nutrition (3) Dehydration: Status: Acute Review H&P Reviewed: Yes Patient was examined?: Yes
[2019-05-26 20:26] LABS: BASOPHILS # (AUTO) 0.1 X10^3/uL (0.0-0.1); BASOPHILS % (AUTO) 1.3 % (0.2-1.0); EOSINOPHILS % (AUTO) 0.2 % (0.9-2.9); HEMATOCRIT 29.7 % (36.0-47.0); LYMPHOCYTES # (AUTO) 0.9 X10^3/uL (1.3-2.9); MEAN CORPUSCULAR HEMOGLOBIN 27.4 pg (27.0-34.0); MEAN CORPUSCULAR HGB CONC 33.7 g/dL (33.0-35.0); MEAN CORPUSCULAR VOLUME 81.3 fL (80.0-100.0); MEAN PLATELET VOLUME 8.4 fL (7.4-11.0); MONOCYTES # (AUTO) 0.3 x10^3/uL (0.3-0.8); NEUTROPHILS # (AUTO) 4.3 x10^3/uL (2.2-4.8); NEUTROPHILS % (AUTO) 76.5 % (42.0-75.0); PLATELET COUNT 100 X10^3/uL (150.0-450.0); RED BLOOD COUNT 3.66 X10^6/uL (3.5-5.4); RED CELL DISTRIBUTION WIDTH 17.4 % (11.6-16.5); WHITE BLOOD COUNT 5.6 X10^3/uL (3.6-10.0)
[2019-05-26 20:46] VITALS: BMI 19.2
[2019-05-26 20:47] LABS: ALANINE AMINOTRANSFERASE 34 Units/L (12-78); ALBUMIN 3.5 g/dL (3.4-5.0); ALKALINE PHOSPHATASE 118 Units/L (46-116); ASPARTATE AMINO TRANSFERASE 46 Units/L (15-37); BLOOD UREA NITROGEN 102 mg/dL (7-18); CALCIUM 11.8 mg/dL (8.5-10.1); CARBON DIOXIDE 21.8 mmol/L (21-32); CHLORIDE 102 mmol/L (98-107); CREATININE 3.34 mg/dL (0.55-1.02); MAGNESIUM 1.3 mg/dL (1.7-2.9); PHOSPHORUS 2.7 mg/dL (2.6-4.7); SODIUM 134 mmol/L (136-145); TOTAL PROTEIN 6.8 g/dL (6.4-8.2); eGFR NON BLACK RACES 15 (>60)
[2019-05-26] MEDS ORDERED: PHARMACY CONSULT LTC MEDICATIONS XX SCH (21:00)
[2019-05-26] MEDS: D5 NS 1000 ML 1,000 ML IV SCH (21:05)
[2019-05-26] MEDS ORDERED: MAGNESIUM SULFATE 1 GRAM/100 mL PREMIX 1 G/100 ML BAG IV ONE (21:43)
[2019-05-27] MEDS: D5 NS 1000 ML 1,000 ML IV SCH (04:43)
[2019-05-27 05:54] LABS: ALBUMIN 3.1 g/dL (3.4-5.0); CALCIUM 11.3 mg/dL (8.5-10.1); CARBON DIOXIDE 18.9 mmol/L (21-32); CREATININE 3.52 mg/dL (0.55-1.02); MAGNESIUM 1.5 mg/dL (1.7-2.9); TOTAL PROTEIN 6.2 g/dL (6.4-8.2)
[2019-05-27 06:10] LABS: BASOPHILS % (AUTO) 0.7 % (0.2-1.0); EOSINOPHILS % (AUTO) 0.3 % (0.9-2.9); HEMATOCRIT 26.3 % (36.0-47.0); LYMPHOCYTES # (AUTO) 0.9 X10^3/uL (1.3-2.9); LYMPHOCYTES % (AUTO) 16.1 % (21.0-51.0); MEAN CORPUSCULAR HEMOGLOBIN 27.7 pg (27.0-34.0); MEAN CORPUSCULAR HGB CONC 34.1 g/dL (33.0-35.0); MEAN CORPUSCULAR VOLUME 81.1 fL (80.0-100.0); MEAN PLATELET VOLUME 8.4 fL (7.4-11.0); MONOCYTES # (AUTO) 0.3 x10^3/uL (0.3-0.8); MONOCYTES % (AUTO) 5.9 % (0.0-13.0); NEUTROPHILS # (AUTO) 4.2 x10^3/uL (2.2-4.8); PLATELET COUNT 98 X10^3/uL (150.0-450.0); RED BLOOD COUNT 3.24 X10^6/uL (3.5-5.4); RED CELL DISTRIBUTION WIDTH 17.5 % (11.6-16.5); WHITE BLOOD COUNT 5.4 X10^3/uL (3.6-10.0)
[2019-05-27] MEDS: NS 1000 ML 1,000 ML IV SCH ×2 (09:08→17:00)
--- NOTE | 2019-05-27 10:24 | PCM.PROG ---
Progress Note Progress Note for Day of Date of Exam: 05/27/19 Subjective Subjective: Pt is a 59 yo f admitted from [facility] d/t acute renal failure, dehydration, failure to thrive. On initial labs her Cr:3.34(BL~1.0), per nursing patient health status has been deteriorating and she has had a loss of appetite and not eating much. She is on IVF, Cr:3.34>3.52. She is resting in bed, not eating her breakfast this morning. Explained that she would need adequate nutrition daily to keep up her health. Pt acknowledged, but wanted to go back to sleep. Overall prognosis poor. Will continue to monitor and follow up labs in the morning. Past Medical Family Social History Past Med/Fam/Surg Hx: No changes since H&P Allergies: Allergies acetaminophen Allergy (Verified 05/27/19 00:10) codeine [From Tylenol-Codeine] Allergy (Verified 05/01/19 14:12) Penicillins Allergy (Verified 05/01/19 14:12) Review of Systems ROS: No change since H&P Vital Signs and I&O's Vital Signs: Temperature 97.9 F Pulse Rate [Left Brachial] 79 Pulse Rate [Right Brachial] 91 Respiratory Rate 20 Blood Pressure [Right Arm] 168/84 Blood Pressure [Left Arm] 106/57 Blood Pressure 169/81 O2 Sat by Pulse Oximetry 100 Intake and Output: Intake & Output 05/24/19 05/25/19 05/26/19 05/27/19 23:59 23:59 23:59 23:59 Intake Total 0 / 0 1500 / 1500 Balance 0 / 0 1500 / 1500 Physical Exam Oriented: Normal Eyes: Normal Ear: Normal Nose: Normal Respiratory: Normal Cardiovascular: Normal : Normal Auscultation: Bowel Sounds: Normal Tenderness: Normal Skin: Normal Musculoskeletal: Normal Psychiatric: Normal Affect: Quiet Speech Pattern: Clear Laboratory and Diagnostics Result Diagrams: 05/27/19 05:15 05/27/19 05:15 Labs: Laboratory WBC 5.4 X10^3/uL (3.6-10.0) 05/27/19 05:15 RBC 3.24 X10^6/uL (3.5-5.4) L 05/27/19 05:15 Hgb 9.0 g/dL (12.0-16.0) L 05/27/19 05:15 Hct 26.3 % (36.0-47.0) L 05/27/19 05:15 MCV 81.1 fL (80.0-100.0) 05/27/19 05:15 MCH 27.7 pg (27.0-34.0) 05/27/19 05:15 MCHC 34.1 g/dL (33.0-35.0) 05/27/19 05:15 RDW 17.5 % (11.6-16.5) H 05/27/19 05:15 Plt Count 98 X10^3/uL (150.0-450.0) L 05/27/19 05:15 MPV 8.4 fL (7.4-11.0) 05/27/19 05:15 Neut % (Auto) 77.0 % (42.0-75.0) H 05/27/19 05:15 Lymph % (Auto) 16.1 % (21.0-51.0) L 05/27/19 05:15 [place] % (Auto) 5.9 % (0.0-13.0) 05/27/19 05:15 Eos % (Auto) 0.3 % (0.9-2.9) L 05/27/19 05:15 Baso % (Auto) 0.7 % (0.2-1.0) 05/27/19 05:15 Neut # (Auto) 4.2 x10^3/uL (2.2-4.8) 05/27/19 05:15 Lymph # (Auto) 0.9 X10^3/uL (1.3-2.9) L 05/27/19 05:15 [place] # (Auto) 0.3 x10^3/uL (0.3-0.8) 05/27/19 05:15 Eos # (Auto) 0.0 x10^3/uL (0.0-0.2) 05/27/19 05:15 Baso # (Auto) 0.0 X10^3/uL (0.0-0.1) 05/27/19 05:15 Absolute Nucleated RBC 0.0 /100WBC 05/27/19 05:15 Sodium 135 mmol/L (136-145) L 05/27/19 05:15 Corrected Sodium 137 mmol/L (136-145) 05/27/19 05:15 Potassium 4.5 mmol/L (3.5-5.1) 05/27/19 05:15 Chloride 103 mmol/L (98-107) 05/27/19 05:15 Carbon Dioxide 18.9 mmol/L (21-32) L 05/27/19 05:15 BUN 102 mg/dL (7-18) H 05/27/19 05:15 Creatinine 3.52 mg/dL (0.55-1.02) H 05/27/19 05:15 Est GFR (MDRD) Af Amer 17 (>60) L 05/27/19 05:15 Est GFR (MDRD) Non-Af 14 (>60) L 05/27/19 05:15 Glucose 179 mg/dL (65-99) H 05/27/19 05:15 POC Glucose (mg/dL) 192 mg/dL (65-99) H 05/27/19 06:05 Calcium 11.3 mg/dL (8.5-10.1) H 05/27/19 05:15 Corrected Calcium 12.0 mg/dL (8.5-10.1) H 05/27/19 05:15 Phosphorus 2.7 mg/dL (2.6-4.7) 05/26/19 19:52 Magnesium 1.5 mg/dL (1.7-2.9) L 05/27/19 05:15 Total Bilirubin 0.50 mg/dL (0.2-1.0) 05/27/19 05:15 AST 31 Units/L (15-37) 05/27/19 05:15 ALT 33 Units/L (12-78) 05/27/19 05:15 Alkaline Phosphatase 112 Units/L (46-116) 05/27/19 05:15 Total Protein 6.2 g/dL (6.4-8.2) L 05/27/19 05:15 Albumin 3.1 g/dL (3.4-5.0) L 05/27/19 05:15 Globulin 3.1 g/dL (2.5-4.5) 05/27/19 05:15 Albumin/Globulin Ratio 1.0 Ratio (1.1-2.1) L 05/27/19 05:15 Plan (1) Acute renal failure: Status: Acute Plan: Continue IVF Cr:3.34>3.52 (2) Failure to thrive: Status: Acute Plan: Consult nutrition (3) Dehydration: Status: Acute
[2019-05-27] MEDS ORDERED: HumuLIN R SC PRN (16:43)
[2019-05-27] MEDS ORDERED: MAGNESIUM SULFATE 1 GRAM/100 mL PREMIX 1 GM/100 ML BAG IV PRN (20:18)
[2019-05-27] MEDS ORDERED: K-DUR TAB 20 MEQ PO PRN (20:18)
[2019-05-27] MEDS: JUVEN PO SCH (21:23)
[2019-05-27] MEDS: PEPCID TAB 20 MG PO SCH (21:24)
[2019-05-28] MEDS: NS 1000 ML 1,000 ML IV SCH ×4 (01:32→19:55)
[2019-05-28 05:45] LABS: CALCIUM 10.5 mg/dL (8.5-10.1); CARBON DIOXIDE 17.1 mmol/L (21-32); CREATININE 3.42 mg/dL (0.55-1.02); MAGNESIUM 2.1 mg/dL (1.7-2.9)
[2019-05-28] MEDS: JUVEN PO SCH ×2 (10:51→20:06)
[2019-05-28] MEDS: PEPCID TAB 20 MG PO SCH (10:51)
[2019-05-28] MEDS: PROTONIX TAB 40 MG PO SCH (10:51)
--- NOTE | 2019-05-28 11:10 | PCM.PROG ---
Progress Note Progress Note for Day of Date of Exam: 05/28/19 Subjective Subjective: Pt is a 59 yo f admitted from [facility] d/t acute renal failure, dehydration, failure to thrive. She is more alert this morning, she still does not want to eat her breakfast, stating she does not like the taste of the food. She did have tomato soup yesterday. She is agreeable to have Ensure shakes. Her Cr:3.32>3.52>3.42, slight improvement, continue IVF. Will continue to monitor and follow up labs in the morning. Past Medical Family Social History Past Med/Fam/Surg Hx: No changes since H&P Allergies: Allergies acetaminophen Allergy (Verified 05/27/19 00:10) codeine [From Tylenol-Codeine] Allergy (Verified 05/01/19 14:12) Penicillins Allergy (Verified 05/01/19 14:12) Review of Systems ROS: No change since H&P Vital Signs and I&O's Vital Signs: Temperature 97.9 F Pulse Rate [Left Brachial] 80 Pulse Rate [Right Brachial] 91 Respiratory Rate 20 Blood Pressure [Right Arm] 168/84 Blood Pressure [Left Arm] 125/59 Blood Pressure 169/81 O2 Sat by Pulse Oximetry 97 Intake and Output: Intake & Output 05/25/19 05/26/19 05/27/19 05/28/19 23:59 23:59 23:59 23:59 Intake Total 0 / 0 4200 / 4200 875 / 875 Balance 0 / 0 4200 / 4200 875 / 875 Physical Exam Oriented: Normal Eyes: Normal Ear: Normal Nose: Normal Respiratory: Normal Cardiovascular: Normal : Normal Auscultation: Bowel Sounds: Normal Tenderness: Normal Skin: Normal Musculoskeletal: Normal Psychiatric: Normal Affect: Quiet Speech Pattern: Clear and Appropriate Laboratory and Diagnostics Result Diagrams: 05/27/19 05:15 05/28/19 04:43 Labs: Laboratory WBC 5.4 X10^3/uL (3.6-10.0) 05/27/19 05:15 RBC 3.24 X10^6/uL (3.5-5.4) L 05/27/19 05:15 Hgb 9.0 g/dL (12.0-16.0) L 05/27/19 05:15 Hct 26.3 % (36.0-47.0) L 05/27/19 05:15 MCV 81.1 fL (80.0-100.0) 05/27/19 05:15 MCH 27.7 pg (27.0-34.0) 05/27/19 05:15 MCHC 34.1 g/dL (33.0-35.0) 05/27/19 05:15 RDW 17.5 % (11.6-16.5) H 05/27/19 05:15 Plt Count 98 X10^3/uL (150.0-450.0) L 05/27/19 05:15 MPV 8.4 fL (7.4-11.0) 05/27/19 05:15 Neut % (Auto) 77.0 % (42.0-75.0) H 05/27/19 05:15 Lymph % (Auto) 16.1 % (21.0-51.0) L 05/27/19 05:15 [place] % (Auto) 5.9 % (0.0-13.0) 05/27/19 05:15 Eos % (Auto) 0.3 % (0.9-2.9) L 05/27/19 05:15 Baso % (Auto) 0.7 % (0.2-1.0) 05/27/19 05:15 Neut # (Auto) 4.2 x10^3/uL (2.2-4.8) 05/27/19 05:15 Lymph # (Auto) 0.9 X10^3/uL (1.3-2.9) L 05/27/19 05:15 [place] # (Auto) 0.3 x10^3/uL (0.3-0.8) 05/27/19 05:15 Eos # (Auto) 0.0 x10^3/uL (0.0-0.2) 05/27/19 05:15 Baso # (Auto) 0.0 X10^3/uL (0.0-0.1) 05/27/19 05:15 Absolute Nucleated RBC 0.0 /100WBC 05/27/19 05:15 Sodium 135 mmol/L (136-145) L 05/28/19 04:43 Corrected Sodium 136 mmol/L (136-145) 05/28/19 04:43 Potassium 4.1 mmol/L (3.5-5.1) 05/28/19 04:43 Chloride 104 mmol/L (98-107) 05/28/19 04:43 Carbon Dioxide 17.1 mmol/L (21-32) L 05/28/19 04:43 BUN 98 mg/dL (7-18) H 05/28/19 04:43 Creatinine 3.42 mg/dL (0.55-1.02) H 05/28/19 04:43 Est GFR (MDRD) Af Amer 18 (>60) L 05/28/19 04:43 Est GFR (MDRD) Non-Af 14 (>60) L 05/28/19 04:43 Glucose 138 mg/dL (65-99) H 05/28/19 04:43 POC Glucose (mg/dL) 125 mg/dL (65-99) H 05/28/19 05:53 Calcium 10.5 mg/dL (8.5-10.1) H 05/28/19 04:43 Corrected Calcium 12.0 mg/dL (8.5-10.1) H 05/27/19 05:15 Phosphorus 2.7 mg/dL (2.6-4.7) 05/26/19 19:52 Magnesium 2.1 mg/dL (1.7-2.9) 05/28/19 04:43 Total Bilirubin 0.50 mg/dL (0.2-1.0) 05/27/19 05:15 AST 31 Units/L (15-37) 05/27/19 05:15 ALT 33 Units/L (12-78) 05/27/19 05:15 Alkaline Phosphatase 112 Units/L (46-116) 05/27/19 05:15 Total Protein 6.2 g/dL (6.4-8.2) L 05/27/19 05:15 Albumin 3.1 g/dL (3.4-5.0) L 05/27/19 05:15 Globulin 3.1 g/dL (2.5-4.5) 05/27/19 05:15 Albumin/Globulin Ratio 1.0 Ratio (1.1-2.1) L 05/27/19 05:15 Plan (1) Acute renal failure: Status: Acute Plan: Continue IVF Cr:3.34>3.52>3.42 (2) Failure to thrive: Status: Acute Plan: Consult nutrition (3) Dehydration: Status: Acute
[2019-05-29] MEDS: NS 1000 ML 1,000 ML IV SCH ×4 (02:14→18:39)
[2019-05-29 05:37] LABS: CALCIUM 10.2 mg/dL (8.5-10.1); CARBON DIOXIDE 16.2 mmol/L (21-32); CREATININE 3.18 mg/dL (0.55-1.02)
[2019-05-29] MEDS: JUVEN PO SCH ×2 (09:50→20:00)
[2019-05-29] MEDS: PROTONIX TAB 40 MG PO SCH (09:50)
[2019-05-29] MEDS: PEPCID TAB 20 MG PO SCH (09:50)
--- NOTE | 2019-05-29 14:42 | PCM.PROG ---
Progress Note Progress Note for Day of Date of Exam: 05/29/19 Subjective Subjective: Pt is a 59 yo f admitted from [facility] d/t acute renal failure, dehydration, failure to thrive. She is resting in bed this morning, she says she enjoyed the Ensure shake that she has been receiving. Her Cr:3.52>3.42>3.18, improving, continue IVF. Will continue to monitor and follow up labs in the morning. Past Medical Family Social History Past Med/Fam/Surg Hx: No changes since H&P Allergies: Allergies acetaminophen Allergy (Verified 05/27/19 00:10) codeine [From Tylenol-Codeine] Allergy (Verified 05/01/19 14:12) Penicillins Allergy (Verified 05/01/19 14:12) Review of Systems ROS: No change since H&P Vital Signs and I&O's Vital Signs: Temperature 98 F Pulse Rate [Left Brachial] 98 Pulse Rate [Right Brachial] 91 Respiratory Rate 20 Blood Pressure [Right Arm] 168/84 Blood Pressure [Left Arm] 137/66 Blood Pressure 169/81 O2 Sat by Pulse Oximetry 99 Intake and Output: Intake & Output 05/26/19 05/27/19 05/28/19 05/29/19 23:59 23:59 23:59 23:59 Intake Total 0 / 0 4200 / 4200 1950 120 / 120 Balance 0 / 0 4200 / 4200 1950 120 / 120 Physical Exam Oriented: Normal Eyes: Normal Ear: Normal Nose: Normal Respiratory: Normal Cardiovascular: Normal : Normal Auscultation: Bowel Sounds: Normal Tenderness: Normal Skin: Normal Musculoskeletal: Normal Psychiatric: Normal Affect: Quiet Speech Pattern: Clear and Appropriate Laboratory and Diagnostics Result Diagrams: 05/27/19 05:15 05/29/19 04:46 Labs: Laboratory WBC 5.4 X10^3/uL (3.6-10.0) 05/27/19 05:15 RBC 3.24 X10^6/uL (3.5-5.4) L 05/27/19 05:15 Hgb 9.0 g/dL (12.0-16.0) L 05/27/19 05:15 Hct 26.3 % (36.0-47.0) L 05/27/19 05:15 MCV 81.1 fL (80.0-100.0) 05/27/19 05:15 MCH 27.7 pg (27.0-34.0) 05/27/19 05:15 MCHC 34.1 g/dL (33.0-35.0) 05/27/19 05:15 RDW 17.5 % (11.6-16.5) H 05/27/19 05:15 Plt Count 98 X10^3/uL (150.0-450.0) L 05/27/19 05:15 MPV 8.4 fL (7.4-11.0) 05/27/19 05:15 Neut % (Auto) 77.0 % (42.0-75.0) H 05/27/19 05:15 Lymph % (Auto) 16.1 % (21.0-51.0) L 05/27/19 05:15 [place] % (Auto) 5.9 % (0.0-13.0) 05/27/19 05:15 Eos % (Auto) 0.3 % (0.9-2.9) L 05/27/19 05:15 Baso % (Auto) 0.7 % (0.2-1.0) 05/27/19 05:15 Neut # (Auto) 4.2 x10^3/uL (2.2-4.8) 05/27/19 05:15 Lymph # (Auto) 0.9 X10^3/uL (1.3-2.9) L 05/27/19 05:15 [place] # (Auto) 0.3 x10^3/uL (0.3-0.8) 05/27/19 05:15 Eos # (Auto) 0.0 x10^3/uL (0.0-0.2) 05/27/19 05:15 Baso # (Auto) 0.0 X10^3/uL (0.0-0.1) 05/27/19 05:15 Absolute Nucleated RBC 0.0 /100WBC 05/27/19 05:15 Sodium 137 mmol/L (136-145) 05/29/19 04:46 Corrected Sodium 138 mmol/L (136-145) 05/29/19 04:46 Potassium 3.9 mmol/L (3.5-5.1) 05/29/19 04:46 Chloride 105 mmol/L (98-107) 05/29/19 04:46 Carbon Dioxide 16.2 mmol/L (21-32) L 05/29/19 04:46 BUN 93 mg/dL (7-18) H 05/29/19 04:46 Creatinine 3.18 mg/dL (0.55-1.02) H 05/29/19 04:46 Est GFR (MDRD) Af Amer 19 (>60) L 05/29/19 04:46 Est GFR (MDRD) Non-Af 16 (>60) L 05/29/19 04:46 Glucose 124 mg/dL (65-99) H 05/29/19 04:46 POC Glucose (mg/dL) 115 mg/dL (65-99) H 05/29/19 11:30 Calcium 10.2 mg/dL (8.5-10.1) H 05/29/19 04:46 Corrected Calcium 12.0 mg/dL (8.5-10.1) H 05/27/19 05:15 Phosphorus 2.7 mg/dL (2.6-4.7) 05/26/19 19:52 Magnesium 2.1 mg/dL (1.7-2.9) 05/28/19 04:43 Total Bilirubin 0.50 mg/dL (0.2-1.0) 05/27/19 05:15 AST 31 Units/L (15-37) 05/27/19 05:15 ALT 33 Units/L (12-78) 05/27/19 05:15 Alkaline Phosphatase 112 Units/L (46-116) 05/27/19 05:15 Total Protein 6.2 g/dL (6.4-8.2) L 05/27/19 05:15 Albumin 3.1 g/dL (3.4-5.0) L 05/27/19 05:15 Globulin 3.1 g/dL (2.5-4.5) 05/27/19 05:15 Albumin/Globulin Ratio 1.0 Ratio (1.1-2.1) L 05/27/19 05:15 Plan (1) Acute renal failure: Status: Acute Plan: Continue IVF Cr:3.52>3.42>3.18 (2) Failure to thrive: Status: Acute Plan: Consult nutrition Ensure shakes (3) Dehydration: Status: Acute
[2019-05-30] MEDS: NS 1000 ML 1,000 ML IV SCH ×2 (01:37→11:16)
[2019-05-30 05:44] LABS: CALCIUM 10.1 mg/dL (8.5-10.1); CREATININE 3.17 mg/dL (0.55-1.02)
[2019-05-30 06:05] LABS: CARBON DIOXIDE 12.4 mmol/L (21-32)
[2019-05-30 08:52] VITALS: BP 127/59
[2019-05-30] MEDS ORDERED: SODIUM BICARBONATE TAB 650MG PO SCH (09:00)
[2019-05-30] MEDS: PROTONIX TAB 40 MG PO SCH (09:05)
[2019-05-30] MEDS: PEPCID TAB 20 MG PO SCH (09:05)
[2019-05-30] MEDS: JUVEN PO SCH (09:05)
--- NOTE | 2019-05-30 09:28 | W.DIS.FURT ---
Summary of Discharge Discharge Summary of Date Date of Exam: 05/30/19 Admission Date Date of Admission: 05/26/19 Admission Diagnosis Hospital Course: Pt is a 59 yo f admitted from [facility] d/t acute renal failure, dehydration, failure to thrive. Pt has had multiple admissions over the past year and overall health prognosis has been poor. She has had loss of appetite for the past few months and has refused to eat any food that has been provided to her. Per nursing, she received food that she requested from outside the facility but still did not eat but a few bites. Her change in nutritional status has had effect on her chronic medical problems, exacerbating them, and she is not a candidate for PEG, which is also against the POA wishes. She was found on this admission to have significant renal failure that has only slightly improved after receiving IVF. Cr: 3.52>3.17. Her gradual worsening acidosis in correlation with her kidney function. Plan or care and prognosis has been discussed with POA who verbalized understanding and is in agreement with plan of care. Will discharge patient to [facility], orders to receive daily IVF bolus x 1 week. Restart home medications. Will no longer check labs. Continue supportive care at nursing facility. Vital Signs: Vital Signs (72 hours) 05/27/19 12:00 05/27/19 16:00 05/27/19 20:00 Temperature 97.5 F L 98.5 F 98.2 F Pulse Rate [Left Brachial] 80 84 84 Pulse Rate [Right Brachial] Respiratory Rate 20 20 26 H Blood Pressure [Left Arm] 134/89 128/93 135/66 Blood Pressure [Right Arm] O2 Sat by Pulse Oximetry 100 98 98 05/28/19 00:00 05/28/19 04:00 05/28/19 08:00 Temperature 98.8 F 98.8 F 97.9 F Pulse Rate [Left Brachial] 92 H 88 80 Pulse Rate [Right Brachial] Respiratory Rate 28 H 28 H 20 Blood Pressure [Left Arm] 102/57 149/75 125/59 Blood Pressure [Right Arm] O2 Sat by Pulse Oximetry 100 98 97 05/28/19 12:00 05/28/19 16:00 05/28/19 19:58 Temperature 97.8 F 98.4 F 98.9 F Pulse Rate [Left Brachial] 96 H 93 H 96 H Pulse Rate [Right Brachial] Respiratory Rate 20 18 18 Blood Pressure [Left Arm] 116/69 149/78 132/79 Blood Pressure [Right Arm] O2 Sat by Pulse Oximetry 100 99 99 05/29/19 00:00 05/29/19 04:00 05/29/19 08:00 Temperature 97.7 F 97.9 F 97 F L Pulse Rate [Left Brachial] 98 H 94 H 90 Pulse Rate [Right Brachial] Respiratory Rate 26 H 28 H 20 Blood Pressure [Left Arm] 135/72 118/69 146/69 Blood Pressure [Right Arm] O2 Sat by Pulse Oximetry 100 100 98 05/29/19 12:00 05/29/19 16:00 05/29/19 20:00 Temperature 98 F 99.8 F H 100.6 F H Pulse Rate [Left Brachial] 98 H 96 H 98 H Pulse Rate [Right Brachial] Respiratory Rate 20 20 30 H Blood Pressure [Left Arm] 137/66 142/95 137/67 Blood Pressure [Right Arm] O2 Sat by Pulse Oximetry 99 98 98 05/30/19 00:00 05/30/19 04:00 05/30/19 08:00 Temperature 99.0 F 98.0 F 100.3 F H Pulse Rate [Left Brachial] 95 H 108 H Pulse Rate [Right Brachial] 112 H Respiratory Rate 20 24 18 Blood Pressure [Left Arm] 141/86 142/75 Blood Pressure [Right Arm] 127/59 O2 Sat by Pulse Oximetry 94 L 95 95 Labs: Laboratory Last Values WBC 5.4 X10^3/uL (3.6-10.0) 05/27/19 05:15 RBC 3.24 X10^6/uL (3.5-5.4) L 05/27/19 05:15 Hgb 9.0 g/dL (12.0-16.0) L 05/27/19 05:15 Hct 26.3 % (36.0-47.0) L 05/27/19 05:15 MCV 81.1 fL (80.0-100.0) 05/27/19 05:15 MCH 27.7 pg (27.0-34.0) 05/27/19 05:15 MCHC 34.1 g/dL (33.0-35.0) 05/27/19 05:15 RDW 17.5 % (11.6-16.5) H 05/27/19 05:15 Plt Count 98 X10^3/uL (150.0-450.0) L 05/27/19 05:15 MPV 8.4 fL (7.4-11.0) 05/27/19 05:15 Neut % (Auto) 77.0 % (42.0-75.0) H 05/27/19 05:15 Lymph % (Auto) 16.1 % (21.0-51.0) L 05/27/19 05:15 [place] % (Auto) 5.9 % (0.0-13.0) 05/27/19 05:15 Eos % (Auto) 0.3 % (0.9-2.9) L 05/27/19 05:15 Baso % (Auto) 0.7 % (0.2-1.0) 05/27/19 05:15 Neut # (Auto) 4.2 x10^3/uL (2.2-4.8) 05/27/19 05:15 Lymph # (Auto) 0.9 X10^3/uL (1.3-2.9) L 05/27/19 05:15 [place] # (Auto) 0.3 x10^3/uL (0.3-0.8) 05/27/19 05:15 Eos # (Auto) 0.0 x10^3/uL (0.0-0.2) 05/27/19 05:15 Baso # (Auto) 0.0 X10^3/uL (0.0-0.1) 05/27/19 05:15 Absolute Nucleated RBC 0.0 /100WBC 05/27/19 05:15 Sodium 140 mmol/L (136-145) 05/30/19 04:08 Corrected Sodium 140 mmol/L (136-145) 05/30/19 04:08 Potassium 3.6 mmol/L (3.5-5.1) 05/30/19 04:08 Chloride 107 mmol/L (98-107) 05/30/19 04:08 Carbon Dioxide 12.4 mmol/L (21-32) L* 05/30/19 04:08 BUN 89 mg/dL (7-18) H 05/30/19 04:08 Creatinine 3.17 mg/dL (0.55-1.02) H 05/30/19 04:08 Est GFR (MDRD) Af Amer 19 (>60) L 05/30/19 04:08 Est GFR (MDRD) Non-Af 16 (>60) L 05/30/19 04:08 Glucose 111 mg/dL (65-99) H 05/30/19 04:08 POC Glucose (mg/dL) 111 mg/dL (65-99) H 05/30/19 05:16 Calcium 10.1 mg/dL (8.5-10.1) 05/30/19 04:08 Corrected Calcium 12.0 mg/dL (8.5-10.1) H 05/27/19 05:15 Phosphorus 2.7 mg/dL (2.6-4.7) 05/26/19 19:52 Magnesium 2.1 mg/dL (1.7-2.9) 05/28/19 04:43 Total Bilirubin 0.50 mg/dL (0.2-1.0) 05/27/19 05:15 AST 31 Units/L (15-37) 05/27/19 05:15 ALT 33 Units/L (12-78) 05/27/19 05:15 Alkaline Phosphatase 112 Units/L (46-116) 05/27/19 05:15 Total Protein 6.2 g/dL (6.4-8.2) L 05/27/19 05:15 Albumin 3.1 g/dL (3.4-5.0) L 05/27/19 05:15 Globulin 3.1 g/dL (2.5-4.5) 05/27/19 05:15 Albumin/Globulin Ratio 1.0 Ratio (1.1-2.1) L 05/27/19 05:15 Reason For Visit: ACUTE RENAL FAILURE,HYPERKALEMIA Discharge Date Discharge Date: 05/30/19 Discharge Diagnosis All Active Problems (Updated 05/27/19 @ 10:19 by Piotr Barillas) Dehydration (Acute) Failure to thrive (Acute) Acute renal failure (Acute) Urinary tract infection (Acute) Metabolic acidosis (Acute) Anemia (Acute) Esophageal candidiasis (Acute) Reflux esophagitis (Acute) Duodenal ulcer (Acute) Gastroesophageal reflux disease (Chronic) Essential hypertension (Chronic) Asthma (Chronic) Migraine (Chronic) Bartholin cyst (Acute) Cellulitis (Acute) Degenerative joint disease (DJD) of lumbar spine (Chronic) Peripheral neuropathy (Chronic) Arthritis (Acute) Sciatica (Acute) Constipation (Acute) Fracture of fibula, distal, closed (Acute) Uncontrolled type 2 diabetes mellitus with hyperglycemia (Acute) Sepsis (Acute) Dehydration (Acute) Plan of Treatment: Continue with present treatment and follow up plan. Pt is to keep follow up appointment as instructed and take medications as ordered. Discharge Medications Discharge Medications: acetaminophen Allergy (Verified 05/27/19 00:10) codeine [From Tylenol-Codeine] Allergy (Verified 05/01/19 14:12) Penicillins Allergy (Verified 05/01/19 14:12) CONTINUE taking the following medications multivitamin with minerals [Multiple Vitamin-Minerals] 1 tab PO DAILY 05/26/19 [History] tramadol 50 mg PO Q6HR PRN 05/26/19 [History] New Prescriptions nystatin 1 ml BC ONCE PRN #200 ml 05/30/19 [Rx] sodium bicarbonate 650 mg PO DAILY 30 Days #30 tab 05/30/19 [Rx] Discharge Disposition Discharge Disposition: [facility]
== END 2019-05-30 14:00 | DRG 684 ==
LOC: MED/SURG 18:59
PROVIDERS: ADMIT Family Medicine; ATTEND Family Medicine
DX: E87.5 Hyperkalemia; N17.8 Other acute kidney failure; R62.7 Adult failure to thrive; E86.0 Dehydration
CPT/HCPCS: 36415; 80048; 80053; 83735; 84100; 85025; A4222; J3475; J7030; J7042